=== PATIENT | female | born 1960 | race Caucasian/White ===

== ENCOUNTER → 2018-02-20 16:50 | Outpatient (CLI) | payer BC, SELFPAY ==
--- NOTE | 2018-02-20 13:45 | FLU_PTH ---
PATIENT: ANA ISLAS LOC: [facility]I U#:[id number] AGE/SX: 64/F ROOM: RE02/20/[address]: Dr. Rachid Powell MD : 1960 BED: DIS: SPEC #: [id number] RECD: 02/20/18 13:45 STATUS: JONAS REKhai #: [id number] NATALIE: 02/20/18 13:[address]: Rachid Powell DEPT: CYTOLOGY RECD BY: Zaynab Fermin ENTERED: 02/21/18 09:19 SP TYPE: Fluid OTHR DR: Dr. Staci Dan MD Tissues: Urine Procedures: Pap Stain (control) Special Stain Group II Surgery Specimen Level IV Cytospin Fluid HEADER OPERATION: Not noted PRE-OP DIAGNOSIS: R31.21, Z87.440 TISSUE SUBMITTED: Urine for cytology DIAGNOSIS CYTOLOGY Urine for cytology (cytospin): Rare atypical urothelial cells present. AM:mi 02/22/18 COMMENT The findings are nonspecific and could represent a variety of conditions including infection, urolithiasis, instrumentation and low grade urothelial neoplasm. Clinical correlation is necessary. CYTOLOGY STUDY Slides are reviewed. CYTOLOGY GROSS Received is 65 ml of clear pale yellow fluid labeled with the patient's name and and designated per the requisition as urine. Submitted for cytology preparation. / CC:cc 02/21/18 TC:? CPT: 26154
[2018-02-20 16:52] LABS: Cytology, Body Fluid / CSF SEE PATHOLOGY REPORT
== END ==
PROVIDERS: Family Provider Internal Medicine; PCP Internal Medicine; Visit Provider Urology
DX: R31.21 Asymptomatic microscopic hematuria (principal); Z87.440 Personal history of urinary (tract) infections
CPT/HCPCS: 88108; 88305; 88313

== ENCOUNTER → 2018-02-28 15:56 | Outpatient (CLI) | payer BC, SELFPAY ==
--- NOTE | 2018-02-28 16:01 | US_ITS ---
STUDY: ULTRASOUND TRANSVAGINAL CLINICAL: Female, 57 years old. Right adnexal mass. TECHNIQUE: Transvaginal COMPARISON: None. FINDINGS: Uterus is retroverted midline measuring 6.5 x 4.4 x 2.8 cm. Endometrium measures 2 mm in thickness and is hyperechoic. There are no endometrial masses, and there is no fluid in the endometrial cavity. Normal uterine cervix. Normal right ovary, measuring 3 x 2.7 x 2.7 cm. There are multiple follicles with a 2.6 cm dominant cyst Normal left ovary, measuring 2.5 x 2.7 x 2.2 cm. There are multiple follicles without a dominant cyst. There is no free fluid in the pelvis. US/Transvaginal Non- IMPRESSION: 1. 2.6 cm simple cyst in the right ovary. 2. Normal left ovary and uterus. Electronically Signed: Thor Sandra DO at 17:05 EDT Tel [phone], Service support ,
== END ==
LOC: US 15:58
PROVIDERS: Family Provider Internal Medicine; PCP Internal Medicine; Visit Provider Internal Medicine
DX: N83.9 Noninflammatory disorder of ovary, fallopian tube and broad ligament, unspecified (principal)
CPT/HCPCS: 76830; 93976

== ENCOUNTER → 2018-03-01 10:51 | Outpatient (CLI) | payer BC, SELFPAY ==
[2018-03-01 12:52] LABS: Hemoglobin A1c 5.4 % (4.2-6.3)
[2018-03-01 13:01] LABS: Estradiol < 11.0 pg/mL; Free T3 2.5 pg/mL (2.18-3.98); T4 Free Direct 0.76 ng/dL (0.76-1.46); Thyroid Stim Hormone (TSH) 2.21 uIU/mL (0.358-3.74)
[2018-03-02 09:14] LABS: Progesterone Level 0.06 ng/mL (See Comment)
== END ==
PROVIDERS: Visit Provider Obstetrics & Gynecology
DX: N83.209 Unspecified ovarian cyst, unspecified side (principal)
CPT/HCPCS: 36415; 82670; 83036; 84144; 84403; 84439; 84443; 84481

== ENCOUNTER → 2018-03-14 12:49 | Outpatient (CLI) | payer BC, SELFPAY ==
[2018-03-14 13:43] LABS: Erythrocyte Sedimentation Rate 13 mm/hr (0-30)
[2018-03-14 13:45] LABS: Hematocrit 38.4 % (37-47); Hemoglobin 12.5 g/dl (12.0-15.0); Mean Corp Hgb Conc 32.6 g/gl (32-36); Mean Corpuscular Hgb 30.6 pg (27.0-32.0); Mean Corpuscular Volume 94.1 fL (81-99); Mean Platelet Vol. 10.7 fl (6.2-12.0); Platelet Count 239 K/mm3 (150-450); RBC Distribution Width CV 13.1 % (11.6-14.6); RBC Distribution Width SD 43.9 fl (35.1-43.9); Red Blood Count 4.08 M/mm3 (4.2-5.4); Scan Indicated on CBC? Y/N NO; White Blood Count 5.4 K/mm3 (4.4-11.0)
[2018-03-14 14:14] LABS: AST(SGOT) 13 U/L (15-37); Alanine Aminotransfer ALT/SGPT 12 U/L (13-56); Albumin, Serum 3.7 g/dL (3.2-5.0); Alkaline Phosphatase 58 U/L (45-117); Anion Gap 6 (5-15); BUN 10 mg/dL (7-18); BUN/Creat Ratio 12.9 RATIO (10-20); Calcium,Total 9.2 mg/dL (8.5-10.1); Chloride 108 mmol/L (98-107); Creatinine, Serum 0.78 mg/dL (0.55-1.02); EST Glomerular Filtration Rate 81 mL/min (>60); Est Glom Filt Rate - Afr Amer 98 mL/min (>60); Globulin 3.6 g/dL (2.2-4.2); Glucose 90 mg/dL (74-106); Potassium 4.1 mmol/L (3.5-5.1); Protein, Total 7.3 g/dL (6.4-8.2); Sodium Level 142 mmol/L (136-145)
[2018-03-14 14:15] LABS: CRP < 2.90 mg/L (0.0-3.0)
[2018-03-15 11:10] LABS: Carcinoembryonic Antigen 0.9 ng/mL (0.0-4.7)
== END ==
PROVIDERS: Family Provider Internal Medicine; PCP Internal Medicine; Visit Provider Surgery
DX: K63.9 Disease of intestine, unspecified (principal); K65.1 Peritoneal abscess
CPT/HCPCS: 36415; 80053; 82378; 85027; 85652; 86140

== ENCOUNTER 2018-03-23 06:51 | Day surgery (SDC) | payer BC, SELFPAY ==
--- NOTE | 2018-03-23 | IMM_PTH ---
PATIENT: ANA ISLAS LOC: EN U#:[id number] AGE/SX: 57/F ROOM: RE03/23/[address]: Dr. Jeffery Holloway MD : 1960 BED: DIS: 03/23/2018 SPEC #: [id number] RECD: 03/26/18 11:18 STATUS: JONAS REKhai #: [id number] NATALIE: 03/23/18 00:[address]: Jeffery Holloway DEPT: IMMUNOHISTOCHEMISTRY RECD BY: Klaudia Francis ENTERED: 03/26/18 11:19 SP TYPE: IMMUNO OTHR DR: Dr. Staci Dan MD Tissues: B - Stomach, NOS Procedures: H Pylori (initial) PHYSICIAN & INSTITUTION [place] [address] SPECIMEN INFORMATION: Tissue Source: B ? Antrum biopsy Clinical Info: Mesenteric/liver masses Specimen Number: [id number] CPT code: 92114 METHODOLOGY: Deparaffinized sections of prefer/formalin-fixed tissue or PAP/DQ stained slides are incubated with monoclonal/polyclonal antibodies/oligonucleotide probes. Localization is made via biotin free immunoperoxidase method. Appropriate controls are performed and reacted as expected. Results on target cell population are indicated in the following table: RESULTS: ANTIBODY / CLONE RESULT Block B H Pylori (polyclonal) negative These tests were developed and their performance characteristics determined by [facility]. They may not have been cleared or approved by the U.S. Food and Drug Administration. The FDA has determined that such clearance or approval is not necessary. INTERPRETATION: B. Antrum, biopsy: Negative for Helicobacter pylori organisms. SJ:mi 03/26/18
--- NOTE | 2018-03-23 06:51 | DT_ITS ---
This patient was seen during an EMR downtime March 19, 2018 - March 26, 2018. This patient may have a combination of paper and electronic documentation or all paper documentation. All documentation is viewable within the e-chart portion of [facility] for each patient visit.
--- NOTE | 2018-03-23 08:32 | EGD_PTH ---
PATIENT: ANA ISLAS LOC: EN U#:[id number] AGE/SX: 57/F ROOM: RE03/23/[address]: Dr. Jeffery Holloway MD : 1960 BED: DIS: 03/23/2018 SPEC #: [id number] RECD: 03/23/18 11:52 STATUS: JONAS KISHORE #: [id number] NATALIE: 03/23/18 08:[address]: Jeffery Holloway DEPT: SURGICAL PATHOLOGY RECD BY: Leo Simon ENTERED: 03/23/18 12:19 SP TYPE: EGD BIOPSY OTHR DR: Dr. Staci Dan MD Tissues: A - Duodenum, NOS B - Gastric mucous membrane C - Gastric fundus D - Esophageal mucous membrane E - Sigmoid colon biopsy F - Sigmoid colon biopsy G - Sigmoid colon biopsy Procedures: Special Stain Group II Surgery Specimen Level IV Alcian Blue/PAS (control) HEADER OPERATION: EGD with biopsy; colonoscopy with biopsy/polypectomy PRE-OP DIAGNOSIS: Mesenteric/liver masses TISSUE SUBMITTED: A ? Biopsy duodenum, B ? Biopsy antrum ? path/pylori, C ? Gastric fundic polyps, D ? Distal esophagus, E ? Biopsy polyp proximal sigmoid, F ? Polyp sigmoid, G ? Polyp distal sigmoid MICROSCOPIC DIAGNOSIS A. 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 B. Antrum, biopsy: Mild gastritis. C. Gastric fundic polyps, biopsy: Fundic gland polyp. D. Distal esophagus, biopsy: Fragment of gastroesophageal mucosa with chronic inflammation. Intestinal metaplasia (goblet cell metaplasia) is not identified. See comment. E. Polyp proximal sigmoid, biopsy: Tubular adenoma. F. Polyp mid sigmoid, biopsy: Tubular adenoma. G. Polyp distal sigmoid, biopsy: A minute fragment of colonic mucosa with tubular adenomatous changes. Fragments of fecal material. See comment. SJ:rg 03/26/18 COMMENT B. The results of immunohistochemistry for Helicobacter pylori will be reported separately ([id number]). C. Alcian blue/PAS stain with matched control is used in the evaluation of the specimen. G. The specimen almost entirely consists of fecal material. Multiple levels are examined. Fragment of colonic mucosa with tubular adenomatous changes is noted only in one of the levels. MICROSCOPIC DESCRIPTION Slides are reviewed. B. The specimen shows fragments of gastric mucosa with chronic inflammatory cell infiltrates in the lamina propria consisting of lymphocytes and plasma cells, consistent with mild chronic gastritis. GROSS DESCRIPTION A - Received in fixative is one container labeled with the patient's name and designated biopsy duodenum. The specimen consists of one irregular fragment of light hannon soft tissue that measures 0.3 x 0.2 x 0.1 cm. The specimen is totally submitted in one cassette. B - Received in fixative is one container labeled with the patient's name and designated biopsy antrum. The specimen consists of one irregular fragment of light hannon soft tissue that measures 0.7 x 0.2 x 0.1 cm. The specimen is totally submitted in one cassette. C - Received in fixative is one container labeled with the patient's name and designated gastric fundic polyp. The specimen consists of one irregular fragment of light hannon soft tissue that measures 0.3 x 0.2 x 0.1 cm. The specimen is totally submitted in one cassette. D - Received in fixative is one container labeled with the patient's name and designated biopsy distal esophagus. The specimen consists of one irregular fragment of light hannon soft tissue that measures 0.4 x 0.3 x 0.1 cm. The specimen is totally submitted in one cassette. E - Received in fixative is one container labeled with the patient's name and designated biopsy polyp proximal sigmoid. The specimen consists of multiple irregular fragments of light hannon soft tissue that in aggregate measure 1.5 x 0.3 x 0.1 cm. The specimen is totally submitted in one cassette. F - Received in fixative is one container labeled with the patient's name and designated polyp mid sigmoid. The specimen consists of a hannon-pink polyp measuring 0.5 x 0.5 x 0.3 cm. Also present in the container are multiple fragments of fecal material. The specimen is totally submitted in one cassette. G - Received in fixative is one container labeled with the patient's name and designated polyp distal sigmoid. The specimen consists of multiple irregular fragments of hannon soft tissue mixed with fecal material that in aggregate measure 0.5 x 0.2 x 0.1 cm. The specimen is totally submitted in one cassette. / SJ:mi 03/23/18 TC:1 CPT: 61029 x7, 99748
== END 2018-03-23 10:40 | disposition home or self-care (01) ==
LOC: EN 06:51 → AC 09:26
PROVIDERS: Family Provider Internal Medicine; PCP Internal Medicine; Visit Provider Surgery
PROC: 0DJD8ZZ Inspection of Lower Intestinal Tract, Via Natural or Artificial Opening Endoscopic (ICD-10-PCS; CPT 45378; principal; 2018-03-23 07:55)
DX: R19.07 Generalized intra-abdominal and pelvic swelling, mass and lump (principal); K31.7 Polyp of stomach and duodenum; K20.9 Esophagitis, unspecified; K76.9 Liver disease, unspecified; D12.5 Benign neoplasm of sigmoid colon; K29.70 Gastritis, unspecified, without bleeding; K44.9 Diaphragmatic hernia without obstruction or gangrene; G43.909 Migraine, unspecified, not intractable, without status migrainosus; Z79.899 Other long term (current) drug therapy
CPT/HCPCS: 43239; 45380; 45385; 88305; 88313; 88342; 99152; 99153; J7120

== ENCOUNTER → 2021-07-08 10:30 | Outpatient (CLI) | payer SELFPAY ==
--- NOTE | 2021-07-08 10:38 | RAD_ITS ---
EXAM: XR CHEST, 2 VIEWS CLINICAL INDICATION: COUGH TECHNIQUE: Frontal and lateral views of the chest. This report was created using [employer] report generation technology. COMPARISON: 09/03/2012. FINDINGS: LUNGS AND PLEURAL SPACES: Unremarkable. No consolidation or edema. No pneumothorax. No effusion. HEART: Unremarkable. Cardiac silhouette not enlarged. MEDIASTINUM: Central airways and mediastinal contour are unremarkable. BONES/JOINTS: Unremarkable. SOFT TISSUES: Unremarkable. RAD/Chest PA and Lateral IMPRESSION: No radiographic evidence of acute cardiopulmonary disease and unchanged since 09/03/2012. Electronically Signed: Sebastien Kline MD at 10:56 EDT , Service support ,
== END ==
PROVIDERS: PCP Internal Medicine; Referring Provider Internal Medicine; Visit Provider Internal Medicine
DX: R05 Cough (principal)
CPT/HCPCS: 71046

== ENCOUNTER → 2024-05-16 | Outpatient (CLI) | payer OTHER, SELFPAY ==
[2024-05-16 10:58] LABS: Absolute Lymphocyte Count 1.19 X10^3/uL (0.83-4.51); Absolute Neutrophil Count 1.1 X10^3/uL (2.0-7.7); Basophil# 0.02 X10^3/uL; Basophil% 0.8 % (0-1); Eosinophil# 0.05 X10^3/uL; Eosinophils% 1.9 % (0-5); Hematocrit 34.2 % (37-47); Hemoglobin 11.2 g/dL (12.0-15.0); Lymphocyte # 1.19 X10^3/ul (0.83-4.51); Lymphocyte % 44.9 % (19-41); Mean Corp Hgb Conc 32.7 g/dL (32-36); Mean Corpuscular Hgb 32.9 pg (27.0-32.0); Mean Corpuscular Volume 100.6 fL (81-99); Mean Platelet Vol. 9.3 fl (6.2-12.0); Monocyte# 0.32 X10^3/uL; Monocyte% 12.1 % (0-10); NRBC Flagged by Analyzer 0 % (0-5); Neutrophil # 1.06 X10^3/uL (2.7-7.7); Neutrophil % 39.9 % (47-70); Platelet Count 113 K/mm3 (150-450); RBC Distribution Width CV 13.7 % (11.6-14.6); RBC Distribution Width SD 50.2 fl (35.1-43.9); White Blood Count 2.7 K/mm3 (4.4-11.0)
[2024-05-16 11:13] LABS: ALB/GLOB Ratio 1.1 RATIO (0.9-2.4); AST(SGOT) 14 U/L (15-37); Alanine Aminotransfer ALT/SGPT 15 U/L (13-56); Albumin, Serum 3.5 g/dL (3.2-5.0); Alkaline Phosphatase 50 U/L (45-117); Anion Gap 5 (5-15); BUN 13 mg/dL (7-18); BUN/Creat Ratio 16.4 RATIO (10-20); Calcium,Total 9.3 mg/dL (8.5-10.1); Chloride 109 mmol/L (98-107); Creatinine, Serum 0.79 mg/dL (0.55-1.02); EST Glomerular Filtration Rate 77 mL/min (>60); Est Glom Filt Rate - Afr Amer 94 mL/min (>60); Globulin 3.3 g/dL (2.2-4.2); Glucose 80 mg/dL (74-106); LDH 177 U/L (84-246); Potassium 3.8 mmol/L (3.5-5.1); Protein, Total 6.8 g/dL (6.4-8.2); Sodium Level 142 mmol/L (136-145)
[2024-05-16 18:53] LABS: Xtra Tube EP Lab EXTRA TUBE
== END | disposition home or self-care (01) ==
LOC: PAVLAB 10:27
PROVIDERS: PCP Internal Medicine; Visit Provider Internal Medicine Medical Oncology
DX: C82.13 Follicular lymphoma grade II, intra-abdominal lymph nodes (principal); D49.0 Neoplasm of unspecified behavior of digestive system
CPT/HCPCS: 36415; 80053; 83615; 85025

== ENCOUNTER → 2024-08-05 | Outpatient (CLI) | payer OTHER, SELFPAY ==
--- NOTE | 2024-08-05 17:01 | US_ITS ---
INDICATION: monitory ovarian cyst EXAMINATION: Ultrasound US Pelvis Non OB Limited With Transvaginal Imaging TECHNIQUE: Transvaginal (for optimal evaluation of the adnexa) pelvic ultrasound was performed. Grayscale, spectral waveform, and color flow Doppler evaluation of the adnexa. COMPARISON: No relevant prior comparison study available FINDINGS: UTERUS: Retroverted. The uterus measures 5.7 x 4 x 2.8 cm. There is no uterine mass. The endometrial stripe measures 2.8 mm in AP diameter which is within normal limits. RIGHT OVARY: 5.1 x 3.8 x 2.0 cm. There is a 4.1 cm cyst in the right ovary. There is normal arterial inflow and venous outflow present in the right ovary. LEFT OVARY: 1.9 x 0.7 x 0.6 cm. Non-enlarged, normal echogenicity. There is normal arterial inflow and venous outflow present in the left ovary. FREE FLUID: None. US/Pelvic w/ Transvaginal IMPRESSION: Right ovarian cyst. Electronically Signed: Alexi Schreiber MD at 14:42 EDT ,
== END | disposition home or self-care (01) ==
LOC: US 17:01
PROVIDERS: PCP Internal Medicine; Referring Provider Obstetrics & Gynecology; Visit Provider Obstetrics & Gynecology
DX: N83.201 Unspecified ovarian cyst, right side (principal)
CPT/HCPCS: 76830; 76856

== ENCOUNTER → 2024-08-21 | Outpatient (CLI) | payer OTHER, SELFPAY ==
[2024-08-21 17:49] LABS: Absolute Lymphocyte Count 1.48 X10^3/uL (0.83-4.51); Absolute Neutrophil Count 0.2 X10^3/uL (2.0-7.7); Eosinophil# 0.01 X10^3/uL; Eosinophils% 0.6 % (0-5); Hematocrit 17.8 % (37-47); Hemoglobin 6.1 g/dL (12.0-15.0); Lymphocyte # 1.48 X10^3/ul (0.83-4.51); Lymphocyte % 83.1 % (19-41); Mean Corp Hgb Conc 34.3 g/dL (32-36); Mean Corpuscular Hgb 36.7 pg (27.0-32.0); Mean Corpuscular Volume 107.2 fL (81-99); Mean Platelet Vol. 12.3 fl (6.2-12.0); Monocyte# 0.08 X10^3/uL; Monocyte% 4.5 % (0-10); NRBC Flagged by Analyzer 0 % (0-5); Neutrophil # 0.21 X10^3/uL (2.7-7.7); Neutrophil % 11.8 % (47-70); POSITIVE COUNT YES; POSITIVE DIFFERENTIAL YES; RBC Distribution Width CV 14.4 % (11.6-14.6); RBC Distribution Width SD 54.5 fl (35.1-43.9); Red Blood Count 1.66 M/mm3 (4.2-5.4); White Blood Count 1.8 K/mm3 (4.4-11.0)
[2024-08-21 17:56] LABS: International Normalized Ratio 1.1; Prothrombin Time (Protime)PT. 13.7 SECONDS (11.7-14.9)
[2024-08-21 17:57] LABS: Partial Thromboplast Time 25.2 Seconds (24.1-36.2)
[2024-08-21 20:40] LABS: Differential Comment SCANNED; Differential Indicated SCAN CRITERIA MET; Platelet Count 6 K/mm3 (150-450)
[2024-08-23 08:11] LABS: Pathologist Review Reviewed
== END | disposition home or self-care (01) ==
LOC: MTLAB 14:38
PROVIDERS: PCP Internal Medicine; Referring Provider Nurse Practitioner Family; Visit Provider Nurse Practitioner Family
DX: D69.2 Other nonthrombocytopenic purpura (principal)
CPT/HCPCS: 36415; 85025; 85610; 85730

== ENCOUNTER 2024-09-03 13:31 | Outpatient (CLI) | payer OTHER, SELFPAY ==
[2024-09-03 13:51] VITALS: BP 106/55; PULSE 67; RESP 16; TEMP 36.2; O2SAT 100
[2024-09-03 14:06] VITALS: BP 101/63; PULSE 62; RESP 14; TEMP 36.3; O2SAT 100
[2024-09-03 14:43] VITALS: BP 103/58; PULSE 65; RESP 16; TEMP 36.3; O2SAT 100
== END 2024-09-03 23:59 | disposition home or self-care (01) ==
LOC: MEDOUTP 13:31
PROVIDERS: PCP Internal Medicine
DX: D61.818 Other pancytopenia (principal)
CPT/HCPCS: 36430; 86900; 86901; 86965; J7050; P9035; A4216

== ENCOUNTER 2024-09-13 07:51 | Outpatient (CLI) | payer OTHER, SELFPAY ==
[2024-09-13 08:30] LABS: Absolute Lymphocyte Count 0.42 X10^3/uL (0.83-4.51); Absolute Neutrophil Count 0.1 X10^3/uL (2.0-7.7); Hemoglobin 9.3 g/dL (12.0-15.0); Lymphocyte # 0.42 X10^3/ul (0.83-4.51); Lymphocyte % 73.7 % (19-41); Mean Corp Hgb Conc 35.8 g/dL (32-36); Mean Corpuscular Hgb 31.1 pg (27.0-32.0); Mean Platelet Vol. 8.6 fl (6.2-12.0); Monocyte# 0.04 X10^3/uL; NRBC Flagged by Analyzer 0 % (0-5); Neutrophil # 0.11 X10^3/uL (2.7-7.7); Neutrophil % 19.3 % (47-70); POSITIVE COUNT YES; POSITIVE DIFFERENTIAL YES; Platelet Count 16 K/mm3 (150-450); RBC Distribution Width CV 18.4 % (11.6-14.6); RBC Distribution Width SD 58.6 fl (35.1-43.9); Red Blood Count 2.99 M/mm3 (4.2-5.4); White Blood Count 0.6 K/mm3 (4.4-11.0)
[2024-09-13 08:36] LABS: Differential Indicated SCAN CRITERIA MET
[2024-09-13 08:47] LABS: ALB/GLOB Ratio 0.9 RATIO (0.9-2.4); AST(SGOT) 13 U/L (15-37); Alanine Aminotransfer ALT/SGPT 31 U/L (13-56); Albumin, Serum 3.1 g/dL (3.2-5.0); Alkaline Phosphatase 55 U/L (45-117); Anion Gap 8 (5-15); BUN 30 mg/dL (7-18); BUN/Creat Ratio 25.6 RATIO (10-20); Calcium,Total 9.3 mg/dL (8.5-10.1); Chloride 100 mmol/L (98-107); Creatinine, Serum 1.17 mg/dL (0.55-1.02); EST Glomerular Filtration Rate 49 mL/min (>60); Est Glom Filt Rate - Afr Amer 60 mL/min (>60); Globulin 3.6 g/dL (2.2-4.2); Glucose 117 mg/dL (74-106); Potassium 4.2 mmol/L (3.5-5.1); Protein, Total 6.7 g/dL (6.4-8.2); Sodium Level 132 mmol/L (136-145)
[2024-09-13 08:56] LABS: Platelet Estimate MKD DEC (ADEQ)
[2024-09-13 16:23] LABS: Xtra CC BBK (Onc ONLY) EXTRA TUBE
[2024-09-16 13:48] LABS: Pathologist Review Reviewed
== END 2024-09-13 23:59 | disposition home or self-care (01) ==
LOC: MEDOUTP 07:51
PROVIDERS: PCP Internal Medicine; Referring Provider Nurse Practitioner Gerontology; Visit Provider Nurse Practitioner Gerontology
DX: D61.818 Other pancytopenia (principal)
CPT/HCPCS: 36592; 80053; 85025; 86900; 86901; A4216

== ENCOUNTER 2024-09-14 08:05 | Outpatient (CLI) | payer OTHER, SELFPAY ==
[2024-09-14 09:01] VITALS: BP 140/80; PULSE 63; RESP 16; TEMP 36.5; O2SAT 99
[2024-09-14 09:16] VITALS: BP 125/75; PULSE 64; RESP 17; TEMP 36.6; O2SAT 98
[2024-09-14 10:20] VITALS: BP 127/74; PULSE 58; RESP 18; TEMP 36.6; O2SAT 99
[2024-09-14 11:04] VITALS: BP 131/74; PULSE 60; RESP 18; TEMP 36.7; O2SAT 100
[2024-09-14] MEDS: 0.9 % NaCl (Sterile) Posiflush 10 mL IV (11:14)
== END 2024-09-14 11:26 | disposition home or self-care (01) ==
LOC: MEDOUTP 08:07 → MS3 08:08
PROVIDERS: PCP Internal Medicine; Referring Provider Nurse Practitioner Gerontology; Visit Provider Nurse Practitioner Gerontology
DX: D61.818 Other pancytopenia (principal)
CPT/HCPCS: 36430; 86900; 86901; 86965; P9035

== ENCOUNTER 2024-09-28 11:04 | Emergency (ER) | payer OTHER, SELFPAY ==
[2024-09-28] VITALS (13 sets, daily range): BP systolic 94–139; BP diastolic 54–77; PULSE 66–83; RESP 14–19; TEMP 36.4–37; O2SAT 96–100; BMI 20.7
--- NOTE | 2024-09-28 11:28 | EDS_ITS ---
<Statement entered by Teofilo Howard DO - 09/28/24 20:40> Patient was seen and examined with physician assistant Edmonds All components of the history and physical confirmed and agreed. History of present illness and physical exam: Patient is a 63-year-old female past medical history of aplastic anemia, migraine headaches who presents to the emergency department the chief complaint of right-sided nosebleed. States that this started around 7 AM this morning shortly after she woke up. She states that this continued for about an hour and then stopped on its own. She states that she went back to sleep and after waking up again her nose started to begin to bleed. She states that she called her oncology team in [place] at [facility] and they recommended her coming to the emergency department for the valuation management. Patient denies any trauma to her nose. She denies any blood thinning medications. She states that she did have labs obtained on 09/23/2024 that showed a platelet count of 22 and she states that she received a platelet transfusion as well. She notes that the area in her home is very dry and thinks that this could be the cause of this bleed. Review of systems: Agree with above Physical exam: Agree with above MDM Patient is a 63-year-old female who presented to the emerged part with chief complaint of epistaxis. Given her history of aplastic anemia and low platelet counts we will add on blood work here in the emergency department. Patient's previous blood work from [facility] was reviewed and showed a platelet count of 26 on the ninth of this month she had a platelet transfusion on September 17. She states that she follows with Dr. Grajeda as well. Patient's CBC reviewed and her white blood count was noted 1.1, hemoglobin was 6.4 and her platelet count was noted to be 4. Patient has not had any episodes of epistaxis here in the emergency department. Patient's BMP reviewed showed normal sodium 130, potassium was 4.6, creatinine normal at 0.94. Physician assistant Edmonds did speak with the oncologist Dr. López who is recommending giving 1 pack of platelets and 2 units of blood. She did confirm that the patient does not r equire CMV negative platelets through [facility] transfusion center. Patient was given transfusion and was observed here for extended period of time no episodes of epistaxis she tolerated this well. She is advised to follow-up with her oncologist on Monday. She was encouraged return with worsening symptoms or any concerns. She would like to go home at this point time all question concerns answered the bedside and she was discharged home in stable condition. Patient states that her stools been normal no dark black stools no blood in her stool. Plan: Final impression: Anemia Thrombocytopenia History of aplastic anemia Epistaxis Disposition: Patient will be discharged home in stable condition Supervising attending attestation: Teofilo HUMPHRIES History of Present Illness Chief Complaint: Nosebleed Narrative Narrative: Patient presenting today due to a right-sided nosebleed that started this morning around 7 AM when she woke up. She reports that it bled for about an hour and then stopped. She went back to sleep and after waking up her nose began to bleed again. She called her oncology team who manages her aplastic anemia and they recommended coming into the emergency department for evaluation. She denies any trauma to her nose, blood in the posterior pharynx, fevers, and chills. Her nose is not currently bleeding. She had labs obtained on 09/23/2024 that showed a platelet count of 22, she received a platelet transfusion 09/17. She has had nosebleeds in the past, she does not follow with ENT. She reports that the air in her home is very dry and thinks that could be contributing to it. She is not on blood thinners. [facility] Medical History Vaginal dryness Lymphoma Liver lesion Fatigue Adnexal fullness EGD WITH BIOPSY Migraine Mesenteric mass Constipation Cardiac murmur Home Medications ?Medication ?Instructions ?Recorded ?Last Taken ?Type sumatriptan succinate 50 mg tablet 50 mg PO ONCE PRN migraine headache 03/09/18 Unknown History (Imitrex) cranberry fruit 400 mg tablet 400 mg PO DAILY 08/04/23 Unknown History d-mannose 500 mg capsule (AZO mg PO 08/04/23 Unknown History D-Mannose) ibuprofen 200 mg capsule 200 mg PO Q6H PRN pain 08/04/23 Unknown History magnesium 200 mg tablet 200 mg PO DAILY 08/04/23 Unknown History Allergy/AdvReac Type Severity Reaction Status Date / Time Egg Derived Allergy Food Verified 09/28/24 11:06 Allergy Family History Mother Diabetes Kidney disease Grandmother Breast cancer Cancer Grandfather Cancer Surgical History History of hernia repair History of esophagogastroduodenoscopy (EGD) History of resection of small bowel Social History Smoking Status: Never smoker alcohol intake: current details: occasionally substance use type: does not use caffeine: Yes what type of physical activity do you participate in: walking and swimming frequency: 1-2 times per week seatbelt use: always do you feel safe at home: Yes additional social history: -[place] Patient is a paraprofessional at [employer] ED Constitutional Constitutional ED: Denies chills or fever(s) ENT ENT ED: Reports epistaxis Cardiovascular Cardiovascular: Denies chest pain Respiratory/Chest Respiratory/Chest: Denies dyspnea Gastrointestinal Gastrointestinal: Denies abdominal pain, melena, nausea or vomiting Musculoskeletal Musculoskeletal: Denies arthralgias or myalgias Integumentary Denies rash Neurologic Neurologic: Denies weakness EXAM Physical Exam Const Vital Signs: 09/28/24 11:05 09/28/24 13:05 09/28/24 14:15 Temperature 98 F 98.3 F Temperature Source Temporal Oral Pulse Rate 83 72 71 Respiratory Rate 14 15 16 Blood Pressure 130/72 H 110/59 L 109/54 L Blood Pressure Mean 91 76 72 Blood Pressure Source Monitor Blood Pressure Position Sitting Blood Pressure Location Left Arm Pulse Ox 99 98 99 Oxygen Delivery Method Room Air Room Air Room Air 09/28/24 14:30 09/28/24 15:00 09/28/24 15:30 Temperature 98.2 F 98.1 F Temperature Source Oral Oral Pulse Rate 73 71 73 Respiratory Rate 16 14 14 Blood Pressure 121/66 H 107/61 98/62 Blood Pressure Mean 84 76 74 Blood Pressure Source Monitor Monitor Blood Pressure Position Supine Blood Pressure Location Left Arm Pulse Ox 99 98 99 Oxygen Delivery Method Room Air Room Air Room Air 09/28/24 16:25 09/28/24 16:45 09/28/24 16:45 Temperature 98.2 F 98.2 F 98.6 F Temperature Source Oral Oral Oral Pulse Rate 73 74 69 Respiratory Rate 16 16 16 Blood Pressure 103/62 94/63 107/69 Blood Pressure Mean 75 73 81 Blood Pressure Source Monitor Monitor Monitor Blood Pressure Position Sitting Sitting Supine Blood Pressure Location Left Arm Left Arm Left Arm Pulse Ox 99 100 100 Oxygen Delivery Method Room Air Room Air Room Air 09/28/24 17:00 09/28/24 17:30 09/28/24 17:49 Temperature 98.6 F 97.5 F L Temperature Source Oral Temporal Pulse Rate 66 67 67 Respiratory Rate 16 16 16 Blood Pressure 108/70 113/77 136/70 H Blood Pressure Mean 82 89 92 Blood Pressure Source Monitor Monitor Blood Pressure Position Supine Blood Pressure Location Pulse Ox 100 99 96 Oxygen Delivery Method Room Air Room Air 09/28/24 18:49 09/28/24 19:17 Temperature 97.9 F 97.9 F Temperature Source Temporal Pulse Rate 66 77 Respiratory Rate 19 H 18 Blood Pressure 139/68 H 130/70 H Blood Pressure Mean 91 90 Blood Pressure Source Monitor Blood Pressure Position Blood Pressure Location Pulse Ox 99 99 Oxygen Delivery Method Positive well nourished, well developed and no apparent distress General Appearance ED: well developed HEENT Reports normocephalic and head/scalp atraumatic HEENT Narrative: Erythematous mucosa right anterior nostril. No active bleeding. No blood in the posterior pharynx, no septal hematoma, no septal deviation. Mouth ED: Yes moist mucous membranes normal Eyes PERRL and EOMs intact bilaterally Neck full ROM and supple Chest Wall inspection of chest normal Resp normal respiratory effort and clear to auscultation bilaterally Cardio regular rate and regular rhythm Back/Spine normal ROM and normal to inspection Extremity normal to inspection and full ROM Neuro oriented x3, CN's II-XII intact bilaterally, moves all extremities, no focal motor deficits and no sensory deficits noted Sensorium / Orientation: awake and alert Psych mental status grossly normal and thought process normal Skin no rashes or lesions noted and no wounds MDM MDM MDM Narrative Medical decision making narrative: Patient presenting today with a nosebleed that started around 7 AM this morning and lasted about an hour, and then stopped and started again, prompting her to come in. No active bleeding at this time. She does have a history of aplastic anemia, I did review previous labs and she had a platelet count of 26 on the ninth of this month. She last had a platelet transfusion on 09/17. She follows with Dr. Grajeda and gets her transfusions done at the [facility] transfusion center. She is nontoxic-appearing. Labs obtained, her WBC is 1.1, H&H is 6.4 and 19.2, platelet count is 4. She has no other signs of bleeding, no melena. BMP without any electrolyte derangement or kidney dysfunction. I did speak with on- call oncologist, Dr. Alvarado, he recommended giving 1 pack of platelets and 2 units of blood. I did confirm that patient is to receive irradiated and does not require CMV negative platelets through [facility] transfusion center. After transfusion she was observed for an extended period of time and is doing well. She is to follow-up with her oncologist in the next few days. Return instructions discussed. No recurrence of her epistaxis. She will be discharged home in stable condition. Lab Data Attestation: I reviewed the patient's lab results. Labs: Laboratory Results - last 24 hr 09/28/24 09/28/24 12:00 12:35 WBC 1.1 L* RBC 2.08 L Hgb 6.4 L Hct 19.2 L MCV 92.3 MCH 30.8 MCHC 33.3 RDW Std Deviation 64.3 H RDW Coeff of Shawna 19.2 H Plt Count 4 L* Immature Gran % (Auto) 0.900 Neut % (Auto) 4.4 L Lymph % (Auto) 88.5 H Traverse % (Auto) 5.3 Eos % (Auto) 0.9 Baso % (Auto) 0.0 Absolute Neuts (auto) 0.1 L Absolute Lymphs (auto) 1.00 Nucleated RBC % 1.8 Differential Comment Diff Path Review May foll Sodium 138 Potassium 4.6 Chloride 108 H Carbon Dioxide 26.0 Anion Gap 4 L BUN 16 Creatinine 0.94 Estim Creat Clear Calc 49.36 Est GFR (MDRD) Af Amer 77 Est GFR (MDRD) Non-Af 64 BUN/Creatinine Ratio 17.1 Glucose 101 Calcium 9.0 Blood Type O POSITIVE Antibody Screen NEGATIVE Crossmatch See Detail Discharge Plan Triage Chief Complaint: Nosebleed ED Midlevel Provider: Hodan Saul ED Provider: Teofilo Howard Dx/Rx/DC Orders Clinical Impression: Aplastic anemia, Acute anterior epistaxis Instructions: Anemia, ED Epistaxis (Adult) Prescriptions: No Action sumatriptan succinate [Imitrex] 50 mg tablet 50 mg PO ONCE PRN (Reason: migraine headache) ibuprofen 200 mg capsule 200 mg PO Q6H PRN (Reason: pain) magnesium 200 mg tablet 200 mg PO DAILY cranberry fruit 400 mg tablet 400 mg PO DAILY Rx Instructions: administer with a meal AZO D-Mannose 500 mg capsule PO Primary Care Provider: Nohemi Maynard Referrals: Nohemi Maynard DO [Primary Care Provider] - Activity Restrictions/Additional Instructions: Follow-up with your oncologist in the next 3 to 5 days. Return for any other concerns. Print Language: Vietnamese Disposition Disposition: Home, Self Care
[2024-09-28] MEDS: Oxymetazoline 0.05% 1 SPRAY SPRAY.BTL NASAL (11:59)
[2024-09-28 12:15] LABS: Absolute Neutrophil Count 0.1 X10^3/uL (2.0-7.7); Eosinophil# 0.01 X10^3/uL; Eosinophils% 0.9 % (0-5); Hematocrit 19.2 % (37-47); Hemoglobin 6.4 g/dL (12.0-15.0); Lymphocyte % 88.5 % (19-41); Mean Corp Hgb Conc 33.3 g/dL (32-36); Mean Corpuscular Hgb 30.8 pg (27.0-32.0); Mean Corpuscular Volume 92.3 fL (81-99); Monocyte# 0.06 X10^3/uL; Monocyte% 5.3 % (0-10); NRBC Flagged by Analyzer 1.8 % (0-5); Neutrophil # 0.05 X10^3/uL (2.7-7.7); Neutrophil % 4.4 % (47-70); POSITIVE COUNT YES; POSITIVE DIFFERENTIAL YES; Platelet Count 4 K/mm3 (150-450); RBC Distribution Width CV 19.2 % (11.6-14.6); RBC Distribution Width SD 64.3 fl (35.1-43.9); Red Blood Count 2.08 M/mm3 (4.2-5.4); White Blood Count 1.1 K/mm3 (4.4-11.0)
[2024-09-28 12:17] LABS: Differential Indicated SCAN CRITERIA MET
[2024-09-28 12:23] LABS: Anion Gap 4 (5-15); BUN 16 mg/dL (7-18); BUN/Creat Ratio 17.1 RATIO (10-20); Chloride 108 mmol/L (98-107); Creatinine, Serum 0.94 mg/dL (0.55-1.02); EST Glomerular Filtration Rate 64 mL/min (>60); Est Glom Filt Rate - Afr Amer 77 mL/min (>60); Estimated Creatinine Clearance 49.36 ml/min; Glucose 101 mg/dL (74-106); Potassium 4.6 mmol/L (3.5-5.1); Sodium Level 138 mmol/L (136-145)
--- NOTE | 2024-09-28 12:38 | ED.RN ---
PT IS ATTEMPTING TO TALK WITH DAUGHTER BUT IS UNABLE TO SPEAK CLEARLY. PT SEEMS TO UNDERSTAND WHAT IS TOLD TO HIM BUT IS UNABLE TO VERBALLY RESPOND. ATTEMPTED TO GET PT TO WRITE RESPONSES BUT PT DOESN'T REALLY READ AND WRITE WELL PER FAMILY SO HE ISN'T WILLING TO TRY.
[2024-10-01 15:14] LABS: Pathologist Review Reviewed
== END 2024-09-28 19:48 | disposition home or self-care (01) ==
PROVIDERS: Emergency Provider Emergency Medicine; PCP Internal Medicine; Visit Provider Emergency Medicine
DX: R04.0 Epistaxis (principal); D69.6 Thrombocytopenia, unspecified; D64.9 Anemia, unspecified; Z86.2 Personal history of diseases of the blood and blood-forming organs and certain disorders involving the immune mechanism
CPT/HCPCS: 36415; 80048; 85025; 86850; 86900; 86901; 86920; 86922; 86965; 99282; P9016; P9035; A4216

== ENCOUNTER 2024-09-29 02:05 | Emergency (ER) | payer OTHER, SELFPAY ==
[2024-09-29 02:06] VITALS: BP 123/72; PULSE 77; RESP 16; TEMP 36.6; O2SAT 100; BMI 21.6
[2024-09-29 02:58] LABS: Absolute Lymphocyte Count 0.81 X10^3/uL (0.83-4.51); Absolute Neutrophil Count 0.1 X10^3/uL (2.0-7.7); Hemoglobin 7.9 g/dL (12.0-15.0); Lymphocyte # 0.81 X10^3/ul (0.83-4.51); Lymphocyte % 84.4 % (19-41); Mean Corp Hgb Conc 34.3 g/dL (32-36); Mean Corpuscular Hgb 29.6 pg (27.0-32.0); Mean Corpuscular Volume 86.1 fL (81-99); Mean Platelet Vol. 10.1 fl (6.2-12.0); Monocyte# 0.06 X10^3/uL; Monocyte% 6.3 % (0-10); NRBC Flagged by Analyzer 0 % (0-5); Neutrophil # 0.09 X10^3/uL (2.7-7.7); Neutrophil % 9.3 % (47-70); POSITIVE COUNT YES; POSITIVE DIFFERENTIAL YES; RBC Distribution Width CV 18.9 % (11.6-14.6); RBC Distribution Width SD 58.5 fl (35.1-43.9); Red Blood Count 2.67 M/mm3 (4.2-5.4)
[2024-09-29 03:02] LABS: Differential Indicated SCAN CRITERIA MET
[2024-09-29 03:04] LABS: Platelet Count 34 K/mm3 (150-450); Prothrombin Time (Protime)PT. 13.1 SECONDS (11.7-14.9)
[2024-09-29 03:05] LABS: Partial Thromboplast Time 25.6 Seconds (24.1-36.2)
[2024-09-29 03:43] LABS: Differential Comment SCANNED; Platelet Estimate MKD DEC (ADEQ)
[2024-09-29 03:44] LABS: Anisocytosis 2+; Hypochromasia 2+; Macrocytosis 1+; Microcytosis 1+; Ovalocyte 1+
[2024-09-29 03:46] LABS: Other RBC Morphology 2+
--- NOTE | 2024-09-29 03:46 | EX.ED.DYSGE1 ---
HPI History of Present Illness Chief Complaint: Nosebleed Informant: patient and spouse/S.O. Narrative Narrative: Patient is a 63-year-old female with diagnosis of aplastic anemia. She was seen in the ER earlier today secondary to spontaneous right-sided nosebleed. At that time labs were obtained and showed thrombocytopenia with a platelet count of 4 as well as anemia with a hemoglobin of 6.4. She was given 2 units of blood and 1 unit of platelets in the ER and watched for multiple hours and her bleeding spontaneously resolved without repeat bleeding. She states she was discharged home and was home for a few hours when she had spontaneous bleeding from the right nostril once again. Patient denies any trauma or excessive blowing her nose prior to the bleeding beginning but as this is the second time it has bled today she is concerned it may need further intervention and comes in for evaluation [facility] Medical History Vaginal dryness Lymphoma Liver lesion Fatigue Adnexal fullness EGD WITH BIOPSY Migraine Mesenteric mass Constipation Cardiac murmur Home Medications ?Medication ?Instructions ?Recorded ?Last Taken ?Type sumatriptan succinate 50 mg tablet 50 mg PO ONCE PRN migraine headache 03/09/18 Unknown History (Imitrex) cranberry fruit 400 mg tablet 400 mg PO DAILY 08/04/23 Unknown History d-mannose 500 mg capsule (AZO mg PO 08/04/23 Unknown History D-Mannose) ibuprofen 200 mg capsule 200 mg PO Q6H PRN pain 08/04/23 Unknown History magnesium 200 mg tablet 200 mg PO DAILY 08/04/23 Unknown History tramadol 50 mg tablet 50 mg PO Q6H PRN pain 5 days #20 09/29/24 Unknown Rx tabs Allergy/AdvReac Type Severity Reaction Status Date / Time Egg Derived Allergy Food Verified 09/29/24 02:05 Allergy Family History Mother Diabetes Kidney disease Grandmother Breast cancer Cancer Grandfather Cancer Surgical History History of hernia repair History of esophagogastroduodenoscopy (EGD) History of resection of small bowel Social History Smoking Status: Never smoker alcohol intake: current details: occasionally substance use type: does not use caffeine: Yes what type of physical activity do you participate in: walking and swimming frequency: 1-2 times per week seatbelt use: always do you feel safe at home: Yes additional social history: -[place] Patient is a paraprofessional at [employer] ED Constitutional Constitutional ED: Denies chills or fever(s) Eyes Eyes: Denies blurry vision or change in vision ENT ENT ED: Reports other Details: Positive nosebleed Cardiovascular Cardiovascular: Denies chest pain Respiratory/Chest Respiratory/Chest: Denies cough or dyspnea Gastrointestinal Gastrointestinal: Denies abdominal pain, diarrhea, nausea or vomiting Genitourinary Genitourinary ED: Denies dysuria Musculoskeletal Musculoskeletal: Denies myalgias Integumentary Denies rash Neurologic Neurologic: Denies headache(s) Hematologic/Lymphatic Hematologic/Lymphatic: Reports anemia, easy bleeding and easy bruising Allergic/Immunologic Allergic/Immunologic ED: Denies mouth swelling or tongue swelling EXAM Physical Exam Const Vital Signs: 09/29/24 02:06 09/29/24 04:00 Temperature 98 F 97.6 F L Temperature Source Oral Pulse Rate 77 69 Respiratory Rate 16 16 Blood Pressure 123/72 H 114/58 L Blood Pressure Mean 89 76 Pulse Ox 100 98 Oxygen Delivery Method Room Air Positive well nourished and well developed General Appearance ED: well developed and pallor HEENT HEENT Narrative: Patient has a persistent ooze of dark red nonpulsatile blood from the right nostril. No obvious septal hematoma noted. No overflow bleeding out of the left nostril. There is mild drainage of blood in the posterior pharynx without airway edema or compromise Eyes PERRL and EOMs intact bilaterally General Eye ED: Yes pale conjunctiva and scleral icterus Neck supple Neck Narrative: No nuchal rigidity or meningeal signs Resp normal respiratory effort and clear to auscultation bilaterally Cardio regular rate and regular rhythm Extremity normal to inspection Neuro oriented x3, CN's II-XII intact bilaterally and no sensory deficits noted Sensorium / Orientation: alert Motor Exam: strength 5/5 throughout Psych mental status grossly normal Skin no rashes or lesions noted General Skin Exam: jaundice and pallor MDM MDM MDM Narrative Medical decision making narrative: Patient arrived to the ER with stable vitals and reported repeat spontaneous bleeding out of the right nostril. Because of her history of aplastic anemia there is concern that she will have persistent thrombocytopenia or require another blood transfusion based on her blood loss. Therefore basic labs were obtained. There was no obvious area along the nasal septum that showed active bleeding but as it has bled twice today I did feel it would require hemostasis with nasal packing. The patient therefore had a 5.5 cm rapid Rhino placed inside the right nostril and inflated to 3 cm of air. She was watched for approximately 45 minutes and there was no overflow bleeding out of the left nostril down the posterior pharynx. Lab work showed that her hemoglobin had improved to 7.9 and her platelet count had improved to 34. I did discuss the case with oncology on-call and they do not recommend further blood platelets or fresh frozen plasma to be given at this time as the bleeding has stopped and her recent values are much improved from earlier. The patient was advised she needs to follow-up with her oncologist as well as ENT for further evaluation and agrees with the plan of care but at this time as she is hemodynamically stable has had improvement to her laboratory values and is no longer bleeding she will be discharged home History & Record Review Discussion w/independent historian: Patient and Significant other Lab Data Attestation: I reviewed the patient's lab results. Labs: Laboratory Results - last 24 hr 09/29/24 02:50 WBC 1.0 L* RBC 2.67 L Hgb 7.9 L Hct 23.0 L MCV 86.1 D MCH 29.6 MCHC 34.3 RDW Std Deviation 58.5 H RDW Coeff of Shawna 18.9 H Plt Count 34 L* MPV 10.1 Immature Gran % (Auto) 0.000 Neut % (Auto) 9.3 L Lymph % (Auto) 84.4 H [place] % (Auto) 6.3 Eos % (Auto) 0.0 Baso % (Auto) 0.0 Absolute Neuts (auto) 0.1 L Absolute Lymphs (auto) 0.81 L Nucleated RBC % 0 Differential Comment SCANNED Diff Path Review May foll Platelet Estimate MKD DEC RBC Morphology 2+ Hypochromasia 2+ Anisocytosis 2+ Microcytosis 1+ Macrocytosis 1+ Ovalocytes 1+ PT 13.1 INR 1.0 APTT 25.6 Management Discussion w/another healthcare provider: Lead Consultant Discharge Plan Triage Chief Complaint: Nosebleed ED Provider: Andes,Jude Dx/Rx/DC Orders Clinical Impression: Acute anterior epistaxis, Aplastic anemia, Pancytopenia Instructions: ED Epistaxis (Adult) Prescriptions: New tramadol 50 mg tablet 50 mg PO Q6H PRN (Reason: pain) 5 Days Qty: 20 0RF No Action sumatriptan succinate [Imitrex] 50 mg tablet 50 mg PO ONCE PRN (Reason: migraine headache) ibuprofen 200 mg capsule 200 mg PO Q6H PRN (Reason: pain) magnesium 200 mg tablet 200 mg PO DAILY cranberry fruit 400 mg tablet 400 mg PO DAILY Rx Instructions: administer with a meal AZO D-Mannose 500 mg capsule PO Primary Care Provider: Nohemi Maynard Referrals: Nohemi Maynard DO [Primary Care Provider] - Activity Restrictions/Additional Instructions: Please follow-up with your oncologist as previously directed and also discussed seeing ear nose and throat for further evaluation of your recurrent nosebleed. Return to the ER should you have any further concerns Print Language: Jordanian Disposition Disposition: Home, Self Care Discharge Date/Time: 09/29/24 04:03
[2024-09-29] MEDS: traMADol 50 MG Tablet PO (03:59)
[2024-09-29 04:00] VITALS: BP 114/58; PULSE 69; RESP 16; TEMP 36.4; O2SAT 98
[2024-10-01 15:15] LABS: Pathologist Review Reviewed
== END 2024-09-29 04:03 | disposition home or self-care (01) ==
PROVIDERS: Emergency Provider Emergency Medicine; PCP Internal Medicine; Visit Provider Emergency Medicine
DX: R04.0 Epistaxis (principal); D61.818 Other pancytopenia; D69.6 Thrombocytopenia, unspecified
CPT/HCPCS: 30901; 36592; 85025; 85610; 85730; 99282; A4216

== ENCOUNTER 2024-10-02 11:03 | Outpatient (CLI) | payer OTHER, SELFPAY ==
[2024-10-02 11:44] LABS: Absolute Lymphocyte Count 0.68 X10^3/uL (0.83-4.51); Absolute Neutrophil Count 0.2 X10^3/uL (2.0-7.7); Hematocrit 24.8 % (37-47); Hemoglobin 8.5 g/dL (12.0-15.0); Lymphocyte # 0.68 X10^3/ul (0.83-4.51); Lymphocyte % 73.1 % (19-41); Mean Corp Hgb Conc 34.3 g/dL (32-36); Mean Corpuscular Hgb 29.7 pg (27.0-32.0); Mean Corpuscular Volume 86.7 fL (81-99); Monocyte# 0.09 X10^3/uL; Monocyte% 9.7 % (0-10); NRBC Flagged by Analyzer 0 % (0-5); Neutrophil # 0.15 X10^3/uL (2.7-7.7); Neutrophil % 16.1 % (47-70); POSITIVE COUNT YES; POSITIVE DIFFERENTIAL YES; RBC Distribution Width CV 17.3 % (11.6-14.6); RBC Distribution Width SD 54.2 fl (35.1-43.9); Red Blood Count 2.86 M/mm3 (4.2-5.4)
[2024-10-02 11:59] LABS: ALB/GLOB Ratio 0.7 RATIO (0.9-2.4); AST(SGOT) 16 U/L (15-37); Alanine Aminotransfer ALT/SGPT 16 U/L (13-56); Albumin, Serum 2.8 g/dL (3.2-5.0); Alkaline Phosphatase 59 U/L (45-117); Anion Gap 5 (5-15); BUN 26 mg/dL (7-18); Bilirubin, Direct 0.14 mg/dL (0.00-0.30); Calcium,Total 8.8 mg/dL (8.5-10.1); Chloride 105 mmol/L (98-107); Creatinine, Serum 1.37 mg/dL (0.55-1.02); EST Glomerular Filtration Rate 41 mL/min (>60); Est Glom Filt Rate - Afr Amer 50 mL/min (>60); Glucose 102 mg/dL (74-106); Potassium 4.4 mmol/L (3.5-5.1); Protein, Total 6.8 g/dL (6.4-8.2); Sodium Level 134 mmol/L (136-145)
[2024-10-02 12:06] LABS: Differential Indicated SCAN CRITERIA MET; Platelet Count 15 K/mm3 (150-450); White Blood Count 0.9 K/mm3 (4.4-11.0)
[2024-10-02 12:10] LABS: Platelet Estimate MKD DEC (ADEQ)
[2024-10-02 19:54] LABS: Xtra CC BBK (Onc ONLY) EXTRA TUBE
[2024-10-04 13:56] LABS: Pathologist Review Reviewed
== END 2024-10-02 23:59 | disposition home or self-care (01) ==
LOC: MEDOUTP 11:03
PROVIDERS: PCP Internal Medicine; Referring Provider Nurse Practitioner Gerontology; Visit Provider Nurse Practitioner Gerontology
DX: D61.818 Other pancytopenia (principal)
CPT/HCPCS: 36592; 80053; 82248; 85025; A4216

== ENCOUNTER 2024-11-28 13:26 | Outpatient (CLI) | payer OTHER, SELFPAY ==
[2024-11-28 14:13] LABS: Absolute Lymphocyte Count 1.09 X10^3/uL (0.83-4.51); Absolute Neutrophil Count 2.9 X10^3/uL (2.0-7.7); Basophil# 0.02 X10^3/uL; Basophil% 0.4 % (0-1); Eosinophil# 0.02 X10^3/uL; Eosinophils% 0.4 % (0-5); Hematocrit 27.1 % (37-47); Hemoglobin 9.4 g/dL (12.0-15.0); Lymphocyte # 1.09 X10^3/ul (0.83-4.51); Lymphocyte % 23.5 % (19-41); Mean Corp Hgb Conc 34.7 g/dL (32-36); Mean Corpuscular Hgb 32.1 pg (27.0-32.0); Mean Corpuscular Volume 92.5 fL (81-99); Monocyte# 0.61 X10^3/uL; Monocyte% 13.2 % (0-10); NRBC Flagged by Analyzer 0 % (0-5); Neutrophil # 2.87 X10^3/uL (2.7-7.7); Neutrophil % 62.1 % (47-70); POSITIVE COUNT YES; POSITIVE MORPHOLOGY YES; Platelet Count 68 K/mm3 (150-450); RBC Distribution Width CV 24.6 % (11.6-14.6); RBC Distribution Width SD 79.7 fl (35.1-43.9); Red Blood Count 2.93 M/mm3 (4.2-5.4); White Blood Count 4.6 K/mm3 (4.4-11.0)
[2024-11-28 14:14] LABS: Differential Indicated SCAN CRITERIA MET
[2024-11-28 14:28] LABS: ALB/GLOB Ratio 0.9 RATIO (0.9-2.4); AST(SGOT) 26 U/L (15-37); Alanine Aminotransfer ALT/SGPT 35 U/L (13-56); Albumin, Serum 3.3 g/dL (3.2-5.0); Alkaline Phosphatase 44 U/L (45-117); Anion Gap 8 (5-15); BUN 29 mg/dL (7-18); BUN/Creat Ratio 18.7 RATIO (10-20); Bilirubin, Direct 0.29 mg/dL (0.00-0.30); Calcium,Total 9.4 mg/dL (8.5-10.1); Chloride 108 mmol/L (98-107); Creatinine, Serum 1.55 mg/dL (0.55-1.02); EST Glomerular Filtration Rate 36 mL/min (>60); Est Glom Filt Rate - Afr Amer 43 mL/min (>60); Globulin 3.5 g/dL (2.2-4.2); Glucose 103 mg/dL (74-106); Potassium 4.4 mmol/L (3.5-5.1); Protein, Total 6.8 g/dL (6.4-8.2); Sodium Level 138 mmol/L (136-145)
[2024-11-28 14:54] LABS: Anisocytosis 2+; Platelet Estimate MKD DEC (ADEQ)
[2024-11-28 22:32] LABS: Xtra CC BBK (Onc ONLY) EXTRA TUBE
[2024-12-03 01:07] LABS: Cyclosporine 945 ng/mL (100-400)
== END 2024-11-28 23:59 | disposition home or self-care (01) ==
PROVIDERS: PCP Internal Medicine; Referring Provider Nurse Practitioner Gerontology; Visit Provider Nurse Practitioner Gerontology
DX: D61.3 Idiopathic aplastic anemia (principal)
CPT/HCPCS: 36592; 80053; 80158; 82248; 85025; A4216

== ENCOUNTER 2024-12-05 13:38 | Outpatient (CLI) | payer OTHER, SELFPAY ==
[2024-12-05 14:24] LABS: Absolute Lymphocyte Count 1.11 X10^3/uL (0.83-4.51); Absolute Neutrophil Count 2.6 X10^3/uL (2.0-7.7); Basophil# 0.01 X10^3/uL; Basophil% 0.2 % (0-1); Eosinophil# 0.04 X10^3/uL; Eosinophils% 0.9 % (0-5); Hematocrit 25.3 % (37-47); Hemoglobin 8.7 g/dL (12.0-15.0); Lymphocyte # 1.11 X10^3/ul (0.83-4.51); Lymphocyte % 25.6 % (19-41); Mean Corp Hgb Conc 34.4 g/dL (32-36); Mean Corpuscular Hgb 32.7 pg (27.0-32.0); Mean Corpuscular Volume 95.1 fL (81-99); Mean Platelet Vol. 11.8 fl (6.2-12.0); Monocyte# 0.59 X10^3/uL; Monocyte% 13.6 % (0-10); NRBC Flagged by Analyzer 0 % (0-5); Neutrophil # 2.56 X10^3/uL (2.7-7.7); Neutrophil % 59.2 % (47-70); POSITIVE COUNT YES; POSITIVE MORPHOLOGY YES; Platelet Count 88 K/mm3 (150-450); RBC Distribution Width CV 24.6 % (11.6-14.6); RBC Distribution Width SD 80.4 fl (35.1-43.9); Red Blood Count 2.66 M/mm3 (4.2-5.4); White Blood Count 4.3 K/mm3 (4.4-11.0)
[2024-12-05 14:30] LABS: ALB/GLOB Ratio 0.9 RATIO (0.9-2.4); AST(SGOT) 27 U/L (15-37); Alanine Aminotransfer ALT/SGPT 37 U/L (13-56); Albumin, Serum 3.3 g/dL (3.2-5.0); Alkaline Phosphatase 52 U/L (45-117); Anion Gap 8 (5-15); BUN 28 mg/dL (7-18); BUN/Creat Ratio 19.2 RATIO (10-20); Bilirubin, Direct 0.24 mg/dL (0.00-0.30); Calcium,Total 9.3 mg/dL (8.5-10.1); Chloride 107 mmol/L (98-107); Creatinine, Serum 1.46 mg/dL (0.55-1.02); EST Glomerular Filtration Rate 38 mL/min (>60); Est Glom Filt Rate - Afr Amer 46 mL/min (>60); Globulin 3.5 g/dL (2.2-4.2); Glucose 97 mg/dL (74-106); Potassium 4.5 mmol/L (3.5-5.1); Protein, Total 6.8 g/dL (6.4-8.2); Sodium Level 137 mmol/L (136-145)
[2024-12-05 14:57] LABS: Anisocytosis 2+
[2024-12-05 14:58] LABS: Platelet Estimate MOD DEC (ADEQ)
[2024-12-05 22:07] LABS: Xtra CC BBK (Onc ONLY) EXTRA TUBE
== END 2024-12-05 23:59 | disposition home or self-care (01) ==
PROVIDERS: PCP Internal Medicine; Referring Provider Nurse Practitioner Gerontology; Visit Provider Nurse Practitioner Gerontology
DX: D61.3 Idiopathic aplastic anemia (principal)
CPT/HCPCS: 36592; 80053; 82248; 85025; A4216

== ENCOUNTER 2024-12-12 12:52 | Outpatient (CLI) | payer OTHER, SELFPAY ==
[2024-12-12 13:17] LABS: Absolute Lymphocyte Count 1.09 X10^3/uL (0.83-4.51); Absolute Neutrophil Count 2.5 X10^3/uL (2.0-7.7); Basophil# 0.02 X10^3/uL; Basophil% 0.5 % (0-1); Differential Indicated SCAN CRITERIA MET; Eosinophil# 0.03 X10^3/uL; Eosinophils% 0.7 % (0-5); Hematocrit 25.7 % (37-47); Hemoglobin 8.8 g/dL (12.0-15.0); Lymphocyte # 1.09 X10^3/ul (0.83-4.51); Lymphocyte % 25.3 % (19-41); Mean Corp Hgb Conc 34.2 g/dL (32-36); Mean Corpuscular Hgb 33.6 pg (27.0-32.0); Mean Corpuscular Volume 98.1 fL (81-99); Mean Platelet Vol. 11.5 fl (6.2-12.0); Monocyte# 0.68 X10^3/uL; Monocyte% 15.8 % (0-10); NRBC Flagged by Analyzer 0 % (0-5); Neutrophil # 2.47 X10^3/uL (2.7-7.7); Neutrophil % 57.2 % (47-70); POSITIVE COUNT YES; POSITIVE MORPHOLOGY YES; Platelet Count 89 K/mm3 (150-450); RBC Distribution Width CV 23.9 % (11.6-14.6); RBC Distribution Width SD 81.4 fl (35.1-43.9); Red Blood Count 2.62 M/mm3 (4.2-5.4); White Blood Count 4.3 K/mm3 (4.4-11.0)
[2024-12-12 13:36] LABS: ALB/GLOB Ratio 1.4 RATIO (0.9-2.4); AST(SGOT) 27 U/L (<=31); Alanine Aminotransfer ALT/SGPT 19 U/L (<=34); Albumin, Serum 3.8 g/dL (3.4-4.8); Alkaline Phosphatase 51 U/L (35-104); Anion Gap 10 (5-15); BUN 25 mg/dL (4-19); BUN/Creat Ratio 16.9 RATIO (10-20); Bilirubin, Direct 0.31 mg/dL (0.00-0.30); Calcium 9.7 mg/dL (7.6-11.0); Carbon Dioxide 22.9 mmol/L (22.0-29.0); Chloride 101 mmol/L (96-108); Creatinine, Serum 1.5 mg/dL (0.6-1.0); EST Glomerular Filtration Rate 38 (>60); Globulin 2.7 g/dL (2.2-4.2); Glucose 127 mg/dL (70-99); Potassium 4.8 mmol/L (3.3-5.1); Protein, Total 6.6 g/dL (5.9-8.4); Sodium Level 134 mmol/L (133-145); Total Bilirubin 0.57 mg/dL (0.00-1.30)
[2024-12-12 13:44] LABS: Anisocytosis 1+; Platelet Estimate MOD DEC (ADEQ)
[2024-12-12 21:11] LABS: Xtra CC BBK (Onc ONLY) EXTRA TUBE; Xtra Tube EP Lab EXTRA TUBE
== END 2024-12-12 23:59 | disposition home or self-care (01) ==
LOC: MEDOUTP 12:52
PROVIDERS: PCP Internal Medicine; Referring Provider Nurse Practitioner Gerontology; Visit Provider Nurse Practitioner Gerontology
DX: D61.3 Idiopathic aplastic anemia (principal)
CPT/HCPCS: 36592; 80053; 82248; 85025; A4216

== ENCOUNTER 2024-12-26 11:30 | Outpatient (CLI) | payer OTHER, SELFPAY ==
[2024-12-26 12:24] LABS: Absolute Lymphocyte Count 1.01 X10^3/uL (0.83-4.51); Absolute Neutrophil Count 3.1 X10^3/uL (2.0-7.7); Basophil# 0.01 X10^3/uL; Basophil% 0.2 % (0-1); Eosinophil# 0.01 X10^3/uL; Eosinophils% 0.2 % (0-5); Hematocrit 24.4 % (37-47); Hemoglobin 8.6 g/dL (12.0-15.0); Lymphocyte # 1.01 X10^3/ul (0.83-4.51); Lymphocyte % 21.5 % (19-41); Mean Corp Hgb Conc 35.2 g/dL (32-36); Mean Corpuscular Hgb 35.4 pg (27.0-32.0); Mean Corpuscular Volume 100.4 fL (81-99); Mean Platelet Vol. 11.8 fl (6.2-12.0); Monocyte# 0.58 X10^3/uL; Monocyte% 12.3 % (0-10); NRBC Flagged by Analyzer 0 % (0-5); Neutrophil # 3.06 X10^3/uL (2.7-7.7); Neutrophil % 65.2 % (47-70); POSITIVE MORPHOLOGY YES; Platelet Count 100 K/mm3 (150-450); RBC Distribution Width CV 22.6 % (11.6-14.6); RBC Distribution Width SD 80.9 fl (35.1-43.9); Red Blood Count 2.43 M/mm3 (4.2-5.4); White Blood Count 4.7 K/mm3 (4.4-11.0)
[2024-12-26 12:25] LABS: Differential Indicated SCAN CRITERIA MET
[2024-12-26 12:58] LABS: Anisocytosis 1+
[2024-12-26 13:16] LABS: ALB/GLOB Ratio 1.5 RATIO (0.9-2.4); AST(SGOT) 26 U/L (<=31); Alanine Aminotransfer ALT/SGPT 16 U/L (<=34); Albumin, Serum 4.1 g/dL (3.4-4.8); Alkaline Phosphatase 52 U/L (35-104); Anion Gap 14 (5-15); BUN 27 mg/dL (4-19); Bilirubin, Direct 0.32 mg/dL (0.00-0.30); Calcium,Total 9.7 mg/dL (7.6-11.0); Carbon Dioxide 20.8 mmol/L (21.0-32.0); Chloride 103 mmol/L (98-108); Creatinine, Serum 1.59 mg/dL (0.70-1.20); EST Glomerular Filtration Rate 36 (>60); Globulin 2.6 g/dL (2.2-4.2); Glucose 137 mg/dL (70-99); Potassium 4.3 mmol/L (3.3-5.1); Protein, Total 6.7 g/dL (5.9-8.4); Sodium Level 138 mmol/L (133-145); Total Bilirubin 0.52 mg/dL (0.00-1.30)
[2024-12-26 20:14] LABS: Xtra CC BBK (Onc ONLY) EXTRA TUBE
== END 2024-12-26 23:59 | disposition home or self-care (01) ==
PROVIDERS: PCP Internal Medicine; Referring Provider Nurse Practitioner Gerontology
DX: D61.3 Idiopathic aplastic anemia (principal)
CPT/HCPCS: 36591; 80053; 82248; 85025; A4216

== ENCOUNTER 2025-01-02 12:40 | Outpatient (CLI) | payer OTHER, SELFPAY ==
[2025-01-02 13:27] LABS: Absolute Lymphocyte Count 0.92 X10^3/uL (0.83-4.51); Absolute Neutrophil Count 2.8 X10^3/uL (2.0-7.7); Basophil# 0.02 X10^3/uL; Basophil% 0.5 % (0-1); Eosinophil# 0.03 X10^3/uL; Eosinophils% 0.7 % (0-5); Hematocrit 23.1 % (37-47); Hemoglobin 8.2 g/dL (12.0-15.0); Lymphocyte # 0.92 X10^3/ul (0.83-4.51); Lymphocyte % 21.6 % (19-41); Mean Corp Hgb Conc 35.5 g/dL (32-36); Mean Corpuscular Hgb 36.3 pg (27.0-32.0); Mean Corpuscular Volume 102.2 fL (81-99); Mean Platelet Vol. 11.3 fl (6.2-12.0); Monocyte% 11.7 % (0-10); NRBC Flagged by Analyzer 0 % (0-5); Neutrophil # 2.77 X10^3/uL (2.7-7.7); POSITIVE MORPHOLOGY YES; Platelet Count 103 K/mm3 (150-450); RBC Distribution Width CV 21.9 % (11.6-14.6); RBC Distribution Width SD 78.6 fl (35.1-43.9); Red Blood Count 2.26 M/mm3 (4.2-5.4); White Blood Count 4.3 K/mm3 (4.4-11.0)
[2025-01-02 13:29] LABS: Differential Indicated SCAN CRITERIA MET
[2025-01-02 14:00] LABS: Anisocytosis 1+
[2025-01-02 14:20] LABS: ALB/GLOB Ratio 1.6 RATIO (0.9-2.4); AST(SGOT) 21 U/L (<=31); Alanine Aminotransfer ALT/SGPT 10 U/L (<=34); Albumin, Serum 3.9 g/dL (3.4-4.8); Alkaline Phosphatase 51 U/L (35-104); Anion Gap 12 (5-15); BUN 28 mg/dL (4-19); BUN/Creat Ratio 17.9 RATIO (10-20); Bilirubin, Direct 0.28 mg/dL (0.00-0.30); Calcium,Total 9.3 mg/dL (7.6-11.0); Carbon Dioxide 19.4 mmol/L (21.0-32.0); Chloride 104 mmol/L (98-108); Creatinine, Serum 1.55 mg/dL (0.70-1.20); EST Glomerular Filtration Rate 37 (>60); Globulin 2.4 g/dL (2.2-4.2); Glucose 113 mg/dL (70-99); Potassium 4.8 mmol/L (3.3-5.1); Protein, Total 6.3 g/dL (5.9-8.4); Sodium Level 136 mmol/L (133-145); Total Bilirubin 0.48 mg/dL (0.00-1.30)
== END 2025-01-02 23:59 | disposition home or self-care (01) ==
LOC: MEDOUTP 12:40
PROVIDERS: PCP Internal Medicine; Referring Provider Nurse Practitioner Gerontology
DX: D61.3 Idiopathic aplastic anemia (principal)
CPT/HCPCS: 36592; 80053; 82248; 85025; A4216

== ENCOUNTER 2025-01-09 12:31 | Outpatient (CLI) | payer OTHER, SELFPAY ==
[2025-01-09 12:54] LABS: Absolute Lymphocyte Count 0.99 X10^3/uL (0.83-4.51); Absolute Neutrophil Count 2.7 X10^3/uL (2.0-7.7); Basophil# 0.02 X10^3/uL; Basophil% 0.5 % (0-1); Eosinophil# 0.03 X10^3/uL; Eosinophils% 0.7 % (0-5); Hematocrit 22.7 % (37-47); Lymphocyte # 0.99 X10^3/ul (0.83-4.51); Lymphocyte % 22.4 % (19-41); Mean Corp Hgb Conc 35.2 g/dL (32-36); Mean Corpuscular Hgb 36.7 pg (27.0-32.0); Mean Corpuscular Volume 104.1 fL (81-99); Mean Platelet Vol. 11.3 fl (6.2-12.0); Monocyte# 0.67 X10^3/uL; Monocyte% 15.2 % (0-10); NRBC Flagged by Analyzer 0 % (0-5); Neutrophil # 2.69 X10^3/uL (2.7-7.7); Neutrophil % 60.7 % (47-70); POSITIVE MORPHOLOGY YES; Platelet Count 109 K/mm3 (150-450); RBC Distribution Width CV 21.2 % (11.6-14.6); RBC Distribution Width SD 77.5 fl (35.1-43.9); Red Blood Count 2.18 M/mm3 (4.2-5.4); White Blood Count 4.4 K/mm3 (4.4-11.0)
[2025-01-09 13:03] LABS: Differential Indicated SCAN CRITERIA MET
[2025-01-09 13:16] LABS: ALB/GLOB Ratio 1.4 RATIO (0.9-2.4); AST(SGOT) 20 U/L (<=31); Alanine Aminotransfer ALT/SGPT 9 U/L (<=34); Albumin, Serum 3.3 g/dL (3.4-4.8); Alkaline Phosphatase 50 U/L (35-104); Anion Gap 13 (5-15); BUN 30 mg/dL (4-19); BUN/Creat Ratio 17.4 RATIO (10-20); Carbon Dioxide 18.2 mmol/L (21.0-32.0); Chloride 105 mmol/L (98-108); Creatinine, Serum 1.74 mg/dL (0.70-1.20); EST Glomerular Filtration Rate 32 (>60); Globulin 2.4 g/dL (2.2-4.2); Glucose 96 mg/dL (70-99); Potassium 5.1 mmol/L (3.3-5.1); Protein, Total 5.7 g/dL (5.9-8.4); Sodium Level 136 mmol/L (133-145); Total Bilirubin 0.44 mg/dL (0.00-1.30)
[2025-01-09 14:22] LABS: Platelet Estimate SLT DEC (ADEQ)
[2025-01-09 14:23] LABS: Anisocytosis 2+; Ovalocyte 1+
[2025-01-09 20:48] LABS: Xtra CC BBK (Onc ONLY) EXTRA TUBE; Xtra Tube EP Lab EXTRA TUBE
== END 2025-01-09 23:59 | disposition home or self-care (01) ==
LOC: MEDOUTP 12:31
PROVIDERS: PCP Internal Medicine; Referring Provider Nurse Practitioner Gerontology
DX: D61.3 Idiopathic aplastic anemia (principal)
CPT/HCPCS: 36592; 80053; 82248; 85025; 86850; 86900; 86901; A4216

== ENCOUNTER 2025-01-10 08:14 | Outpatient (CLI) | payer OTHER, SELFPAY ==
[2025-01-10 08:30] VITALS: BP 130/65; PULSE 84; RESP 14; TEMP 36.2; O2SAT 100; BMI 19.3
[2025-01-10 08:50] VITALS: BP 128/70; PULSE 66; RESP 16; TEMP 36.1; O2SAT 100
[2025-01-10 09:50] VITALS: BP 127/79; PULSE 70; RESP 16; TEMP 36.2; O2SAT 100
[2025-01-10 10:40] VITALS: BP 126/61; PULSE 67; RESP 14; TEMP 36.3; O2SAT 99
== END 2025-01-10 23:59 | disposition home or self-care (01) ==
LOC: MEDOUTP 08:14
PROVIDERS: PCP Internal Medicine
DX: D61.3 Idiopathic aplastic anemia (principal)
CPT/HCPCS: 36430; 86850; 86900; 86901; P9016; A4216

== ENCOUNTER 2025-01-20 11:26 | Outpatient (CLI) | payer OTHER, SELFPAY ==
[2025-01-20 13:09] LABS: Absolute Lymphocyte Count 0.91 X10^3/uL (0.83-4.51); Absolute Neutrophil Count 2.6 X10^3/uL (2.0-7.7); Basophil# 0.01 X10^3/uL; Basophil% 0.2 % (0-1); Eosinophil# 0.04 X10^3/uL; Hemoglobin 9.1 g/dL (12.0-15.0); Lymphocyte # 0.91 X10^3/ul (0.83-4.51); Lymphocyte % 21.8 % (19-41); Mean Corpuscular Hgb 35.5 pg (27.0-32.0); Mean Corpuscular Volume 101.6 fL (81-99); Mean Platelet Vol. 11.5 fl (6.2-12.0); Monocyte# 0.61 X10^3/uL; Monocyte% 14.6 % (0-10); NRBC Flagged by Analyzer 0 % (0-5); Neutrophil % 62.2 % (47-70); POSITIVE COUNT YES; POSITIVE MORPHOLOGY YES; Platelet Count 99 K/mm3 (150-450); RBC Distribution Width SD 70.7 fl (35.1-43.9); Red Blood Count 2.56 M/mm3 (4.2-5.4); White Blood Count 4.2 K/mm3 (4.4-11.0)
[2025-01-20 13:30] LABS: ALB/GLOB Ratio 1.6 RATIO (0.9-2.4); AST(SGOT) 20 U/L (<=31); Alanine Aminotransfer ALT/SGPT 11 U/L (<=34); Albumin, Serum 3.9 g/dL (3.4-4.8); Alkaline Phosphatase 50 U/L (35-104); Anion Gap 11 (5-15); BUN 38 mg/dL (4-19); BUN/Creat Ratio 23.2 RATIO (10-20); Bilirubin, Direct 0.28 mg/dL (0.00-0.30); Calcium,Total 9.6 mg/dL (7.6-11.0); Carbon Dioxide 20.5 mmol/L (21.0-32.0); Chloride 105 mmol/L (98-108); Creatinine, Serum 1.64 mg/dL (0.70-1.20); EST Glomerular Filtration Rate 34 (>60); Globulin 2.4 g/dL (2.2-4.2); Glucose 121 mg/dL (70-99); Potassium 4.5 mmol/L (3.3-5.1); Protein, Total 6.3 g/dL (5.9-8.4); Sodium Level 136 mmol/L (133-145); Total Bilirubin 0.45 mg/dL (0.00-1.30)
[2025-01-20 14:17] LABS: Anisocytosis 1+; Platelet Estimate SLT DEC (ADEQ)
[2025-01-20 21:00] LABS: Xtra CC BBK (Onc ONLY) EXTRA TUBE; Xtra Tube EP Lab EXTRA TUBE
== END 2025-01-20 23:59 | disposition home or self-care (01) ==
LOC: MEDOUTP 11:26
PROVIDERS: PCP Internal Medicine; Referring Provider Nurse Practitioner Gerontology; Visit Provider Nurse Practitioner Family
DX: D61.3 Idiopathic aplastic anemia (principal)
CPT/HCPCS: 36592; 80053; 82248; 85025; A4216

== ENCOUNTER 2025-01-27 12:17 | Outpatient (CLI) | payer OTHER, SELFPAY ==
[2025-01-27 12:52] LABS: Absolute Lymphocyte Count 1.05 X10^3/uL (0.83-4.51); Absolute Neutrophil Count 2.2 X10^3/uL (2.0-7.7); Basophil# 0.03 X10^3/uL; Basophil% 0.7 % (0-1); Eosinophil# 0.06 X10^3/uL; Eosinophils% 1.5 % (0-5); Hematocrit 25.8 % (37-47); Lymphocyte # 1.05 X10^3/ul (0.83-4.51); Lymphocyte % 26.1 % (19-41); Mean Corp Hgb Conc 34.9 g/dL (32-36); Mean Corpuscular Hgb 35.7 pg (27.0-32.0); Mean Corpuscular Volume 102.4 fL (81-99); Mean Platelet Vol. 11.4 fl (6.2-12.0); Monocyte# 0.65 X10^3/uL; Monocyte% 16.1 % (0-10); NRBC Flagged by Analyzer 0 % (0-5); Neutrophil # 2.22 X10^3/uL (2.7-7.7); Neutrophil % 55.1 % (47-70); POSITIVE MORPHOLOGY YES; Platelet Count 131 K/mm3 (150-450); RBC Distribution Width CV 18.3 % (11.6-14.6); RBC Distribution Width SD 68.6 fl (35.1-43.9); Red Blood Count 2.52 M/mm3 (4.2-5.4)
[2025-01-27 13:02] LABS: Differential Indicated SCAN CRITERIA MET
[2025-01-27 13:21] LABS: Albumin, Serum 4.1 g/dL (3.4-4.8); BUN 32 mg/dL (4-19); BUN/Creat Ratio 16.6 RATIO (10-20); Creatinine, Serum 1.93 mg/dL (0.70-1.20); EST Glomerular Filtration Rate 28 (>60); Globulin 2.4 g/dL (2.2-4.2); Glucose 97 mg/dL (70-99); Protein, Total 6.5 g/dL (5.9-8.4)
[2025-01-27 13:22] LABS: ALB/GLOB Ratio 1.7 RATIO (0.9-2.4); AST(SGOT) 21 U/L (<=31); Alanine Aminotransfer ALT/SGPT 10 U/L (<=34); Alkaline Phosphatase 46 U/L (35-104); Anion Gap 12 (5-15); Bilirubin, Direct 0.28 mg/dL (0.00-0.30); Calcium,Total 9.6 mg/dL (7.6-11.0); Carbon Dioxide 20.1 mmol/L (21.0-32.0); Chloride 100 mmol/L (98-108); Potassium 5.1 mmol/L (3.3-5.1); Sodium Level 132 mmol/L (133-145); Total Bilirubin 0.42 mg/dL (0.00-1.30)
[2025-01-27 15:06] LABS: Anisocytosis 1+; Platelet Estimate SLT DEC (ADEQ); Polychromasia 1+
[2025-01-27 20:46] LABS: Xtra CC BBK (Onc ONLY) EXTRA TUBE
== END 2025-01-27 23:59 | disposition home or self-care (01) ==
LOC: MEDOUTP 12:17
PROVIDERS: PCP Internal Medicine; Referring Provider Nurse Practitioner Gerontology; Visit Provider Nurse Practitioner Family
DX: D61.3 Idiopathic aplastic anemia (principal)
CPT/HCPCS: 36592; 80053; 82248; 85025; A4216

== ENCOUNTER 2025-02-03 10:49 | Outpatient (CLI) | payer OTHER, SELFPAY ==
[2025-02-03 11:13] LABS: Absolute Lymphocyte Count 0.91 X10^3/uL (0.83-4.51); Absolute Neutrophil Count 2.2 X10^3/uL (2.0-7.7); Basophil# 0.01 X10^3/uL; Basophil% 0.3 % (0-1); Eosinophil# 0.05 X10^3/uL; Eosinophils% 1.3 % (0-5); Hematocrit 24.8 % (37-47); Hemoglobin 8.8 g/dL (12.0-15.0); Lymphocyte # 0.91 X10^3/ul (0.83-4.51); Lymphocyte % 23.9 % (19-41); Mean Corp Hgb Conc 35.5 g/dL (32-36); Mean Corpuscular Hgb 36.2 pg (27.0-32.0); Mean Corpuscular Volume 102.1 fL (81-99); Mean Platelet Vol. 11.4 fl (6.2-12.0); Monocyte# 0.59 X10^3/uL; Monocyte% 15.5 % (0-10); NRBC Flagged by Analyzer 0 % (0-5); Neutrophil # 2.23 X10^3/uL (2.7-7.7); Neutrophil % 58.5 % (47-70); POSITIVE MORPHOLOGY YES; Platelet Count 148 K/mm3 (150-450); RBC Distribution Width CV 17.6 % (11.6-14.6); RBC Distribution Width SD 65.6 fl (35.1-43.9); Red Blood Count 2.43 M/mm3 (4.2-5.4); White Blood Count 3.8 K/mm3 (4.4-11.0)
[2025-02-03 11:14] LABS: Differential Indicated SCAN CRITERIA MET
[2025-02-03 11:31] LABS: Differential Comment SCANNED
[2025-02-03 11:56] LABS: ALB/GLOB Ratio 1.7 RATIO (0.9-2.4); AST(SGOT) 20 U/L (<=31); Alanine Aminotransfer ALT/SGPT 11 U/L (<=34); Alkaline Phosphatase 51 U/L (35-104); Anion Gap 11 (5-15); BUN 34 mg/dL (4-19); BUN/Creat Ratio 19.5 RATIO (10-20); Bilirubin, Direct 0.24 mg/dL (0.00-0.30); Calcium,Total 9.4 mg/dL (7.6-11.0); Carbon Dioxide 20.3 mmol/L (21.0-32.0); Chloride 103 mmol/L (98-108); Creatinine, Serum 1.76 mg/dL (0.70-1.20); EST Glomerular Filtration Rate 32 (>60); Globulin 2.3 g/dL (2.2-4.2); Glucose 95 mg/dL (70-99); Potassium 4.7 mmol/L (3.3-5.1); Protein, Total 6.3 g/dL (5.9-8.4); Sodium Level 134 mmol/L (133-145); Total Bilirubin 0.41 mg/dL (0.00-1.30)
[2025-02-03 19:08] LABS: Xtra CC BBK (Onc ONLY) EXTRA TUBE
== END 2025-02-03 23:59 | disposition home or self-care (01) ==
LOC: MEDOUTP 10:49
PROVIDERS: PCP Internal Medicine; Referring Provider Nurse Practitioner Gerontology; Visit Provider Nurse Practitioner Family
DX: D61.3 Idiopathic aplastic anemia (principal)
CPT/HCPCS: 36592; 80053; 82248; 85025; A4216

== ENCOUNTER 2025-02-10 11:22 | Outpatient (CLI) | payer OTHER, SELFPAY ==
[2025-02-10 12:30] LABS: Absolute Lymphocyte Count 0.95 X10^3/uL (0.83-4.51); Absolute Neutrophil Count 2.5 X10^3/uL (2.0-7.7); Basophil# 0.04 X10^3/uL; Basophil% 0.9 % (0-1); Eosinophil# 0.04 X10^3/uL; Eosinophils% 0.9 % (0-5); Hematocrit 24.9 % (37-47); Hemoglobin 8.7 g/dL (12.0-15.0); Lymphocyte # 0.95 X10^3/ul (0.83-4.51); Lymphocyte % 22.4 % (19-41); Mean Corp Hgb Conc 34.9 g/dL (32-36); Mean Corpuscular Hgb 36.4 pg (27.0-32.0); Mean Corpuscular Volume 104.2 fL (81-99); Mean Platelet Vol. 11.6 fl (6.2-12.0); Monocyte# 0.66 X10^3/uL; Monocyte% 15.5 % (0-10); NRBC Flagged by Analyzer 0 % (0-5); Neutrophil # 2.54 X10^3/uL (2.7-7.7); Neutrophil % 59.8 % (47-70); POSITIVE MORPHOLOGY YES; Platelet Count 147 K/mm3 (150-450); RBC Distribution Width CV 17.5 % (11.6-14.6); RBC Distribution Width SD 66.8 fl (35.1-43.9); Red Blood Count 2.39 M/mm3 (4.2-5.4); White Blood Count 4.3 K/mm3 (4.4-11.0)
[2025-02-10 12:31] LABS: Differential Indicated SCAN CRITERIA MET
[2025-02-10 13:18] LABS: ALB/GLOB Ratio 1.6 RATIO (0.9-2.4); AST(SGOT) 22 U/L (<=31); Alanine Aminotransfer ALT/SGPT 11 U/L (<=34); Alkaline Phosphatase 50 U/L (35-104); Anion Gap 12 (5-15); BUN 37 mg/dL (4-19); BUN/Creat Ratio 21.8 RATIO (10-20); Bilirubin, Direct 0.26 mg/dL (0.00-0.30); Calcium,Total 9.6 mg/dL (7.6-11.0); Carbon Dioxide 19.2 mmol/L (21.0-32.0); Chloride 104 mmol/L (98-108); Creatinine, Serum 1.71 mg/dL (0.70-1.20); EST Glomerular Filtration Rate 33 (>60); Globulin 2.5 g/dL (2.2-4.2); Glucose 112 mg/dL (70-99); Protein, Total 6.5 g/dL (5.9-8.4); Sodium Level 136 mmol/L (133-145); Total Bilirubin 0.41 mg/dL (0.00-1.30)
[2025-02-10 20:23] LABS: Xtra CC BBK (Onc ONLY) EXTRA TUBE; Xtra Tube EP Lab EXTRA TUBE
== END 2025-02-10 23:59 | disposition home or self-care (01) ==
LOC: MEDOUTP 11:22
PROVIDERS: PCP Internal Medicine; Referring Provider Nurse Practitioner Gerontology; Visit Provider Nurse Practitioner Family
DX: D61.3 Idiopathic aplastic anemia (principal)
CPT/HCPCS: 36592; 80053; 82248; 85025; A4216

== ENCOUNTER 2025-02-17 12:24 | Outpatient (CLI) | payer OTHER, SELFPAY ==
[2025-02-17 13:15] LABS: Absolute Lymphocyte Count 0.97 X10^3/uL (0.83-4.51); Absolute Neutrophil Count 2.7 X10^3/uL (2.0-7.7); Basophil# 0.03 X10^3/uL; Basophil% 0.7 % (0-1); Eosinophil# 0.07 X10^3/uL; Eosinophils% 1.6 % (0-5); Hematocrit 23.9 % (37-47); Hemoglobin 8.6 g/dL (12.0-15.0); Lymphocyte # 0.97 X10^3/ul (0.83-4.51); Mean Corpuscular Hgb 37.7 pg (27.0-32.0); Mean Corpuscular Volume 104.8 fL (81-99); Mean Platelet Vol. 11.5 fl (6.2-12.0); Monocyte# 0.62 X10^3/uL; Monocyte% 14.1 % (0-10); NRBC Flagged by Analyzer 0 % (0-5); Neutrophil % 61.1 % (47-70); Platelet Count 148 K/mm3 (150-450); RBC Distribution Width CV 17.2 % (11.6-14.6); RBC Distribution Width SD 64.9 fl (35.1-43.9); Red Blood Count 2.28 M/mm3 (4.2-5.4); White Blood Count 4.4 K/mm3 (4.4-11.0)
[2025-02-17 14:00] LABS: ALB/GLOB Ratio 1.7 RATIO (0.9-2.4); AST(SGOT) 21 U/L (<=31); Alanine Aminotransfer ALT/SGPT 12 U/L (<=34); Albumin, Serum 3.9 g/dL (3.4-4.8); Alkaline Phosphatase 48 U/L (35-104); Anion Gap 8 (5-15); BUN 36 mg/dL (4-19); BUN/Creat Ratio 18.5 RATIO (10-20); Bilirubin, Direct 0.29 mg/dL (0.00-0.30); Calcium,Total 9.4 mg/dL (7.6-11.0); Chloride 102 mmol/L (98-108); Creatinine, Serum 1.93 mg/dL (0.70-1.20); EST Glomerular Filtration Rate 28 (>60); Globulin 2.3 g/dL (2.2-4.2); Glucose 121 mg/dL (70-99); Potassium 5.1 mmol/L (3.3-5.1); Protein, Total 6.2 g/dL (5.9-8.4); Sodium Level 131 mmol/L (133-145); Total Bilirubin 0.44 mg/dL (0.00-1.30)
[2025-02-17 21:08] LABS: Xtra Tube EP Lab EXTRA TUBE
== END 2025-02-17 23:59 | disposition home or self-care (01) ==
LOC: MEDOUTP 12:24
PROVIDERS: Internal Medicine Medical Oncology; PCP Internal Medicine; Referring Provider Nurse Practitioner Family; Visit Provider Nurse Practitioner Family
DX: D61.3 Idiopathic aplastic anemia (principal)
CPT/HCPCS: 36592; 80053; 80158; 82248; 85025; A4216

== ENCOUNTER 2025-02-24 10:50 | Outpatient (CLI) | payer OTHER, SELFPAY ==
[2025-02-24 11:28] LABS: Absolute Lymphocyte Count 0.97 X10^3/uL (0.83-4.51); Absolute Neutrophil Count 2.6 X10^3/uL (2.0-7.7); Basophil# 0.03 X10^3/uL; Basophil% 0.7 % (0-1); Eosinophils% 2.3 % (0-5); Hematocrit 22.8 % (37-47); Lymphocyte # 0.97 X10^3/ul (0.83-4.51); Mean Corp Hgb Conc 35.1 g/dL (32-36); Mean Corpuscular Hgb 36.9 pg (27.0-32.0); Mean Corpuscular Volume 105.1 fL (81-99); Mean Platelet Vol. 11.2 fl (6.2-12.0); Monocyte# 0.71 X10^3/uL; Monocyte% 16.1 % (0-10); NRBC Flagged by Analyzer 0 % (0-5); Neutrophil # 2.57 X10^3/uL (2.7-7.7); Neutrophil % 58.4 % (47-70); POSITIVE MORPHOLOGY YES; Platelet Count 137 K/mm3 (150-450); RBC Distribution Width CV 17.2 % (11.6-14.6); RBC Distribution Width SD 66.6 fl (35.1-43.9); Red Blood Count 2.17 M/mm3 (4.2-5.4); White Blood Count 4.4 K/mm3 (4.4-11.0)
[2025-02-24 11:30] LABS: Differential Indicated SCAN CRITERIA MET
[2025-02-24 11:52] LABS: ALB/GLOB Ratio 1.7 RATIO (0.9-2.4); AST(SGOT) 23 U/L (<=31); Alanine Aminotransfer ALT/SGPT 13 U/L (<=34); Albumin, Serum 3.9 g/dL (3.4-4.8); Alkaline Phosphatase 47 U/L (35-104); Anion Gap 11 (5-15); BUN 42 mg/dL (4-19); BUN/Creat Ratio 22.1 RATIO (10-20); Bilirubin, Direct 0.27 mg/dL (0.00-0.30); Calcium,Total 9.5 mg/dL (7.6-11.0); Carbon Dioxide 19.9 mmol/L (21.0-32.0); Chloride 98 mmol/L (98-108); EST Glomerular Filtration Rate 29 (>60); Globulin 2.4 g/dL (2.2-4.2); Glucose 101 mg/dL (70-99); Potassium 4.5 mmol/L (3.3-5.1); Protein, Total 6.2 g/dL (5.9-8.4); Sodium Level 129 mmol/L (133-145); Total Bilirubin 0.42 mg/dL (0.00-1.30)
[2025-02-24 12:33] LABS: Anisocytosis 1+
[2025-02-24 19:23] LABS: Xtra CC BBK (Onc ONLY) EXTRA TUBE; Xtra Tube EP Lab EXTRA TUBE
== END 2025-02-24 23:59 | disposition home or self-care (01) ==
LOC: MEDOUTP 10:50
PROVIDERS: PCP Internal Medicine; Referring Provider Nurse Practitioner Family; Visit Provider Nurse Practitioner Family
DX: D61.3 Idiopathic aplastic anemia (principal)
CPT/HCPCS: 36592; 80053; 82248; 85025; A4216

== ENCOUNTER 2025-03-03 10:28 | Outpatient (CLI) | payer OTHER, SELFPAY ==
[2025-03-03 13:08] LABS: Absolute Lymphocyte Count 0.81 X10^3/uL (0.83-4.51); Basophil# 0.02 X10^3/uL; Basophil% 0.5 % (0-1); Eosinophil# 0.07 X10^3/uL; Eosinophils% 1.6 % (0-5); Hematocrit 22.8 % (37-47); Lymphocyte # 0.81 X10^3/ul (0.83-4.51); Lymphocyte % 18.4 % (19-41); Mean Corp Hgb Conc 35.1 g/dL (32-36); Mean Corpuscular Hgb 37.2 pg (27.0-32.0); Mean Platelet Vol. 11.1 fl (6.2-12.0); Monocyte# 0.53 X10^3/uL; NRBC Flagged by Analyzer 0 % (0-5); Neutrophil # 2.95 X10^3/uL (2.7-7.7); Neutrophil % 66.8 % (47-70); Platelet Count 139 K/mm3 (150-450); RBC Distribution Width CV 16.6 % (11.6-14.6); RBC Distribution Width SD 64.9 fl (35.1-43.9); Red Blood Count 2.15 M/mm3 (4.2-5.4); White Blood Count 4.4 K/mm3 (4.4-11.0)
[2025-03-03 13:36] LABS: ALB/GLOB Ratio 1.6 RATIO (0.9-2.4); AST(SGOT) 24 U/L (<=31); Alanine Aminotransfer ALT/SGPT 12 U/L (<=34); Albumin, Serum 3.9 g/dL (3.4-4.8); Alkaline Phosphatase 46 U/L (35-104); Anion Gap 10 (5-15); BUN 34 mg/dL (4-19); BUN/Creat Ratio 18.2 RATIO (10-20); Bilirubin, Direct 0.27 mg/dL (0.00-0.30); Calcium,Total 9.4 mg/dL (7.6-11.0); Carbon Dioxide 20.6 mmol/L (21.0-32.0); Chloride 97 mmol/L (98-108); Creatinine, Serum 1.86 mg/dL (0.70-1.20); EST Glomerular Filtration Rate 30 (>60); Globulin 2.4 g/dL (2.2-4.2); Glucose 103 mg/dL (70-99); Potassium 4.7 mmol/L (3.3-5.1); Protein, Total 6.3 g/dL (5.9-8.4); Sodium Level 128 mmol/L (133-145); Total Bilirubin 0.47 mg/dL (0.00-1.30)
[2025-03-03 20:55] LABS: Xtra CC BBK (Onc ONLY) EXTRA TUBE; Xtra Tube EP Lab EXTRA TUBE
== END 2025-03-03 23:59 | disposition home or self-care (01) ==
LOC: MEDOUTP 10:28
PROVIDERS: PCP Internal Medicine; Referring Provider Nurse Practitioner Family; Visit Provider Nurse Practitioner Family
DX: D61.3 Idiopathic aplastic anemia (principal)
CPT/HCPCS: 36592; 80053; 82248; 85025; A4216

== ENCOUNTER 2025-03-11 10:09 | Outpatient (CLI) | payer OTHER, SELFPAY ==
[2025-03-11 13:08] LABS: Absolute Lymphocyte Count 0.88 X10^3/uL (0.83-4.51); Absolute Neutrophil Count 2.2 X10^3/uL (2.0-7.7); Basophil# 0.02 X10^3/uL; Basophil% 0.5 % (0-1); Eosinophil# 0.05 X10^3/uL; Eosinophils% 1.3 % (0-5); Hematocrit 22.6 % (37-47); Hemoglobin 8.2 g/dL (12.0-15.0); Lymphocyte # 0.88 X10^3/ul (0.83-4.51); Lymphocyte % 23.2 % (19-41); Mean Corp Hgb Conc 36.3 g/dL (32-36); Mean Corpuscular Hgb 38.3 pg (27.0-32.0); Mean Corpuscular Volume 105.6 fL (81-99); Mean Platelet Vol. 11.4 fl (6.2-12.0); Monocyte# 0.67 X10^3/uL; Monocyte% 17.7 % (0-10); NRBC Flagged by Analyzer 0 % (0-5); Neutrophil # 2.15 X10^3/uL (2.7-7.7); Neutrophil % 56.8 % (47-70); Platelet Count 129 K/mm3 (150-450); RBC Distribution Width CV 16.2 % (11.6-14.6); RBC Distribution Width SD 62.9 fl (35.1-43.9); Red Blood Count 2.14 M/mm3 (4.2-5.4); White Blood Count 3.8 K/mm3 (4.4-11.0)
[2025-03-11 13:36] LABS: ALB/GLOB Ratio 1.8 RATIO (0.9-2.4); AST(SGOT) 22 U/L (<=31); Alanine Aminotransfer ALT/SGPT 10 U/L (<=34); Albumin, Serum 4.1 g/dL (3.4-4.8); Alkaline Phosphatase 43 U/L (35-104); Anion Gap 11 (5-15); BUN 32 mg/dL (4-19); BUN/Creat Ratio 14.3 RATIO (10-20); Bilirubin, Direct 0.26 mg/dL (0.00-0.30); Calcium,Total 9.7 mg/dL (7.6-11.0); Carbon Dioxide 20.7 mmol/L (21.0-32.0); Chloride 101 mmol/L (98-108); Creatinine, Serum 2.25 mg/dL (0.70-1.20); EST Glomerular Filtration Rate 23 (>60); Globulin 2.3 g/dL (2.2-4.2); Glucose 100 mg/dL (70-99); Potassium 4.7 mmol/L (3.3-5.1); Protein, Total 6.4 g/dL (5.9-8.4); Sodium Level 133 mmol/L (133-145); Total Bilirubin 0.41 mg/dL (0.00-1.30)
== END 2025-03-11 23:59 | disposition home or self-care (01) ==
LOC: MEDOUTP 10:09
PROVIDERS: PCP Internal Medicine; Referring Provider Nurse Practitioner Family; Visit Provider Nurse Practitioner Family
DX: D61.3 Idiopathic aplastic anemia (principal)
CPT/HCPCS: 36592; 80053; 82248; 85025; A4216

== ENCOUNTER 2025-03-14 08:53 | Outpatient (CLI) | payer OTHER, SELFPAY ==
[2025-03-14 09:15] VITALS: BP 149/74; PULSE 73; RESP 16; TEMP 36.3; O2SAT 98; BMI 18.6
[2025-03-14] MEDS: 0.9% Normal Saline (1000mL) 1,000 ML 999 ML IV (09:22)
[2025-03-14 10:32] VITALS: BP 154/77; PULSE 70; RESP 16; TEMP 36.2; O2SAT 98
== END 2025-03-14 23:59 | disposition home or self-care (01) ==
LOC: MEDOUTP 08:53
PROVIDERS: PCP Internal Medicine; Referring Provider Nurse Practitioner Family; Visit Provider Nurse Practitioner Family
DX: D61.3 Idiopathic aplastic anemia (principal)
CPT/HCPCS: 96360; A4216

== ENCOUNTER 2025-03-17 09:25 | Outpatient (CLI) | payer OTHER, SELFPAY ==
[2025-03-17 09:53] LABS: Absolute Lymphocyte Count 0.84 X10^3/uL (0.83-4.51); Absolute Neutrophil Count 2.2 X10^3/uL (2.0-7.7); Basophil# 0.03 X10^3/uL; Basophil% 0.8 % (0-1); Eosinophils% 2.7 % (0-5); Hematocrit 22.6 % (37-47); Hemoglobin 7.9 g/dL (12.0-15.0); Lymphocyte # 0.84 X10^3/ul (0.83-4.51); Lymphocyte % 22.6 % (19-41); Mean Corpuscular Volume 108.7 fL (81-99); Mean Platelet Vol. 11.6 fl (6.2-12.0); Monocyte% 13.4 % (0-10); NRBC Flagged by Analyzer 0 % (0-5); Neutrophil # 2.23 X10^3/uL (2.7-7.7); Platelet Count 122 K/mm3 (150-450); RBC Distribution Width CV 16.2 % (11.6-14.6); RBC Distribution Width SD 64.5 fl (35.1-43.9); Red Blood Count 2.08 M/mm3 (4.2-5.4); White Blood Count 3.7 K/mm3 (4.4-11.0)
[2025-03-17 10:24] LABS: ALB/GLOB Ratio 1.8 RATIO (0.9-2.4); AST(SGOT) 23 U/L (<=31); Alanine Aminotransfer ALT/SGPT 12 U/L (<=34); Albumin, Serum 4.1 g/dL (3.4-4.8); Alkaline Phosphatase 44 U/L (35-104); Anion Gap 12 (5-15); BUN 32 mg/dL (4-19); BUN/Creat Ratio 14.3 RATIO (10-20); Calcium,Total 9.5 mg/dL (7.6-11.0); Carbon Dioxide 19.1 mmol/L (21.0-32.0); Chloride 101 mmol/L (98-108); Creatinine, Serum 2.23 mg/dL (0.70-1.20); EST Glomerular Filtration Rate 24 (>60); Globulin 2.2 g/dL (2.2-4.2); Glucose 120 mg/dL (70-99); Potassium 4.3 mmol/L (3.3-5.1); Protein, Total 6.3 g/dL (5.9-8.4); Sodium Level 133 mmol/L (133-145); Total Bilirubin 0.46 mg/dL (0.00-1.30)
[2025-03-17 17:47] LABS: Xtra CC BBK (Onc ONLY) EXTRA TUBE; Xtra Tube EP Lab EXTRA TUBE
== END 2025-03-17 23:59 | disposition home or self-care (01) ==
PROVIDERS: PCP Internal Medicine; Referring Provider Nurse Practitioner Family; Visit Provider Nurse Practitioner Family
DX: D61.3 Idiopathic aplastic anemia (principal)
CPT/HCPCS: 36592; 80053; 82248; 85025; 86850; 86900; 86901; A4216

== ENCOUNTER 2025-03-18 11:30 | Outpatient (CLI) | payer OTHER, SELFPAY ==
[2025-03-18 11:48] VITALS: BP 152/72; PULSE 72; RESP 16; TEMP 36.5; O2SAT 100; BMI 18.6
[2025-03-18 12:40] VITALS: BP 149/73; PULSE 63; RESP 16; TEMP 36.4; O2SAT 100
[2025-03-18 13:46] VITALS: BP 154/83; PULSE 60; RESP 14; TEMP 36.4; O2SAT 100
== END 2025-03-18 23:59 | disposition home or self-care (01) ==
LOC: MEDOUTP 11:30
PROVIDERS: PCP Internal Medicine; Referring Provider Nurse Practitioner Family; Visit Provider Nurse Practitioner Family
DX: D61.3 Idiopathic aplastic anemia (principal)
CPT/HCPCS: 36430; 86850; 86900; 86901; P9040; A4216

== ENCOUNTER 2025-03-24 10:28 | Outpatient (CLI) | payer OTHER, SELFPAY ==
[2025-03-24 11:05] LABS: Absolute Neutrophil Count 2.7 X10^3/uL (2.0-7.7); Basophil# 0.02 X10^3/uL; Basophil% 0.5 % (0-1); Eosinophil# 0.08 X10^3/uL; Eosinophils% 1.9 % (0-5); Hematocrit 25.2 % (37-47); Hemoglobin 8.7 g/dL (12.0-15.0); Mean Corp Hgb Conc 34.5 g/dL (32-36); Mean Corpuscular Hgb 35.2 pg (27.0-32.0); Mean Platelet Vol. 11.2 fl (6.2-12.0); Monocyte% 14.3 % (0-10); NRBC Flagged by Analyzer 0 % (0-5); Neutrophil # 2.68 X10^3/uL (2.7-7.7); Neutrophil % 63.6 % (47-70); POSITIVE COUNT YES; POSITIVE MORPHOLOGY YES; Platelet Count 98 K/mm3 (150-450); RBC Distribution Width SD 67.6 fl (35.1-43.9); Red Blood Count 2.47 M/mm3 (4.2-5.4); White Blood Count 4.2 K/mm3 (4.4-11.0)
[2025-03-24 11:15] LABS: Differential Indicated SCAN CRITERIA MET
[2025-03-24 11:41] LABS: Anisocytosis 1+; Platelet Estimate SLT DEC (ADEQ)
[2025-03-24 11:43] LABS: ALB/GLOB Ratio 1.8 RATIO (0.9-2.4); AST(SGOT) 21 U/L (<=31); Alanine Aminotransfer ALT/SGPT 11 U/L (<=34); Alkaline Phosphatase 45 U/L (35-104); Anion Gap 11 (5-15); BUN 35 mg/dL (4-19); BUN/Creat Ratio 19.1 RATIO (10-20); Bilirubin, Direct 0.26 mg/dL (0.00-0.30); Calcium,Total 9.3 mg/dL (7.6-11.0); Carbon Dioxide 19.8 mmol/L (21.0-32.0); Chloride 104 mmol/L (98-108); Creatinine, Serum 1.84 mg/dL (0.70-1.20); EST Glomerular Filtration Rate 30 (>60); Globulin 2.2 g/dL (2.2-4.2); Glucose 115 mg/dL (70-99); Potassium 4.7 mmol/L (3.3-5.1); Protein, Total 6.2 g/dL (5.9-8.4); Sodium Level 134 mmol/L (133-145)
[2025-03-24 18:55] LABS: Xtra Tube EP Lab EXTRA TUBE
== END 2025-03-24 23:59 | disposition home or self-care (01) ==
LOC: MEDOUTP 10:28
PROVIDERS: PCP Internal Medicine; Referring Provider Nurse Practitioner Family; Visit Provider Nurse Practitioner Family
DX: D61.3 Idiopathic aplastic anemia (principal)
CPT/HCPCS: 36592; 80053; 82248; 85025; A4216

== ENCOUNTER 2025-03-25 12:56 | Outpatient (CLI) | payer OTHER, SELFPAY ==
[2025-03-25 13:25] VITALS: BP 151/71; PULSE 79; RESP 16; TEMP 36.6; O2SAT 96
[2025-03-25 14:37] VITALS: BP 155/77; PULSE 70; RESP 16; TEMP 36.6; O2SAT 100
== END 2025-03-25 23:59 | disposition home or self-care (01) ==
LOC: MEDOUTP 12:56
PROVIDERS: PCP Internal Medicine; Referring Provider Physician Assistant Medical; Visit Provider Physician Assistant Medical
DX: N17.9 Acute kidney failure, unspecified (principal)
CPT/HCPCS: A4216

== ENCOUNTER 2025-03-31 10:27 | Outpatient (CLI) | payer OTHER, SELFPAY ==
[2025-03-31 10:58] LABS: Absolute Lymphocyte Count 0.88 X10^3/uL (0.83-4.51); Absolute Neutrophil Count 2.3 X10^3/uL (2.0-7.7); Basophil# 0.03 X10^3/uL; Basophil% 0.7 % (0-1); Differential Indicated SCAN CRITERIA MET; Eosinophil# 0.09 X10^3/uL; Eosinophils% 2.2 % (0-5); Hematocrit 25.2 % (37-47); Hemoglobin 8.7 g/dL (12.0-15.0); Lymphocyte # 0.88 X10^3/ul (0.83-4.51); Lymphocyte % 21.9 % (19-41); Mean Corp Hgb Conc 34.5 g/dL (32-36); Mean Corpuscular Volume 104.1 fL (81-99); Mean Platelet Vol. 11.1 fl (6.2-12.0); Monocyte# 0.65 X10^3/uL; Monocyte% 16.2 % (0-10); NRBC Flagged by Analyzer 0 % (0-5); Neutrophil # 2.34 X10^3/uL (2.7-7.7); Neutrophil % 58.3 % (47-70); POSITIVE MORPHOLOGY YES; Platelet Count 125 K/mm3 (150-450); RBC Distribution Width CV 17.2 % (11.6-14.6); RBC Distribution Width SD 65.4 fl (35.1-43.9); Red Blood Count 2.42 M/mm3 (4.2-5.4)
[2025-03-31 11:27] LABS: AST(SGOT) 22 U/L (<=31); Alanine Aminotransfer ALT/SGPT 16 U/L (<=34); Alkaline Phosphatase 55 U/L (35-104); Anion Gap 11 (5-15); BUN 41 mg/dL (4-19); BUN/Creat Ratio 20.9 RATIO (10-20); Bilirubin, Direct 0.27 mg/dL (0.00-0.30); Calcium,Total 9.5 mg/dL (7.6-11.0); Carbon Dioxide 18.2 mmol/L (21.0-32.0); Chloride 105 mmol/L (98-108); Creatinine, Serum 1.97 mg/dL (0.70-1.20); EST Glomerular Filtration Rate 28 (>60); Globulin 2.1 g/dL (2.2-4.2); Glucose 99 mg/dL (70-99); Potassium 4.6 mmol/L (3.3-5.1); Protein, Total 6.1 g/dL (5.9-8.4); Sodium Level 134 mmol/L (133-145); Total Bilirubin 0.45 mg/dL (0.00-1.30)
[2025-03-31 11:39] LABS: Anisocytosis 1+
== END 2025-03-31 23:59 | disposition home or self-care (01) ==
LOC: MEDOUTP 10:27
PROVIDERS: PCP Internal Medicine; Referring Provider Nurse Practitioner Family; Visit Provider Nurse Practitioner Family
DX: D61.3 Idiopathic aplastic anemia (principal)
CPT/HCPCS: 36591; 80053; 82248; 85025; A4216

== ENCOUNTER 2025-04-07 09:54 | Outpatient (CLI) | payer OTHER, SELFPAY ==
[2025-04-07 10:26] LABS: Absolute Lymphocyte Count 0.89 X10^3/uL (0.83-4.51); Absolute Neutrophil Count 2.9 X10^3/uL (2.0-7.7); Basophil# 0.03 X10^3/uL; Basophil% 0.7 % (0-1); Eosinophil# 0.09 X10^3/uL; Hemoglobin 8.7 g/dL (12.0-15.0); Lymphocyte # 0.89 X10^3/ul (0.83-4.51); Lymphocyte % 19.4 % (19-41); Mean Corp Hgb Conc 34.8 g/dL (32-36); Mean Corpuscular Hgb 36.4 pg (27.0-32.0); Mean Corpuscular Volume 104.6 fL (81-99); Mean Platelet Vol. 10.8 fl (6.2-12.0); Monocyte# 0.61 X10^3/uL; Monocyte% 13.3 % (0-10); NRBC Flagged by Analyzer 0 % (0-5); Neutrophil # 2.94 X10^3/uL (2.7-7.7); Neutrophil % 63.9 % (47-70); POSITIVE MORPHOLOGY YES; Platelet Count 150 K/mm3 (150-450); RBC Distribution Width SD 65.1 fl (35.1-43.9); Red Blood Count 2.39 M/mm3 (4.2-5.4); White Blood Count 4.6 K/mm3 (4.4-11.0)
[2025-04-07 10:27] LABS: Differential Indicated SCAN CRITERIA MET
[2025-04-07 10:46] LABS: Anisocytosis 2+; Differential Comment SCANNED
[2025-04-07 10:54] LABS: ALB/GLOB Ratio 1.8 RATIO (0.9-2.4); AST(SGOT) 23 U/L (<=31); Alanine Aminotransfer ALT/SGPT 17 U/L (<=34); Albumin, Serum 4.1 g/dL (3.4-4.8); Alkaline Phosphatase 57 U/L (35-104); Anion Gap 11 (5-15); BUN 45 mg/dL (4-19); Bilirubin, Direct 0.23 mg/dL (0.00-0.30); Calcium,Total 9.8 mg/dL (7.6-11.0); Carbon Dioxide 18.9 mmol/L (21.0-32.0); Chloride 103 mmol/L (98-108); Creatinine, Serum 2.39 mg/dL (0.70-1.20); EST Glomerular Filtration Rate 22 (>60); Globulin 2.3 g/dL (2.2-4.2); Glucose 107 mg/dL (70-99); Protein, Total 6.3 g/dL (5.9-8.4); Sodium Level 133 mmol/L (133-145); Total Bilirubin 0.42 mg/dL (0.00-1.30)
[2025-04-07 18:21] LABS: Xtra CC BBK (Onc ONLY) EXTRA TUBE; Xtra Tube EP Lab EXTRA TUBE
== END 2025-04-07 23:59 | disposition home or self-care (01) ==
LOC: MEDOUTP 09:54
PROVIDERS: PCP Internal Medicine; Referring Provider Nurse Practitioner Family; Visit Provider Nurse Practitioner Family
DX: D61.3 Idiopathic aplastic anemia (principal)
CPT/HCPCS: 36592; 80053; 82248; 85025; A4216

== ENCOUNTER 2025-04-09 10:25 | Outpatient (CLI) | payer OTHER, SELFPAY ==
[2025-04-09 10:41] VITALS: BP 158/82; PULSE 69; RESP 16; TEMP 35.9; O2SAT 100; BMI 18.6
[2025-04-09] MEDS: 0.9% Normal Saline (1000mL) 1,000 ML 750 ML IV (10:45)
[2025-04-09 12:20] VITALS: BP 159/73; PULSE 64; TEMP 35.9
== END 2025-04-09 23:59 | disposition home or self-care (01) ==
LOC: MEDOUTP 10:25
PROVIDERS: PCP Internal Medicine; Referring Provider Physician Assistant Medical; Visit Provider Physician Assistant Medical
DX: N17.9 Acute kidney failure, unspecified (principal); D61.3 Idiopathic aplastic anemia
CPT/HCPCS: 96360; A4216

== ENCOUNTER 2025-04-14 10:20 | Outpatient (CLI) | payer OTHER, SELFPAY ==
[2025-04-14 10:47] LABS: Absolute Lymphocyte Count 0.82 X10^3/uL (0.83-4.51); Absolute Neutrophil Count 2.9 X10^3/uL (2.0-7.7); Basophil# 0.03 X10^3/uL; Basophil% 0.7 % (0-1); Eosinophil# 0.13 X10^3/uL; Eosinophils% 2.8 % (0-5); Hemoglobin 8.4 g/dL (12.0-15.0); Lymphocyte # 0.82 X10^3/ul (0.83-4.51); Lymphocyte % 17.8 % (19-41); Mean Corp Hgb Conc 33.6 g/dL (32-36); Mean Corpuscular Hgb 35.9 pg (27.0-32.0); Mean Corpuscular Volume 106.8 fL (81-99); Mean Platelet Vol. 11.1 fl (6.2-12.0); Monocyte# 0.69 X10^3/uL; NRBC Flagged by Analyzer 0 % (0-5); POSITIVE MORPHOLOGY YES; Platelet Count 151 K/mm3 (150-450); RBC Distribution Width CV 17.2 % (11.6-14.6); RBC Distribution Width SD 67.9 fl (35.1-43.9); Red Blood Count 2.34 M/mm3 (4.2-5.4); White Blood Count 4.6 K/mm3 (4.4-11.0)
[2025-04-14 10:48] LABS: Differential Indicated SCAN CRITERIA MET
[2025-04-14 11:21] LABS: AST(SGOT) 26 U/L (<=31); Alanine Aminotransfer ALT/SGPT 15 U/L (<=34); Alkaline Phosphatase 63 U/L (35-104); Anion Gap 11 (5-15); BUN 49 mg/dL (4-19); BUN/Creat Ratio 25.1 RATIO (10-20); Bilirubin, Direct 0.21 mg/dL (0.00-0.30); Calcium,Total 9.7 mg/dL (7.6-11.0); Carbon Dioxide 19.1 mmol/L (21.0-32.0); Chloride 103 mmol/L (98-108); Creatinine, Serum 1.97 mg/dL (0.70-1.20); EST Glomerular Filtration Rate 28 (>60); Glucose 91 mg/dL (70-99); Potassium 5.1 mmol/L (3.3-5.1); Sodium Level 133 mmol/L (133-145); Total Bilirubin 0.35 mg/dL (0.00-1.30)
[2025-04-14 11:39] LABS: Anisocytosis 1+
[2025-04-14 18:43] LABS: Xtra CC BBK (Onc ONLY) EXTRA TUBE
== END 2025-04-14 23:59 | disposition home or self-care (01) ==
LOC: MEDOUTP 10:20
PROVIDERS: PCP Internal Medicine; Referring Provider Nurse Practitioner Family; Visit Provider Nurse Practitioner Family
DX: D61.3 Idiopathic aplastic anemia (principal)
CPT/HCPCS: 36592; 80053; 82248; 85025; A4216

== ENCOUNTER 2025-04-21 10:29 | Outpatient (CLI) | payer OTHER, SELFPAY ==
[2025-04-21 11:30] LABS: Hematocrit 24.4 % (37-47); Hemoglobin 8.3 g/dL (12.0-15.0); Immature Granulocytes Count 0.020 X10^3/uL (0.0-0.0); Mean Corp Hgb Conc 34.0 g/dL (32-36); Mean Corpuscular Volume 107.5 fL (81-99); Mean Platelet Vol. 10.9 fl (6.2-12.0); NRBC Flagged by Analyzer 0 % (0-5); POSITIVE MORPHOLOGY YES; Platelet Count 138 K/mm3 (150-450); RBC Distribution Width CV 17.1 % (11.6-14.6); RBC Distribution Width SD 67.1 fl (35.1-43.9); Red Blood Count 2.27 M/mm3 (4.2-5.4); White Blood Count 4.5 K/mm3 (4.4-11.0)
[2025-04-21 11:33] LABS: Differential Indicated SCAN CRITERIA MET
[2025-04-21 11:43] LABS: AST(SGOT) 25 U/L (<=31); Alanine Aminotransfer ALT/SGPT 18 U/L (<=34); Albumin, Serum 3.9 g/dL (3.4-4.8); Alkaline Phosphatase 56 U/L (35-104); Anion Gap 11 (5-15); BUN 41 mg/dL (4-19); BUN/Creat Ratio 24.3 RATIO (10-20); Bilirubin, Direct 0.29 mg/dL (0.00-0.30); Calcium,Total 9.2 mg/dL (7.6-11.0); Carbon Dioxide 19.5 mmol/L (21.0-32.0); Chloride 105 mmol/L (98-108); Globulin 2.1 g/dL (2.2-4.2); Glucose 108 mg/dL (70-99); Potassium 4.5 mmol/L (3.3-5.1)
[2025-04-21 11:57] LABS: Differential Comment SCANNED
[2025-04-21 19:14] LABS: Xtra CC BBK (Onc ONLY) EXTRA TUBE; Xtra Tube EP Lab EXTRA TUBE
== END 2025-04-21 23:59 | disposition home or self-care (01) ==
LOC: MEDOUTP 10:29
PROVIDERS: PCP Internal Medicine; Referring Provider Nurse Practitioner Family; Visit Provider Nurse Practitioner Family
DX: D61.3 Idiopathic aplastic anemia (principal)
CPT/HCPCS: 36592; 80053; 82248; 85025; A4216

== ENCOUNTER 2025-04-28 10:26 | Outpatient (CLI) | payer OTHER, SELFPAY ==
[2025-04-28 10:59] LABS: Hematocrit 24.7 % (37-47); Hemoglobin 8.2 g/dL (12.0-15.0); Mean Corpuscular Volume 111.3 fL (81-99); Red Blood Count 2.22 M/mm3 (4.2-5.4); White Blood Count 3.7 K/mm3 (4.4-11.0)
[2025-04-28 11:00] LABS: Immature Granulocytes Count 0.020 X10^3/uL (0.0-0.0); Mean Corp Hgb Conc 33.2 g/dL (32-36); Mean Platelet Vol. 10.9 fl (6.2-12.0); Platelet Count 117 K/mm3 (150-450); RBC Distribution Width CV 17.0 % (11.6-14.6); RBC Distribution Width SD 69.6 fl (35.1-43.9)
[2025-04-28 11:09] LABS: AST(SGOT) 21 U/L (<=31); Alanine Aminotransfer ALT/SGPT 13 U/L (<=34); Albumin, Serum 3.9 g/dL (3.4-4.8); Alkaline Phosphatase 54 U/L (35-104); Anion Gap 10 (5-15); BUN 31 mg/dL (4-19); BUN/Creat Ratio 19.2 RATIO (10-20); Bilirubin, Direct 0.25 mg/dL (0.00-0.30); Calcium,Total 9.3 mg/dL (7.6-11.0); Carbon Dioxide 20.2 mmol/L (21.0-32.0); Chloride 104 mmol/L (98-108); Globulin 1.9 g/dL (2.2-4.2); Glucose 87 mg/dL (70-99); Potassium 4.5 mmol/L (3.3-5.1)
[2025-04-28 11:24] LABS: Anisocytosis 1+; Differential Indicated SCAN CRITERIA MET
[2025-04-28 18:47] LABS: Xtra CC BBK (Onc ONLY) EXTRA TUBE
== END 2025-04-28 23:59 | disposition home or self-care (01) ==
LOC: MEDOUTP 10:26
PROVIDERS: PCP Internal Medicine; Referring Provider Nurse Practitioner Family; Visit Provider Nurse Practitioner Family
DX: D61.3 Idiopathic aplastic anemia (principal)
CPT/HCPCS: 36592; 80053; 82248; 85025; A4216

== ENCOUNTER 2025-05-12 10:26 | Outpatient (CLI) | payer OTHER, SELFPAY ==
[2025-05-12 11:43] LABS: Hematocrit 23.2 % (37-47); Hemoglobin 8.0 g/dL (12.0-15.0); Immature Granulocytes Count 0.020 X10^3/uL (0.0-0.0); Mean Corp Hgb Conc 34.5 g/dL (32-36); Mean Corpuscular Volume 108.9 fL (81-99); Mean Platelet Vol. 11.1 fl (6.2-12.0); NRBC Flagged by Analyzer 0 % (0-5); Platelet Count 110 K/mm3 (150-450); RBC Distribution Width CV 16.1 % (11.6-14.6); RBC Distribution Width SD 64.8 fl (35.1-43.9); Red Blood Count 2.13 M/mm3 (4.2-5.4); White Blood Count 4.3 K/mm3 (4.4-11.0)
[2025-05-12 12:08] LABS: AST(SGOT) 24 U/L (<=31); Alanine Aminotransfer ALT/SGPT 17 U/L (<=34); Albumin, Serum 3.9 g/dL (3.4-4.8); Alkaline Phosphatase 55 U/L (35-104); Anion Gap 11 (5-15); BUN 34 mg/dL (4-19); BUN/Creat Ratio 21.3 RATIO (10-20); Bilirubin, Direct 0.24 mg/dL (0.00-0.30); Calcium,Total 9.7 mg/dL (7.6-11.0); Carbon Dioxide 20.1 mmol/L (21.0-32.0); Chloride 105 mmol/L (98-108); Globulin 2.1 g/dL (2.2-4.2); Glucose 95 mg/dL (70-99); Potassium 4.8 mmol/L (3.3-5.1)
[2025-05-12 19:36] LABS: Xtra CC BBK (Onc ONLY) EXTRA TUBE
== END 2025-05-12 23:59 | disposition home or self-care (01) ==
LOC: MEDOUTP 10:27
PROVIDERS: PCP Internal Medicine; Referring Provider Nurse Practitioner Family; Visit Provider Nurse Practitioner Family
DX: D61.3 Idiopathic aplastic anemia (principal)
CPT/HCPCS: 36592; 80053; 82248; 85025; A4216

== ENCOUNTER 2025-05-19 10:24 | Outpatient (CLI) | payer OTHER, SELFPAY ==
[2025-05-19 11:07] LABS: Hematocrit 22.6 % (37-47); Hemoglobin 7.6 g/dL (12.0-15.0); Immature Granulocytes Count 0.010 X10^3/uL (0.0-0.0); Mean Corp Hgb Conc 33.6 g/dL (32-36); Mean Corpuscular Volume 111.3 fL (81-99); Mean Platelet Vol. 10.7 fl (6.2-12.0); NRBC Flagged by Analyzer 0 % (0-5); Platelet Count 111 K/mm3 (150-450); RBC Distribution Width CV 15.8 % (11.6-14.6); RBC Distribution Width SD 64.0 fl (35.1-43.9); Red Blood Count 2.03 M/mm3 (4.2-5.4); White Blood Count 3.9 K/mm3 (4.4-11.0)
[2025-05-19 11:25] LABS: AST(SGOT) 23 U/L (<=31); Alanine Aminotransfer ALT/SGPT 13 U/L (<=34); Albumin, Serum 3.9 g/dL (3.4-4.8); Alkaline Phosphatase 54 U/L (35-104); Anion Gap 11 (5-15); BUN 38 mg/dL (4-19); BUN/Creat Ratio 21.3 RATIO (10-20); Bilirubin, Direct 0.20 mg/dL (0.00-0.30); Calcium,Total 9.4 mg/dL (7.6-11.0); Carbon Dioxide 20.1 mmol/L (21.0-32.0); Chloride 102 mmol/L (98-108); Globulin 2.0 g/dL (2.2-4.2); Glucose 99 mg/dL (70-99); Potassium 5.0 mmol/L (3.3-5.1)
[2025-05-19 18:56] LABS: Xtra CC BBK (Onc ONLY) EXTRA TUBE
== END 2025-05-19 23:59 | disposition home or self-care (01) ==
LOC: MEDOUTP 10:25
PROVIDERS: PCP Internal Medicine; Referring Provider Nurse Practitioner Family; Visit Provider Nurse Practitioner Family
DX: D61.3 Idiopathic aplastic anemia (principal)
CPT/HCPCS: 36592; 80053; 82248; 85025; 86850; 86900; 86901; A4216

== ENCOUNTER 2025-05-20 10:50 | Outpatient (CLI) | payer OTHER, SELFPAY ==
[2025-05-20 11:04] VITALS: BP 164/78; PULSE 70; RESP 16; TEMP 36.8; O2SAT 96
[2025-05-20 11:41] VITALS: BP 149/67; PULSE 65; RESP 16; TEMP 36.9; O2SAT 98
[2025-05-20 12:41] VITALS: BP 176/75; PULSE 61; RESP 16; TEMP 36.9; O2SAT 99
== END 2025-05-20 23:59 | disposition home or self-care (01) ==
LOC: MEDOUTP 10:51
PROVIDERS: PCP Internal Medicine; Referring Provider Nurse Practitioner Family; Visit Provider Nurse Practitioner Family
DX: D61.3 Idiopathic aplastic anemia (principal)
CPT/HCPCS: 36430; 86644; 86850; 86900; 86901; P9040; A4216

== ENCOUNTER 2025-06-02 10:26 | Outpatient (CLI) | payer OTHER, SELFPAY ==
[2025-06-02 11:01] LABS: Hematocrit 28.6 % (37-47); Hemoglobin 9.7 g/dL (12.0-15.0); Immature Granulocytes Count 0.010 X10^3/uL (0.0-0.0); Mean Corp Hgb Conc 33.9 g/dL (32-36); Mean Corpuscular Volume 108.3 fL (81-99); Mean Platelet Vol. 11.3 fl (6.2-12.0); NRBC Flagged by Analyzer 0 % (0-5); POSITIVE COUNT YES; Platelet Count 86 K/mm3 (150-450); RBC Distribution Width CV 15.7 % (11.6-14.6); RBC Distribution Width SD 62.4 fl (35.1-43.9); Red Blood Count 2.64 M/mm3 (4.2-5.4); White Blood Count 4.4 K/mm3 (4.4-11.0)
[2025-06-02 11:02] LABS: Differential Indicated SCAN CRITERIA MET
[2025-06-02 11:15] LABS: AST(SGOT) 27 U/L (<=31); Alanine Aminotransfer ALT/SGPT 16 U/L (<=34); Albumin, Serum 4.0 g/dL (3.4-4.8); Alkaline Phosphatase 63 U/L (35-104); Anion Gap 11 (5-15); BUN 36 mg/dL (4-19); BUN/Creat Ratio 22.4 RATIO (10-20); Bilirubin, Direct 0.26 mg/dL (0.00-0.30); Calcium,Total 9.3 mg/dL (7.6-11.0); Carbon Dioxide 21.0 mmol/L (21.0-32.0); Chloride 102 mmol/L (98-108); Globulin 1.9 g/dL (2.2-4.2); Glucose 91 mg/dL (70-99); Potassium 4.8 mmol/L (3.3-5.1)
[2025-06-02 18:53] LABS: Xtra CC BBK (Onc ONLY) EXTRA TUBE
== END 2025-06-02 23:59 | disposition home or self-care (01) ==
LOC: MEDOUTP 10:27
PROVIDERS: PCP Internal Medicine; Referring Provider Nurse Practitioner Family; Visit Provider Nurse Practitioner Family
DX: D61.3 Idiopathic aplastic anemia (principal)
CPT/HCPCS: 36592; 80053; 80158; 82248; 85025; A4216

== ENCOUNTER 2025-06-09 10:18 | Outpatient (CLI) | payer OTHER, SELFPAY ==
[2025-06-09 10:59] LABS: Hematocrit 26.5 % (37-47); Hemoglobin 8.8 g/dL (12.0-15.0); Immature Granulocytes Count 0.000 X10^3/uL (0.0-0.0); Mean Corp Hgb Conc 33.2 g/dL (32-36); Mean Corpuscular Volume 107.7 fL (81-99); Mean Platelet Vol. 10.5 fl (6.2-12.0); NRBC Flagged by Analyzer 0 % (0-5); POSITIVE COUNT YES; Platelet Count 93 K/mm3 (150-450); RBC Distribution Width CV 15.7 % (11.6-14.6); RBC Distribution Width SD 62.4 fl (35.1-43.9); Red Blood Count 2.46 M/mm3 (4.2-5.4); White Blood Count 3.2 K/mm3 (4.4-11.0)
[2025-06-09 11:44] LABS: AST(SGOT) 26 U/L (<=31); Alanine Aminotransfer ALT/SGPT 18 U/L (<=34); Albumin, Serum 3.7 g/dL (3.4-4.8); Alkaline Phosphatase 59 U/L (35-104); Anion Gap 11 (5-15); BUN 48 mg/dL (4-19); BUN/Creat Ratio 30.8 RATIO (10-20); Bilirubin, Direct 0.20 mg/dL (0.00-0.30); Calcium,Total 9.3 mg/dL (7.6-11.0); Carbon Dioxide 19.9 mmol/L (21.0-32.0); Chloride 105 mmol/L (98-108); Globulin 2.0 g/dL (2.2-4.2); Glucose 95 mg/dL (70-99); Potassium 4.7 mmol/L (3.3-5.1)
[2025-06-09 18:51] LABS: Xtra CC BBK (Onc ONLY) EXTRA TUBE
== END 2025-06-09 23:59 | disposition home or self-care (01) ==
LOC: MEDOUTP 10:19
PROVIDERS: PCP Internal Medicine; Referring Provider Nurse Practitioner Family; Visit Provider Nurse Practitioner Family
DX: D61.3 Idiopathic aplastic anemia (principal)
CPT/HCPCS: 36592; 80053; 80158; 82248; 85025; A4216

== ENCOUNTER 2025-06-17 10:25 | Outpatient (CLI) | payer OTHER, SELFPAY ==
[2025-06-17 10:54] LABS: Hematocrit 25.8 % (37-47); Hemoglobin 8.9 g/dL (12.0-15.0); Immature Granulocytes Count 0.020 X10^3/uL (0.0-0.0); Mean Corp Hgb Conc 34.5 g/dL (32-36); Mean Corpuscular Volume 106.6 fL (81-99); Mean Platelet Vol. 10.9 fl (6.2-12.0); NRBC Flagged by Analyzer 0 % (0-5); Platelet Count 109 K/mm3 (150-450); RBC Distribution Width CV 15.4 % (11.6-14.6); RBC Distribution Width SD 60.1 fl (35.1-43.9); Red Blood Count 2.42 M/mm3 (4.2-5.4); White Blood Count 3.9 K/mm3 (4.4-11.0)
[2025-06-17 11:31] LABS: AST(SGOT) 24 U/L (<=31); Alanine Aminotransfer ALT/SGPT 12 U/L (<=34); Albumin, Serum 4.0 g/dL (3.4-4.8); Alkaline Phosphatase 52 U/L (35-104); Anion Gap 10 (5-15); BUN 35 mg/dL (4-19); BUN/Creat Ratio 22.8 RATIO (10-20); Bilirubin, Direct 0.24 mg/dL (0.00-0.30); Calcium,Total 9.5 mg/dL (7.6-11.0); Carbon Dioxide 20.6 mmol/L (21.0-32.0); Chloride 104 mmol/L (98-108); Globulin 2.1 g/dL (2.2-4.2); Glucose 97 mg/dL (70-99); Potassium 4.6 mmol/L (3.3-5.1)
[2025-06-17 18:49] LABS: Xtra CC BBK (Onc ONLY) EXTRA TUBE
== END 2025-06-17 23:59 | disposition home or self-care (01) ==
LOC: MEDOUTP 10:26
PROVIDERS: PCP Internal Medicine; Referring Provider Nurse Practitioner Family; Visit Provider Nurse Practitioner Family
DX: D61.3 Idiopathic aplastic anemia (principal)
CPT/HCPCS: 36592; 80053; 80158; 82248; 85025; A4216

== ENCOUNTER 2025-06-30 10:17 | Outpatient (CLI) | payer OTHER, SELFPAY ==
[2025-06-30 11:00] LABS: Hematocrit 27.8 % (37-47); Hemoglobin 9.5 g/dL (12.0-15.0); Immature Granulocytes Count 0.020 X10^3/uL (0.0-0.0); Mean Corp Hgb Conc 34.2 g/dL (32-36); Mean Corpuscular Volume 107.3 fL (81-99); Mean Platelet Vol. 10.5 fl (6.2-12.0); NRBC Flagged by Analyzer 0 % (0-5); POSITIVE DIFFERENTIAL YES; Platelet Count 122 K/mm3 (150-450); RBC Distribution Width CV 14.9 % (11.6-14.6); RBC Distribution Width SD 59.4 fl (35.1-43.9); Red Blood Count 2.59 M/mm3 (4.2-5.4); White Blood Count 3.9 K/mm3 (4.4-11.0)
[2025-06-30 11:33] LABS: AST(SGOT) 23 U/L (<=31); Alanine Aminotransfer ALT/SGPT 13 U/L (<=34); Albumin, Serum 4.0 g/dL (3.4-4.8); Alkaline Phosphatase 55 U/L (35-104); Anion Gap 9 (5-15); BUN 36 mg/dL (4-19); BUN/Creat Ratio 22.3 RATIO (10-20); Bilirubin, Direct 0.22 mg/dL (0.00-0.30); Calcium,Total 9.9 mg/dL (7.6-11.0); Carbon Dioxide 23.1 mmol/L (21.0-32.0); Chloride 104 mmol/L (98-108); Globulin 2.2 g/dL (2.2-4.2); Glucose 123 mg/dL (70-99); Potassium 4.7 mmol/L (3.3-5.1)
[2025-06-30 18:55] LABS: Xtra CC BBK (Onc ONLY) EXTRA TUBE
== END 2025-06-30 23:59 | disposition home or self-care (01) ==
PROVIDERS: PCP Internal Medicine; Referring Provider Nurse Practitioner Family; Visit Provider Nurse Practitioner Family
DX: D61.3 Idiopathic aplastic anemia (principal)
CPT/HCPCS: 80053; 80158; 82248; 85025

== ENCOUNTER 2025-07-07 10:45 | Outpatient (CLI) | payer OTHER, SELFPAY ==
[2025-07-07 11:03] LABS: Hematocrit 28.3 % (37-47); Hemoglobin 9.7 g/dL (12.0-15.0); Immature Granulocytes Count 0.010 X10^3/uL (0.0-0.0); Mean Corp Hgb Conc 34.3 g/dL (32-36); Mean Corpuscular Volume 108.4 fL (81-99); Mean Platelet Vol. 10.3 fl (6.2-12.0); NRBC Flagged by Analyzer 0 % (0-5); Platelet Count 151 K/mm3 (150-450); RBC Distribution Width CV 15.0 % (11.6-14.6); RBC Distribution Width SD 59.8 fl (35.1-43.9); Red Blood Count 2.61 M/mm3 (4.2-5.4); White Blood Count 3.9 K/mm3 (4.4-11.0)
[2025-07-07 11:23] LABS: AST(SGOT) 28 U/L (<=31); Alanine Aminotransfer ALT/SGPT 15 U/L (<=34); Albumin, Serum 4.3 g/dL (3.4-4.8); Alkaline Phosphatase 64 U/L (35-104); Anion Gap 10 (5-15); BUN 31 mg/dL (4-19); BUN/Creat Ratio 20.9 RATIO (10-20); Bilirubin, Direct 0.18 mg/dL (0.00-0.30); Calcium,Total 9.6 mg/dL (7.6-11.0); Carbon Dioxide 19.6 mmol/L (21.0-32.0); Chloride 106 mmol/L (98-108); Globulin 2.2 g/dL (2.2-4.2); Glucose 104 mg/dL (70-99); Potassium 4.7 mmol/L (3.3-5.1)
[2025-07-07 18:58] LABS: Xtra CC BBK (Onc ONLY) EXTRA TUBE; Xtra Tube EP Lab EXTRA TUBE
== END 2025-07-07 23:59 | disposition home or self-care (01) ==
LOC: MEDOUTP 10:45
PROVIDERS: PCP Internal Medicine; Referring Provider Nurse Practitioner Family; Visit Provider Nurse Practitioner Family
DX: D61.3 Idiopathic aplastic anemia (principal)
CPT/HCPCS: 36415; 80053; 80158; 82248; 85025

== ENCOUNTER 2025-07-14 09:43 | Outpatient (CLI) | payer OTHER, SELFPAY ==
--- OUTSIDE RECORDS SUMMARY | 2025-06-23 15:22 | XMS RPT_ITS ---
Author Name Auto Generated Organization OHIP Support Name Relationship Address Phone ROSHAN, (ROMELIA) Next of Kin [address] [place] [address] + ROSHAN, ROMELIA Next of [place] [address] Unavailable ROSHAN, CRYSTAL Next of Kin Unknown Unavailable ROSHAN, (ROMELIA) Next of Kin [address] [place] [address] + ROSHAN, ROMELIA Next of [place] [address] Unavailable ROSHAN, CRYSTAL Next of Kin Unknown Unavailable ROSHAN, (ROMELIA) Next of Kin [address] [place] [address] + ROSHAN, ROMELIA [place] [address] Unavailable ROSHAN, CRYSTAL Next of Kin Unknown Unavailable ROSHAN, (ROMELIA) Next of Kin [address] [place] [address] + ROSHAN, ROMELIA [place] [address] Unavailable ROSHAN, CRYSTAL Next of Kin Unknown Unavailable ROSHAN, (ROMELIA) Next of Kin [address] [place] [address] + ROSHAN, ROMELIA Next of Kin [place] [address] Unavailable ROSHAN, CRYSTAL Next of Kin Unknown Unavailable ROSHAN, (ROMELIA) Next of Kin [address] [place] [address] + ROSHAN, ROMELIA Next of Kin [place] [address] Unavailable ROSHAN, CRYSTAL Next of Kin Unknown Unavailable ROSHAN, ROMELIA Next of Kin [place] [address] Unavailable ROSHAN, CRYSTAL Next of Kin Unknown Unavailable ROSHAN, ROMELIA [place] [address] Unavailable ROSHAN, CRYSTAL Next of Kin Unknown Unavailable ROSHAN, ROMELIA Next of Kin [place] [address] Unavailable ROSHAN, CRYSTAL Next of Kin Unknown Unavailable ROSHAN, ROMELIA Next of Kin [place] [address] Unavailable ROSHAN, CRYSTAL Next of Kin Unknown Unavailable ROSHAN, ROMELIA Next of Kin [place] [address] Unavailable ROSHAN, CRYSTAL Next of Kin Unknown Unavailable ROSHAN, ROMELIA [place] [address] Unavailable ROSHAN, CRYSTAL Next of Kin Unknown Unavailable ROSHAN, ROMELIA [place] [address] Unavailable ROSHAN, CRYSTAL Next of Kin Unknown Unavailable ROSHAN, ROMELIA [place] [address] Unavailable ROSHAN, CRYSTAL Next of Kin Unknown Unavailable ROSHAN, ROMELIA [place] [address] Unavailable ROSHAN, CRYSTAL Next of Kin Unknown Unavailable ROSHAN, ROMELIA Next of Kin [place] [address] Unavailable ROSHAN, CRYSTAL Next of Kin Unknown Unavailable ROSHAN, ROMELIA Next of Kin [place] [address] Unavailable ROSHAN, CRYSTAL Next of Kin Unknown Unavailable ROSHAN, ROMELIA Next [place] [address] Unavailable ROSHAN, CRYSTAL Next of Kin Unknown Unavailable ROSHAN, ROMELIA [place] [address] Unavailable ROSHAN, CRYSTAL Next of Kin Unknown Unavailable ROSHAN, ROMELIA Next [place] [address] Unavailable ROSHAN, CRYSTAL Next of Kin Unknown Unavailable ROSHAN, ROMELIA Next of Kin [place] [address] Unavailable ROSHAN, CRYSTAL Next of Kin Unknown Unavailable ROSHAN, ROMELIA [place] [address] Unavailable ROSHAN, CRYSTAL Next of Kin Unknown Unavailable ROSHAN, ROMELIA Next [place] [address] Unavailable ROSHAN, CRYSTAL Next of Kin Unknown Unavailable ROSHAN, ROMELIA [place] [address] Unavailable ROSHAN, CRYSTAL Next of Kin Unknown Unavailable ROSHAN, ROMELIA Next [place] [address] Unavailable ROSHAN, CRYSTAL Next of Kin Unknown Unavailable ROSHAN, ROMELIA Next [place] [address] Unavailable ROSHAN, CRYSTAL Next of Kin Unknown Unavailable ROSHAN, ROMELIA Next [place] [address] Unavailable ROSHAN, CRYSTAL Next of Kin Unknown Unavailable ROSHAN, ROMELIA Next [place] [address] Unavailable ROSHAN, CRYSTAL Next of Kin Unknown Unavailable ROSHAN, ROMELIA Next [place] [address] Unavailable ROSHAN, CRYSTAL Next of Kin Unknown Unavailable ROSHAN, ROMELIA Next [place] [address] Unavailable ROSHAN, CRYSTAL Next of Kin Unknown Unavailable ROSHAN, ROMELIA Next of Kin [place] [address] Unavailable ROSHAN, CRYSTAL Next of Kin Unknown Unavailable ROSHAN, ROMELIA [place] [address] Unavailable ROSHAN, CRYSTAL Next of Kin Unknown Unavailable ROHSAN, ROMELIA Next [place] [address] Unavailable ROSHAN, CRYSTAL Next of Kin Unknown Unavailable ROSHAN, ROMELIA Next [place] [address] Unavailable ROSHAN, CRYSTAL Next of Kin Unknown Unavailable ROSHAN, ROMELIA Next of Kin [place] [address] Unavailable ROSHAN, CRYSTAL Next of Kin Unknown Unavailable ROSHAN, ROMELIA Next of Kin [place] [address] Unavailable ROSHAN, CRYSTAL Next of Kin Unknown Unavailable ROSHAN, ROMELIA Next of Kin [place] [address] Unavailable ROSHAN, CRYSTAL Next of Kin Unknown Unavailable ROSHAN, ROMELIA [place] [address] Unavailable ROSHAN, CRYSTAL Next of Kin Unknown Unavailable ROSHAN, ROMELIA Next of Kin [place] [address] Unavailable ROSHAN, CRYSTAL Next of Kin Unknown Unavailable ROSHAN, ROMELIA Next of Kin [place] [address] Unavailable ROSHAN, CRYSTAL Next of Kin Unknown Unavailable ROSHAN, ROMELIA Next [place] [address] Unavailable ROSHAN, CRYSTAL Next of Kin Unknown Unavailable ROSHAN, ROMELIA [place] [address] Unavailable ROSHAN, CRYSTAL Next of Kin Unknown Unavailable ROSHAN, ROMELIA Next of Kin [place] [address] Unavailable ROSHAN, CRYSTAL Next of Kin Unknown Unavailable ROSHAN, ROMELIA [place] [address] Unavailable ROSHAN, CRYSTAL Next of Kin Unknown Unavailable ROSHAN, ROMELIA Next of Kin [place] [address] Unavailable ROSHAN, CRYSTAL Next of Kin Unknown Unavailable ROSHAN, ROMELIA Next [place] [address] Unavailable ROSHAN, CRYSTAL Next of Kin Unknown Unavailable ROSHAN, ROMELIA [place] [address] Unavailable ROSHAN, CRYSTAL Next of Kin Unknown Unavailable ROSHAN, ROMELIA Next [place] [address] Unavailable ROSHAN, CRYSTAL Next of Kin Unknown Unavailable ROSHAN, ROMELIA Next of Kin [place] [address] Unavailable ROSHAN, CRYSTAL Next of Kin Unknown Unavailable ROSHAN, ROMELIA Next of Kin [place] [address] Unavailable ROSHAN, CRYSTAL Next of Kin Unknown Unavailable ROSHAN, ROMELIA Next of Kin [place] [address] Unavailable ROSHAN, CRYSTAL Next of Kin Unknown Unavailable ROSHAN, ROMELIA Next [place] [address] Unavailable ROSHAN, CRYSTAL Next of Kin Unknown Unavailable ROSHAN, ROMELIA Next of Kin [place] [address] Unavailable ROSHAN, CRYSTAL Next of Kin Unknown Unavailable ROSHAN, ROMELIA Next of Kin [place] [address] Unavailable ROSHAN, CRYSTAL Next of Kin Unknown Unavailable ROSHAN, ROMELIA [place] [address] Unavailable ROSHAN, CRYSTAL Next of Kin Unknown Unavailable ROSHAN, ROMELIA [place] [address] Unavailable ROSHAN, CRYSTAL Next of Kin Unknown Unavailable ROSHAN, ROMELIA [place] [address] Unavailable ROSHAN, CRYSTAL Next of Kin Unknown Unavailable ROSHAN, ROMELIA [place] [address] Unavailable ROSHAN, CRYSTAL Next of Kin Unknown Unavailable ROSHAN, ROMELIA [place] [address] Unavailable ROSHAN, CRYSTAL Next of Kin Unknown Unavailable ROSHAN, ROMELIA Next of Kin [place] [address] Unavailable ROSHAN, CRYSTAL Next of Kin Unknown Unavailable ROSHAN, ROMELIA [place] [address] Unavailable ROSHAN, CRYSTAL Next of Kin Unknown Unavailable ROSHAN, ROMELIA Next of Kin [place] [address] Unavailable ROSHAN, CRYSTAL Next of Kin Unknown Unavailable ROSHAN, ROMELIA Next of Kin [place] [address] Unavailable ROSHAN, CRYSTAL Next of Kin Unknown Unavailable ROSHAN, ROMELIA [place] [address] Unavailable ROSHAN, CRYSTAL Next of Kin Unknown Unavailable ROSHAN, ROMELIA Next of Kin [place] [address] Unavailable ROSHAN, CRYSTAL Next of Kin Unknown Unavailable ROSHAN, ROMELIA [place] [address] Unavailable ROSHAN, CRYSTAL Next of Kin Unknown Unavailable ROSHAN, ROMELIA [place] [address] Unavailable ROSHAN, CRYSTAL Next of Kin Unknown Unavailable Care Team Providers Care Curriculum Manager Name Role Phone MAURY, ALICE K Primary Care Unavailable JAXON HARTLEY Referring Unavailable JAXON HARTLEY Admitting Unavailable ANN LEE Attending Unavailable MONTANEZ, JAYANSHU Attending Unavailable MONTANEZ, JAYANSHU Referring Unavailable MAURY, ALICE K Primary Care Unavailable MONTANEZ, JAYANSHU Attending Unavailable MONTANEZ, JAYANSHU Referring Unavailable MAURY, ALICE K Primary Care Unavailable [facility], [place] Primary Care Unavailable PRA, LORENA Referring Unavailable MAURY, ALICE K Primary Care Unavailable MODESTO CARDONA Attending Unavailable MONTANEZ, JAYANSHU Referring Unavailable PRA, LORENA Primary Care Unavailable MONTANEZ, JAYANSHU Attending Unavailable MONTANEZ, JAYANSHU Referring Unavailable [facility], [place] Primary Care Unavailable MONTANEZ, JAYANSHU Attending Unavailable MONTANEZ, JAYANSHU Attending Unavailable SELF, SELF Referring Unavailable MAURY, ALICE K Primary Care Unavailable MONTANEZ, JAYANSHU Referring Unavailable [facility], [place] Primary Care Unavailable MONTANEZ, JAYANSHU Attending Unavailable MONTANEZ, JAYANSHU Attending Unavailable MONTANEZ, JAYANSHU Referring Unavailable MAURY, ALICE K Primary Care Unavailable MONTANEZ, JAYANSHU Referring Unavailable PRA, LORENA Primary Care Unavailable MICHAEL HOLLIDAY Attending Unavailable MONTANEZ, JAYANSHU Attending Unavailable MONTANEZ, JAYANSHU Referring Unavailable PRA, LORENA Primary Care Unavailable MONTANEZ, JAYANSHU Attending Unavailable MONTANEZ, JAYANSHU Referring Unavailable PRA, LORENA Primary Care Unavailable MONTANEZ, JAYANSHU Attending Unavailable MONTANEZ, JAYANSHU Referring Unavailable PRA, LORENA Primary Care Unavailable MONTANEZ, JAYANSHU Attending Unavailable MONTANEZ, JAYANSHU Referring Unavailable MAURY, ALICE K Primary Care Unavailable MONTANEZ, JAYANSHU Attending Unavailable MONTANEZ, JAYANSHU Referring Unavailable MAURY, ALICE K Primary Care Unavailable PRAH, LORENA Attending Unavailable PRA, LORENA Referring Unavailable [facility], [place] Primary Care Unavailable MONTANEZ, JAYANSHU Attending Unavailable [facility], [place] Primary Care Unavailable LEESAGURINDERROXANN Referring Unavailable MONTANEZ, JAYANSHU Attending Unavailable MONTANEZ, JAYANSHU Referring Unavailable [facility], [place] Primary Care Unavailable PRA, LORENA Attending Unavailable [facility], [place] Primary Care Unavailable PRA, LORENA Referring Unavailable MONTANEZ, JAYANSHU Attending Unavailable MONTANEZ, JAYANSHU Referring Unavailable MAURY, ALICE K Primary Care Unavailable MONTANEZ, JAYANSHU Referring Unavailable [facility], [place] Primary Care Unavailable MONTANEZ, JAYANSHU Attending Unavailable [facility], [place] Primary Care Unavailable MONTANEZ, JAYANSHU Attending Unavailable PRA, LORENA Referring Unavailable MONTANEZ, JAYANSHU Attending Unavailable MONTANEZ, JAYANSHU Referring Unavailable [facility], [place] Primary Care Unavailable MONTANEZ, JAYANSHU Referring Unavailable [facility], [place] Primary Care Unavailable MONTANEZ, JAYANSHU Attending Unavailable PRA, LORENA Attending Unavailable [facility], [place] Primary Care Unavailable [facility], [place] Referring Unavailable [facility], [place] Attending Unavailable [facility], [place] Primary Care Unavailable [facility], [place] Referring Unavailable MONTANEZ, JAYANSHU Attending Unavailable [facility], [place] Primary Care Unavailable [facility], [place] Referring Unavailable MONTANEZ, JAYANSHU Attending Unavailable MONTANEZ, JAYANSHU Referring Unavailable [facility], [place] Primary Care Unavailable MONTANEZ, JAYANSHU Referring Unavailable [facility], [place] Primary Care Unavailable MICHAEL HOLLIDAY Attending Unavailable MONTANEZ, JAYANSHU Attending Unavailable [facility], [place] Primary Care Unavailable FARSHAD, AUBREE R Referring Unavailable MONTANEZ, JAYANSHU Attending Unavailable MONTANEZ, JAYANSHU Referring Unavailable [facility], [place] Primary Care Unavailable MONTANEZ, JAYANSHU Attending Unavailable MONTANEZ, JAYANSHU Referring Unavailable [facility], [place] Primary Care Unavailable MONTANEZ, JAYANSHU Referring Unavailable [facility], [place] Primary Care Unavailable JUVENAL FERRISANDA R Attending Unavailable MONTANEZ, JAYANSHU Referring Unavailable [facility], [place] Primary Care Unavailable AUBREE FERRIS R Attending Unavailable MONTANEZ, JAYANSHU Attending Unavailable MONTANEZ, JAYANSHU Referring Unavailable [facility], [place] Primary Care Unavailable MONTANEZ, JAYANSHU Referring Unavailable PRA, LORENA Primary Care Unavailable ADOLPH MAURICE Attending Unavailable MONTANEZ, JAYANSHU Attending Unavailable MONTANEZ, JAYANSHU Referring Unavailable PRAH, LORENA Primary Care Unavailable MONTANEZ, JAYANSHU Referring Unavailable PRAH, LORENA Primary Care Unavailable HOLLIDAYROSITAAL D Attending Unavailable MONTANEZ, JAYANSHU Attending Unavailable MONTANEZ, JAYANSHU Referring Unavailable PRAH, LORENA Primary Care Unavailable MONTANEZ, JAYANSHU Attending Unavailable MONTANEZ, JAYANSHU Referring Unavailable PRAH, LORENA Primary Care Unavailable MONTANEZ, JAYANSHU Attending Unavailable MONTANEZ, JAYANSHU Referring Unavailable PRAH, LORENA Primary Care Unavailable ELEUTERIO MENDIOLAEEN K Primary Care Unavailable ANN LEE Attending Unavailable ANN LEE Admitting Unavailable HOLLIDAY, SHINAL D Referring Unavailable MONTANEZ, JAYANSHU Referring Unavailable PRAH, LORENA Primary Care Unavailable MONTANEZ, JAYANSHU Attending Unavailable MONTANEZ, JAYANSHU Referring Unavailable MONTANEZ, JAYANSHU Attending Unavailable PRA, LORENA Primary Care Unavailable MONTANEZ, JAYANSHU Referring Unavailable MONTANEZ, JAYANSHU Attending Unavailable [facility], [place] Primary Care Unavailable MONTANEZ, JAYANSHU Attending Unavailable MONTANEZ, JAYANSHU Referring Unavailable PRA, LORENA Primary Care Unavailable MONTANEZ, JAYANSHU Attending Unavailable MONTANEZ, JAYANSHU Referring Unavailable PRA, LORENA Primary Care Unavailable [facility], [place] Primary Care Unavailable MONTANEZ, JAYANSHU Attending Unavailable PRAH, LORENA Referring Unavailable MONTANEZ, JAYANSHU Referring Unavailable MONTANEZ, JAYANSHU Attending Unavailable [facility], [place] Primary Care Unavailable MONTANEZ, JAYANSHU Attending Unavailable MONTANEZ, JAYANSHU Referring Unavailable PRA, LORENA Primary Care Unavailable MONTANEZ, JAYANSHU Referring Unavailable PRA, L[place] Primary Care Unavailable ROSITA HOLLIDAYAL D Attending Unavailable [facility], [place] Primary Care Unavailable PRA, [place] Referring Unavailable PRA, [place]NA Primary Care Unavailable PRA, [place]NA Referring Unavailable MARTÍN MONTANEZ Attending Unavailable SELF, SELF Referring Unavailable MAURY, ALICE K Primary Care Unavailable MONTANEZ, JAYANSHU Attending Unavailable MONTANEZ, JAYANSHU Referring Unavailable PRA, LORENA Primary Care Unavailable [facility] Referring Unavailable MAHNAZ LOYA Attending Unavailable ELEUTERIO MENDIOLAEEN K Primary Care Unavailable MONTANEZ, JAYANSHU Attending Unavailable MONTANEZ, JAYANSHU Referring Unavailable [facility] Primary Care Unavailable MONTANEZ, JAYANSHU Attending Unavailable MONTANEZ, JAYANSHU Referring Unavailable [facility] Primary Care Unavailable MONTANEZ, JAYANSHU Attending Unavailable MONTANEZ, JAYANSHU Referring Unavailable [facility] Primary Care Unavailable MONTANEZ, JAYANSHU Referring Unavailable [facility] Primary Care Unavailable RAZA ROQUE Attending Unavailable MONTANEZ, JAYANSHU Referring Unavailable [facility] Primary Care Unavailable RAZA ROQUE Attending Unavailable MONTANEZ, JAYANSHU Referring Unavailable MAURY, ALICE K Primary Care Unavailable MONTANEZ, JAYANSHU Attending Unavailable MONTANEZ, JAYANSHU Referring Unavailable MAURYBAKARI CAMPOALICE K Primary Care Unavailable [facility] Referring Unavailable MONTANEZ, JAYANSHU Attending Unavailable [facility] Care Unavailable [facility] Care Unavailable WILLIE MENCHACA II Attending Unavailable MONTANEZ, JAYANSHU Attending Unavailable MONTANEZ, JAYANSHU Admitting Unavailable MAURY, ALICE K Primary Care Unavailable CONCHITA COATES Referring Unavailable PROBLEMS DATE TYPE CONDITION / CODE ATTENDING STATUS [facility] 05/07/2025 Admitting diagnosis Nutritional deficiency, unspecified / E63.9(ICD-10) AUBREE FERRIS [facility] 09/30/2024 Admitting diagnosis Epistaxis / R04.0(ICD-10) WILLIE MENCHACA II [facility] 09/30/2024 Admitting diagnosis Other disorders of electrolyte and fluid balance, not elsewhere classified / E87.8(ICD-10) WILLIE MENCHACA II [facility] 09/26/2024 Admitting diagnosis Encounter for examination for normal comparison and control in clinical research program / Z00.6(ICD-10) YUSUF MONTANEZ [facility] 09/16/2024 Admitting diagnosis Headache, unspecified / R51.9(ICD-10) MAHNAZ LOYA [facility] 09/16/2024 Admitting diagnosis Nausea with vomiting, unspecified / R11.2(ICD-10) MAHNAZ LOYA Active [facility] 08/23/2024 Admitting diagnosis Other pancytopenia / D61.818(ICD-10) MAHNAZ LOYA Active [facility] 08/29/2024 Admitting diagnosis Aplastic anemia, unspecified / D61.9(ICD-10) ANN LEE Active [facility] 08/29/2024 Admitting diagnosis Idiopathic aplastic anemia / D61.3(ICD-10) ANN LEE Active [facility] 08/29/2024 Admitting diagnosis Idiopathic aplastic anemia / UNK(Unknown) ANN LEE Active [facility] 08/22/2024 Admitting diagnosis Encounter for other preprocedural examination / Z01.818(ICD-10) YUSUF MONTANEZ Active [facility] 08/22/2024 Admitting diagnosis Critical Lab Values / 151() MODESTO CARDONA Active [facility] PROCEDURES No Procedure Records Found RESULTS TYPE AND SCREEN Collected: 06/23/2025 1:59 PM Status : F Source: [facility] TYPE CODE TESTS RESULT OUT OF RANGE REFERENCE UNITS LAB [id number] ABO/RH(D) TYPE O POS LAB OUTD Specimen Expiration 06/26/2025 23:59 LAB PERCENTAS ANTIBODY SCREEN NEG Performed By: #### XM #### [facility] (DEFAULT) [address] [place] [address] COMPREHENSIVE METABOLIC PANEL Collected : 06/23/2025 1:55 PM Status: F Source: [facility] Order Comment: Exam; qHTC pr ovider Infusion twice weekly TYPE CODE TESTS RESULT OUT OF RANGE REFERENCE UNITS LAB [id number] Sodium 135 135-145 mmol/L LAB [id number] Potassium 4.5 3.5-5.0 mmol/L LAB [id number] Chloride 104 98-108 mmol/L LAB [id number] BUN 33 High 7-25 mg/dL LAB [id number] Creatinine 1.58 High 0.50-1.20 mg/dL LAB [id number] Glucose 99 Nonfastin -179 mg/dL; Fastin-99 mg/dL LAB [id number] Bilirubin Total 0.5 <1.5 mg/dL LAB [id number] Albumin 3.9 3.5-5.0 g/dL LAB [id number] Total Protein 6.0 Low 6.4-8.3 g/dL LAB [id number] AST 16 10-39 U/L LAB [id number] ALP 44 32-126 U/L LAB [id number] Calcium 9.4 8.6-10.5 mg/dL LAB [id number] CO2 25 21-31 mmol/L LAB [id number] ALT 9 9-48 U/L LAB [id number] Bun/Crea Ratio 21 LAB [id number] Osmolality (Calculated) 292 278-305 mOsm/kg LAB [id number] Anion Gap 11 7-17 mmol/L LAB [id number] eGFR, CKD-EPI, Female 34 Low >=60 mL/min/1 .73m2 Result Comment: Reported eGF R is based on the CKD-EPI 2020 equation using creatinine, age, and sex. Performed By: #### CMPN #### [facility] (DEFAULT) [address] [place] [address] CBC AND ELECTRONIC DIFF Collected: 06/23/2025 1:55 PM Status: F Source: [facility] Order Comment: Exam; qHTC pr ovider Infusion twice weekly TYPE CODE TESTS RESULT OUT OF RANGE REFERENCE UNITS LAB [id number] WBC Count 3.83 Low 3.99-11.19 K/uL LAB [id number] RBC Count 2.36 Low 3.91-5.04 M/uL LAB [id number] Hemoglobin 8.7 Low 11.4-15.2 g/dL LAB [id number] Hematocrit 25.0 Low 34.9-44.3 % LAB [id number] Mean Cell Volume 105.9 High 79.6-97.7 fL LAB [id number] Mean Cell Hgb 36.9 High 25.9-33.9 pg LAB [id number] Mean Cell Hgb Conc 34.8 31.4-35.9 g/dL LAB [id number] RBC Distribution 15.5 High 10.8-14.9 % LAB [id number] Platelet Count 98 Low 150-393 K/uL LAB [id number] Mean Platelet Volume 10.6 8.5-12.2 fL LAB [id number] DIFF STATUS Electronic Differential LAB [id number] Segs + Bands Auto 58.0 % LAB [id number] Immature Grans % 0.5 % LAB [id number] Lymphocyte % Auto 23.5 % LAB [id number] Monocyte % Auto 13.8 % LAB [id number] Eosinophil % Auto 3.4 % LAB [id number] Basophil % Auto 0.8 % LAB [id number] Nucleated RBC 0.0 <=0.2 /100 WB C LAB [id number] Segs + Bands,Absolute Auto 2.22 1.64-7.28 K/uL LAB [id number] Immature Grans Absolute < <=0.08 K/uL LAB [id number] Abs Lymph Auto 0.90 Low 1.16-3.51 K/uL LAB [id number] Abs Vermilion Auto 0.53 0.22-0.87 K/uL LAB [id number] Abs Eos Auto 0.13 0.00-0.42 K/uL LAB [id number] Abs Baso Auto < 0.00-0.15 K/uL Performed By: #### [id number] ## ## [facility] (DEFAULT) [address] [place] [address] CYCLOSPORINE LEVEL, TROUGH ( PRE DRUG LEVEL) Collected: 06/23/2025 1:55 PM Status: F Source: [facility] Order Comment: Exam; qHTC pr ovider Infusion twice weekly Method performed is a chemiluminescent microparticle immunoasssay on the [place] [employer] i2000. TYPE CODE TESTS RESULT OUT OF RANGE REFERENCE UNITS LAB [id number] Cyclosporin e, Trough 242 ng/mL Result Comment: Kidney/Pancr eas Transplant: 0 to 3 months: 800-1000 ng/mL 3 to 12 months: 600-800 ng/mL >12 months: 400-600 ng/mL Aplastic anemia and stem cell transplant: 200-400 ng/mL Performed By: #### CSAN #### [facility] (DEFAULT) [address] [place] [address] TYPE AND SCREEN Collected: 05/28/2025 2:26 PM Status : F Source: [facility] TYPE CODE TESTS RESULT OUT OF RANGE REFERENCE UNITS LAB [id number] ABO/RH(D) TYPE O POS LAB OUTD Specimen Expiration 05/31/2025 23:59 LAB PERCENTAS ANTIBODY SCREEN NEG Performed By: #### XM #### [facility] (DEFAULT) [address] [place] [address] COMPREHENSIVE METABOLIC PANEL Collected : 05/28/2025 2:26 PM Status: F Source: [facility] Order Comment: Exam; qHTC pr ovider Infusion twice weekly TYPE CODE TESTS RESULT OUT OF RANGE REFERENCE UNITS LAB [id number] Sodium 135 135-145 mmol/L LAB [id number] Potassium 4.5 3.5-5.0 mmol/L LAB [id number] Chloride 106 98-108 mmol/L LAB [id number] BUN 35 High 7-25 mg/dL LAB [id number] Creatinine 1.76 High 0.50-1.20 mg/dL LAB [id number] Glucose 83 Nonfastin -179 mg/dL; Fastin-99 mg/dL LAB [id number] Bilirubin Total 0.5 <1.5 mg/dL LAB [id number] Albumin 4.0 3.5-5.0 g/dL LAB [id number] Total Protein 6.1 Low 6.4-8.3 g/dL LAB [id number] AST 17 10-39 U/L LAB [id number] ALP 50 32-126 U/L LAB [id number] Calcium 9.4 8.6-10.5 mg/dL LAB [id number] CO2 25 21-31 mmol/L LAB [id number] ALT 10 9-48 U/L LAB [id number] Bun/Crea Ratio 20 LAB [id number] Osmolality (Calculated) 291 278-305 mOsm/kg LAB [id number] Anion Gap 9 7-17 mmol/L LAB [id number] eGFR, CKD-EPI, Female 30 Low >=60 mL/min/1 .73m2 Result Comment: Reported eGF R is based on the CKD-EPI 2020 equation using creatinine, age, and sex. Performed By: #### CMPN #### [facility] (DEFAULT) [address] [address] CBC AND ELECTRONIC DIFF Collected: 05/16 2:26 PM Status: F Source: [facility] Order Comment: Exam; qHTC pr ovider Infusion twice weekly TYPE CODE TESTS RESULT OUT OF RANGE REFERENCE UNITS LAB [id number] WBC Count 4.02 3.99-11.19 K/uL LAB [id number] RBC Count 2.72 Low 3.91-5.04 M/uL LAB [id number] Hemoglobin 10.0 Low 11.4-15.2 g/dL LAB [id number] Hematocrit 28.8 Low 34.9-44.3 % LAB [id number] Mean Cell Volume 105.9 High 79.6-97.7 fL LAB [id number] Mean Cell Hgb 36.8 High 25.9-33.9 pg LAB [id number] Mean Cell Hgb Conc 34.7 31.4-35.9 g/dL LAB [id number] RBC Distribution 16.3 High 10.8-14.9 % LAB [id number] Platelet Count 89 Low 150-393 K/uL Result Comment: This is an a ppended report. These results have been appended to a previously preliminary verified report. LAB [id number] Mean Platelet Volume 10.5 8.5-12.2 fL Result Comment: This is an a ppended report. These results have been appended to a previously preliminary verified report. LAB [id number] DIFF STATUS Electronic Differential LAB [id number] Segs + Bands Auto 58.8 % LAB [id number] Immature Grans % 0.2 % LAB [id number] Lymphocyte % Auto 25.4 % LAB [id number] Monocyte % Auto 12.7 % LAB [id number] Eosinophil % Auto 2.2 % LAB [id number] Basophil % Auto 0.7 % LAB [id number] Nucleated RBC 0.0 <=0.2 /100 WB C LAB [id number] Segs + Bands,Absolute Auto 2.36 1.64-7.28 K/uL LAB [id number] Immature Grans Absolute < <=0.08 K/uL LAB [id number] Abs Lymph Auto 1.02 Low 1.16-3.51 K/uL LAB [id number] Abs Vermilion Auto 0.51 0.22-0.87 K/uL LAB [id number] Abs Eos Auto 0.09 0.00-0.42 K/uL LAB [id number] Abs Baso Auto < 0.00-0.15 K/uL Performed By: #### [id number] ## ## [facility] (DEFAULT) [address] [address] CYCLOSPORINE LEVEL, TROUGH ( PRE DRUG LEVEL) Collected: 05/28/2025 2:26 PM Status: F Source: [facility] Order Comment: Exam; qHTC pr ovider Infusion twice weekly Method performed is a chemiluminescent microparticle immunoasssay on the [place] [employer] i2000. TYPE CODE TESTS RESULT OUT OF RANGE REFERENCE UNITS LAB [id number] Cyclosporin e, Trough 230 ng/mL Result Comment: Kidney/Pancr eas Transplant: 0 to 3 months: 800-1000 ng/mL 3 to 12 months: 600-800 ng/mL >12 months: 400-600 ng/mL Aplastic anemia and stem cell transplant: 200-400 ng/mL Performed By: #### CSAN #### [facility] (DEFAULT) [address] [place] [address] VITAMIN B12 Collected: 11:29 AM Status: F Source: [facility] TYPE CODE TESTS RESULT OUT OF RANGE REFERENCE UNITS LAB [id number] Vitamin B12 1071 High 211-911 pg/mL Result Comment: Testing of M ethylmalonic Acid and Intrinsic Factor Blocking Antibody are recommended if clinical suspicion for pernicious anemia due to B12 deficiency is high for patients with intermediate B12 levels (211 to 400 pg/mL) to rule out spurious heterophile antibodies. Performed By: #### FOLSB, D2 5OH, B12B #### [facility] (DEFAULT) [address] [address] FOLATE, SERUM Collected: 11:29 AM Status: F Source: [facility] TYPE CODE TESTS RESULT OUT OF RANGE REFERENCE UNITS LAB [id number] Folate 456.23 >5.38 ng/mL Performed By: #### FOLSB, D2 5OH, B12B #### [facility] (DEFAULT) [address] [address] VITAMIN D (25-HYDROXY,TOTAL) Collected: 05/07/2025 11:29 AM Status: F Source: [facility] Order Comment: Vitamin D natalia ues have been shown to be falsely decreased in lipemic samples and should be interpreted with caution. TYPE CODE TESTS RESULT OUT OF RANGE REFERENCE UNITS LAB [id number] 25-OH Vitamin D Total 30.4 30.0-100.0 ng/mL Result Comment: <10 Deficien cy 10-29 Insufficiency 30-100 Optimal Level >100 Possible Toxicity Performed By: #### FOLSB, D2 5OH, B12B #### [facility] (DEFAULT) [address] [address] COPPER Collected: 11:29 AM Status: F Source: [facility] TYPE CODE TESTS RESULT OUT OF RANGE REFERENCE UNITS LAB 103 Copper 101 77-206 mcg/dL Result Comment: ADDITIONAL INFORMATION This test was developed and its performance characteristics determined by [facility] in a manner consistent with CLIA requirements. This test has not been cleared or approved by the U.S. Food and Drug Administration. Test Performed by: [facility] [place] [address] [employer] Installer: Ann Oliver Ph.D.; CLIA# [id number] Performed By: #### YCOPP ### # [facility] (DEFAULT) [address] [place] [address] CBC AND ELECTRONIC DIFF Collected: 04/16 11:29 AM Status: F Source: [facility] Order Comment: Exam; qHTC pr ovider Infusion twice weekly TYPE CODE TESTS RESULT OUT OF RANGE REFERENCE UNITS LAB [id number] WBC Count 4.57 3.99-11.19 K/uL LAB [id number] RBC Count 2.20 Low 3.91-5.04 M/uL LAB [id number] Hemoglobin 8.5 Low 11.4-15.2 g/dL LAB [id number] Hematocrit 23.9 Low 34.9-44.3 % LAB [id number] Mean Cell Volume 108.6 High 79.6-97.7 fL Result Comment: Results inco nsistent with previous results LAB [id number] Mean Cell Hgb 38.6 High 25.9-33.9 pg LAB [id number] Mean Cell Hgb Conc 35.6 31.4-35.9 g/dL LAB [id number] RBC Distribution 16.1 High 10.8-14.9 % LAB [id number] Platelet Count 116 Low 150-393 K/uL LAB [id number] Mean Platelet Volume 11.0 8.5-12.2 fL LAB [id number] DIFF STATUS Electronic Differential LAB [id number] Segs + Bands Auto 62.3 % LAB [id number] Immature Grans % 0.2 % LAB [id number] Lymphocyte % Auto 21.4 % LAB [id number] Monocyte % Auto 13.1 % LAB [id number] Eosinophil % Auto 2.6 % LAB [id number] Basophil % Auto 0.4 % LAB [id number] Nucleated RBC 0.0 <=0.2 /100 WB C LAB [id number] Segs + Bands,Absolute Auto 2.84 1.64-7.28 K/uL LAB [id number] Immature Grans Absolute < <=0.08 K/uL LAB [id number] Abs Lymph Auto 0.98 Low 1.16-3.51 K/uL LAB [id number] Abs Vermilion Auto 0.60 0.22-0.87 K/uL LAB [id number] Abs Eos Auto 0.12 0.00-0.42 K/uL LAB [id number] Abs Baso Auto < 0.00-0.15 K/uL Performed By: #### [id number] ## ## [facility] (DEFAULT) [address] [place] [address] CYCLOSPORINE LEVEL, TROUGH ( PRE DRUG LEVEL) Collected: 05/07/2025 11:29 AM Status: F Source: [facility] Order Comment: Exam; qHTC pr ovider Infusion twice weekly Method performed is a chemiluminescent microparticle immunoasssay on the [place] [employer] i2000. TYPE CODE TESTS RESULT OUT OF RANGE REFERENCE UNITS LAB [id number] Cyclosporin e, Trough 435 ng/mL Performed By: #### CSAN #### [facility] (DEFAULT) [address] [place] [address] COMPREHENSIVE METABOLIC PANEL Collected : 05/07/2025 11:29 AM Status: F Source: [facility] Order Comment: Exam; qHTC pr ovider Infusion twice weekly TYPE CODE TESTS RESULT OUT OF RANGE REFERENCE UNITS LAB [id number] Sodium 134 Low 135-145 mmol/L LAB [id number] Potassium 4.3 3.5-5.0 mmol/L LAB [id number] Chloride 106 98-108 mmol/L LAB [id number] BUN 38 High 7-25 mg/dL LAB [id number] Creatinine 1.72 High 0.50-1.20 mg/dL LAB [id number] Glucose 98 Nonfastin -179 mg/dL; Fastin-99 mg/dL LAB [id number] Bilirubin Total 0.7 <1.5 mg/dL LAB [id number] Albumin 4.0 3.5-5.0 g/dL LAB [id number] Total Protein 6.1 Low 6.4-8.3 g/dL LAB [id number] AST 19 10-39 U/L LAB [id number] ALP 61 32-126 U/L LAB [id number] Calcium 9.1 8.6-10.5 mg/dL LAB [id number] CO2 23 21-31 mmol/L LAB [id number] ALT 13 9-48 U/L LAB [id number] Bun/Crea Ratio 22 LAB [id number] Osmolality (Calculated) 291 278-305 mOsm/kg LAB [id number] Anion Gap 9 7-17 mmol/L LAB [id number] eGFR, CKD-EPI, Female 30 Low >=60 mL/min/1 .73m2 Result Comment: Reported eGF R is based on the CKD-EPI 2020 equation using creatinine, age, and sex. Performed By: #### CMPN #### [facility] (DEFAULT) [address] [place] [address] SURG PATH REQUEST Collected: 03/19/2025 1:37 PM Stat us: F Source: [facility] TYPE CODE TESTS RESULT OUT OF RANGE REFERENCE UNITS LAB [id number] Case Report Result Comment: Surgical Pat hology Report Case: [id number] Authorizing Provider: Aubree Ferris PA-C Collected: 03/19/2025 01:37 PM Ordering Location: [facility] Received: 03/19/2025 01:51 PM Pathologist: David Green MD Specimens: A) - SURG PATH, BONE MARROW BIOPSY B) - SURG PATH, Bone marrow clot LAB [id number] Clinical History MDS. LAB [id number] Pathologic Diagnosis Result Comment: A. Bone brian ow, right, core biopsy, aspirate, and peripheral blood smear: Variably cellular (20%) marrow with trilineage hematopoiesis and ~1% blasts, see comments. Increased stainable iron with no ring sideroblasts identified. B. Bone marrow, right, clot: Variably cellular (40%) marrow with trilineage hematopoiesis and ~1% blasts, see comments. 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 The marrow cellularity is patchy with hypocellular (<10%) to focally hypercellular (70%) areas. Trilineage hematopoiesis is present. Blasts are not increased (1% of the aspirate differential count), and significant dysplasia is not evident. Few (favor <10%) of the erythroid precursors show irregular nuclear contours/blebbing and/or megaloblastoid change. Few (favor <10%) of the megakaryocytes show hypolobate nuclei and/or abnormal nuclear lobation. Dysgranulopoiesis is not identified. Flow cytometric analysis showed no immunophenotypic evidence of abnormal population B-cells, T-cells, or myeloid blasts. The overall findings are not specific and the cause of the pancytopenia is not clear. There is no morphologic or immunophenotypic evidence of a lymphoproliferative disorder. Possible contributing factors would include drug/medication effect (s), vitamin/nutritional deficiency, toxin, infection, bleeding, autoimmune disorders, etc. The possibility of an early evolving myelodysplastic process cannot be entirely ruled out. Clinical correlation and correlation with the pending cytogenetic/FISH studies and molecular testing is recommended. LAB [id number] Microscopic Description Result Comment: A microscopi c examination was performed. BONE MARROW REPORT The following specimens were interpreted to arrive at the above diagnosis: peripheral blood smear, bone marrow aspirate, decalcified trephine biopsy, iron stain and clot section CBC data and smear review (200 cells): WBC: 3.97 x K/uL; Hgb: 9.1 g/dL; Hct: 26.5%; MCV: 101.1 fl; RDW: 20.2%; Plt: 109 K/uL Manual differential: bands 0%, neutrophils 61%, lymphocytes 27%, monocytes 9%, eosinophils 2%, basophils 1% Blood smear findings: The peripheral smear shows a mild leukopenia. No definitive circulating blasts are identified, and significant dysplasia is not evident. The red blood cells show occasional ovalocytes, few teardrop cells, and rare schistocytes. There is a mild thrombocytopenia, and the platelets rare large/giant platelet forms noted. Aspirate smear quality: The aspirates are hypospicular but cellular. Few degenerating cells are present. The staining is adequate. Bone marrow aspirate smear a differential (500 cells): Blasts: 0% Promyelocytes: 2% Myelocytes: 11% Metamyelocytes: 12% Bands/Neutrophils: 37% Lymphocytes: 9% Monocytes: 3% Eosinophils: 1% Basophils: 0% Erythroid: 25% Plasma cells: 0% M:E Ratio: The myeloid to erythroid ratio is approximately 2.6 to 1. Erythropoiesis: Adequate. Predominantly normoblastic maturation. Few (favor <10%) of the erythroid precursors show irregular nuclear contours/blebbing and/or megaloblastoid change. Granulopoiesis: Adequate. Progression to mature forms is noted. Blasts are not increased, and dysplasia is not evident. Megakaryocytes: Megakaryocytes are appear adequate on the biopsy and clot section. Morphologic evaluation is somewhat limited as only few megakaryocytes are seen on the hypo spicular aspirate. The majority of the megakaryocytes show unremarkable morphology. Rare (favor < 10%) megakaryocytes show hypo-lobate nuclei or atypical nuclear lobation. Lymphocytes/plasma cells: The lymphocytes and plasma cells are not increased and show unremarkable morphology. Iron stain: Iron staining is increased. Ring sideroblasts are not identified. The iron control shows appropriate reactivity. Biopsy and clot findings: The bone marrow biopsy is adequate for evaluation and shows a variably and patchy cellular (20% overall) marrow with trilineage hematopoiesis and some scattered hemosiderin-laden macrophages. The cellularity ranges from hypocellular areas (< 10%) to more cellular areas (40%). The clot section shows blood and several variably cellular (<10%-70%, 40% overall) marrow with similar findings to the biopsy. The marrow cellularity is patchy and shows trilineage hematopoiesis with an increased number of hemosiderin-laden macrophages. CD34 stains only few scattered blasts, favored to represent less than 1% of the marrow cellularity. E-cadherin stains an increased number of scattered and clusters of immature erythroid precursors. CD61 highlights the megakaryocytes which appear adequate in number. Flow cytometric analysis (marrow aspirate): See separate report. Flow cytometric analysis of the marrow aspirate shows no immunophenotypic evidence of an abnormal population of B-cells, T-cells, or myeloid blasts. A subset of the B-cells show CD19/CD10 coexpression in a pattern consistent with normal precursor B-cells/hematogones. Cytogenetics/FISH and Molecular Studies: Performed and resulted in a separate report. *The above report complies, in slightly modified form, with the guidelines of the [employer] [place] [employer] for the reporting of cancer specimens. *Hematopoietic neoplasms are classified according to: - WHO Classification of Tumours Editorial Board. Haematolymphoid tumours. Godfrey (Negra): International Agency for Research on Cancer; (WHO classification of tumours series, 5th ed.; vol. 11, 2021). https://publications.iarc.fr. - The International Consensus Classification of Mature Lymphoid Neoplasms: a report from the Clinical Advisory Committee. Blood. 2021Jun 30;140(11):2317-3706. doi: 10.1182/blood.1514420773. Erratum in: Blood. 2022Nov 10;141(4):437. PMID: 25072235; PMCID: ADV6208688. -International Consensus Classification of Myeloid Neoplasms and Acute Leukemias: integrating morphologic, clinical, and genomic data. Blood. 2021Jun 30;140(11):5993-1632. doi: 10.1182/blood.2033853701. PMID: 33377160; PMCID: MNQ4492611. Immunohistochemical stains were performed on the clot section (block B1) in addition to flow cytometry on specimen A to further characterize the blasts in the context of cell morphology and tissue architecture, since discrepancy between flow cytometric analysis and morphology can occur due to sampling bias, preferential loss of targeted cells, or hemodilution. All controls show appropriate reactivity. All immunohistochemistry (IHC), in situ hybridization (FAMILIA), and histochemical tests were developed by and are performed at the [facility], Histology and IHC Lab, [address] [place] [address], [place] [address]. All Immunofluorescent (IF) tests were developed by and are performed at the [facility], Renal Division, [address] [place] [address]. All tests reported here, except for PD-L1, have not been cleared by or approved by the US Food and Drug Administration (FDA). The laboratory is regulated under CLIA as qualified to perform high-complexity testing. The tests are used for clinical purposes. They should not be regarded as investigational or for research. LAB [id number] Gross Description Result Comment: The specimen is received in two properly labeled containers with the patient's name and accession number. A. The specimen is designated bm bx 1338 R and consists of one core of hannon bone that is 1.1 cm in length and 0.2 cm in diameter. Container A. TE 1 Note: This block will be ready after decalcification. B. The specimen is designated bm clot 1348 R and consists of an aggregate of dark red blood clot that measures 2.0 x 1.6 x 0.5 cm. Container B. RS 1 Cassettes: B1, branch customer service representative section of clot Lab Use Only: JobID [id number] Grosser for this case was: Latrell MARCOS Professional Interpretation Performed at: Professional Interpretation Performed at: Result Comment: [facility] For Immediate Release to [facility]? Yes [address] [place] [address] Performed By: #### SURGP ### # [facility] (DEFAULT) [address] [place] [address] CYTOGENETIC STUDIES (PERFORMABLE) Collected: 03/19/2025 1:37 PM Status: F Source: [facility] Order Comment: Please do not use this order for add-ons Place sample for CYTOGENETICS in Sodium (NA) heparin tube.Please do not use this order for add-ons Place sample for CYTOGENETICS in Sodium (NA) heparin tube. TYPE CODE TESTS RESULT OUT OF RANGE REFERENCE UNITS LAB [id number] Clinical History Follicular Lymphoma, Pancytopenia LAB [id number] Specimen Received Bone Marro w Aspirate obtained 03/19/25 LAB [id number] Karyotype 46,XX[20] LAB [id number] Interpretation Result Comment: Cytogenetic analysis of an unstimulated culture from this sample showed normal chromosomes. FISH analysis on this sample is pending and will be reported subsequently. Due to the limitations of this analysis, these results do not rule out the presence of subtle chromosomal abnormalities or additional abnormalities that could exist in a low proportion of cells. LAB [id number] Culture Method: Result Comment: Process: 1 Duration: 24 Hr Media: Marrow Max Mitogen: None Banding: GTW and FISH Colcemid: 30 min Number of cells: 20 Chromosome Count Analysis 44 2 45 2 46 16 Total 20 Total number of cells karyotyped: 20 LAB [id number] Band Level 410 Performed By: #### CYTOGP, L [id number] #### [facility] (DEFAULT) [address] [place] [address] FISH STUDIES Collected: 03/19/2025 1:37 PM Status: F Source: [facility] Order Comment: Please do not use this order for add-ons Place sample for CYTOGENETICS in Sodium (NA) heparin tube.Please do not use this order for add-ons Place sample for CYTOGENETICS in Sodium (NA) heparin tube. TYPE CODE TESTS RESULT OUT OF RANGE REFERENCE UNITS LAB [id number] Clinical History Follicular Lymphoma, Pancytopenia LAB [id number] Specimen Received Bone Marro w Aspirate obtained 03/19/25 LAB [id number] FISH Report Result Comment: AML Results Probe Interpretation Patient% Signal/Burns Range 3q26.2 (MECOM) negative 0 bap/ 4.8% 8q21.3-21q22 ([id number]) negative 0 dual fusion/ 0.6% 11q23 (KMT2A) negative 0 bap/ 3.3% 93j82-98n49 (PML-ANA) negative 0 dual fusion/ 0.6% 16q22 (CBFB) negative 0 bap/ 2.3% 17p13.1 (TP53) negative 0.5 1 signal/ 6.4% nuc familia (GOLIM4,MECOM,MYNN)x2[200],(CWKY5V5,RUNX1)x2[200],(KMT2A)x2[200],(PML,ANA)x2[20 0],(C BFB)x2[200],(TP53,D17Z1)x2[200] LAB [id number] FISH Interpretation Result Comment: FISH analyse s were performed using probes that localize to the loci listed above. The results showed normal signal numbers and patterns for each of the probes within the limits of the analyses. LAB [id number] Culture Method Result Comment: Process: 1 Duration: 24 Hr Media: Marrow Max Mitogen: None Banding: GTW and FISH Colcemid: 30 min Interphases analyzed: Probe Number of Interphases Probe Type Vendor MECOM 204 tri-color break-apart [employer] [id number] 207 dual-color, dual fusion [employer] KMT2A 203 break-apart [employer] PML-ANA 207 dual-color, dual fusion [employer] CBFB 203 break-apart [employer] TP53 204 locus - specific [employer] METHOD: Fluorescence in situ hybridization (FISH) was performed by applying DNA probes to interphase (non-dividing) nuclei isolated from peripheral blood/bone marrow. These are specific DNA probes that detect a number of commonly observed aberrations in hematologic malignancies. This test was developed and its performance characteristics determined by the Cytogenetics Lab at [facility]. It has not been cleared or approved by the FDA. The laboratory is regulated under CLIA as qualified to perform high-complexity testing. This test is used for clinical purposes. It should not be regarded as investigational or for research. Pursuant to the requirements of CLIA'88, this laboratory has established and verified the test's accuracy and precision. Performed By: #### CYTOGP, L [id number] #### [facility] (DEFAULT) [address] [place] [address] HEMATOLOGIC NEOPLASM MUTATIO N PANEL, BONE MARROW OR BLOOD Collected: 03/19/2025 1:37 PM Status: F Source: [facility] TYPE CODE TESTS RESULT OUT OF RANGE REFERENCE UNITS LAB [id number] Receiving Status Accessioned in Lab Performed By: #### LABHCNGSM #### [facility] (DEFAULT) [address] [place] [address] BONE MARROW,BASIC (ASP,BX,FE) Collected : 03/19/2025 1:37 PM Status: F Source: [facility] TYPE CODE TESTS RESULT OUT OF RANGE REFERENCE UNITS LAB [id number] Specimen Status Specimen received in lab, results to follow on Surg Path report. Performed By: #### P3J #### [facility] (DEFAULT) [address] [place] [address] IMMUNOPHENOTYPING Collected: 03/19/2025 1:37 PM Stat us: F Source: [facility] TYPE CODE TESTS RESULT OUT OF RANGE REFERENCE UNITS LAB [id number] BKR DX CODE Use Ordering LAB [id number] Flow Interpreted by: David Green MD LAB SAMPLE TYPE SAMPLE TYPE Bone Marrow LAB [id number] IMMUNOPHENOTYPIN G FLOW See Scanned Result Performed By: #### IMMUNOPHE NOTYPING #### [facility] (DEFAULT) [address] [place] [address] RETICULOCYTES Collected: 11:58 AM Status: F Source: [facility] TYPE CODE TESTS RESULT OUT OF RANGE REFERENCE UNITS LAB [id number] Retic Count 1.11 0.74-2.54 % LAB [id number] Retic Absolute 0.0291 Low 0.0324-0.1142 M/uL Performed By: #### RETIC, LA B980 #### [facility] (DEFAULT) [address] [place] [address] CBC AND ELECTRONIC DIFF Collected: 01/2025 11:58 AM Status: F Source: [facility] Order Comment: Exam; qHTC pr ovider Infusion twice weekly TYPE CODE TESTS RESULT OUT OF RANGE REFERENCE UNITS LAB [id number] WBC Count 3.97 Low 3.99-11.19 K/uL LAB [id number] RBC Count 2.62 Low 3.91-5.04 M/uL LAB [id number] Hemoglobin 9.1 Low 11.4-15.2 g/dL LAB [id number] Hematocrit 26.5 Low 34.9-44.3 % LAB [id number] Mean Cell Volume 101.1 High 79.6-97.7 fL LAB [id number] Mean Cell Hgb 34.7 High 25.9-33.9 pg LAB [id number] Mean Cell Hgb Conc 34.3 31.4-35.9 g/dL LAB [id number] RBC Distribution 20.2 High 10.8-14.9 % LAB [id number] Platelet Count 109 Low 150-393 K/uL LAB [id number] Mean Platelet Volume 11.6 8.5-12.2 fL LAB [id number] DIFF STATUS Electronic Differential LAB [id number] Segs + Bands Auto 60.6 % LAB [id number] Immature Grans % 0.3 % LAB [id number] Lymphocyte % Auto 21.4 % LAB [id number] Monocyte % Auto 15.4 % LAB [id number] Eosinophil % Auto 1.5 % LAB [id number] Basophil % Auto 0.8 % LAB [id number] Nucleated RBC 0.0 <=0.2 /100 WB C LAB [id number] Segs + Bands,Absolute Auto 2.41 1.64-7.28 K/uL LAB [id number] Immature Grans Absolute < <=0.08 K/uL LAB [id number] Abs Lymph Auto 0.85 Low 1.16-3.51 K/uL LAB [id number] Abs Vermilion Auto 0.61 0.22-0.87 K/uL LAB [id number] Abs Eos Auto 0.06 0.00-0.42 K/uL LAB [id number] Abs Baso Auto < 0.00-0.15 K/uL Performed By: #### LILIA RAMOS980 #### [facility] (DEFAULT) [address] [place] [address] ZINC, SERUM Collected: 5 11:58 AM Status: F Source: [facility] TYPE CODE TESTS RESULT OUT OF RANGE REFERENCE UNITS LAB 132 ZINC, SERUM 65 60-106 mcg/dL Result Comment: ADDITIONAL INFORMATION This test was developed and its performance characteristics determined by [facility] in a manner consistent with CLIA requirements. This test has not been cleared or approved by the U.S. Food and Drug Administration. Test Performed by: [facility] [address] [place] [address] [employer] Installer: Ann Oliver Ph.D.; CLIA# [id number] Performed By: #### YZINC ### # [facility] (DEFAULT) [address] [address] IRON/IRON BINDING/TRANSFERRIN Collected : 03/19/2025 11:58 AM Status: F Source: [facility] TYPE CODE TESTS RESULT OUT OF RANGE REFERENCE UNITS LAB [id number] Iron 401 High 40-174 mcg/dL LAB [id number] Transferrin 190 Low 200-400 mg/dL LAB [id number] Total Iron Binding Capacity 238 Low 250-425 mcg/dL LAB [id number] Iron Saturation 169 High 20-55 % Performed By: #### RASTA, IRBC #### [facility] (DEFAULT) [address] [place] [address] HAPTOGLOBIN Collected: 11:58 AM Status: F Source: [facility] TYPE CODE TESTS RESULT OUT OF RANGE REFERENCE UNITS LAB [id number] Haptoglobin <30 Low 44-215 mg/dL Performed By: #### RASTA, IRBC #### [facility] (DEFAULT) [address] [place] [address] COPPER Collected: 11:58 AM Status: F Source: [facility] TYPE CODE TESTS RESULT OUT OF RANGE REFERENCE UNITS LAB 103 Copper 57 Low 77-206 mcg/dL Result Comment: ADDITIONAL INFORMATION This test was developed and its performance characteristics determined by [facility] in a manner consistent with CLIA requirements. This test has not been cleared or approved by the U.S. Food and Drug Administration. Test Performed by: [facility] - [address] [address] [employer] Installer: Ann Oliver Ph.D.; CLIA# [id number] Performed By: #### YCOPP ### # [facility] (DEFAULT) [address] [place] [address] FERRITIN Collected: 11:58 AM Status: F Source: [facility] TYPE CODE TESTS RESULT OUT OF RANGE REFERENCE UNITS LAB [id number] Ferritin 1155.9 High 7.3-270.7 ng/mL Performed By: #### FERIB, FO LSB, B12B #### [facility] (DEFAULT) [address] [address] FOLATE, SERUM Collected: 11:58 AM Status: F Source: [facility] TYPE CODE TESTS RESULT OUT OF RANGE REFERENCE UNITS LAB [id number] Folate 4.52 Low >5.38 ng/mL Performed By: #### FERIB, FO LSB, B12B #### [facility] (DEFAULT) [address] [address] VITAMIN B12 Collected: 11:58 AM Status: F Source: [facility] TYPE CODE TESTS RESULT OUT OF RANGE REFERENCE UNITS LAB [id number] Vitamin B12 369 211-911 pg/mL Result Comment: Testing of M ethylmalonic Acid and Intrinsic Factor Blocking Antibody are recommended if clinical suspicion for pernicious anemia due to B12 deficiency is high for patients with intermediate B12 levels (211 to 400 pg/mL) to rule out spurious heterophile antibodies. Performed By: #### FERIB, FO LSB, B12B #### [facility] (DEFAULT) [address] [place] [address] CYCLOSPORINE LEVEL, TROUGH ( PRE DRUG LEVEL) Collected: 03/19/2025 11:58 AM Status: F Source: [facility] Order Comment: Exam; qHTC pr ovider Infusion twice weekly Method performed is a chemiluminescent microparticle immunoasssay on the [place] [employer] i2000. TYPE CODE TESTS RESULT OUT OF RANGE REFERENCE UNITS LAB [id number] Cyclosporin e, Trough 335 ng/mL Performed By: #### CSAN #### [facility] (DEFAULT) [address] [place] [address] LACTATE DEHYDROGENASE Collected: 2024 11:58 AM Status: F Source: [facility] TYPE CODE TESTS RESULT OUT OF RANGE REFERENCE UNITS LAB [id number] LD Total 260 High 100-190 U/L Performed By: #### CMPN, LDO #### [facility] (DEFAULT) [address] [id number] COMPREHENSIVE METABOLIC PANEL Collected : 03/19/2025 11:58 AM Status: F Source: [facility] Order Comment: Exam; qHTC pr ovider Infusion twice weekly TYPE CODE TESTS RESULT OUT OF RANGE REFERENCE UNITS LAB [id number] Sodium 136 135-145 mmol/L LAB [id number] Potassium 4.6 3.5-5.0 mmol/L LAB [id number] Chloride 107 98-108 mmol/L LAB [id number] BUN 30 High 7-25 mg/dL LAB [id number] Creatinine 1.96 High 0.50-1.20 mg/dL LAB [id number] Glucose 90 Nonfastin -179 mg/dL; Fastin-99 mg/dL LAB [id number] Bilirubin Total 2.7 High <1.5 mg/dL LAB [id number] Albumin 4.1 3.5-5.0 g/dL LAB [id number] Total Protein 6.2 Low 6.4-8.3 g/dL LAB [id number] AST 19 10-39 U/L LAB [id number] ALP 41 32-126 U/L LAB [id number] Calcium 9.1 8.6-10.5 mg/dL LAB [id number] CO2 22 21-31 mmol/L LAB [id number] ALT 13 9-48 U/L LAB [id number] Bun/Crea Ratio 15 LAB [id number] Osmolality (Calculated) 292 278-305 mOsm/kg LAB [id number] Anion Gap 12 7-17 mmol/L LAB [id number] eGFR, CKD-EPI, Female 28 Low >=60 mL/min/1 .73m2 Result Comment: Reported eGF R is based on the CKD-EPI 2020 equation using creatinine, age, and sex. Performed By: #### CMPN, LDO #### [facility] (DEFAULT) [address] [place] [address] PI LINKED AG Collected: 03/19/2025 11:58 AM Status: F Source: [facility] TYPE CODE TESTS RESULT OUT OF RANGE REFERENCE UNITS LAB 2977 PNH INTERPRETATION SEE COMMENTS Result Comment: Peripheral b lood, flow cytometric immunophenotyping for paroxysmal nocturnal hemoglobinuria (PNH): Normal immunophenotyping results. No PNH clone is detected in RBC, granulocytes, or monocytes. Clinical correlation is recommended. Recent transfusion can decrease the sensitivity of this test and interfere with accuracy. The specimen received is satisfactory for quality analysis. Reviewed by: Marely Beckman M.D., Ph.D. Testing results: See table ADDITIONAL INFORMATION Antibodies to the following antigens were used for cell gating and interpretation. RBCs: CY295p and CD59. WBCs: CD14, CD15, CD16, CD24, CD33, CD45, FLAER. This test was developed using an analyte specific reagent. Its performance characteristics were determined by [facility] in a manner consistent with CLIA requirements. This test has not been cleared or approved by the U.S. Food and Drug Administration. LAB 3554 RBC TYPE II (PARTIAL EXPRESSION) 0.02 0.00-0.99 % LAB 2974 CD59 RBC (% DEFICIENT) 0.00 0.00-0.01 % LAB 2970 FLAER (NEUTROPHILS) 0.01 0.00-0.01 % LAB 2903 CD14 (MONOCYTE) 0.01 0.00-0.05 % Result Comment: Test Performed by: [place] [address] [employer] Installer: Ann Oliver Ph.D.; CLIA# [id number] Performed By: #### YPIB #### [facility] (DEFAULT) [address] [place] [address] TYPE AND SCREEN Collected: 02/20/2025 11:18 AM Statu s: F Source: [facility] TYPE CODE TESTS RESULT OUT OF RANGE REFERENCE UNITS LAB [id number] ABO/RH(D) TYPE O POS LAB OUTD Specimen Expiration 02/23/2025 23:59 LAB PERCENTAS ANTIBODY SCREEN NEG Performed By: #### XM #### [facility] (DEFAULT) [address] [place] [address] COMPREHENSIVE METABOLIC PANEL Collected : 02/20/2025 11:18 AM Status: F Source: [facility] Order Comment: Twice weekly TYPE CODE TESTS RESULT OUT OF RANGE REFERENCE UNITS LAB [id number] Sodium 130 Low 135-145 mmol/L LAB [id number] Potassium 4.8 3.5-5.0 mmol/L LAB [id number] Chloride 98 98-108 mmol/L LAB [id number] BUN 35 High 7-25 mg/dL LAB [id number] Creatinine 1.57 High 0.50-1.20 mg/dL LAB [id number] Glucose 97 Nonfastin -179 mg/dL; Fastin-99 mg/dL LAB [id number] Bilirubin Total 3.2 High <1.5 mg/dL LAB [id number] Albumin 4.2 3.5-5.0 g/dL LAB [id number] Total Protein 6.6 6.4-8.3 g/dL LAB [id number] AST 17 10-39 U/L LAB [id number] ALP 50 32-126 U/L LAB [id number] Calcium 9.3 8.6-10.5 mg/dL LAB [id number] CO2 22 21-31 mmol/L LAB [id number] ALT 10 9-48 U/L LAB [id number] Bun/Crea Ratio 22 LAB [id number] Osmolality (Calculated) 283 278-305 mOsm/kg LAB [id number] Anion Gap 15 7-17 mmol/L LAB [id number] eGFR, CKD-EPI, Female 36 Low >=60 mL/min/1 .73m2 Result Comment: Reported eGF R is based on the CKD-EPI 2020 equation using creatinine, age, and sex. Performed By: #### CMPN #### [facility] (DEFAULT) [address] [place] [address] CBC AND ELECTRONIC DIFF Collected: 05/2025 11:18 AM Status: F Source: [facility] Order Comment: Twice weekly TYPE CODE TESTS RESULT OUT OF RANGE REFERENCE UNITS LAB [id number] WBC Count 4.80 3.99-11.19 K/uL LAB [id number] RBC Count 2.37 Low 3.91-5.04 M/uL LAB [id number] Hemoglobin 8.8 Low 11.4-15.2 g/dL LAB [id number] Hematocrit 24.6 Low 34.9-44.3 % LAB [id number] Mean Cell Volume 103.8 High 79.6-97.7 fL LAB [id number] Mean Cell Hgb 37.1 High 25.9-33.9 pg LAB [id number] Mean Cell Hgb Conc 35.8 31.4-35.9 g/dL LAB [id number] RBC Distribution 16.7 High 10.8-14.9 % LAB [id number] Platelet Count 146 Low 150-393 K/uL LAB [id number] Mean Platelet Volume 10.7 8.5-12.2 fL LAB [id number] DIFF STATUS Electronic Differential LAB [id number] Segs + Bands Auto 62.2 % LAB [id number] Immature Grans % 0.2 % LAB [id number] Lymphocyte % Auto 21.5 % LAB [id number] Monocyte % Auto 14.2 % LAB [id number] Eosinophil % Auto 1.3 % LAB [id number] Basophil % Auto 0.6 % LAB [id number] Nucleated RBC 0.0 <=0.2 /100 WB C LAB [id number] Segs + Bands,Absolute Auto 2.99 1.64-7.28 K/uL LAB [id number] Immature Grans Absolute < <=0.08 K/uL LAB [id number] Abs Lymph Auto 1.03 Low 1.16-3.51 K/uL LAB [id number] Abs Vermilion Auto 0.68 0.22-0.87 K/uL LAB [id number] Abs Eos Auto 0.06 0.00-0.42 K/uL LAB [id number] Abs Baso Auto < 0.00-0.15 K/uL Performed By: #### [id number] ## ## [facility] (DEFAULT) [address] [place] [address] CYCLOSPORINE LEVEL, TROUGH ( PRE DRUG LEVEL) Collected: 02/20/2025 11:18 AM Status: F Source: [facility] Order Comment: Twice weekly Method performed is a chemiluminescent microparticle immunoasssay on the [place] [employer] i2000. TYPE CODE TESTS RESULT OUT OF RANGE REFERENCE UNITS LAB [id number] Cyclosporin e, Trough 350 ng/mL Performed By: #### CSAN #### [facility] (DEFAULT) [address] [place] [address] TYPE AND SCREEN Collected: 01/13/2025 10:40 AM Statu s: F Source: [facility] Order Comment: PRN Hgb < 8 TYPE CODE TESTS RESULT OUT OF RANGE REFERENCE UNITS LAB [id number] ABO/RH(D) TYPE O POS LAB OUTD Specimen Expiration 01/16/2025 23:59 LAB PERCENTAS ANTIBODY SCREEN NEG Performed By: #### XM #### [facility] (DEFAULT) [address] [address] CYCLOSPORINE LEVEL, TROUGH ( PRE DRUG LEVEL) Collected: 01/13/2025 10:40 AM Status: F Source: [facility] Order Comment: Twice weekly Method performed is a chemiluminescent microparticle immunoasssay on the [place] [employer] i2000. TYPE CODE TESTS RESULT OUT OF RANGE REFERENCE UNITS LAB [id number] Cyclosporin e, Trough 235 ng/mL Performed By: #### CSAN #### [facility] (DEFAULT) [address] [place] [address] COMPREHENSIVE METABOLIC PANEL Collected : 01/13/2025 10:40 AM Status: F Source: [facility] Order Comment: Twice weekly TYPE CODE TESTS RESULT OUT OF RANGE REFERENCE UNITS LAB [id number] Sodium 138 135-145 mmol/L LAB [id number] Potassium 4.8 3.5-5.0 mmol/L LAB [id number] Chloride 108 98-108 mmol/L LAB [id number] BUN 31 High 7-25 mg/dL LAB [id number] Creatinine 1.45 High 0.50-1.20 mg/dL LAB [id number] Glucose 92 Nonfastin -179 mg/dL; Fastin-99 mg/dL LAB [id number] Bilirubin Total 2.4 High <1.5 mg/dL LAB [id number] Albumin 4.0 3.5-5.0 g/dL LAB [id number] Total Protein 6.3 Low 6.4-8.3 g/dL LAB [id number] AST 16 10-39 U/L LAB [id number] ALP 50 32-126 U/L LAB [id number] Calcium 9.3 8.6-10.5 mg/dL LAB [id number] CO2 22 21-31 mmol/L LAB [id number] ALT 8 Low 9-48 U/L LAB [id number] Bun/Crea Ratio 21 LAB [id number] Osmolality (Calculated) 297 278-305 mOsm/kg LAB [id number] Anion Gap 13 7-17 mmol/L LAB [id number] eGFR, CKD-EPI, Female 40 Low >=60 mL/min/1 .73m2 Result Comment: Reported eGF R is based on the CKD-EPI 2020 equation using creatinine, age, and sex. Performed By: #### CMPN #### [facility] (DEFAULT) [address] [place] [address] CBC AND ELECTRONIC DIFF Collected: 12/16 10:40 AM Status: F Source: [facility] Order Comment: Twice weekly TYPE CODE TESTS RESULT OUT OF RANGE REFERENCE UNITS LAB [id number] WBC Count 3.72 Low 3.99-11.19 K/uL LAB [id number] RBC Count 2.69 Low 3.91-5.04 M/uL LAB [id number] Hemoglobin 9.5 Low 11.4-15.2 g/dL LAB [id number] Hematocrit 27.8 Low 34.9-44.3 % LAB [id number] Mean Cell Volume 103.3 High 79.6-97.7 fL LAB [id number] Mean Cell Hgb 35.3 High 25.9-33.9 pg LAB [id number] Mean Cell Hgb Conc 34.2 31.4-35.9 g/dL LAB [id number] RBC Distribution 21.3 High 10.8-14.9 % LAB [id number] Platelet Count 96 Low 150-393 K/uL Result Comment: This is an a ppended report. These results have been appended to a previously preliminary verified report. LAB [id number] Mean Platelet Volume 11.4 8.5-12.2 fL Result Comment: This is an a ppended report. These results have been appended to a previously preliminary verified report. LAB [id number] DIFF STATUS Electronic Differential LAB [id number] Segs + Bands Auto 57.5 % LAB [id number] Immature Grans % 0.3 % LAB [id number] Lymphocyte % Auto 25.0 % LAB [id number] Monocyte % Auto 15.1 % LAB [id number] Eosinophil % Auto 1.3 % LAB [id number] Basophil % Auto 0.8 % LAB [id number] Nucleated RBC 0.0 <=0.2 /100 WB C LAB [id number] Segs + Bands,Absolute Auto 2.14 1.64-7.28 K/uL LAB [id number] Immature Grans Absolute < <=0.08 K/uL LAB [id number] Abs Lymph Auto 0.93 Low 1.16-3.51 K/uL LAB [id number] Abs Vermilion Auto 0.56 0.22-0.87 K/uL LAB [id number] Abs Eos Auto 0.05 0.00-0.42 K/uL LAB [id number] Abs Baso Auto < 0.00-0.15 K/uL Performed By: #### [id number] ## ## [facility] (DEFAULT) [address] [place] [address] TYPE AND SCREEN Collected: 01/06/2025 12:03 PM Statu s: F Source: [facility] TYPE CODE TESTS RESULT OUT OF RANGE REFERENCE UNITS LAB [id number] ABO/RH(D) TYPE O POS LAB OUTD Specimen Expiration 01/09/2025 23:59 LAB PERCENTAS ANTIBODY SCREEN NEG Performed By: #### XM #### [facility] (DEFAULT) [address] [place] [address] CBC AND ELECTRONIC DIFF Collected: 12/15 12:03 PM Status: F Source: [facility] Order Comment: Twice weekly TYPE CODE TESTS RESULT OUT OF RANGE REFERENCE UNITS LAB [id number] WBC Count 4.02 3.99-11.19 K/uL LAB [id number] RBC Count 2.33 Low 3.91-5.04 M/uL LAB [id number] Hemoglobin 8.2 Low 11.4-15.2 g/dL LAB [id number] Hematocrit 24.2 Low 34.9-44.3 % LAB [id number] Mean Cell Volume 103.9 High 79.6-97.7 fL LAB [id number] Mean Cell Hgb 35.2 High 25.9-33.9 pg LAB [id number] Mean Cell Hgb Conc 33.9 31.4-35.9 g/dL LAB [id number] RBC Distribution 21.2 High 10.8-14.9 % LAB [id number] Platelet Count 106 Low 150-393 K/uL LAB [id number] Mean Platelet Volume 11.7 8.5-12.2 fL LAB [id number] DIFF STATUS Electronic Differential LAB [id number] Segs + Bands Auto 65.1 % LAB [id number] Immature Grans % 0.2 % LAB 5606870144 Lymphocyte % Auto 20.6 % LAB [id number] Monocyte % Auto 13.4 % LAB [id number] Eosinophil % Auto 0.5 % LAB [id number] Basophil % Auto 0.2 % LAB [id number] Nucleated RBC 0.0 <=0.2 /100 WB C LAB [id number] Segs + Bands,Absolute Auto 2.61 1.64-7.28 K/uL LAB [id number] Immature Grans Absolute < <=0.08 K/uL LAB [id number] Abs Lymph Auto 0.83 Low 1.16-3.51 K/uL LAB [id number] Abs Vermilion Auto 0.54 0.22-0.87 K/uL LAB [id number] Abs Eos Auto < 0.00-0.42 K/uL LAB [id number] Abs Baso Auto < 0.00-0.15 K/uL Performed By: #### [id number] ## ## [facility] (DEFAULT) [address] [place] [address] CYCLOSPORINE LEVEL, TROUGH ( PRE DRUG LEVEL) Collected: 01/06/2025 12:03 PM Status: F Source: [facility] Order Comment: Twice weekly Method performed is a chemiluminescent microparticle immunoasssay on the [place] [employer] i2000. TYPE CODE TESTS RESULT OUT OF RANGE REFERENCE UNITS LAB [id number] Cyclosporin e, Trough 369 ng/mL Performed By: #### CSAN #### [facility] (DEFAULT) [address] [place] [address] COMPREHENSIVE METABOLIC PANEL Collected : 01/06/2025 12:03 PM Status: F Source: [facility] Order Comment: Twice weekly TYPE CODE TESTS RESULT OUT OF RANGE REFERENCE UNITS LAB [id number] Sodium 134 Low 135-145 mmol/L LAB [id number] Potassium 4.8 3.5-5.0 mmol/L LAB [id number] Chloride 105 98-108 mmol/L LAB [id number] BUN 30 High 7-25 mg/dL LAB [id number] Creatinine 1.59 High 0.50-1.20 mg/dL LAB [id number] Glucose 98 Nonfastin -179 mg/dL; Fastin-99 mg/dL LAB 6799033821 Bilirubin Total 2.9 High <1.5 mg/dL LAB [id number] Albumin 4.1 3.5-5.0 g/dL LAB [id number] Total Protein 6.5 6.4-8.3 g/dL LAB [id number] AST 16 10-39 U/L LAB [id number] ALP 45 32-126 U/L LAB [id number] Calcium 9.4 8.6-10.5 mg/dL LAB [id number] CO2 23 21-31 mmol/L LAB [id number] ALT 8 Low 9-48 U/L LAB [id number] Bun/Crea Ratio 19 LAB [id number] Osmolality (Calculated) 289 278-305 mOsm/kg LAB 47736554727 Anion Gap 11 7-17 mmol/L LAB [id number] eGFR, CKD-EPI, Female 36 Low >=60 mL/min/1 .73m2 Result Comment: Reported eGF R is based on the CKD-EPI 2020 equation using creatinine, age, and sex. Performed By: #### CMPN #### [facility] (DEFAULT) [address] [place] [address] TYPE AND SCREEN Collected: 12/30/2024 10:54 AM Statu s: F Source: [facility] Order Comment: PRN Hgb < 8 TYPE CODE TESTS RESULT OUT OF RANGE REFERENCE UNITS LAB [id number] ABO/RH(D) TYPE O POS LAB OUTD Specimen Expiration 01/02/2025 23:59 LAB PERCENTAS ANTIBODY SCREEN NEG Performed By: #### XM #### [facility] (DEFAULT) [address] [address] COMPREHENSIVE METABOLIC PANEL Collected : 12/30/2024 10:54 AM Status: F Source: [facility] Order Comment: Twice weekly TYPE CODE TESTS RESULT OUT OF RANGE REFERENCE UNITS LAB [id number] Sodium 136 135-145 mmol/L LAB [id number] Potassium 4.7 3.5-5.0 mmol/L LAB [id number] Chloride 105 98-108 mmol/L LAB [id number] BUN 33 High 7-25 mg/dL LAB [id number] Creatinine 1.57 High 0.50-1.20 mg/dL LAB [id number] Glucose 109 High 70-99 mg/dL LAB [id number] Bilirubin Total 3.0 High <1.5 mg/dL LAB [id number] Albumin 4.0 3.5-5.0 g/dL LAB [id number] Total Protein 6.7 6.4-8.3 g/dL LAB [id number] AST 15 10-39 U/L LAB [id number] ALP 47 32-126 U/L LAB [id number] Calcium 9.4 8.6-10.5 mg/dL LAB [id number] CO2 24 21-31 mmol/L LAB [id number] ALT 10 9-48 U/L LAB [id number] Bun/Crea Ratio 21 LAB [id number] Osmolality (Calculated) 294 278-305 mOsm/kg LAB [id number] Anion Gap 12 7-17 mmol/L LAB [id number] eGFR, CKD-EPI, Female 36 Low >=60 mL/min/1 .73m2 Result Comment: Reported eGF R is based on the CKD-EPI 2020 equation using creatinine, age, and sex. Performed By: #### CMPN #### [facility] (DEFAULT) [address] [place] [address] CBC AND ELECTRONIC DIFF Collected: 12/14 10:54 AM Status: F Source: [facility] Order Comment: Twice weekly TYPE CODE TESTS RESULT OUT OF RANGE REFERENCE UNITS LAB [id number] WBC Count 4.42 3.99-11.19 K/uL LAB [id number] RBC Count 2.27 Low 3.91-5.04 M/uL LAB [id number] Hemoglobin 8.2 Low 11.4-15.2 g/dL LAB [id number] Hematocrit 23.1 Low 34.9-44.3 % LAB [id number] Mean Cell Volume 101.8 High 79.6-97.7 fL LAB [id number] Mean Cell Hgb 36.1 High 25.9-33.9 pg LAB [id number] Mean Cell Hgb Conc 35.5 31.4-35.9 g/dL LAB [id number] RBC Distribution 22.1 High 10.8-14.9 % LAB [id number] Platelet Count 99 Low 150-393 K/uL Result Comment: Automated pl atelet count confirmed by manual slide review. This is an appended report. These results have been appended to a previously preliminary verified report. LAB [id number] Mean Platelet Volume Result Comment: Not measured LAB [id number] DIFF STATUS Electronic Differential LAB [id number] Segs + Bands Auto 68.4 % LAB [id number] Immature Grans % 0.2 % LAB [id number] Lymphocyte % Auto 18.6 % LAB [id number] Monocyte % Auto 12.4 % LAB [id number] Eosinophil % Auto 0.2 % LAB [id number] Basophil % Auto 0.2 % LAB [id number] Nucleated RBC 0.0 <=0.2 /100 WB C LAB [id number] Segs + Bands,Absolute Auto 3.02 1.64-7.28 K/uL LAB [id number] Immature Grans Absolute < <=0.08 K/uL LAB [id number] Abs Lymph Auto 0.82 Low 1.16-3.51 K/uL LAB [id number] Abs Vermilion Auto 0.55 0.22-0.87 K/uL LAB [id number] Abs Eos Auto < 0.00-0.42 K/uL LAB [id number] Abs Baso Auto < 0.00-0.15 K/uL Performed By: #### [id number] ## ## [facility] (DEFAULT) [address] [place] [address] CYCLOSPORINE LEVEL, TROUGH ( PRE DRUG LEVEL) Collected: 12/30/2024 10:54 AM Status: F Source: [facility] Order Comment: Twice weekly Method performed is a chemiluminescent microparticle immunoasssay on the [place] [employer] i2000. TYPE CODE TESTS RESULT OUT OF RANGE REFERENCE UNITS LAB [id number] Cyclosporin e, Trough 307 ng/mL Performed By: #### CSAN #### [facility] (DEFAULT) [address] [place] [address] TYPE AND SCREEN Collected: 12/23/2024 11:13 AM Statu s: F Source: [facility] Order Comment: PRN Hgb < 8 TYPE CODE TESTS RESULT OUT OF RANGE REFERENCE UNITS LAB [id number] ABO/RH(D) TYPE O POS LAB OUTD Specimen Expiration 12/26/2024 23:59 LAB PERCENTAS ANTIBODY SCREEN NEG Performed By: #### XM #### [facility] (DEFAULT) [address] [address] CYCLOSPORINE LEVEL, TROUGH ( PRE DRUG LEVEL) Collected: 12/23/2024 11:13 AM Status: F Source: [facility] Order Comment: Twice weekly Method performed is a chemiluminescent microparticle immunoasssay on the [place] [employer] i2000. TYPE CODE TESTS RESULT OUT OF RANGE REFERENCE UNITS LAB [id number] Cyclosporin e, Trough 227 ng/mL Performed By: #### CSAN #### [facility] (DEFAULT) [address] [address] CBC AND ELECTRONIC DIFF Collected: 12/14 11:13 AM Status: F Source: [facility] Order Comment: Twice weekly TYPE CODE TESTS RESULT OUT OF RANGE REFERENCE UNITS LAB [id number] WBC Count 4.33 3.99-11.19 K/uL LAB [id number] RBC Count 2.44 Low 3.91-5.04 M/uL LAB [id number] Hemoglobin 8.5 Low 11.4-15.2 g/dL LAB [id number] Hematocrit 24.5 Low 34.9-44.3 % LAB [id number] Mean Cell Volume 100.4 High 79.6-97.7 fL LAB [id number] Mean Cell Hgb 34.8 High 25.9-33.9 pg LAB [id number] Mean Cell Hgb Conc 34.7 31.4-35.9 g/dL LAB [id number] RBC Distribution Result Comment: Not Measured LAB [id number] Platelet Count 100 Low 150-393 K/uL LAB [id number] Mean Platelet Volume 11.9 8.5-12.2 fL LAB [id number] DIFF STATUS Electronic Differential LAB [id number] Segs + Bands Auto 62.2 % LAB [id number] Immature Grans % 0.5 % LAB [id number] Lymphocyte % Auto 22.2 % LAB [id number] Monocyte % Auto 13.9 % LAB [id number] Eosinophil % Auto 0.7 % LAB [id number] Basophil % Auto 0.5 % LAB [id number] Nucleated RBC 0.0 <=0.2 /100 WB C LAB [id number] Segs + Bands,Absolute Auto 2.70 1.64-7.28 K/uL LAB [id number] Immature Grans Absolute < <=0.08 K/uL LAB [id number] Abs Lymph Auto 0.96 Low 1.16-3.51 K/uL LAB [id number] Abs Vermilion Auto 0.60 0.22-0.87 K/uL LAB [id number] Abs Eos Auto < 0.00-0.42 K/uL LAB [id number] Abs Baso Auto < 0.00-0.15 K/uL Performed By: #### [id number] ## ## [facility] (DEFAULT) [address] [place] [address] COMPREHENSIVE METABOLIC PANEL Collected : 12/23/2024 11:13 AM Status: F Source: [facility] Order Comment: Twice weekly TYPE CODE TESTS RESULT OUT OF RANGE REFERENCE UNITS LAB [id number] Sodium 137 135-145 mmol/L LAB [id number] Potassium 4.4 3.5-5.0 mmol/L LAB [id number] Chloride 105 98-108 mmol/L LAB [id number] BUN 29 High 7-25 mg/dL LAB [id number] Creatinine 1.44 High 0.50-1.20 mg/dL LAB 7657451622 Glucose 102 High 70-99 mg/dL LAB [id number] Bilirubin Total 3.3 High <1.5 mg/dL LAB 8688143660 Albumin 4.1 3.5-5.0 g/dL LAB [id number] Total Protein 6.7 6.4-8.3 g/dL LAB [id number] AST 18 10-39 U/L LAB [id number] ALP 48 32-126 U/L LAB [id number] Calcium 9.3 8.6-10.5 mg/dL LAB [id number] CO2 22 21-31 mmol/L LAB [id number] ALT 13 9-48 U/L LAB [id number] Bun/Crea Ratio 20 LAB [id number] Osmolality (Calculated) 294 278-305 mOsm/kg LAB 95823801703 Anion Gap 14 7-17 mmol/L LAB [id number] eGFR, CKD-EPI, Female 40 Low >=60 mL/min/1 .73m2 Result Comment: Reported eGF R is based on the CKD-EPI 2020 equation using creatinine, age, and sex. Performed By: #### CMPN #### [facility] (DEFAULT) [address] [place] [address] CBC AND ELECTRONIC DIFF Collected: 02/2025 11:03 AM Status: F Source: [facility] Order Comment: Twice weekly TYPE CODE TESTS RESULT OUT OF RANGE REFERENCE UNITS LAB [id number] WBC Count 4.27 3.99-11.19 K/uL LAB [id number] RBC Count 2.39 Low 3.91-5.04 M/uL LAB [id number] Hemoglobin 8.4 Low 11.4-15.2 g/dL LAB [id number] Hematocrit 23.6 Low 34.9-44.3 % LAB 8744695700 Mean Cell Volume 98.7 High 79.6-97.7 fL LAB [id number] Mean Cell Hgb 35.1 High 25.9-33.9 pg LAB [id number] Mean Cell Hgb Conc 35.6 31.4-35.9 g/dL LAB [id number] RBC Distribution Result Comment: Not Measured LAB [id number] Platelet Count 84 Low 150-393 K/uL LAB [id number] Mean Platelet Volume 10.7 8.5-12.2 fL LAB [id number] DIFF STATUS Electronic Differential LAB [id number] Segs + Bands Auto 60.8 % LAB [id number] Immature Grans % 0.5 % LAB 7668629513 Lymphocyte % Auto 23.4 % LAB [id number] Monocyte % Auto 14.1 % LAB [id number] Eosinophil % Auto 0.5 % LAB 5666852883 Basophil % Auto 0.7 % LAB [id number] Nucleated RBC 0.0 <=0.2 /100 WB C LAB 5464153611 Segs + Bands,Absolute Auto 2.60 1.64-7.28 K/uL LAB [id number] Immature Grans Absolute < <=0.08 K/uL LAB [id number] Abs Lymph Auto 1.00 Low 1.16-3.51 K/uL LAB [id number] Abs Vermilion Auto 0.60 0.22-0.87 K/uL LAB [id number] Abs Eos Auto < 0.00-0.42 K/uL LAB [id number] Abs Baso Auto < 0.00-0.15 K/uL Performed By: #### [id number] ## ## [facility] (DEFAULT) [address] [address] COMPREHENSIVE METABOLIC PANEL Collected : 12/18/2024 11:03 AM Status: F Source: [facility] Order Comment: Twice weekly TYPE CODE TESTS RESULT OUT OF RANGE REFERENCE UNITS LAB [id number] Sodium 137 135-145 mmol/L LAB 6869291628 Potassium 4.4 3.5-5.0 mmol/L LAB 3703702060 Chloride 107 98-108 mmol/L LAB 1688295784 BUN 30 High 7-25 mg/dL LAB 7131442227 Creatinine 1.33 High 0.50-1.20 mg/dL LAB [id number] Glucose 98 70-99 mg/dL LAB 6139330256 Bilirubin Total 3.3 High <1.5 mg/dL LAB [id number] Albumin 3.9 3.5-5.0 g/dL LAB 8981180857 Total Protein 6.6 6.4-8.3 g/dL LAB 7436587408 AST 20 10-39 U/L LAB [id number] ALP 51 32-126 U/L LAB [id number] Calcium 9.3 8.6-10.5 mg/dL LAB [id number] CO2 23 21-31 mmol/L LAB 6028803374 ALT 15 9-48 U/L LAB 8647966471 Bun/Crea Ratio 23 LAB [id number] Osmolality (Calculated) 294 278-305 mOsm/kg LAB [id number] Anion Gap 11 7-17 mmol/L LAB [id number] eGFR, CKD-EPI, Female 42 Low >=60 mL/min/1 .73m2 Result Comment: Reported eGF R is based on the CKD-EPI 2020 equation using creatinine, age, and sex. Performed By: #### CMPN #### [facility] (DEFAULT) [address] [place] [address] CYCLOSPORINE LEVEL, TROUGH ( PRE DRUG LEVEL) Collected: 12/18/2024 11:03 AM Status: F Source: [facility] Order Comment: Twice weekly Method performed is a chemiluminescent microparticle immunoasssay on the [employer] i2000. TYPE CODE TESTS RESULT OUT OF RANGE REFERENCE UNITS LAB [id number] Cyclosporin e, Trough 245 ng/mL Performed By: #### CSAN #### [facility] (DEFAULT) [address] [address] TYPE AND SCREEN Collected: 12/16/2024 11:19 AM Statu s: F Source: [facility] Order Comment: PRN Hgb < 8 TYPE CODE TESTS RESULT OUT OF RANGE REFERENCE UNITS LAB [id number] ABO/RH(D) TYPE O POS LAB OUTD Specimen Expiration 12/19/2024 23:59 LAB PERCENTAS ANTIBODY SCREEN NEG Performed By: #### XM #### [facility] (DEFAULT) [address] [address] COMPREHENSIVE METABOLIC PANEL Collected : 12/16/2024 11:19 AM Status: F Source: [facility] Order Comment: Twice weekly TYPE CODE TESTS RESULT OUT OF RANGE REFERENCE UNITS LAB [id number] Sodium 135 135-145 mmol/L LAB [id number] Potassium 4.5 3.5-5.0 mmol/L LAB [id number] Chloride 105 98-108 mmol/L LAB [id number] BUN 31 High 7-25 mg/dL LAB 0399903984 Creatinine 1.27 High 0.50-1.20 mg/dL LAB 6459238930 Glucose 103 High 70-99 mg/dL LAB [id number] Bilirubin Total 3.3 High <1.5 mg/dL LAB [id number] Albumin 4.0 3.5-5.0 g/dL LAB [id number] Total Protein 6.9 6.4-8.3 g/dL LAB [id number] AST 17 10-39 U/L LAB [id number] ALP 52 32-126 U/L LAB [id number] Calcium 9.4 8.6-10.5 mg/dL LAB 7017909039 CO2 23 21-31 mmol/L LAB [id number] ALT 12 9-48 U/L LAB [id number] Bun/Crea Ratio 24 LAB [id number] Osmolality (Calculated) 291 278-305 mOsm/kg LAB 03384471527 Anion Gap 12 7-17 mmol/L LAB [id number] eGFR, CKD-EPI, Female 45 Low >=60 mL/min/1 .73m2 Result Comment: Reported eGF R is based on the CKD-EPI 2020 equation using creatinine, age, and sex. Performed By: #### CMPN #### [facility] (DEFAULT) [address] [address] CYCLOSPORINE LEVEL, TROUGH ( PRE DRUG LEVEL) Collected: 12/16/2024 11:19 AM Status: F Source: [facility] Order Comment: Twice weekly Method performed is a chemiluminescent microparticle immunoasssay on the [employer] i2000. TYPE CODE TESTS RESULT OUT OF RANGE REFERENCE UNITS LAB [id number] Cyclosporin e, Trough 186 ng/mL Performed By: #### CSAN #### [facility] (DEFAULT) [address] [address] CBC AND ELECTRONIC DIFF Collected: 12/2024 11:19 AM Status: F Source: [facility] Order Comment: Twice weekly TYPE CODE TESTS RESULT OUT OF RANGE REFERENCE UNITS LAB [id number] WBC Count 4.59 3.99-11.19 K/uL LAB [id number] RBC Count 2.54 Low 3.91-5.04 M/uL LAB 7720141155 Hemoglobin 8.7 Low 11.4-15.2 g/dL LAB [id number] Hematocrit 25.2 Low 34.9-44.3 % LAB [id number] Mean Cell Volume 99.2 High 79.6-97.7 fL LAB [id number] Mean Cell Hgb 34.3 High 25.9-33.9 pg LAB [id number] Mean Cell Hgb Conc 34.5 31.4-35.9 g/dL LAB [id number] RBC Distribution Result Comment: Not Measured LAB [id number] Platelet Count 83 Low 150-393 K/uL LAB [id number] Mean Platelet Volume 11.4 8.5-12.2 fL LAB [id number] DIFF STATUS Electronic Differential LAB [id number] Segs + Bands Auto 63.8 % LAB 4953915809 Immature Grans % 0.4 % LAB [id number] Lymphocyte % Auto 21.6 % LAB [id number] Monocyte % Auto 13.1 % LAB 1813319434 Eosinophil % Auto 0.7 % LAB [id number] Basophil % Auto 0.4 % LAB [id number] Nucleated RBC 0.0 <=0.2 /100 WB C LAB [id number] Segs + Bands,Absolute Auto 2.93 1.64-7.28 K/uL LAB [id number] Immature Grans Absolute < <=0.08 K/uL LAB [id number] Abs Lymph Auto 0.99 Low 1.16-3.51 K/uL LAB [id number] Abs Vermilion Auto 0.60 0.22-0.87 K/uL LAB [id number] Abs Eos Auto < 0.00-0.42 K/uL LAB [id number] Abs Baso Auto < 0.00-0.15 K/uL Performed By: #### [id number] ## ## [facility] (DEFAULT) [address] [place] [address] TYPE AND SCREEN Collected: 12/09/2024 11:23 AM Statu s: F Source: [facility] Order Comment: PRN Hgb < 8 TYPE CODE TESTS RESULT OUT OF RANGE REFERENCE UNITS LAB [id number] ABO/RH(D) TYPE O POS LAB OUTD Specimen Expiration 12/12/2024 23:59 LAB PERCENTAS ANTIBODY SCREEN NEG Performed By: #### XM #### [facility] (DEFAULT) [address] [place] [address] CBC AND ELECTRONIC DIFF Collected: 11/17 11:23 AM Status: F Source: [facility] Order Comment: Twice weekly TYPE CODE TESTS RESULT OUT OF RANGE REFERENCE UNITS LAB [id number] WBC Count 4.93 3.99-11.19 K/uL LAB [id number] RBC Count 2.71 Low 3.91-5.04 M/uL LAB [id number] Hemoglobin 9.0 Low 11.4-15.2 g/dL LAB [id number] Hematocrit 26.0 Low 34.9-44.3 % LAB [id number] Mean Cell Volume 95.9 79.6-97.7 fL LAB [id number] Mean Cell Hgb 33.2 25.9-33.9 pg LAB [id number] Mean Cell Hgb Conc 34.6 31.4-35.9 g/dL LAB [id number] RBC Distribution 24.2 High 10.8-14.9 % LAB [id number] Platelet Count 93 Low 150-393 K/uL LAB [id number] Mean Platelet Volume 11.3 8.5-12.2 fL LAB [id number] DIFF STATUS Electronic Differential LAB [id number] Segs + Bands Auto 63.7 % LAB [id number] Immature Grans % 0.8 % LAB 5218131792 Lymphocyte % Auto 21.1 % LAB 6405898783 Monocyte % Auto 13.4 % LAB [id number] Eosinophil % Auto 0.6 % LAB [id number] Basophil % Auto 0.4 % LAB [id number] Nucleated RBC 0.0 <=0.2 /100 WB C LAB [id number] Segs + Bands,Absolute Auto 3.14 1.64-7.28 K/uL LAB [id number] Immature Grans Absolute 0.04 <=0.08 K/uL LAB [id number] Abs Lymph Auto 1.04 Low 1.16-3.51 K/uL LAB [id number] Abs Vermilion Auto 0.66 0.22-0.87 K/uL LAB [id number] Abs Eos Auto < 0.00-0.42 K/uL LAB [id number] Abs Baso Auto < 0.00-0.15 K/uL Performed By: #### [id number] ## ## [facility] (DEFAULT) [address] [place] [address] COMPREHENSIVE METABOLIC PANEL Collected : 12/09/2024 11:23 AM Status: F Source: [facility] Order Comment: Twice weekly TYPE CODE TESTS RESULT OUT OF RANGE REFERENCE UNITS LAB [id number] Sodium 134 Low 135-145 mmol/L LAB 6860562316 Potassium 4.9 3.5-5.0 mmol/L LAB [id number] Chloride 102 98-108 mmol/L LAB 1021084064 BUN 23 7-25 mg/dL LAB 6031582033 Creatinine 1.37 High 0.50-1.20 mg/dL LAB 2464073755 Glucose 98 70-99 mg/dL LAB 5686315244 Bilirubin Total 3.4 High <1.5 mg/dL LAB 8120260762 Albumin 4.0 3.5-5.0 g/dL LAB 5845699917 Total Protein 6.7 6.4-8.3 g/dL LAB 1169247445 AST 22 10-39 U/L LAB [id number] ALP 44 32-126 U/L LAB [id number] Calcium 9.5 8.6-10.5 mg/dL LAB [id number] CO2 25 21-31 mmol/L LAB [id number] ALT 16 9-48 U/L LAB 4265944362 Bun/Crea Ratio 17 LAB 2787173495 Osmolality (Calculated) 287 278-305 mOsm/kg LAB 00742381432 Anion Gap 12 7-17 mmol/L LAB [id number] eGFR, CKD-EPI, Female 41 Low >=60 mL/min/1 .73m2 Result Comment: Reported eGF R is based on the CKD-EPI 2020 equation using creatinine, age, and sex. Performed By: #### CMPN #### [facility] (DEFAULT) [address] [address] CYCLOSPORINE LEVEL, TROUGH ( PRE DRUG LEVEL) Collected: 12/09/2024 11:23 AM Status: F Source: [facility] Order Comment: Twice weekly Method performed is a chemiluminescent microparticle immunoasssay on the [employer] i2000. TYPE CODE TESTS RESULT OUT OF RANGE REFERENCE UNITS LAB [id number] Cyclosporin e, Trough 218 ng/mL Performed By: #### CSAN #### [facility] (DEFAULT) [address] [place] [address] TYPE AND SCREEN Collected: 12/02/2024 12:17 PM Statu s: F Source: [facility] Order Comment: PRN Hgb < 8 TYPE CODE TESTS RESULT OUT OF RANGE REFERENCE UNITS LAB [id number] ABO/RH(D) TYPE O POS LAB OUTD Specimen Expiration 12/05/2024 23:59 LAB PERCENTAS ANTIBODY SCREEN NEG Performed By: #### XM #### [facility] (DEFAULT) [address] [place] [address] CYCLOSPORINE LEVEL, TROUGH ( PRE DRUG LEVEL) Collected: 12/02/2024 12:17 PM Status: F Source: [facility] Order Comment: Twice weekly Method performed is a chemiluminescent microparticle immunoasssay on the [employer] i2000. TYPE CODE TESTS RESULT OUT OF RANGE REFERENCE UNITS LAB [id number] Cyclosporin e, Trough 304 ng/mL Performed By: #### CSAN #### [facility] (DEFAULT) [address] [address] CBC AND ELECTRONIC DIFF Collected: 11/16 12:17 PM Status: F Source: [facility] Order Comment: Twice weekly TYPE CODE TESTS RESULT OUT OF RANGE REFERENCE UNITS LAB [id number] WBC Count 5.00 3.99-11.19 K/uL LAB [id number] RBC Count 2.88 Low 3.91-5.04 M/uL LAB [id number] Hemoglobin 9.4 Low 11.4-15.2 g/dL LAB [id number] Hematocrit 26.7 Low 34.9-44.3 % LAB 6904037564 Mean Cell Volume 92.7 79.6-97.7 fL LAB [id number] Mean Cell Hgb 32.6 25.9-33.9 pg LAB 8646472024 Mean Cell Hgb Conc 35.2 31.4-35.9 g/dL LAB [id number] RBC Distribution 25.0 High 10.8-14.9 % LAB [id number] Platelet Count 85 Low 150-393 K/uL LAB [id number] Mean Platelet Volume 10.9 8.5-12.2 fL LAB [id number] DIFF STATUS Electronic Differential LAB [id number] Segs + Bands Auto 63.2 % LAB 5396386491 Immature Grans % 0.6 % LAB 3480319596 Lymphocyte % Auto 21.8 % LAB 7763491796 Monocyte % Auto 13.4 % LAB 6893493159 Eosinophil % Auto 0.8 % LAB 4990565708 Basophil % Auto 0.2 % LAB [id number] Nucleated RBC 0.0 <=0.2 /100 WB C LAB [id number] Segs + Bands,Absolute Auto 3.16 1.64-7.28 K/uL LAB 5360823021 Immature Grans Absolute < <=0.08 K/uL LAB [id number] Abs Lymph Auto 1.09 Low 1.16-3.51 K/uL LAB [id number] Abs Vermilion Auto 0.67 0.22-0.87 K/uL LAB [id number] Abs Eos Auto 0.04 0.00-0.42 K/uL LAB [id number] Abs Baso Auto < 0.00-0.15 K/uL Performed By: #### [id number] ## ## [facility] (DEFAULT) [address] [address] COMPREHENSIVE METABOLIC PANEL Collected : 12/02/2024 12:17 PM Status: F Source: [facility] Order Comment: Twice weekly TYPE CODE TESTS RESULT OUT OF RANGE REFERENCE UNITS LAB [id number] Sodium 132 Low 135-145 mmol/L LAB 7587801316 Potassium 4.8 3.5-5.0 mmol/L LAB [id number] Chloride 103 98-108 mmol/L LAB 4982582088 BUN 28 High 7-25 mg/dL LAB 8063051924 Creatinine 1.58 High 0.50-1.20 mg/dL LAB 8816962133 Glucose 116 High 70-99 mg/dL LAB [id number] Bilirubin Total 3.7 High <1.5 mg/dL LAB [id number] Albumin 4.1 3.5-5.0 g/dL LAB [id number] Total Protein 6.5 6.4-8.3 g/dL LAB 9950222781 AST 27 10-39 U/L LAB [id number] ALP 38 32-126 U/L LAB [id number] Calcium 9.6 8.6-10.5 mg/dL LAB 2219702940 CO2 21 21-31 mmol/L LAB 2760166025 ALT 18 9-48 U/L LAB 8840533747 Bun/Crea Ratio 18 LAB 3436098606 Osmolality (Calculated) 286 278-305 mOsm/kg LAB 46994233826 Anion Gap 13 7-17 mmol/L LAB 7530783376 eGFR, CKD-EPI, Female 34 Low >=60 mL/min/1 .73m2 Result Comment: Reported eGF R is based on the CKD-EPI 2020 equation using creatinine, age, and sex. Performed By: #### CMPN #### [facility] (DEFAULT) [address] [place] [address] TYPE AND SCREEN Collected: 11/25/2024 2:39 PM Status : F Source: [facility] Order Comment: PRN Hgb < 8 TYPE CODE TESTS RESULT OUT OF RANGE REFERENCE UNITS LAB [id number] ABO/RH(D) TYPE O POS Result Comment: @11/25/24 15 :54 by [id number]: LAB OUTD Specimen Expiration 11/28/2024 23:59 LAB PERCENTAS ANTIBODY SCREEN NEG Result Comment: @02/10/25 17 :07 by [id number]: Performed By: #### XM #### [facility] (DEFAULT) [address] [place] [address] CBC AND ELECTRONIC DIFF Collected: 11/25/2024 1:34 PM Status: F Source: [facility] Order Comment: Twice weekly TYPE CODE TESTS RESULT OUT OF RANGE REFERENCE UNITS LAB [id number] WBC Count 5.32 3.99-11.19 K/uL LAB [id number] RBC Count 3.21 Low 3.91-5.04 M/uL LAB 9209693271 Hemoglobin 10.2 Low 11.4-15.2 g/dL LAB [id number] Hematocrit 29.1 Low 34.9-44.3 % LAB 4403730904 Mean Cell Volume 90.7 79.6-97.7 fL LAB [id number] Mean Cell Hgb 31.8 25.9-33.9 pg LAB [id number] Mean Cell Hgb Conc 35.1 31.4-35.9 g/dL LAB [id number] RBC Distribution 24.4 High 10.8-14.9 % LAB [id number] Platelet Count 70 Low 150-393 K/uL LAB [id number] Mean Platelet Volume 11.0 8.5-12.2 fL LAB [id number] DIFF STATUS Electronic Differential LAB [id number] Segs + Bands Auto 64.8 % LAB 3159040885 Immature Grans % 0.4 % LAB 6459437310 Lymphocyte % Auto 20.9 % LAB [id number] Monocyte % Auto 13.3 % LAB 7949698998 Eosinophil % Auto 0.2 % LAB 3358168500 Basophil % Auto 0.4 % LAB [id number] Nucleated RBC 0.0 <=0.2 /100 WB C LAB [id number] Segs + Bands,Absolute Auto 3.45 1.64-7.28 K/uL LAB 3740953600 Immature Grans Absolute < <=0.08 K/uL LAB [id number] Abs Lymph Auto 1.11 Low 1.16-3.51 K/uL LAB [id number] Abs Vermilion Auto 0.71 0.22-0.87 K/uL LAB [id number] Abs Eos Auto < 0.00-0.42 K/uL LAB [id number] Abs Baso Auto < 0.00-0.15 K/uL Performed By: #### [id number] ## ## [facility] (DEFAULT) [address] [address] CYCLOSPORINE LEVEL, TROUGH ( PRE DRUG LEVEL) Collected: 11/25/2024 1:34 PM Status: F Source: [facility] Order Comment: Twice weekly Method performed is a chemiluminescent microparticle immunoasssay on the [employer] i2000. TYPE CODE TESTS RESULT OUT OF RANGE REFERENCE UNITS LAB [id number] Cyclosporin e, Trough 188 ng/mL Performed By: #### CSAN #### [facility] (DEFAULT) [address] [address] COMPREHENSIVE METABOLIC PANEL Collected: 11/25/2024 1 :34 PM Status: F Source: [facility] Order Comment: Twice weekly TYPE CODE TESTS RESULT OUT OF RANGE REFERENCE UNITS LAB [id number] Sodium 136 135-145 mmol/L LAB 7257479948 Potassium 4.5 3.5-5.0 mmol/L LAB 5343797711 Chloride 104 98-108 mmol/L LAB 3226984090 BUN 33 High 7-25 mg/dL LAB [id number] Creatinine 1.44 High 0.50-1.20 mg/dL LAB 6982772870 Glucose 104 High 70-99 mg/dL LAB 2586793411 Bilirubin Total 3.3 High <1.5 mg/dL LAB 4303474345 Albumin 4.2 3.5-5.0 g/dL LAB 4680544455 Total Protein 6.8 6.4-8.3 g/dL LAB 2665307086 AST 22 10-39 U/L LAB [id number] ALP 40 32-126 U/L LAB [id number] Calcium 9.7 8.6-10.5 mg/dL LAB [id number] CO2 24 21-31 mmol/L LAB 9011261229 ALT 23 9-48 U/L LAB [id number] Bun/Crea Ratio 23 LAB [id number] Osmolality (Calculated) 294 278-305 mOsm/kg LAB 86562635918 Anion Gap 13 7-17 mmol/L LAB [id number] eGFR, CKD-EPI, Female 40 Low >=60 mL/min/1 .73m2 Result Comment: Reported eGF R is based on the CKD-EPI 2020 equation using creatinine, age, and sex. Performed By: #### CMPN #### [facility] (DEFAULT) [address] [place] [address] CBC AND ELECTRONIC DIFF Collected: 11/21/2024 1:10 PM Status: F Source: [facility] Order Comment: Twice weekly TYPE CODE TESTS RESULT OUT OF RANGE REFERENCE UNITS LAB [id number] WBC Count 4.75 3.99-11.19 K/uL LAB [id number] RBC Count 2.39 Low 3.91-5.04 M/uL LAB [id number] Hemoglobin 7.8 Low 11.4-15.2 g/dL LAB [id number] Hematocrit 22.1 Low 34.9-44.3 % LAB [id number] Mean Cell Volume 92.5 79.6-97.7 fL LAB [id number] Mean Cell Hgb 32.6 25.9-33.9 pg LAB [id number] Mean Cell Hgb Conc 35.3 31.4-35.9 g/dL LAB [id number] RBC Distribution 26.9 High 10.8-14.9 % LAB [id number] Platelet Count 71 Low 150-393 K/uL LAB [id number] Mean Platelet Volume 10.1 8.5-12.2 fL LAB [id number] DIFF STATUS Electronic Differential LAB 3129226026 Segs + Bands Auto 64.1 % LAB [id number] Immature Grans % 0.8 % LAB 9645343804 Lymphocyte % Auto 17.9 % LAB [id number] Monocyte % Auto 16.4 % LAB [id number] Eosinophil % Auto 0.4 % LAB 0969535694 Basophil % Auto 0.4 % LAB [id number] Nucleated RBC 0.0 <=0.2 /100 WB C LAB [id number] Segs + Bands,Absolute Auto 3.04 1.64-7.28 K/uL LAB [id number] Immature Grans Absolute 0.04 <=0.08 K/uL LAB [id number] Abs Lymph Auto 0.85 Low 1.16-3.51 K/uL LAB [id number] Abs Vermilion Auto 0.78 0.22-0.87 K/uL LAB [id number] Abs Eos Auto < 0.00-0.42 K/uL LAB [id number] Abs Baso Auto < 0.00-0.15 K/uL Performed By: #### [id number] ## ## [facility] (DEFAULT) [address] [address] COMPREHENSIVE METABOLIC PANEL Collected: 11/21/2024 1 :10 PM Status: F Source: [facility] Order Comment: Twice weekly TYPE CODE TESTS RESULT OUT OF RANGE REFERENCE UNITS LAB [id number] Sodium 137 135-145 mmol/L LAB [id number] Potassium 4.4 3.5-5.0 mmol/L LAB 5638952899 Chloride 106 98-108 mmol/L LAB 0834588541 BUN 32 High 7-25 mg/dL LAB 4975968430 Creatinine 1.62 High 0.50-1.20 mg/dL LAB 3002543451 Glucose 109 High 70-99 mg/dL LAB 4900199356 Bilirubin Total 3.0 High <1.5 mg/dL LAB 8011625794 Albumin 4.2 3.5-5.0 g/dL LAB 9897854398 Total Protein 6.6 6.4-8.3 g/dL LAB [id number] AST 44 High 10-39 U/L LAB 8416507880 ALP 43 32-126 U/L LAB [id number] Calcium 9.3 8.6-10.5 mg/dL LAB 7553344352 CO2 23 21-31 mmol/L LAB 9590615574 ALT 45 9-48 U/L LAB [id number] Bun/Crea Ratio 20 LAB 3364635937 Osmolality (Calculated) 295 278-305 mOsm/kg LAB 01907054988 Anion Gap 12 7-17 mmol/L LAB [id number] eGFR, CKD-EPI, Female 33 Low >=60 mL/min/1 .73m2 Result Comment: Reported eGF R is based on the CKD-EPI 2020 equation using creatinine, age, and sex. Performed By: #### CMPN #### [facility] (DEFAULT) [address] [place] [address] CYCLOSPORINE LEVEL, TROUGH ( PRE DRUG LEVEL) Collected: 11/21/2024 1:10 PM Status: F Source: [facility] Order Comment: Twice weekly Method performed is a chemiluminescent microparticle immunoasssay on the [employer] i2000. TYPE CODE TESTS RESULT OUT OF RANGE REFERENCE UNITS LAB [id number] Cyclosporin e, Trough 115 ng/mL Performed By: #### CSAN #### [facility] (DEFAULT) [address] [address] TYPE AND SCREEN Collected: 12:22 PM Status: F Source: [facility] Order Comment: PRN Hgb < 8 TYPE CODE TESTS RESULT OUT OF RANGE REFERENCE UNITS LAB [id number] ABO/RH(D) TYPE O POS LAB OUTD Outdate Specimen 11/21/2024 23:59 LAB PERCENTAS ANTIBODY SCREEN NEG Performed By: #### XM #### [facility] (DEFAULT) [address] [address] CBC AND ELECTRONIC DIFF Collected: 12/2024 12:22 PM Status: F Source: [facility] Order Comment: Twice weekly TYPE CODE TESTS RESULT OUT OF RANGE REFERENCE UNITS LAB [id number] WBC Count 5.31 3.99-11.19 K/uL LAB [id number] RBC Count 2.50 Low 3.91-5.04 M/uL LAB [id number] Hemoglobin 8.0 Low 11.4-15.2 g/dL LAB [id number] Hematocrit 23.5 Low 34.9-44.3 % LAB [id number] Mean Cell Volume 94.0 79.6-97.7 fL LAB [id number] Mean Cell Hgb 32.0 25.9-33.9 pg LAB [id number] Mean Cell Hgb Conc 34.0 31.4-35.9 g/dL LAB [id number] RBC Distribution 26.9 High 10.8-14.9 % LAB [id number] Platelet Count 83 Low 150-393 K/uL LAB [id number] Mean Platelet Volume 10.5 8.5-12.2 fL LAB [id number] DIFF STATUS Electronic Differential LAB [id number] Segs + Bands Auto 65.4 % LAB [id number] Immature Grans % 0.8 % LAB [id number] Lymphocyte % Auto 17.7 % LAB [id number] Monocyte % Auto 15.3 % LAB [id number] Eosinophil % Auto 0.6 % LAB [id number] Basophil % Auto 0.2 % LAB [id number] Nucleated RBC 0.0 <=0.2 /100 WB C LAB [id number] Segs + Bands,Absolute Auto 3.48 1.64-7.28 K/uL LAB [id number] Immature Grans Absolute 0.04 <=0.08 K/uL LAB [id number] Abs Lymph Auto 0.94 Low 1.16-3.51 K/uL LAB [id number] Abs Vermilion Auto 0.81 0.22-0.87 K/uL LAB [id number] Abs Eos Auto < 0.00-0.42 K/uL LAB [id number] Abs Baso Auto < 0.00-0.15 K/uL Performed By: #### [id number] ## ## [facility] (DEFAULT) [address] [address] CYCLOSPORINE LEVEL, TROUGH ( PRE DRUG LEVEL) Collected: 11/18/2024 12:22 PM Status: F Source: [facility] Order Comment: Twice weekly Method performed is a chemiluminescent microparticle immunoasssay on the [employer] i2000. TYPE CODE TESTS RESULT OUT OF RANGE REFERENCE UNITS LAB [id number] Cyclosporin e, Trough Result Comment: Testing perf ormed by [address] [place] [address] Performed By: #### CSAN #### [facility] (DEFAULT) 39 [place] [address] COMPREHENSIVE METABOLIC PANEL Collected : 11/18/2024 12:22 PM Status: F Source: [facility] Order Comment: Twice weekly TYPE CODE TESTS RESULT OUT OF RANGE REFERENCE UNITS LAB [id number] Sodium 134 Low 135-145 mmol/L LAB [id number] Potassium 4.4 3.5-5.0 mmol/L LAB [id number] Chloride 102 98-108 mmol/L LAB [id number] BUN 24 7-25 mg/dL LAB [id number] Creatinine 1.66 High 0.50-1.20 mg/dL LAB [id number] Glucose 112 High 70-99 mg/dL LAB [id number] Bilirubin Total 3.1 High <1.5 mg/dL LAB [id number] Albumin 4.1 3.5-5.0 g/dL LAB [id number] Total Protein 6.7 6.4-8.3 g/dL LAB 9722322352 AST 35 10-39 U/L LAB [id number] ALP 40 32-126 U/L LAB [id number] Calcium 9.5 8.6-10.5 mg/dL LAB [id number] CO2 22 21-31 mmol/L LAB [id number] ALT 31 9-48 U/L LAB [id number] Bun/Crea Ratio 14 LAB [id number] Osmolality (Calculated) 287 278-305 mOsm/kg LAB [id number] Anion Gap 14 7-17 mmol/L LAB [id number] eGFR, CKD-EPI, Female 34 Low >=60 mL/min/1 .73m2 Result Comment: Reported eGF R is based on the CKD-EPI 2020 equation using creatinine, age, and sex. Performed By: #### CMPN #### [facility] (DEFAULT) [address] [address] CYCLOSPORINE LEVEL, TROUGH ( PRE DRUG LEVEL) Collected: 2024 11:27 AM Status: F Source: [facility] Order Comment: Twice weekly Method performed is a chemiluminescent microparticle immunoasssay on the [employer] i2000. TYPE CODE TESTS RESULT OUT OF RANGE REFERENCE UNITS LAB [id number] Cyclosporin e, Trough Result Comment: SEE SCANNED RESULTS Testing performed by [facility]'[address] [address] Performed By: #### CSAN #### [facility] (DEFAULT) [address] [place] [address] CBC AND ELECTRONIC DIFF Collected: 10/18 11:27 AM Status: F Source: [facility] Order Comment: Twice weekly TYPE CODE TESTS RESULT OUT OF RANGE REFERENCE UNITS LAB [id number] WBC Count 5.81 3.99-11.19 K/uL LAB [id number] RBC Count 2.54 Low 3.91-5.04 M/uL LAB [id number] Hemoglobin 8.2 Low 11.4-15.2 g/dL LAB [id number] Hematocrit 22.9 Low 34.9-44.3 % LAB [id number] Mean Cell Volume 90.2 79.6-97.7 fL LAB [id number] Mean Cell Hgb 32.3 25.9-33.9 pg LAB [id number] Mean Cell Hgb Conc 35.8 31.4-35.9 g/dL LAB [id number] RBC Distribution 25.3 High 10.8-14.9 % LAB [id number] Platelet Count 79 Low 150-393 K/uL LAB [id number] Mean Platelet Volume 10.7 8.5-12.2 fL LAB [id number] DIFF STATUS Electronic Differential LAB [id number] Segs + Bands Auto 66.9 % LAB [id number] Immature Grans % 1.0 % LAB [id number] Lymphocyte % Auto 18.2 % LAB 6090262511 Monocyte % Auto 13.4 % LAB 8460817420 Eosinophil % Auto 0.3 % LAB [id number] Basophil % Auto 0.2 % LAB [id number] Nucleated RBC 0.0 <=0.2 /100 WB C LAB [id number] Segs + Bands,Absolute Auto 3.88 1.64-7.28 K/uL LAB [id number] Immature Grans Absolute 0.06 <=0.08 K/uL LAB [id number] Abs Lymph Auto 1.06 Low 1.16-3.51 K/uL LAB [id number] Abs Vermilion Auto 0.78 0.22-0.87 K/uL LAB [id number] Abs Eos Auto < 0.00-0.42 K/uL LAB [id number] Abs Baso Auto < 0.00-0.15 K/uL Performed By: #### [id number] ## ## [facility] (DEFAULT) [address] [place] [address] COMPREHENSIVE METABOLIC PANEL Collected : 2024 11:27 AM Status: F Source: [facility] Order Comment: Twice weekly TYPE CODE TESTS RESULT OUT OF RANGE REFERENCE UNITS LAB [id number] Sodium 136 135-145 mmol/L LAB [id number] Potassium 4.7 3.5-5.0 mmol/L LAB [id number] Chloride 104 98-108 mmol/L LAB [id number] BUN 31 High 7-25 mg/dL LAB [id number] Creatinine 1.72 High 0.50-1.20 mg/dL LAB 7705982735 Glucose 118 High 70-99 mg/dL LAB [id number] Bilirubin Total 3.2 High <1.5 mg/dL LAB [id number] Albumin 3.9 3.5-5.0 g/dL LAB [id number] Total Protein 6.6 6.4-8.3 g/dL LAB [id number] AST 44 High 10-39 U/L LAB [id number] ALP 44 32-126 U/L LAB [id number] Calcium 9.2 8.6-10.5 mg/dL LAB [id number] CO2 24 21-31 mmol/L LAB 6813380835 ALT 36 9-48 U/L LAB [id number] Bun/Crea Ratio 18 LAB [id number] Osmolality (Calculated) 294 278-305 mOsm/kg LAB [id number] Anion Gap 13 7-17 mmol/L LAB [id number] eGFR, CKD-EPI, Female 32 Low >=60 mL/min/1 .73m2 Result Comment: Reported eGF R is based on the CKD-EPI 2020 equation using creatinine, age, and sex. Performed By: #### CMPN #### [facility] (DEFAULT) [address] [place] [address] TYPE AND SCREEN Collected: 12:44 PM Status: F Source: [facility] Order Comment: PRN Hgb < 8 TYPE CODE TESTS RESULT OUT OF RANGE REFERENCE UNITS LAB [id number] ABO/RH(D) TYPE O POS LAB OUTD Outdate Specimen 2024 23:59 LAB PERCENTAS ANTIBODY SCREEN NEG Performed By: #### XM #### [facility] (DEFAULT) [address] [place] [address] COMPREHENSIVE METABOLIC PANEL Collected : 11/11/2024 12:43 PM Status: F Source: [facility] Order Comment: Twice weekly TYPE CODE TESTS RESULT OUT OF RANGE REFERENCE UNITS LAB [id number] Sodium 138 135-145 mmol/L LAB 5515597500 Potassium 4.6 3.5-5.0 mmol/L LAB [id number] Chloride 105 98-108 mmol/L LAB [id number] BUN 27 High 7-25 mg/dL LAB 3683571808 Creatinine 1.74 High 0.50-1.20 mg/dL LAB 4274124824 Glucose 108 High 70-99 mg/dL LAB [id number] Bilirubin Total 3.3 High <1.5 mg/dL LAB [id number] Albumin 4.0 3.5-5.0 g/dL LAB 7640413900 Total Protein 6.8 6.4-8.3 g/dL LAB [id number] AST 28 10-39 U/L LAB [id number] ALP 36 32-126 U/L LAB [id number] Calcium 9.6 8.6-10.5 mg/dL LAB [id number] CO2 22 21-31 mmol/L LAB 9697103656 ALT 20 9-48 U/L LAB [id number] Bun/Crea Ratio 16 LAB [id number] Osmolality (Calculated) 296 278-305 mOsm/kg LAB 75939936033 Anion Gap 16 7-17 mmol/L LAB [id number] eGFR, CKD-EPI, Female 32 Low >=60 mL/min/1 .73m2 Result Comment: Reported eGF R is based on the CKD-EPI 2020 equation using creatinine, age, and sex. Performed By: #### CMPN #### [facility] (DEFAULT) [address] [address] CYCLOSPORINE LEVEL, TROUGH ( PRE DRUG LEVEL) Collected: 11/11/2024 12:43 PM Status: F Source: [facility] Order Comment: Twice weekly Method performed is a chemiluminescent microparticle immunoasssay on the [employer] i2000. TYPE CODE TESTS RESULT OUT OF RANGE REFERENCE UNITS LAB [id number] Cyclosporin e, Trough Result Comment: Testing perf ormed by [address] [address] Performed By: #### CSAN #### [facility] (DEFAULT) [address] [place] [address] CBC AND ELECTRONIC DIFF Collected: 10/17 12:43 PM Status: F Source: [facility] Order Comment: Twice weekly TYPE CODE TESTS RESULT OUT OF RANGE REFERENCE UNITS LAB [id number] WBC Count 5.60 3.99-11.19 K/uL LAB [id number] RBC Count 2.77 Low 3.91-5.04 M/uL LAB [id number] Hemoglobin 8.9 Low 11.4-15.2 g/dL LAB [id number] Hematocrit 24.9 Low 34.9-44.3 % LAB [id number] Mean Cell Volume 89.9 79.6-97.7 fL LAB [id number] Mean Cell Hgb 32.1 25.9-33.9 pg LAB [id number] Mean Cell Hgb Conc 35.7 31.4-35.9 g/dL LAB [id number] RBC Distribution 24.5 High 10.8-14.9 % LAB [id number] Platelet Count 80 Low 150-393 K/uL LAB [id number] Mean Platelet Volume 11.2 8.5-12.2 fL LAB [id number] DIFF STATUS Electronic Differential LAB 5369836103 Segs + Bands Auto 60.7 % LAB [id number] Immature Grans % 1.3 % LAB 7878138944 Lymphocyte % Auto 21.1 % LAB 9731686082 Monocyte % Auto 16.1 % LAB [id number] Eosinophil % Auto 0.4 % LAB [id number] Basophil % Auto 0.4 % LAB [id number] Nucleated RBC 0.0 <=0.2 /100 WB C LAB [id number] Segs + Bands,Absolute Auto 3.41 1.64-7.28 K/uL LAB [id number] Immature Grans Absolute 0.07 <=0.08 K/uL LAB [id number] Abs Lymph Auto 1.18 1.16-3.51 K/uL LAB [id number] Abs Vermilion Auto 0.90 High 0.22-0.87 K/uL LAB [id number] Abs Eos Auto < 0.00-0.42 K/uL LAB [id number] Abs Baso Auto < 0.00-0.15 K/uL Performed By: #### [id number] ## ## [facility] (DEFAULT) [address] [place] [address] CBC AND ELECTRONIC DIFF Collected: 10/17 12:10 PM Status: F Source: [facility] Order Comment: Twice weekly TYPE CODE TESTS RESULT OUT OF RANGE REFERENCE UNITS LAB [id number] WBC Count 5.07 3.99-11.19 K/uL LAB [id number] RBC Count 2.82 Low 3.91-5.04 M/uL LAB [id number] Hemoglobin 8.8 Low 11.4-15.2 g/dL LAB [id number] Hematocrit 25.2 Low 34.9-44.3 % LAB [id number] Mean Cell Volume 89.4 79.6-97.7 fL LAB [id number] Mean Cell Hgb 31.2 25.9-33.9 pg LAB [id number] Mean Cell Hgb Conc 34.9 31.4-35.9 g/dL LAB [id number] RBC Distribution 23.5 High 10.8-14.9 % LAB [id number] Platelet Count 82 Low 150-393 K/uL LAB [id number] Mean Platelet Volume 11.0 8.5-12.2 fL LAB [id number] DIFF STATUS Electronic Differential LAB [id number] Segs + Bands Auto 59.7 % LAB 6949116617 Immature Grans % 1.0 % LAB [id number] Lymphocyte % Auto 21.7 % LAB 7964422502 Monocyte % Auto 17.2 % LAB [id number] Eosinophil % Auto 0.2 % LAB [id number] Basophil % Auto 0.2 % LAB [id number] Nucleated RBC 0.0 <=0.2 /100 WB C LAB [id number] Segs + Bands,Absolute Auto 2.91 1.64-7.28 K/uL LAB 6859762791 Immature Grans Absolute 0.05 <=0.08 K/uL LAB [id number] Abs Lymph Auto 1.06 Low 1.16-3.51 K/uL LAB [id number] Abs Vermilion Auto 0.84 0.22-0.87 K/uL LAB [id number] Abs Eos Auto < 0.00-0.42 K/uL LAB [id number] Abs Baso Auto < 0.00-0.15 K/uL Performed By: #### [id number] ## ## [facility] (DEFAULT) [address] [place] [address] COMPREHENSIVE METABOLIC PANEL Collected : 11/08/2024 12:10 PM Status: F Source: [facility] Order Comment: Twice weekly TYPE CODE TESTS RESULT OUT OF RANGE REFERENCE UNITS LAB [id number] Sodium 136 135-145 mmol/L LAB [id number] Potassium 4.6 3.5-5.0 mmol/L LAB 0207143690 Chloride 104 98-108 mmol/L LAB 3494001260 BUN 28 High 7-25 mg/dL LAB [id number] Creatinine 1.62 High 0.50-1.20 mg/dL LAB 2733804822 Glucose 99 70-99 mg/dL LAB 6634365585 Bilirubin Total 3.5 High <1.5 mg/dL LAB 7881017117 Albumin 4.1 3.5-5.0 g/dL LAB [id number] Total Protein 6.8 6.4-8.3 g/dL LAB [id number] AST 24 10-39 U/L LAB [id number] ALP 40 32-126 U/L LAB [id number] Calcium 9.0 8.6-10.5 mg/dL LAB [id number] CO2 24 21-31 mmol/L LAB [id number] ALT 15 9-48 U/L LAB 4858794595 Bun/Crea Ratio 17 LAB [id number] Osmolality (Calculated) 292 278-305 mOsm/kg LAB [id number] Anion Gap 13 7-17 mmol/L LAB [id number] eGFR, CKD-EPI, Female 35 Low >=60 mL/min/1 .73m2 Result Comment: Reported eGF R is based on the CKD-EPI 2020 equation using creatinine, age, and sex. Performed By: #### CMPN #### [facility] (DEFAULT) [address] [place] [address] CYCLOSPORINE LEVEL, TROUGH ( PRE DRUG LEVEL) Collected: 11/08/2024 12:10 PM Status: F Source: [facility] Order Comment: Twice weekly Method performed is a chemiluminescent microparticle immunoasssay on the [employer] i2000. TYPE CODE TESTS RESULT OUT OF RANGE REFERENCE UNITS LAB [id number] Cyclosporin e, Trough 247 ng/mL Performed By: #### CSAN #### [facility] (DEFAULT) [address] [place] [address] CYCLOSPORINE LEVEL, TROUGH ( PRE DRUG LEVEL) Collected: 11/05/2024 1:08 PM Status: F Source: [facility] Order Comment: Twice weekly Method performed is a chemiluminescent microparticle immunoasssay on the [place] [employer] i2000. TYPE CODE TESTS RESULT OUT OF RANGE REFERENCE UNITS LAB [id number] Cyclosporin e, Trough 265 ng/mL Performed By: #### CSAN #### [facility] (DEFAULT) [address] [place] [address] COMPREHENSIVE METABOLIC PANEL Collected: 11/05/2024 1 :08 PM Status: F Source: [facility] Order Comment: Twice weekly TYPE CODE TESTS RESULT OUT OF RANGE REFERENCE UNITS LAB [id number] Sodium 132 Low 135-145 mmol/L LAB [id number] Potassium 4.4 3.5-5.0 mmol/L LAB 3774229539 Chloride 102 98-108 mmol/L LAB [id number] BUN 25 7-25 mg/dL LAB 0079731121 Creatinine 1.54 High 0.50-1.20 mg/dL LAB 2980631382 Glucose 125 High 70-99 mg/dL LAB 6595530905 Bilirubin Total 3.3 High <1.5 mg/dL LAB 9768468868 Albumin 3.9 3.5-5.0 g/dL LAB [id number] Total Protein 6.6 6.4-8.3 g/dL LAB [id number] AST 22 10-39 U/L LAB [id number] ALP 39 32-126 U/L LAB [id number] Calcium 9.1 8.6-10.5 mg/dL LAB [id number] CO2 23 21-31 mmol/L LAB [id number] ALT 13 9-48 U/L LAB [id number] Bun/Crea Ratio 16 LAB [id number] Osmolality (Calculated) 285 278-305 mOsm/kg LAB 38957580657 Anion Gap 11 7-17 mmol/L LAB [id number] eGFR, CKD-EPI, Female 37 Low >=60 mL/min/1 .73m2 Result Comment: Reported eGF R is based on the CKD-EPI 2020 equation using creatinine, age, and sex. Performed By: #### CMPN #### [facility] (DEFAULT) [address] [place] [address] CBC AND ELECTRONIC DIFF Collected: 11/05/2024 1:08 PM Status: F Source: [facility] Order Comment: Twice weekly TYPE CODE TESTS RESULT OUT OF RANGE REFERENCE UNITS LAB [id number] WBC Count 5.45 3.99-11.19 K/uL LAB [id number] RBC Count 2.94 Low 3.91-5.04 M/uL LAB [id number] Hemoglobin 9.2 Low 11.4-15.2 g/dL LAB 6675358541 Hematocrit 26.1 Low 34.9-44.3 % LAB [id number] Mean Cell Volume 88.8 79.6-97.7 fL LAB [id number] Mean Cell Hgb 31.3 25.9-33.9 pg LAB [id number] Mean Cell Hgb Conc 35.2 31.4-35.9 g/dL LAB [id number] RBC Distribution 22.3 High 10.8-14.9 % LAB [id number] Platelet Count 67 Low 150-393 K/uL LAB [id number] Mean Platelet Volume 10.3 8.5-12.2 fL LAB [id number] DIFF STATUS Electronic Differential LAB [id number] Segs + Bands Auto 59.7 % LAB 5391297665 Immature Grans % 1.1 % LAB 8331345335 Lymphocyte % Auto 23.7 % LAB [id number] Monocyte % Auto 14.9 % LAB [id number] Eosinophil % Auto 0.2 % LAB [id number] Basophil % Auto 0.4 % LAB [id number] Nucleated RBC 0.0 <=0.2 /100 WB C LAB [id number] Segs + Bands,Absolute Auto 3.26 1.64-7.28 K/uL LAB [id number] Immature Grans Absolute 0.06 <=0.08 K/uL LAB [id number] Abs Lymph Auto 1.29 1.16-3.51 K/uL LAB [id number] Abs Vermilion Auto 0.81 0.22-0.87 K/uL LAB [id number] Abs Eos Auto < 0.00-0.42 K/uL LAB [id number] Abs Baso Auto < 0.00-0.15 K/uL Performed By: #### [id number] ## ## [facility] (DEFAULT) [address] [place] [address] CBC AND ELECTRONIC DIFF Collected: 10/16 11:59 AM Status: F Source: [facility] Order Comment: Twice weekly TYPE CODE TESTS RESULT OUT OF RANGE REFERENCE UNITS LAB [id number] WBC Count 5.84 3.99-11.19 K/uL LAB [id number] RBC Count 3.13 Low 3.91-5.04 M/uL LAB [id number] Hemoglobin 9.5 Low 11.4-15.2 g/dL LAB [id number] Hematocrit 27.2 Low 34.9-44.3 % LAB [id number] Mean Cell Volume 86.9 79.6-97.7 fL LAB [id number] Mean Cell Hgb 30.4 25.9-33.9 pg LAB [id number] Mean Cell Hgb Conc 34.9 31.4-35.9 g/dL LAB [id number] RBC Distribution 20.9 High 10.8-14.9 % LAB [id number] Platelet Count 56 Low 150-393 K/uL LAB [id number] Mean Platelet Volume 10.6 8.5-12.2 fL LAB [id number] DIFF STATUS Electronic Differential LAB [id number] Segs + Bands Auto 59.0 % LAB [id number] Immature Grans % 0.7 % LAB [id number] Lymphocyte % Auto 20.7 % LAB [id number] Monocyte % Auto 19.2 % LAB 1253432543 Eosinophil % Auto 0.2 % LAB [id number] Basophil % Auto 0.2 % LAB [id number] Nucleated RBC 0.0 <=0.2 /100 WB C LAB [id number] Segs + Bands,Absolute Auto 3.45 1.64-7.28 K/uL LAB [id number] Immature Grans Absolute 0.04 <=0.08 K/uL LAB [id number] Abs Lymph Auto 1.21 1.16-3.51 K/uL LAB [id number] Abs Vermilion Auto 1.12 High 0.22-0.87 K/uL LAB [id number] Abs Eos Auto < 0.00-0.42 K/uL LAB [id number] Abs Baso Auto < 0.00-0.15 K/uL Performed By: #### [id number] ## ## [facility] (DEFAULT) [address] [place] [address] COMPREHENSIVE METABOLIC PANEL Collected : 10/31/2024 11:59 AM Status: F Source: [facility] Order Comment: Twice weekly TYPE CODE TESTS RESULT OUT OF RANGE REFERENCE UNITS LAB [id number] Sodium 137 135-145 mmol/L LAB [id number] Potassium 4.6 3.5-5.0 mmol/L LAB [id number] Chloride 104 98-108 mmol/L LAB 7860792228 BUN 24 7-25 mg/dL LAB 8915813360 Creatinine 1.79 High 0.50-1.20 mg/dL LAB [id number] Glucose 129 High 70-99 mg/dL LAB 6665551496 Bilirubin Total 3.2 High <1.5 mg/dL LAB [id number] Albumin 3.9 3.5-5.0 g/dL LAB 9411347668 Total Protein 6.7 6.4-8.3 g/dL LAB [id number] AST 19 10-39 U/L LAB 7024592207 ALP 41 32-126 U/L LAB [id number] Calcium 9.0 8.6-10.5 mg/dL LAB [id number] CO2 24 21-31 mmol/L LAB [id number] ALT 9 9-48 U/L LAB [id number] Bun/Crea Ratio 13 LAB [id number] Osmolality (Calculated) 294 278-305 mOsm/kg LAB [id number] Anion Gap 14 7-17 mmol/L LAB [id number] eGFR, CKD-EPI, Female 31 Low >=60 mL/min/1 .73m2 Result Comment: Reported eGF R is based on the CKD-EPI 2020 equation using creatinine, age, and sex. Performed By: #### MGO, CMPN #### [facility] (DEFAULT) [address] [address] MAGNESIUM Collected: 11:59 AM Status: F Source: [facility] TYPE CODE TESTS RESULT OUT OF RANGE REFERENCE UNITS LAB [id number] Magnesium 1.5 Low 1.6-2.6 mg/dL Performed By: #### MGO, CMPN #### [facility] (DEFAULT) [address] [address] CYCLOSPORINE LEVEL, TROUGH ( PRE DRUG LEVEL) Collected: 10/31/2024 11:59 AM Status: F Source: [facility] Order Comment: Twice weekly Method performed is a chemiluminescent microparticle immunoasssay on the [place] [employer] i2000. TYPE CODE TESTS RESULT OUT OF RANGE REFERENCE UNITS LAB [id number] Cyclosporin e, Trough 222 ng/mL Performed By: #### CSAN #### [facility] (DEFAULT) [address] [address] TYPE AND SCREEN Collected: 10/28/2024 3:19 PM Status : F Source: [facility] Order Comment: PRN Hgb < 8 TYPE CODE TESTS RESULT OUT OF RANGE REFERENCE UNITS LAB [id number] ABO/RH(D) TYPE O POS Result Comment: @10/28/24 15 :59 by AC1: LAB OUTD Outdate Specimen 10/31/2024 23:59 LAB PERCENTAS ANTIBODY SCREEN NEG Performed By: #### XM #### [facility] (DEFAULT) [address] [place] [address] CYCLOSPORINE LEVEL, TROUGH ( PRE DRUG LEVEL) Collected: 10/28/2024 3:19 PM Status: F Source: [facility] Order Comment: Twice weekly Method performed is a chemiluminescent microparticle immunoasssay on the [employer] i2000. TYPE CODE TESTS RESULT OUT OF RANGE REFERENCE UNITS LAB [id number] Cyclosporin e, Trough 196 ng/mL Performed By: #### CSAN #### [facility] (DEFAULT) [address] [place] [address] CBC AND ELECTRONIC DIFF Collected: 10/28/2024 3:19 PM Status: F Source: [facility] Order Comment: Twice weekly TYPE CODE TESTS RESULT OUT OF RANGE REFERENCE UNITS LAB [id number] WBC Count 4.96 3.99-11.19 K/uL LAB [id number] RBC Count 3.07 Low 3.91-5.04 M/uL LAB [id number] Hemoglobin 9.4 Low 11.4-15.2 g/dL LAB [id number] Hematocrit 26.6 Low 34.9-44.3 % LAB 7903241528 Mean Cell Volume 86.6 79.6-97.7 fL LAB [id number] Mean Cell Hgb 30.6 25.9-33.9 pg LAB [id number] Mean Cell Hgb Conc 35.3 31.4-35.9 g/dL LAB [id number] RBC Distribution 20.2 High 10.8-14.9 % LAB [id number] Platelet Count 56 Low 150-393 K/uL LAB [id number] Mean Platelet Volume 11.8 8.5-12.2 fL Performed By: #### [id number] ## ## [facility] (DEFAULT) [address] [place] [address] COMPREHENSIVE METABOLIC PANEL Collected: 10/28/2024 3 :19 PM Status: F Source: [facility] Order Comment: Twice weekly TYPE CODE TESTS RESULT OUT OF RANGE REFERENCE UNITS LAB [id number] Sodium 137 135-145 mmol/L LAB [id number] Potassium 4.5 3.5-5.0 mmol/L LAB [id number] Chloride 103 98-108 mmol/L LAB [id number] BUN 25 7-25 mg/dL LAB 8940998685 Creatinine 1.71 High 0.50-1.20 mg/dL LAB [id number] Glucose 97 70-99 mg/dL LAB 6837956561 Bilirubin Total 3.3 High <1.5 mg/dL LAB [id number] Albumin 3.9 3.5-5.0 g/dL LAB [id number] Total Protein 6.6 6.4-8.3 g/dL LAB 8653668721 AST 19 10-39 U/L LAB [id number] ALP 41 32-126 U/L LAB [id number] Calcium 9.0 8.6-10.5 mg/dL LAB [id number] CO2 26 21-31 mmol/L LAB [id number] ALT 9 9-48 U/L LAB [id number] Bun/Crea Ratio 15 LAB [id number] Osmolality (Calculated) 292 278-305 mOsm/kg LAB [id number] Anion Gap 13 7-17 mmol/L LAB [id number] eGFR, CKD-EPI, Female 33 Low >=60 mL/min/1 .73m2 Result Comment: Reported eGF R is based on the CKD-EPI 2020 equation using creatinine, age, and sex. Performed By: #### CMPN #### [facility] (DEFAULT) [address] [place] [address] CYCLOSPORINE LEVEL, TROUGH ( PRE DRUG LEVEL) Collected: 10/24/2024 12:16 PM Status: F Source: [facility] Order Comment: Twice weekly Method performed is a chemiluminescent microparticle immunoasssay on the [place] [employer] i2000. TYPE CODE TESTS RESULT OUT OF RANGE REFERENCE UNITS LAB [id number] Cyclosporin e, Trough 244 ng/mL Performed By: #### CSAN #### [facility] (DEFAULT) [address] [place] [address] COMPREHENSIVE METABOLIC PANEL Collected : 10/24/2024 12:16 PM Status: F Source: [facility] Order Comment: Twice weekly TYPE CODE TESTS RESULT OUT OF RANGE REFERENCE UNITS LAB [id number] Sodium 138 135-145 mmol/L LAB [id number] Potassium 4.3 3.5-5.0 mmol/L LAB 7815825938 Chloride 107 98-108 mmol/L LAB [id number] BUN 23 7-25 mg/dL LAB [id number] Creatinine 1.38 High 0.50-1.20 mg/dL LAB [id number] Glucose 116 High 70-99 mg/dL LAB 6513960818 Bilirubin Total 3.1 High <1.5 mg/dL LAB [id number] Albumin 3.9 3.5-5.0 g/dL LAB [id number] Total Protein 6.5 6.4-8.3 g/dL LAB [id number] AST 18 10-39 U/L LAB [id number] ALP 44 32-126 U/L LAB [id number] Calcium 8.8 8.6-10.5 mg/dL LAB [id number] CO2 24 21-31 mmol/L LAB 4138761812 ALT 7 Low 9-48 U/L LAB [id number] Bun/Crea Ratio 17 LAB [id number] Osmolality (Calculated) 294 278-305 mOsm/kg LAB 61474087494 Anion Gap 11 7-17 mmol/L LAB [id number] eGFR, CKD-EPI, Female 40 Low >=60 mL/min/1 .73m2 Result Comment: Reported eGF R is based on the CKD-EPI 2020 equation using creatinine, age, and sex. Performed By: #### CMPN #### [facility] (DEFAULT) [address] [place] [address] CBC AND ELECTRONIC DIFF Collected: 10/24/2024 12:16 P M Status: F Source: [facility] Order Comment: Twice weekly TYPE CODE TESTS RESULT OUT OF RANGE REFERENCE UNITS LAB [id number] WBC Count 4.00 3.99-11.19 K/uL LAB [id number] RBC Count 3.15 Low 3.91-5.04 M/uL LAB [id number] Hemoglobin 9.4 Low 11.4-15.2 g/dL LAB [id number] Hematocrit 27.4 Low 34.9-44.3 % LAB [id number] Mean Cell Volume 87.0 79.6-97.7 fL LAB [id number] Mean Cell Hgb 29.8 25.9-33.9 pg LAB [id number] Mean Cell Hgb Conc 34.3 31.4-35.9 g/dL LAB [id number] RBC Distribution 19.9 High 10.8-14.9 % LAB [id number] Platelet Count 43 Low 150-393 K/uL Result Comment: This is an a ppended report. These results have been appended to a previously preliminary verified report. LAB [id number] Mean Platelet Volume 10.6 8.5-12.2 fL Performed By: #### [id number] ## ## [facility] (DEFAULT) [address] [place] [id number] TYPE AND SCREEN Collected: 11:50 AM Status: F Source: [facility] Order Comment: PRN Hgb < 8 TYPE CODE TESTS RESULT OUT OF RANGE REFERENCE UNITS LAB [id number] ABO/RH(D) TYPE O POS LAB OUTD Outdate Specimen 10/24/2024 23:59 LAB PERCENTAS ANTIBODY SCREEN NEG Performed By: #### XM #### [facility] (DEFAULT) [address] [place] [id number] COMPREHENSIVE METABOLIC PANEL Collected : 10/21/2024 11:50 AM Status: F Source: [facility] Order Comment: Twice weekly TYPE CODE TESTS RESULT OUT OF RANGE REFERENCE UNITS LAB [id number] Sodium 136 135-145 mmol/L LAB [id number] Potassium 4.2 3.5-5.0 mmol/L LAB [id number] Chloride 103 98-108 mmol/L LAB [id number] BUN 23 7-25 mg/dL LAB [id number] Creatinine 1.78 High 0.50-1.20 mg/dL LAB [id number] Glucose 113 High 70-99 mg/dL LAB [id number] Bilirubin Total 3.1 High <1.5 mg/dL LAB [id number] Albumin 3.9 3.5-5.0 g/dL LAB [id number] Total Protein 6.8 6.4-8.3 g/dL LAB [id number] AST 16 10-39 U/L LAB [id number] ALP 45 32-126 U/L LAB [id number] Calcium 8.9 8.6-10.5 mg/dL LAB [id number] CO2 23 21-31 mmol/L LAB [id number] ALT 8 Low 9-48 U/L LAB [id number] Bun/Crea Ratio 13 LAB [id number] Osmolality (Calculated) 290 278-305 mOsm/kg LAB [id number] Anion Gap 14 7-17 mmol/L LAB [id number] eGFR, CKD-EPI, Female 31 Low >=60 mL/min/1 .73m2 Result Comment: Reported eGF R is based on the CKD-EPI 2020 equation using creatinine, age, and sex. Performed By: #### CMPN #### [facility] (DEFAULT) [address] [place] [address] CYCLOSPORINE LEVEL, TROUGH ( PRE DRUG LEVEL) Collected: 10/21/2024 11:50 AM Status: F Source: [facility] Order Comment: Twice weekly Method performed is a chemiluminescent microparticle immunoasssay on the [employer] Tender i2000. TYPE CODE TESTS RESULT OUT OF RANGE REFERENCE UNITS LAB [id number] Cyclosporin e, Trough 333 ng/mL Performed By: #### CSAN #### [facility] (DEFAULT) [address] [place] [address] CBC AND ELECTRONIC DIFF Collected: 10/21/2024 11:50 A M Status: F Source: [facility] Order Comment: Twice weekly TYPE CODE TESTS RESULT OUT OF RANGE REFERENCE UNITS LAB [id number] WBC Count 4.36 3.99-11.19 K/uL LAB [id number] RBC Count 2.64 Low 3.91-5.04 M/uL LAB [id number] Hemoglobin 8.0 Low 11.4-15.2 g/dL LAB [id number] Hematocrit 23.1 Low 34.9-44.3 % LAB [id number] Mean Cell Volume 87.5 79.6-97.7 fL LAB [id number] Mean Cell Hgb 30.3 25.9-33.9 pg LAB [id number] Mean Cell Hgb Conc 34.6 31.4-35.9 g/dL LAB [id number] RBC Distribution 20.3 High 10.8-14.9 % LAB [id number] Platelet Count 59 Low 150-393 K/uL LAB [id number] Mean Platelet Volume 11.4 8.5-12.2 fL Performed By: #### [id number] ## ## [facility] (DEFAULT) [address] [address] CYCLOSPORINE LEVEL, TROUGH ( PRE DRUG LEVEL) Collected: 10/17/2024 2:39 PM Status: F Source: [facility] Order Comment: Twice weekly Method performed is a chemiluminescent microparticle immunoasssay on the [place] [employer] Tender i2000. TYPE CODE TESTS RESULT OUT OF RANGE REFERENCE UNITS LAB [id number] Cyclosporin e, Trough 234 ng/mL Performed By: #### CSAN #### [facility] (DEFAULT) [address] [address] COMPREHENSIVE METABOLIC PANEL Collected: 10/17/2024 2 :39 PM Status: F Source: [facility] Order Comment: Twice weekly TYPE CODE TESTS RESULT OUT OF RANGE REFERENCE UNITS LAB [id number] Sodium 137 135-145 mmol/L LAB [id number] Potassium 4.5 3.5-5.0 mmol/L LAB [id number] Chloride 104 98-108 mmol/L LAB [id number] BUN 23 7-25 mg/dL LAB [id number] Creatinine 1.62 High 0.50-1.20 mg/dL LAB [id number] Glucose 109 High 70-99 mg/dL LAB [id number] Bilirubin Total 2.5 High <1.5 mg/dL LAB [id number] Albumin 3.9 3.5-5.0 g/dL LAB [id number] Total Protein 6.4 6.4-8.3 g/dL LAB [id number] AST 15 10-39 U/L LAB [id number] ALP 46 32-126 U/L LAB [id number] Calcium 9.1 8.6-10.5 mg/dL LAB [id number] CO2 24 21-31 mmol/L LAB [id number] ALT 7 Low 9-48 U/L LAB [id number] Bun/Crea Ratio 14 LAB [id number] Osmolality (Calculated) 292 278-305 mOsm/kg LAB 89655691379 Anion Gap 14 7-17 mmol/L LAB [id number] eGFR, CKD-EPI, Female 33 Low >=60 mL/min/1 .73m2 Result Comment: Reported eGF R is based on the CKD-EPI 2020 equation using creatinine, age, and sex. Performed By: #### CMPN #### [facility] (DEFAULT) [address] [address] CBC AND ELECTRONIC DIFF Collected: 10/17/2024 2:39 PM Status: F Source: [facility] Order Comment: Twice weekly TYPE CODE TESTS RESULT OUT OF RANGE REFERENCE UNITS LAB [id number] WBC Count 3.96 Low 3.99-11.19 K/uL LAB [id number] RBC Count 2.69 Low 3.91-5.04 M/uL LAB [id number] Hemoglobin 8.1 Low 11.4-15.2 g/dL LAB [id number] Hematocrit 23.7 Low 34.9-44.3 % LAB [id number] Mean Cell Volume 88.1 79.6-97.7 fL LAB [id number] Mean Cell Hgb 30.1 25.9-33.9 pg LAB [id number] Mean Cell Hgb Conc 34.2 31.4-35.9 g/dL LAB [id number] RBC Distribution 18.8 High 10.8-14.9 % LAB [id number] Platelet Count 42 Low 150-393 K/uL LAB [id number] Mean Platelet Volume 11.0 8.5-12.2 fL Performed By: #### [id number] ## ## [facility] (DEFAULT) [address] [place] [address] TYPE AND SCREEN Collected: 10/14/2024 2:00 PM Status : F Source: [facility] Order Comment: PRN Hgb < 8 TYPE CODE TESTS RESULT OUT OF RANGE REFERENCE UNITS LAB [id number] ABO/RH(D) TYPE O POS LAB OUTD Outdate Specimen 10/17/2024 23:59 LAB PERCENTAS ANTIBODY SCREEN NEG Performed By: #### XM #### [facility] (DEFAULT) [address] [place] [address] COMPREHENSIVE METABOLIC PANEL Collected: 10/14/2024 2 :00 PM Status: F Source: [facility] Order Comment: Twice weekly TYPE CODE TESTS RESULT OUT OF RANGE REFERENCE UNITS LAB [id number] Sodium 136 135-145 mmol/L LAB [id number] Potassium 4.5 3.5-5.0 mmol/L LAB [id number] Chloride 104 98-108 mmol/L LAB [id number] BUN 25 7-25 mg/dL LAB [id number] Creatinine 1.41 High 0.50-1.20 mg/dL LAB [id number] Glucose 98 70-99 mg/dL LAB [id number] Bilirubin Total 2.4 High <1.5 mg/dL LAB [id number] Albumin 3.7 3.5-5.0 g/dL LAB [id number] Total Protein 6.4 6.4-8.3 g/dL LAB [id number] AST 15 10-39 U/L LAB [id number] ALP 48 32-126 U/L LAB [id number] Calcium 8.6 8.6-10.5 mg/dL LAB [id number] CO2 23 21-31 mmol/L LAB [id number] ALT 8 Low 9-48 U/L LAB 8649060159 Bun/Crea Ratio 18 LAB [id number] Osmolality (Calculated) 291 278-305 mOsm/kg LAB 83734087876 Anion Gap 14 7-17 mmol/L LAB [id number] eGFR, CKD-EPI, Female 41 Low >=60 mL/min/1 .73m2 Result Comment: Reported eGF R is based on the CKD-EPI 2020 equation using creatinine, age, and sex. Performed By: #### CMPN #### [facility] (DEFAULT) [address] [place] [address] CBC AND ELECTRONIC DIFF Collected: 10/14/2024 2:00 PM Status: F Source: [facility] Order Comment: Twice weekly TYPE CODE TESTS RESULT OUT OF RANGE REFERENCE UNITS LAB [id number] WBC Count 3.59 Low 3.99-11.19 K/uL LAB [id number] RBC Count 2.69 Low 3.91-5.04 M/uL LAB [id number] Hemoglobin 7.9 Low 11.4-15.2 g/dL LAB [id number] Hematocrit 24.3 Low 34.9-44.3 % LAB [id number] Mean Cell Volume 90.3 79.6-97.7 fL LAB [id number] Mean Cell Hgb 29.4 25.9-33.9 pg LAB [id number] Mean Cell Hgb Conc 32.5 31.4-35.9 g/dL LAB [id number] RBC Distribution 18.3 High 10.8-14.9 % LAB [id number] Platelet Count 38 Low 150-393 K/uL LAB [id number] Mean Platelet Volume 12.0 8.5-12.2 fL Performed By: #### [id number] ## ## [facility] (DEFAULT) [address] [address] CYCLOSPORINE LEVEL, TROUGH ( PRE DRUG LEVEL) Collected: 10/14/2024 2:00 PM Status: F Source: [facility] Order Comment: Twice weekly Method performed is a chemiluminescent microparticle immunoasssay on the [employer] Tender i2000. TYPE CODE TESTS RESULT OUT OF RANGE REFERENCE UNITS LAB [id number] Cyclosporin e, Trough 184 ng/mL Performed By: #### CSAN #### [facility] (DEFAULT) [address] [place] [address] COMPREHENSIVE METABOLIC PANEL Collected: 10/10/2024 2 :28 PM Status: F Source: [facility] Order Comment: Twice weekly TYPE CODE TESTS RESULT OUT OF RANGE REFERENCE UNITS LAB [id number] Sodium 135 135-145 mmol/L LAB [id number] Potassium 4.6 3.5-5.0 mmol/L LAB [id number] Chloride 106 98-108 mmol/L LAB [id number] BUN 19 7-25 mg/dL LAB [id number] Creatinine 1.42 High 0.50-1.20 mg/dL LAB [id number] Glucose 122 High 70-99 mg/dL LAB [id number] Bilirubin Total 2.0 High <1.5 mg/dL LAB 8584574072 Albumin 3.7 3.5-5.0 g/dL LAB [id number] Total Protein 6.5 6.4-8.3 g/dL LAB [id number] AST 16 10-39 U/L LAB [id number] ALP 51 32-126 U/L LAB [id number] Calcium 8.9 8.6-10.5 mg/dL LAB [id number] CO2 23 21-31 mmol/L LAB [id number] ALT 10 9-48 U/L LAB [id number] Bun/Crea Ratio 13 LAB [id number] Osmolality (Calculated) 288 278-305 mOsm/kg LAB 71216361488 Anion Gap 11 7-17 mmol/L LAB 7600973513 eGFR, CKD-EPI, Female 41 Low >=60 mL/min/1 .73m2 Result Comment: Reported eGF R is based on the CKD-EPI 2020 equation using creatinine, age, and sex. Performed By: #### CMPN #### [facility] (DEFAULT) [address] [address] CBC AND ELECTRONIC DIFF Collected: 10/10/2024 2:28 PM Status: F Source: [facility] Order Comment: Twice weekly TYPE CODE TESTS RESULT OUT OF RANGE REFERENCE UNITS LAB [id number] WBC Count 2.77 Low 3.99-11.19 K/uL LAB [id number] RBC Count 2.72 Low 3.91-5.04 M/uL LAB [id number] Hemoglobin 8.0 Low 11.4-15.2 g/dL LAB [id number] Hematocrit 24.0 Low 34.9-44.3 % LAB [id number] Mean Cell Volume 88.2 79.6-97.7 fL LAB [id number] Mean Cell Hgb 29.4 25.9-33.9 pg LAB [id number] Mean Cell Hgb Conc 33.3 31.4-35.9 g/dL LAB [id number] RBC Distribution 17.6 High 10.8-14.9 % LAB [id number] Platelet Count 32 Low 150-393 K/uL LAB [id number] Mean Platelet Volume 10.6 8.5-12.2 fL Performed By: #### [id number] ## ## [facility] (DEFAULT) [address] [address] CYCLOSPORINE LEVEL, TROUGH ( PRE DRUG LEVEL) Collected: 10/10/2024 2:28 PM Status: F Source: [facility] Order Comment: Twice weekly Method performed is a chemiluminescent microparticle immunoasssay on the [place] [employer] T[employer] i2000. TYPE CODE TESTS RESULT OUT OF RANGE REFERENCE UNITS LAB [id number] Cyclosporin e, Trough 188 ng/mL Performed By: #### CSAN #### [facility] (DEFAULT) [address] [address] TYPE AND SCREEN Collected: 11:36 AM Status: F Source: [facility] Order Comment: PRN Hgb < 8 TYPE CODE TESTS RESULT OUT OF RANGE REFERENCE UNITS LAB [id number] ABO/RH(D) TYPE O POS LAB OUTD Outdate Specimen 10/10/2024 23:59 LAB PERCENTAS ANTIBODY SCREEN NEG Performed By: #### XM #### [facility] (DEFAULT) [address] [place] [address] CBC AND ELECTRONIC DIFF Collected: 09/16 11:36 AM Status: F Source: [facility] Order Comment: Twice weekly TYPE CODE TESTS RESULT OUT OF RANGE REFERENCE UNITS LAB [id number] WBC Count 2.19 Low 3.99-11.19 K/uL LAB [id number] RBC Count 2.78 Low 3.91-5.04 M/uL LAB [id number] Hemoglobin 8.1 Low 11.4-15.2 g/dL LAB [id number] Hematocrit 24.6 Low 34.9-44.3 % LAB [id number] Mean Cell Volume 88.5 79.6-97.7 fL LAB [id number] Mean Cell Hgb 29.1 25.9-33.9 pg LAB [id number] Mean Cell Hgb Conc 32.9 31.4-35.9 g/dL LAB [id number] RBC Distribution 17.2 High 10.8-14.9 % LAB [id number] Platelet Count 44 Low 150-393 K/uL LAB [id number] Mean Platelet Volume 9.3 8.5-12.2 fL LAB [id number] DIFF STATUS Electronic Differential LAB [id number] Segs + Bands Auto 18.7 % LAB [id number] Immature Grans % 1.4 % LAB [id number] Lymphocyte % Auto 61.6 % LAB [id number] Monocyte % Auto 17.8 % LAB [id number] Eosinophil % Auto 0.0 % LAB 9601046904 Basophil % Auto 0.5 % LAB [id number] Nucleated RBC 0.0 <=0.2 /100 WB C LAB [id number] Segs + Bands,Absolute Auto 0.41 Low 1.64-7.28 K/uL LAB [id number] Immature Grans Absolute < <=0.08 K/uL LAB [id number] Abs Lymph Auto 1.35 1.16-3.51 K/uL LAB [id number] Abs Vermilion Auto 0.39 0.22-0.87 K/uL LAB [id number] Abs Eos Auto < 0.00-0.42 K/uL LAB [id number] Abs Baso Auto < 0.00-0.15 K/uL Performed By: #### [id number] ## ## [facility] (DEFAULT) [address] [place] [address] CYCLOSPORINE LEVEL, TROUGH ( PRE DRUG LEVEL) Collected: 10/07/2024 11:36 AM Status: F Source: [facility] Order Comment: Twice weekly Method performed is a chemiluminescent microparticle immunoasssay on the [employer] Tender i2000. TYPE CODE TESTS RESULT OUT OF RANGE REFERENCE UNITS LAB [id number] Cyclosporin e, Trough 171 ng/mL Performed By: #### CSAN #### [facility] (DEFAULT) [address] [place] [address] COMPREHENSIVE METABOLIC PANEL Collected : 10/07/2024 11:36 AM Status: F Source: [facility] Order Comment: Twice weekly TYPE CODE TESTS RESULT OUT OF RANGE REFERENCE UNITS LAB [id number] Sodium 135 135-145 mmol/L LAB [id number] Potassium 4.3 3.5-5.0 mmol/L LAB [id number] Chloride 105 98-108 mmol/L LAB [id number] BUN 22 7-25 mg/dL LAB [id number] Creatinine 1.39 High 0.50-1.20 mg/dL LAB [id number] Glucose 97 70-99 mg/dL LAB [id number] Bilirubin Total 2.0 High <1.5 mg/dL LAB [id number] Albumin 3.8 3.5-5.0 g/dL LAB [id number] Total Protein 6.6 6.4-8.3 g/dL LAB [id number] AST 14 10-39 U/L LAB [id number] ALP 52 32-126 U/L LAB [id number] Calcium 9.1 8.6-10.5 mg/dL LAB [id number] CO2 22 21-31 mmol/L LAB [id number] ALT 8 Low 9-48 U/L LAB [id number] Bun/Crea Ratio 16 LAB 9980773695 Osmolality (Calculated) 287 278-305 mOsm/kg LAB 05595951197 Anion Gap 12 7-17 mmol/L LAB [id number] eGFR, CKD-EPI, Female 42 Low >=60 mL/min/1 .73m2 Result Comment: Reported eGF R is based on the CKD-EPI 2021 equation using creatinine, age, and sex. Performed By: #### CMPN #### [facility] (DEFAULT) [address] [place] [address] COMPREHENSIVE METABOLIC PANEL Collected : 10/03/2024 11:08 AM Status: F Source: [facility] Order Comment: Twice weekly TYPE CODE TESTS RESULT OUT OF RANGE REFERENCE UNITS LAB [id number] Sodium 134 Low 135-145 mmol/L LAB [id number] Potassium 4.5 3.5-5.0 mmol/L LAB [id number] Chloride 104 98-108 mmol/L LAB [id number] BUN 25 7-25 mg/dL LAB [id number] Creatinine 1.42 High 0.50-1.20 mg/dL LAB [id number] Glucose 93 70-99 mg/dL LAB 4221403634 Bilirubin Total 1.9 High <1.5 mg/dL LAB [id number] Albumin 3.6 3.5-5.0 g/dL LAB [id number] Total Protein 6.6 6.4-8.3 g/dL LAB [id number] AST 13 10-39 U/L LAB [id number] ALP 54 32-126 U/L LAB [id number] Calcium 9.2 8.6-10.5 mg/dL LAB [id number] CO2 23 21-31 mmol/L LAB [id number] ALT 9 9-48 U/L LAB [id number] Bun/Crea Ratio 18 LAB [id number] Osmolality (Calculated) 286 278-305 mOsm/kg LAB 24253911651 Anion Gap 12 7-17 mmol/L LAB [id number] eGFR, CKD-EPI, Female 41 Low >=60 mL/min/1 .73m2 Result Comment: Reported eGF R is based on the CKD-EPI 2021 equation using creatinine, age, and sex. Performed By: #### CMPN #### [facility] (DEFAULT) [address] [place] [address] CYCLOSPORINE LEVEL, TROUGH ( PRE DRUG LEVEL) Collected: 10/03/2024 11:08 AM Status: F Source: [facility] Order Comment: Twice weekly Method performed is a chemiluminescent microparticle immunoasssay on the [place] [employer] i2000. TYPE CODE TESTS RESULT OUT OF RANGE REFERENCE UNITS LAB [id number] Cyclosporin e, Trough 95 ng/mL Performed By: #### CSAN #### [facility] (DEFAULT) [address] [place] [address] CBC AND ELECTRONIC DIFF Collected: 09/15 11:08 AM Status: F Source: [facility] Order Comment: Twice weekly TYPE CODE TESTS RESULT OUT OF RANGE REFERENCE UNITS LAB [id number] WBC Count 1.25 Low alert 3.99-11.19 K/uL Result Comment: This result has been called to Nancy Singleton RN by [email or web address] [email or web address] on 10/03/2024 11:36:08, and has been read back. LAB [id number] RBC Count 2.82 Low 3.91-5.04 M/uL LAB [id number] Hemoglobin 8.4 Low 11.4-15.2 g/dL LAB [id number] Hematocrit 25.0 Low 34.9-44.3 % LAB [id number] Mean Cell Volume 88.7 79.6-97.7 fL LAB [id number] Mean Cell Hgb 29.8 25.9-33.9 pg LAB [id number] Mean Cell Hgb Conc 33.6 31.4-35.9 g/dL LAB [id number] RBC Distribution 17.1 High 10.8-14.9 % LAB [id number] Platelet Count 14 Low alert 150-393 K/uL Result Comment: This result has been called to Nancy Singleton RN by [email or web address] on 10/03/2024 11:36:08, and has been read back. LAB [id number] Mean Platelet Volume 10.6 8.5-12.2 fL LAB [id number] DIFF STATUS Electronic Differential LAB [id number] Segs + Bands Auto 13.6 % LAB 6867833227 Immature Grans % 0.8 % LAB 7343541151 Lymphocyte % Auto 72.0 % LAB [id number] Monocyte % Auto 13.6 % LAB 2879371413 Eosinophil % Auto 0.0 % LAB [id number] Basophil % Auto 0.0 % LAB [id number] Nucleated RBC 0.0 <=0.2 /100 WB C LAB [id number] Segs + Bands,Absolute Auto 0.17 Low 1.64-7.28 K/uL LAB [id number] Immature Grans Absolute < <=0.08 K/uL LAB [id number] Abs Lymph Auto 0.90 Low 1.16-3.51 K/uL LAB [id number] Abs Vermilion Auto 0.17 Low 0.22-0.87 K/uL LAB [id number] Abs Eos Auto < 0.00-0.42 K/uL LAB [id number] Abs Baso Auto < 0.00-0.15 K/uL Performed By: #### [id number] ## ## [facility] (DEFAULT) [address] [address] TYPE AND SCREEN Collected: 4 12:34 PM Status: F Source: [facility] TYPE CODE TESTS RESULT OUT OF RANGE REFERENCE UNITS LAB [id number] ABO/RH(D) TYPE O POS LAB OUTD Outdate Specimen 10/03/2024 23:59 LAB PERCENTAS ANTIBODY SCREEN NEG Performed By: #### XM #### [facility] (DEFAULT) [address] [address] CALCIUM Collected: 4 11:49 AM Status: F Source: [facility] TYPE CODE TESTS RESULT OUT OF RANGE REFERENCE UNITS LAB [id number] Calcium 9.0 8.6-10.5 mg/dL Performed By: #### IPB, MGO, CA, C7ED #### [facility] (DEFAULT) [address] [place] [address] MAGNESIUM Collected: 4 11:49 AM Status: F Source: [facility] TYPE CODE TESTS RESULT OUT OF RANGE REFERENCE UNITS LAB [id number] Magnesium 1.4 Low 1.6-2.6 mg/dL Performed By: #### IPB, MGO, CA, C7ED #### [facility] (DEFAULT) [address] [address] CHM 7 - ED Collected: 4 11:49 AM Status: F Source: [facility] TYPE CODE TESTS RESULT OUT OF RANGE REFERENCE UNITS LAB [id number] Sodium 134 Low 135-145 mmol/L LAB [id number] Potassium 4.3 3.5-5.0 mmol/L LAB [id number] Chloride 102 98-108 mmol/L LAB [id number] CO2 25 21-31 mmol/L LAB [id number] Glucose 100 High 70-99 mg/dL LAB [id number] BUN 27 High 7-25 mg/dL LAB [id number] Creatinine 1.07 0.50-1.20 mg/dL LAB [id number] Bun/Crea Ratio 25 LAB [id number] Osmolality (Calculated) 287 278-305 mOsm/kg LAB 47944753913 Anion Gap 11 7-17 mmol/L LAB [id number] eGFR, CKD-EPI, Female 56 Low >=60 mL/min/1. 73m2 Result Comment: Reported eGF R is based on the CKD-EPI 2020 equation using creatinine, age, and sex. Performed By: #### IPB, MGO, CA, C7ED #### [facility] (DEFAULT) [address] [place] [address] PHOSPHATE, INORGANIC Collected: 11:49 AM Status: F Source: [facility] TYPE CODE TESTS RESULT OUT OF RANGE REFERENCE UNITS LAB [id number] Phosphorous 5.0 High 2.2-4.6 mg/dL Performed By: #### IPB, MGO, CA, C7ED #### [facility] (DEFAULT) [address] [address] CBC AND ELECTRONIC DIFF Collected: 09/15 11:49 AM Status: F Source: [facility] TYPE CODE TESTS RESULT OUT OF RANGE REFERENCE UNITS LAB [id number] WBC Count 0.87 Low alert 3.99-11.19 K/uL Result Comment: This result has been called to Nancy Khan RN by [email or web address] on 09/30/2024 12:10:48, and has been read back. LAB [id number] RBC Count 2.40 Low 3.91-5.04 M/uL LAB [id number] Hemoglobin 7.0 Low 11.4-15.2 g/dL LAB [id number] Hematocrit 20.7 Low 34.9-44.3 % LAB [id number] Mean Cell Volume 86.3 79.6-97.7 fL LAB [id number] Mean Cell Hgb 29.2 25.9-33.9 pg LAB [id number] Mean Cell Hgb Conc 33.8 31.4-35.9 g/dL LAB [id number] RBC Distribution 18.6 High 10.8-14.9 % LAB [id number] Platelet Count 28 Low alert 150-393 K/uL Result Comment: This result has been called to Nancy Khan RN by [email or web address] on 09/30/2024 12:10:48, and has been read back. LAB [id number] Mean Platelet Volume 10.0 8.5-12.2 fL LAB [id number] DIFF STATUS Electronic Differential LAB [id number] Segs + Bands Auto 10.3 % LAB [id number] Immature Grans % 0.0 % LAB [id number] Lymphocyte % Auto 85.1 % LAB 8920091789 Monocyte % Auto 4.6 % LAB [id number] Eosinophil % Auto 0.0 % LAB [id number] Basophil % Auto 0.0 % LAB [id number] Nucleated RBC 0.0 <=0.2 /100 WB C LAB [id number] Segs + Bands,Absolute Auto 0.09 Low 1.64-7.28 K/uL LAB [id number] Immature Grans Absolute < <=0.08 K/uL LAB [id number] Abs Lymph Auto 0.74 Low 1.16-3.51 K/uL LAB [id number] Abs Vermilion Auto 0.04 Low 0.22-0.87 K/uL LAB [id number] Abs Eos Auto < 0.00-0.42 K/uL LAB [id number] Abs Baso Auto < 0.00-0.15 K/uL Performed By: #### [id number] ## ## [facility] (DEFAULT) [address] [place] [address] TCCP - GOLD Collected: 4 1:16 PM Status: F Source: [facility] TYPE CODE TESTS RESULT OUT OF RANGE REFERENCE UNITS LAB [id number] CANCER CARE PROTOCOL Done Performed By: #### LABTCCPGO LD #### [facility] (DEFAULT) [address] [place] [address] TCCP - LAV Collected: 1:16 PM Status: F Source: [facility] TYPE CODE TESTS RESULT OUT OF RANGE REFERENCE UNITS LAB [id number] CANCER CARE PROTOCOL Done Performed By: #### LABTCCPLA V #### [facility] (DEFAULT) [address] [address] CBC AND ELECTRONIC DIFF Collected: 09/26/2024 1:16 PM Status: F Source: [facility] Order Comment: Twice weekly TYPE CODE TESTS RESULT OUT OF RANGE REFERENCE UNITS LAB [id number] WBC Count 1.48 Low alert 3.99-11.19 K/uL Result Comment: This result has been called to Azalia Akhtar RN by [email or web address] on 09/26/2024 13:41:09, and has been read back. LAB [id number] RBC Count 2.27 Low 3.91-5.04 M/uL LAB [id number] Hemoglobin 7.1 Low 11.4-15.2 g/dL LAB [id number] Hematocrit 20.4 Low 34.9-44.3 % LAB [id number] Mean Cell Volume 89.9 79.6-97.7 fL LAB [id number] Mean Cell Hgb 31.3 25.9-33.9 pg LAB [id number] Mean Cell Hgb Conc 34.8 31.4-35.9 g/dL LAB [id number] RBC Distribution 18.6 High 10.8-14.9 % LAB [id number] Platelet Count 11 Low alert 150-393 K/uL Result Comment: This result has been called to Azalia Akhtar RN by [email or web address] on 09/26/2024 13:41:09, and has been read back. LAB [id number] Mean Platelet Volume 11.7 8.5-12.2 fL LAB [id number] DIFF STATUS Electronic Differential LAB [id number] Segs + Bands Auto 3.4 % LAB [id number] Immature Grans % 0.7 % LAB [id number] Lymphocyte % Auto 93.2 % LAB [id number] Monocyte % Auto 2.7 % LAB [id number] Eosinophil % Auto 0.0 % LAB [id number] Basophil % Auto 0.0 % LAB [id number] Nucleated RBC 0.0 <=0.2 /100 WB C LAB [id number] Segs + Bands,Absolute Auto 0.05 Low 1.64-7.28 K/uL LAB [id number] Immature Grans Absolute < <=0.08 K/uL LAB [id number] Abs Lymph Auto 1.38 1.16-3.51 K/uL LAB [id number] Abs Vermilion Auto 0.04 Low 0.22-0.87 K/uL LAB [id number] Abs Eos Auto < 0.00-0.42 K/uL LAB [id number] Abs Baso Auto < 0.00-0.15 K/uL Performed By: #### [id number] ## ## [facility] (DEFAULT) [address] [place] [address] COMPREHENSIVE METABOLIC PANEL Collected: 09/26/2024 1 :16 PM Status: F Source: [facility] Order Comment: Twice weekly TYPE CODE TESTS RESULT OUT OF RANGE REFERENCE UNITS LAB [id number] Sodium 132 Low 135-145 mmol/L LAB [id number] Potassium 4.6 3.5-5.0 mmol/L LAB [id number] Chloride 103 98-108 mmol/L LAB [id number] BUN 22 7-25 mg/dL LAB [id number] Creatinine 1.13 0.50-1.20 mg/dL LAB [id number] Glucose 101 High 70-99 mg/dL LAB [id number] Bilirubin Total 1.9 High <1.5 mg/dL LAB [id number] Albumin 3.6 3.5-5.0 g/dL LAB [id number] Total Protein 6.5 6.4-8.3 g/dL LAB [id number] AST 13 10-39 U/L LAB [id number] ALP 56 32-126 U/L LAB [id number] Calcium 9.1 8.6-10.5 mg/dL LAB [id number] CO2 25 21-31 mmol/L LAB [id number] ALT 12 9-48 U/L LAB [id number] Bun/Crea Ratio 19 LAB [id number] Osmolality (Calculated) 282 278-305 mOsm/kg LAB [id number] Anion Gap 9 7-17 mmol/L LAB [id number] eGFR, CKD-EPI, Female 52 Low >=60 mL/min/1 .73m2 Result Comment: Reported eGF R is based on the CKD-EPI 2020 equation using creatinine, age, and sex. Performed By: #### CMPN #### [facility] (DEFAULT) [address] [place] [id number] CYCLOSPORINE LEVEL, TROUGH ( PRE DRUG LEVEL) Collected: 09/26/2024 1:16 PM Status: F Source: [facility] Order Comment: Twice weekly Method performed is a chemiluminescent microparticle immunoasssay on the [place] [employer] Tender i2000. TYPE CODE TESTS RESULT OUT OF RANGE REFERENCE UNITS LAB [id number] Cyclosporin e, Trough 144 ng/mL Performed By: #### CSAN #### [facility] (DEFAULT) [address] [place] [address] TYPE AND SCREEN Collected: 09/23/2024 1:45 PM Status : F Source: [facility] Order Comment: PRN Hgb < 8 TYPE CODE TESTS RESULT OUT OF RANGE REFERENCE UNITS LAB [id number] ABO/RH(D) TYPE O POS LAB OUTD Outdate Specimen 09/26/2024 23:59 LAB PERCENTAS ANTIBODY SCREEN NEG Performed By: #### XM #### [facility] (DEFAULT) [address] [place] [address] COMPREHENSIVE METABOLIC PANEL Collected: 09/23/2024 1 :45 PM Status: F Source: [facility] Order Comment: Twice weekly TYPE CODE TESTS RESULT OUT OF RANGE REFERENCE UNITS LAB [id number] Sodium 132 Low 135-145 mmol/L LAB [id number] Potassium 4.6 3.5-5.0 mmol/L LAB [id number] Chloride 101 98-108 mmol/L LAB [id number] BUN 28 High 7-25 mg/dL LAB [id number] Creatinine 1.09 0.50-1.20 mg/dL LAB [id number] Glucose 115 High 70-99 mg/dL LAB [id number] Bilirubin Total 2.1 High <1.5 mg/dL LAB [id number] Albumin 3.7 3.5-5.0 g/dL LAB [id number] Total Protein 6.8 6.4-8.3 g/dL LAB [id number] AST 16 10-39 U/L LAB [id number] ALP 50 32-126 U/L LAB [id number] Calcium 9.1 8.6-10.5 mg/dL LAB [id number] CO2 24 21-31 mmol/L LAB [id number] ALT 17 9-48 U/L LAB [id number] Bun/Crea Ratio 26 LAB [id number] Osmolality (Calculated) 285 278-305 mOsm/kg LAB [id number] Anion Gap 12 7-17 mmol/L LAB [id number] eGFR, CKD-EPI, Female 54 Low >=60 mL/min/1 .73m2 Result Comment: Reported eGF R is based on the CKD-EPI 2020 equation using creatinine, age, and sex. Performed By: #### CMPN #### [facility] (DEFAULT) [address] [address] CBC AND ELECTRONIC DIFF Collected: 09/23/2024 1:45 PM Status: F Source: [facility] Order Comment: Twice weekly TYPE CODE TESTS RESULT OUT OF RANGE REFERENCE UNITS LAB [id number] WBC Count 1.06 Low alert 3.99-11.19 K/uL Result Comment: This result has been called to Tona Hill RN by [email or web address] on 09/23/2024 14:36:49, and has been read back. LAB [id number] RBC Count 2.46 Low 3.91-5.04 M/uL LAB [id number] Hemoglobin 7.7 Low 11.4-15.2 g/dL LAB [id number] Hematocrit 22.2 Low 34.9-44.3 % LAB [id number] Mean Cell Volume 90.2 79.6-97.7 fL LAB [id number] Mean Cell Hgb 31.3 25.9-33.9 pg LAB [id number] Mean Cell Hgb Conc 34.7 31.4-35.9 g/dL LAB [id number] RBC Distribution 18.2 High 10.8-14.9 % LAB [id number] Platelet Count 26 Low alert 150-393 K/uL Result Comment: This result has been called to Tona Hill RN by [email or web address] on 09/23/2024 14:36:49, and has been read back. LAB [id number] Mean Platelet Volume 10.2 8.5-12.2 fL Performed By: #### [id number] ## ## [facility] (DEFAULT) [address] [address] CYCLOSPORINE LEVEL, TROUGH ( PRE DRUG LEVEL) Collected: 09/19/2024 11:47 AM Status: F Source: [facility] Order Comment: Twice weekly Method performed is a chemiluminescent microparticle immunoasssay on the [employer] Tender i2000. TYPE CODE TESTS RESULT OUT OF RANGE REFERENCE UNITS LAB [id number] Cyclosporin e, Trough 120 ng/mL Performed By: #### CSAN #### [facility] (DEFAULT) [address] [place] [address] COMPREHENSIVE METABOLIC PANEL Collected : 09/19/2024 11:47 AM Status: F Source: [facility] Order Comment: Twice weekly TYPE CODE TESTS RESULT OUT OF RANGE REFERENCE UNITS LAB [id number] Sodium 132 Low 135-145 mmol/L LAB [id number] Potassium 4.5 3.5-5.0 mmol/L LAB [id number] Chloride 99 98-108 mmol/L LAB [id number] BUN 26 High 7-25 mg/dL LAB [id number] Creatinine 1.09 0.50-1.20 mg/dL LAB [id number] Glucose 131 High 70-99 mg/dL LAB [id number] Bilirubin Total 2.2 High <1.5 mg/dL LAB [id number] Albumin 3.8 3.5-5.0 g/dL LAB [id number] Total Protein 6.4 6.4-8.3 g/dL LAB [id number] AST 12 10-39 U/L LAB [id number] ALP 53 32-126 U/L LAB [id number] Calcium 9.3 8.6-10.5 mg/dL LAB [id number] CO2 27 21-31 mmol/L LAB [id number] ALT 16 9-48 U/L LAB [id number] Bun/Crea Ratio 24 LAB [id number] Osmolality (Calculated) 286 278-305 mOsm/kg LAB [id number] Anion Gap 11 7-17 mmol/L LAB [id number] eGFR, CKD-EPI, Female 54 Low >=60 mL/min/1 .73m2 Result Comment: Reported eGF R is based on the CKD-EPI 2020 equation using creatinine, age, and sex. Performed By: #### CMPN, CAROLYN DO #### [facility] (DEFAULT) [address] [address] BILIRUBIN DIRECT Collected: 11:47 AM Status: F Source: [facility] TYPE CODE TESTS RESULT OUT OF RANGE REFERENCE UNITS LAB [id number] Bilirubin Direct 0.2 <0.3 mg/dL Performed By: #### CMPN, CAROLYN DO #### [facility] (DEFAULT) [address] [address] CBC AND ELECTRONIC DIFF Collected: 02/2024 11:47 AM Status: F Source: [facility] Order Comment: Twice weekly TYPE CODE TESTS RESULT OUT OF RANGE REFERENCE UNITS LAB [id number] WBC Count 1.49 Low alert 3.99-11.19 K/uL Result Comment: This result has been called to Aubree Hidalgo RN by [email or web address] on 09/19/2024 12:11:01, and has been read back. LAB [id number] RBC Count 2.94 Low 3.91-5.04 M/uL LAB [id number] Hemoglobin 9.0 Low 11.4-15.2 g/dL LAB [id number] Hematocrit 26.1 Low 34.9-44.3 % LAB [id number] Mean Cell Volume 88.8 79.6-97.7 fL LAB [id number] Mean Cell Hgb 30.6 25.9-33.9 pg LAB [id number] Mean Cell Hgb Conc 34.5 31.4-35.9 g/dL LAB [id number] RBC Distribution 17.7 High 10.8-14.9 % LAB [id number] Platelet Count 7 Low alert 150-393 K/uL Result Comment: This result has been called to Aubree Hidalgo RN by [email or web address] on 09/19/2024 12:11:01, and has been read back. LAB [id number] Mean Platelet Volume 9.2 8.5-12.2 fL LAB [id number] DIFF STATUS Electronic Differential LAB [id number] Segs + Bands Auto 3.4 % LAB [id number] Immature Grans % 0.0 % LAB [id number] Lymphocyte % Auto 94.6 % LAB [id number] Monocyte % Auto 1.3 % LAB [id number] Eosinophil % Auto 0.7 % LAB [id number] Basophil % Auto 0.0 % LAB [id number] Nucleated RBC 0.0 <=0.2 /100 WB C LAB [id number] Segs + Bands,Absolute Auto 0.05 Low 1.64-7.28 K/uL LAB [id number] Immature Grans Absolute < <=0.08 K/uL LAB [id number] Abs Lymph Auto 1.41 1.16-3.51 K/uL LAB [id number] Abs Vermilion Auto < Low 0.22-0.87 K/uL LAB [id number] Abs Eos Auto < 0.00-0.42 K/uL LAB [id number] Abs Baso Auto < 0.00-0.15 K/uL Performed By: #### [id number] ## ## [facility] (DEFAULT) [address] [place] [address] TYPE AND SCREEN Collected: 11:00 AM Status: F Source: [facility] Order Comment: PRN Hgb < 8 TYPE CODE TESTS RESULT OUT OF RANGE REFERENCE UNITS LAB [id number] ABO/RH(D) TYPE O POS LAB OUTD Outdate Specimen 09/20/2024 23:59 LAB PERCENTAS ANTIBODY SCREEN NEG Performed By: #### XM #### [facility] (DEFAULT) [address] [place] [address] CBC AND ELECTRONIC DIFF Collected: 09/17/2024 11:00 A M Status: F Source: [facility] Order Comment: Twice weekly TYPE CODE TESTS RESULT OUT OF RANGE REFERENCE UNITS LAB [id number] WBC Count 1.55 Low 3.99-11.19 K/uL LAB [id number] RBC Count 3.00 Low 3.91-5.04 M/uL LAB [id number] Hemoglobin 9.2 Low 11.4-15.2 g/dL LAB [id number] Hematocrit 26.5 Low 34.9-44.3 % LAB [id number] Mean Cell Volume 88.3 79.6-97.7 fL LAB [id number] Mean Cell Hgb 30.7 25.9-33.9 pg LAB [id number] Mean Cell Hgb Conc 34.7 31.4-35.9 g/dL LAB [id number] RBC Distribution 17.8 High 10.8-14.9 % LAB [id number] Platelet Count 14 Low alert 150-393 K/uL Result Comment: This result has been called to GLADYS DEJESUS RN by [email or web address] on 09/17/2024 11:21:27, and has been read back. LAB [id number] Mean Platelet Volume 8.8 8.5-12.2 fL Performed By: #### [id number] ## ## [facility] (DEFAULT) [address] [place] [address] COMPREHENSIVE METABOLIC PANEL Collected : 09/17/2024 11:00 AM Status: F Source: [facility] Order Comment: Twice weekly TYPE CODE TESTS RESULT OUT OF RANGE REFERENCE UNITS LAB [id number] Sodium 128 Low 135-145 mmol/L LAB [id number] Potassium 5.3 High 3.5-5.0 mmol/L LAB [id number] Chloride 96 Low 98-108 mmol/L LAB [id number] BUN 35 High 7-25 mg/dL LAB [id number] Creatinine 1.33 High 0.50-1.20 mg/dL LAB [id number] Glucose 109 High 70-99 mg/dL LAB [id number] Bilirubin Total 2.3 High <1.5 mg/dL LAB [id number] Albumin 3.8 3.5-5.0 g/dL LAB [id number] Total Protein 6.5 6.4-8.3 g/dL LAB [id number] AST 17 10-39 U/L LAB [id number] ALP 51 32-126 U/L LAB [id number] Calcium 10.1 8.6-10.5 mg/dL LAB [id number] CO2 25 21-31 mmol/L LAB [id number] ALT 20 9-48 U/L LAB [id number] Bun/Crea Ratio 26 LAB [id number] Osmolality (Calculated) 281 278-305 mOsm/kg LAB [id number] Anion Gap 12 7-17 mmol/L LAB [id number] eGFR, CKD-EPI, Female 42 Low >=60 mL/min/1 .73m2 Result Comment: Reported eGF R is based on the CKD-EPI 2020 equation using creatinine, age, and sex. Performed By: #### CMPN, MGO , IPB, URICB, LDO #### [facility] (DEFAULT) [address] [place] [address] LACTATE DEHYDROGENASE Collected: 2023 11:00 AM Status: F Source: [facility] TYPE CODE TESTS RESULT OUT OF RANGE REFERENCE UNITS LAB [id number] LD Total 179 100-190 U/L Performed By: #### CMPN, MGO , IPB, URICB, LDO #### [facility] (DEFAULT) [address] [address] MAGNESIUM Collected: 4 11:00 AM Status: F Source: [facility] TYPE CODE TESTS RESULT OUT OF RANGE REFERENCE UNITS LAB [id number] Magnesium 1.8 1.6-2.6 mg/dL Performed By: #### CMPN, MGO , IPB, URICB, LDO #### [facility] (DEFAULT) [address] [place] [address] URIC ACID Collected: 11:00 AM Status: F Source: [facility] TYPE CODE TESTS RESULT OUT OF RANGE REFERENCE UNITS LAB [id number] Uric Acid 2.8 2.8-6.0 mg/dL Performed By: #### CMPN, MGO , IPB, URICB, LDO #### [facility] (DEFAULT) [address] [address] PHOSPHATE, INORGANIC Collected: 024 11:00 AM Status: F Source: [facility] TYPE CODE TESTS RESULT OUT OF RANGE REFERENCE UNITS LAB [id number] Phosphorous 3.0 2.2-4.6 mg/dL Performed By: #### CMPN, MGO , IPB, URICB, LDO #### [facility] (DEFAULT) [address] [address] CYCLOSPORINE LEVEL, TROUGH ( PRE DRUG LEVEL) Collected: 09/17/2024 11:00 AM Status: F Source: [facility] Order Comment: Twice weekly Method performed is a chemiluminescent microparticle immunoasssay on the [place] [employer] Tender i2000. TYPE CODE TESTS RESULT OUT OF RANGE REFERENCE UNITS LAB [id number] Cyclosporin e, Trough 1141 ng/mL Performed By: #### CSAN #### [facility] (DEFAULT) [address] [address] CYCLOSPORINE LEVEL, TROUGH ( PRE DRUG LEVEL) Collected: 09/11/2024 4:36 AM Status: F Source: [facility] Order Comment: Lab must be d rawn before administration of Cyclosporin. Method performed is a chemiluminescent microparticle immunoasssay on the [place] [employer] Tender i2000. TYPE CODE TESTS RESULT OUT OF RANGE REFERENCE UNITS LAB [id number] Cyclosporin e, Trough 247 ng/mL Performed By: #### CSAN #### [facility] (DEFAULT) [address] [place] [address] CALCIUM Collected: 4:36 AM Status: F Source: [facility] TYPE CODE TESTS RESULT OUT OF RANGE REFERENCE UNITS LAB [id number] Calcium 9.5 8.6-10.5 mg/dL Performed By: #### IPB, HFP, MGO, CHM7, CA #### [facility] (DEFAULT) [address] [address] MAGNESIUM Collected: 4:36 AM Status: F Source: [facility] TYPE CODE TESTS RESULT OUT OF RANGE REFERENCE UNITS LAB [id number] Magnesium 1.9 1.6-2.6 mg/dL Performed By: #### IPB, HFP, MGO, CHM7, CA #### [facility] (DEFAULT) [address] [address] CHEM 7 (LYTES,BUN,CREA,GLUC) Collected: 09/11/2024 4:36 AM Status: F Source: [facility] TYPE CODE TESTS RESULT OUT OF RANGE REFERENCE UNITS LAB [id number] Sodium 138 135-145 mmol/L LAB [id number] Potassium 4.5 3.5-5.0 mmol/L LAB [id number] Chloride 105 98-108 mmol/L LAB [id number] CO2 24 21-31 mmol/L LAB [id number] Glucose 90 70-99 mg/dL LAB [id number] BUN 23 7-25 mg/dL LAB [id number] Creatinine 0.90 0.50-1.20 mg/dL LAB [id number] Bun/Crea Ratio 26 LAB [id number] Osmolality (Calculated) 293 278-305 mOsm/kg LAB [id number] Anion Gap 14 7-17 mmol/L LAB [id number] eGFR, CKD-EPI, Female 69 >=60 mL/min/ 1.73m2 Result Comment: Reported eGF R is based on the CKD-EPI 2020 equation using creatinine, age, and sex. Performed By: #### IPB, HFP, MGO, CHM7, CA #### [facility] (DEFAULT) [address] [address] HEPATIC FUNCTION PANEL Collected: 09/11/2024 4:36 AM Status: F Source: [facility] TYPE CODE TESTS RESULT OUT OF RANGE REFERENCE UNITS LAB [id number] Albumin 3.4 Low 3.5-5.0 g/dL LAB [id number] Bilirubin Direct 0.2 <0.3 mg/dL LAB [id number] Bilirubin Total 1.6 High <1.5 mg/dL LAB [id number] ALP 43 32-126 U/L LAB [id number] ALT 13 9-48 U/L LAB [id number] AST 13 10-39 U/L LAB [id number] Total Protein 6.2 Low 6.4-8.3 g/dL Performed By: #### IPB, HFP, MGO, CHM7, CA #### [facility] (DEFAULT) [address] [address] PHOSPHATE, INORGANIC Collected: 4:36 AM Status: F Source: [facility] TYPE CODE TESTS RESULT OUT OF RANGE REFERENCE UNITS LAB [id number] Phosphorous 4.1 2.2-4.6 mg/dL Performed By: #### IPB, HFP, MGO, CHM7, CA #### [facility] (DEFAULT) [address] [address] CBC,PLATELETS Collected: 09/11/2024 4:36 AM Status: F Source: [facility] TYPE CODE TESTS RESULT OUT OF RANGE REFERENCE UNITS LAB [id number] WBC Count 0.61 Low alert 3.99-11.19 K/uL LAB [id number] RBC Count 2.35 Low 3.91-5.04 M/uL LAB [id number] Hemoglobin 7.7 Low 11.4-15.2 g/dL LAB [id number] Hematocrit 21.6 Low 34.9-44.3 % LAB [id number] Mean Cell Volume 91.9 79.6-97.7 fL LAB [id number] Mean Cell Hgb 32.8 25.9-33.9 pg LAB [id number] Mean Cell Hgb Conc 35.6 31.4-35.9 g/dL LAB [id number] RBC Distribution 15.2 High 10.8-14.9 % LAB [id number] Platelet Count 32 Low 150-393 K/uL LAB [id number] Mean Platelet Volume 9.4 8.5-12.2 fL Performed By: #### HEMOGC ## ## [facility] (DEFAULT) [address] [place] [address] TYPE AND SCREEN Collected: 09/10/2024 6:26 AM Status : F Source: [facility] TYPE CODE TESTS RESULT OUT OF RANGE REFERENCE UNITS LAB [id number] ABO/RH(D) TYPE O POS LAB OUTD Outdate Specimen 09/13/2024 23:59 LAB PERCENTAS ANTIBODY SCREEN NEG Performed By: #### XM #### [facility] (DEFAULT) [address] [place] [address] CBC,PLATELETS Collected: 09/10/2024 6:26 AM Status: F Source: [facility] TYPE CODE TESTS RESULT OUT OF RANGE REFERENCE UNITS LAB [id number] WBC Count 0.43 Low alert 3.99-11.19 K/uL Result Comment: This result has been called to JACKIE Ahumada by [email or web address] on 09/10/2024 07:43:18, and has been read back. Too few cells to count, differential not performed. LAB [id number] RBC Count 2.29 Low 3.91-5.04 M/uL LAB [id number] Hemoglobin 7.5 Low 11.4-15.2 g/dL LAB [id number] Hematocrit 21.1 Low 34.9-44.3 % LAB [id number] Mean Cell Volume 92.1 79.6-97.7 fL LAB [id number] Mean Cell Hgb 32.8 25.9-33.9 pg LAB [id number] Mean Cell Hgb Conc 35.5 31.4-35.9 g/dL LAB [id number] RBC Distribution 15.3 High 10.8-14.9 % LAB [id number] Platelet Count 34 Low 150-393 K/uL LAB [id number] Mean Platelet Volume 9.4 8.5-12.2 fL Performed By: #### HEMOGC ## ## [facility] (DEFAULT) [address] [place] [address] CALCIUM Collected: 4 6:26 AM Status: F Source: [facility] TYPE CODE TESTS RESULT OUT OF RANGE REFERENCE UNITS LAB [id number] Calcium 9.4 8.6-10.5 mg/dL Performed By: #### IPB, HFP, CHM7, MGO, CA #### [facility] (DEFAULT) [address] [place] [address] MAGNESIUM Collected: 4 6:26 AM Status: F Source: [facility] TYPE CODE TESTS RESULT OUT OF RANGE REFERENCE UNITS LAB [id number] Magnesium 1.9 1.6-2.6 mg/dL Performed By: #### IPB, HFP, CHM7, MGO, CA #### [facility] (DEFAULT) [address] [address] CHEM 7 (LYTES,BUN,CREA,GLUC) Collected: 09/10/2024 6:26 AM Status: F Source: [facility] TYPE CODE TESTS RESULT OUT OF RANGE REFERENCE UNITS LAB [id number] Sodium 139 135-145 mmol/L LAB [id number] Potassium 4.1 3.5-5.0 mmol/L LAB [id number] Chloride 106 98-108 mmol/L LAB [id number] CO2 26 21-31 mmol/L LAB [id number] Glucose 85 70-99 mg/dL LAB [id number] BUN 24 7-25 mg/dL LAB [id number] Creatinine 0.92 0.50-1.20 mg/dL LAB [id number] Bun/Crea Ratio 26 LAB [id number] Osmolality (Calculated) 294 278-305 mOsm/kg LAB [id number] Anion Gap 11 7-17 mmol/L LAB [id number] eGFR, CKD-EPI, Female 67 >=60 mL/min/ 1.73m2 Result Comment: Reported eGF R is based on the CKD-EPI 2020 equation using creatinine, age, and sex. Performed By: #### IPB, HFP, CHM7, MGO, CA #### [facility] (DEFAULT) [address] [place] [address] HEPATIC FUNCTION PANEL Collected: 09/10/2024 6:26 AM Status: F Source: [facility] TYPE CODE TESTS RESULT OUT OF RANGE REFERENCE UNITS LAB [id number] Albumin 3.6 3.5-5.0 g/dL LAB [id number] Bilirubin Direct 0.1 <0.3 mg/dL LAB [id number] Bilirubin Total 1.5 High <1.5 mg/dL LAB [id number] ALP 40 32-126 U/L LAB [id number] ALT 16 9-48 U/L LAB [id number] AST 11 10-39 U/L LAB [id number] Total Protein 6.4 6.4-8.3 g/dL Performed By: #### IPB, HFP, CHM7, MGO, CA #### [facility] (DEFAULT) [address] [address] PHOSPHATE, INORGANIC Collected: 6:26 AM Status: F Source: [facility] TYPE CODE TESTS RESULT OUT OF RANGE REFERENCE UNITS LAB [id number] Phosphorous 4.3 2.2-4.6 mg/dL Performed By: #### IPB, HFP, CHM7, MGO, CA #### [facility] (DEFAULT) [address] [address] CYCLOSPORINE LEVEL, TROUGH ( PRE DRUG LEVEL) Collected: 09/10/2024 6:26 AM Status: F Source: [facility] Order Comment: Lab must be d rawn before administration of Cyclosporin. Method performed is a chemiluminescent microparticle immunoasssay on the [employer] Tender i2000. TYPE CODE TESTS RESULT OUT OF RANGE REFERENCE UNITS LAB [id number] Cyclosporin e, Trough 158 ng/mL Performed By: #### CSAN #### [facility] (DEFAULT) [address] [place] [address] URINALYSIS Collected: 11:48 AM Status: F Source: [facility] TYPE CODE TESTS RESULT OUT OF RANGE REFERENCE UNITS LAB [id number] Color Yellow Yellow LAB [id number] Appearance Urine Clear Clear LAB [id number] Glucose Urine Negative Negative LAB 9438990413 Ketones Urine Negative Negative LAB [id number] Specific [place] Urine 1.005 1.001-1.035 LAB [id number] Blood Urine Moderate Abnormal Negative LAB [id number] pH Urine 7.0 5.0-7.0 LAB [id number] Protein Urine Negative Negative LAB [id number] Urobilinogen Urine 0.2 E.U./dL 0.2 E.U/dL, 1.0 E.U/dL LAB [id number] Nitrites Urine Negative Negative LAB [id number] Leukocyte Esterase Negative Negative LAB [id number] RBC Urine 11-25 Abnormal 0-2 /HPF LAB [id number] WBC Urine 0 - 5 0 - 5 /HPF LAB [id number] Squamous/Epithe lial Cells 0-2/hpf 0-2/hpf, 3-5/hpf = 1+ LAB [id number] Bacteria ABSENT ABSENT Performed By: #### URIN #### [facility] (DEFAULT) [address] [place] [address] CBC AND ELECTRONIC DIFF Collected: 09/09/2024 5:04 AM Status: F Source: [facility] TYPE CODE TESTS RESULT OUT OF RANGE REFERENCE UNITS LAB [id number] WBC Count 0.31 Low alert 3.99-11.19 K/uL Result Comment: This result has been called to Jeffery Dumont RN by [email or web address] on 09/09/2024 05:39:21, and has been read back. Too few cells to count, differential not performed. LAB [id number] RBC Count 2.21 Low 3.91-5.04 M/uL LAB [id number] Hemoglobin 7.4 Low 11.4-15.2 g/dL LAB [id number] Hematocrit 20.6 Low 34.9-44.3 % LAB [id number] Mean Cell Volume 93.2 79.6-97.7 fL LAB [id number] Mean Cell Hgb 33.5 25.9-33.9 pg LAB [id number] Mean Cell Hgb Conc 35.9 31.4-35.9 g/dL LAB [id number] RBC Distribution 15.3 High 10.8-14.9 % LAB [id number] Platelet Count 8 Low alert 150-393 K/uL Result Comment: This result has been called to Jeffery Dumont RN by [email or web address] on 09/09/2024 05:39:21, and has been read back. LAB [id number] Mean Platelet Volume 10.8 8.5-12.2 fL Performed By: #### [id number] ## ## [facility] (DEFAULT) [address] [address] FIBRINOGEN, CLOTTABLE Collected: 2023 5:04 AM Status: F Source: [facility] Order Comment: Fibrinogen l evels may be altered by the normal physiologic changes of and should be interpreted considering reference ranges specific to gestational age. First Trimester: 244-510 mg/dL Second Trimester: 291-538 mg/dL Third Trimester/: 373-619 mg/dL Reference: Faby M, Tess LG, Sveta FG. and laboratory studies: a reference table for clinicians. Obstet Gynecol 2009; 114:1326. TYPE CODE TESTS RESULT OUT OF RANGE REFERENCE UNITS LAB [id number] Fibrinogen-C lottable 287 220-410 mg/dL Result Comment: Functional F ibrinogen (activity) levels can be affected by direct thrombin inhibitors such as heparins (>2.0 IU/ml) and dabigatran. Abnormal results should be interpreted with caution. Performed By: #### PTPTT, FI B #### [facility] (DEFAULT) [address] [place] [address] PT,INR,PTT Collected: 5:04 AM Status: F Source: [facility] TYPE CODE TESTS RESULT OUT OF RANGE REFERENCE UNITS LAB [id number] PT 14.6 High 11.9-14.2 sec LAB [id number] INR 1.1 0.9-1.1 LAB [id number] PTT 20.1 Low 24.0-34.3 sec Result Comment: Specimen int egrity checked. Performed By: #### PTPTT, FI B #### [facility] (DEFAULT) [address] [address] CALCIUM Collected: 5:04 AM Status: F Source: [facility] TYPE CODE TESTS RESULT OUT OF RANGE REFERENCE UNITS LAB [id number] Calcium 9.0 8.6-10.5 mg/dL Performed By: #### MGO, CA, IPB, HFP, CHM7 #### [facility] (DEFAULT) [address] [address] MAGNESIUM Collected: 5:04 AM Status: F Source: [facility] TYPE CODE TESTS RESULT OUT OF RANGE REFERENCE UNITS LAB [id number] Magnesium 1.8 1.6-2.6 mg/dL Performed By: #### MGO, CA, IPB, HFP, CHM7 #### [facility] (DEFAULT) [address] [place] [address] CHEM 7 (LYTES,BUN,CREA,GLUC) Collected: 09/09/2024 5:04 AM Status: F Source: [facility] TYPE CODE TESTS RESULT OUT OF RANGE REFERENCE UNITS LAB [id number] Sodium 138 135-145 mmol/L LAB [id number] Potassium 4.1 3.5-5.0 mmol/L LAB [id number] Chloride 107 98-108 mmol/L LAB [id number] CO2 26 21-31 mmol/L LAB [id number] Glucose 113 High 70-99 mg/dL LAB [id number] BUN 22 7-25 mg/dL LAB [id number] Creatinine 0.73 0.50-1.20 mg/dL LAB [id number] Bun/Crea Ratio 30 LAB [id number] Osmolality (Calculated) 293 278-305 mOsm/kg LAB [id number] Anion Gap 9 7-17 mmol/L LAB [id number] eGFR, CKD-EPI, Female > >=60 mL/min/ 1.73m2 Result Comment: Reported eGF R is based on the CKD-EPI 2020 equation using creatinine, age, and sex. Performed By: #### MGO, CA, IPB, HFP, CHM7 #### [facility] (DEFAULT) [address] [address] HEPATIC FUNCTION PANEL Collected: 09/09/2024 5:04 AM Status: F Source: [facility] TYPE CODE TESTS RESULT OUT OF RANGE REFERENCE UNITS LAB [id number] Albumin 3.5 3.5-5.0 g/dL LAB [id number] Bilirubin Direct 0.1 <0.3 mg/dL LAB [id number] Bilirubin Total 1.1 <1.5 mg/dL LAB [id number] ALP 43 32-126 U/L LAB [id number] ALT 16 9-48 U/L LAB [id number] AST 14 10-39 U/L LAB [id number] Total Protein 6.1 Low 6.4-8.3 g/dL Performed By: #### MGO, CA, IPB, HFP, CHM7 #### [facility] (DEFAULT) [address] [place] [address] PHOSPHATE, INORGANIC Collected: 5:04 AM Status: F Source: [facility] TYPE CODE TESTS RESULT OUT OF RANGE REFERENCE UNITS LAB [id number] Phosphorous 3.0 2.2-4.6 mg/dL Performed By: #### MGO, CA, IPB, HFP, CHM7 #### [facility] (DEFAULT) [address] [place] [address] CALCIUM Collected: 4 4:58 AM Status: F Source: [facility] TYPE CODE TESTS RESULT OUT OF RANGE REFERENCE UNITS LAB [id number] Calcium 9.1 8.6-10.5 mg/dL Performed By: #### HFP, IPB, CHM7, MGO, CA #### [facility] (DEFAULT) [address] [address] MAGNESIUM Collected: 4 4:58 AM Status: F Source: [facility] TYPE CODE TESTS RESULT OUT OF RANGE REFERENCE UNITS LAB [id number] Magnesium 2.0 1.6-2.6 mg/dL Performed By: #### HFP, IPB, CHM7, MGO, CA #### [facility] (DEFAULT) [address] [address] CHEM 7 (LYTES,BUN,CREA,GLUC) Collected: 09/08/2024 4:58 AM Status: F Source: [facility] TYPE CODE TESTS RESULT OUT OF RANGE REFERENCE UNITS LAB [id number] Sodium 140 135-145 mmol/L LAB [id number] Potassium 4.1 3.5-5.0 mmol/L LAB [id number] Chloride 107 98-108 mmol/L LAB [id number] CO2 27 21-31 mmol/L LAB [id number] Glucose 103 High 70-99 mg/dL LAB [id number] BUN 19 7-25 mg/dL LAB [id number] Creatinine 0.80 0.50-1.20 mg/dL LAB [id number] Bun/Crea Ratio 24 LAB [id number] Osmolality (Calculated) 295 278-305 mOsm/kg LAB [id number] Anion Gap 10 7-17 mmol/L LAB [id number] eGFR, CKD-EPI, Female 82 >=60 mL/min/ 1.73m2 Result Comment: Reported eGF R is based on the CKD-EPI 2020 equation using creatinine, age, and sex. Performed By: #### STEPHANIE, IPB, CHM7, MGO, CA #### [facility] (DEFAULT) [address] [place] [address] HEPATIC FUNCTION PANEL Collected: 09/08/2024 4:58 AM Status: F Source: [facility] TYPE CODE TESTS RESULT OUT OF RANGE REFERENCE UNITS LAB [id number] Albumin 3.4 Low 3.5-5.0 g/dL LAB [id number] Bilirubin Direct 0.1 <0.3 mg/dL LAB [id number] Bilirubin Total 0.6 <1.5 mg/dL LAB [id number] ALP 45 32-126 U/L LAB [id number] ALT 9 9-48 U/L LAB [id number] AST 12 10-39 U/L LAB [id number] Total Protein 6.2 Low 6.4-8.3 g/dL Performed By: #### HFP, IPB, CHM7, MGO, CA #### [facility] (DEFAULT) [address] [address] PHOSPHATE, INORGANIC Collected: 4:58 AM Status: F Source: [facility] TYPE CODE TESTS RESULT OUT OF RANGE REFERENCE UNITS LAB [id number] Phosphorous 3.4 2.2-4.6 mg/dL Performed By: #### HFP, IPB, CHM7, MGO, CA #### [facility] (DEFAULT) [address] [place] [address] CBC,PLATELETS Collected: 09/08/2024 4:58 AM Status: F Source: [facility] TYPE CODE TESTS RESULT OUT OF RANGE REFERENCE UNITS LAB [id number] WBC Count <0.30 Low alert 3.99-11.19 K/uL Result Comment: Critical natalia ue previously called Too few cells to count, differential not performed. LAB [id number] RBC Count 2.17 Low 3.91-5.04 M/uL LAB [id number] Hemoglobin 7.2 Low 11.4-15.2 g/dL LAB [id number] Hematocrit 20.6 Low 34.9-44.3 % LAB [id number] Mean Cell Volume 94.9 79.6-97.7 fL LAB [id number] Mean Cell Hgb 33.2 25.9-33.9 pg LAB [id number] Mean Cell Hgb Conc 35.0 31.4-35.9 g/dL LAB [id number] RBC Distribution 15.2 High 10.8-14.9 % LAB [id number] Platelet Count 14 Low alert 150-393 K/uL Result Comment: Results inco nsistent with previous results. LAB [id number] Mean Platelet Volume 10.0 8.5-12.2 fL Performed By: #### HEMOGC ## ## [facility] (DEFAULT) [address] [place] [address] PLATELET COUNT Collected: 09/07/2024 9:32 AM Status: F Source: [facility] Order Comment: Repeat 1 hour after any platelet transfusion. TYPE CODE TESTS RESULT OUT OF RANGE REFERENCE UNITS LAB [id number] Platelet Count 44 Low 150-393 K/uL LAB [id number] Mean Platelet Volume 9.4 8.5-12.2 fL Performed By: #### PLAT #### [facility] (DEFAULT) [address] [address] TYPE AND SCREEN Collected: 09/07/2024 4:29 AM Status : C Source: [facility] TYPE CODE TESTS RESULT OUT OF RANGE REFERENCE UNITS LAB [id number] ABO/RH(D) TYPE O POS LAB OUTD Outdate Specimen 09/10/2024 06:55 LAB PERCENTAS ANTIBODY SCREEN NEG Performed By: #### XM #### [facility] (DEFAULT) [address] [address] CALCIUM Collected: 4:29 AM Status: F Source: [facility] TYPE CODE TESTS RESULT OUT OF RANGE REFERENCE UNITS LAB [id number] Calcium 8.9 8.6-10.5 mg/dL Performed By: #### CHM7, MGO , CA, IPB, HFP #### [facility] (DEFAULT) [address] [address] MAGNESIUM Collected: 4:29 AM Status: F Source: [facility] TYPE CODE TESTS RESULT OUT OF RANGE REFERENCE UNITS LAB [id number] Magnesium 1.9 1.6-2.6 mg/dL Performed By: #### CHM7, MGO , CA, IPB, HFP #### [facility] (DEFAULT) [address] [address] CHEM 7 (LYTES,BUN,CREA,GLUC) Collected: 09/07/2024 4:29 AM Status: F Source: [facility] TYPE CODE TESTS RESULT OUT OF RANGE REFERENCE UNITS LAB [id number] Sodium 140 135-145 mmol/L LAB [id number] Potassium 4.1 3.5-5.0 mmol/L LAB [id number] Chloride 111 High 98-108 mmol/L LAB [id number] CO2 22 21-31 mmol/L LAB [id number] Glucose 125 High 70-99 mg/dL LAB [id number] BUN 19 7-25 mg/dL LAB [id number] Creatinine 0.84 0.50-1.20 mg/dL LAB [id number] Bun/Crea Ratio 23 LAB [id number] Osmolality (Calculated) 297 278-305 mOsm/kg LAB [id number] Anion Gap 11 7-17 mmol/L LAB [id number] eGFR, CKD-EPI, Female 77 >=60 mL/min/ 1.73m2 Result Comment: Reported eGF R is based on the CKD-EPI 2020 equation using creatinine, age, and sex. Performed By: #### CHM7, MGO , CA, IPB, HFP #### [facility] (DEFAULT) [address] [address] HEPATIC FUNCTION PANEL Collected: 09/07/2024 4:29 AM Status: F Source: [facility] TYPE CODE TESTS RESULT OUT OF RANGE REFERENCE UNITS LAB [id number] Albumin 3.4 Low 3.5-5.0 g/dL LAB [id number] Bilirubin Direct 0.1 <0.3 mg/dL LAB [id number] Bilirubin Total 0.4 <1.5 mg/dL LAB [id number] ALP 45 32-126 U/L LAB [id number] ALT 8 Low 9-48 U/L LAB [id number] AST 16 10-39 U/L LAB [id number] Total Protein 6.0 Low 6.4-8.3 g/dL Performed By: #### CHM7, MGO , CA, IPB, HFP #### [facility] (DEFAULT) [address] [address] PHOSPHATE, INORGANIC Collected: 4:29 AM Status: F Source: [facility] TYPE CODE TESTS RESULT OUT OF RANGE REFERENCE UNITS LAB [id number] Phosphorous 3.1 2.2-4.6 mg/dL Performed By: #### CHM7, MGO , CA, IPB, HFP #### [facility] (DEFAULT) [address] [place] [address] CBC,PLATELETS Collected: 09/07/2024 4:29 AM Status: F Source: [facility] TYPE CODE TESTS RESULT OUT OF RANGE REFERENCE UNITS LAB [id number] WBC Count <0.30 Low alert 3.99-11.19 K/uL Result Comment: This result [facility] 05:30:09, and has been read back. Too few cells to count, differential not performed. LAB [id number] RBC Count 2.28 Low 3.91-5.04 M/uL LAB [id number] Hemoglobin 7.5 Low 11.4-15.2 g/dL LAB [id number] Hematocrit 21.5 Low 34.9-44.3 % LAB [id number] Mean Cell Volume 94.3 79.6-97.7 fL LAB [id number] Mean Cell Hgb 32.9 25.9-33.9 pg LAB [id number] Mean Cell Hgb Conc 34.9 31.4-35.9 g/dL LAB [id number] RBC Distribution 15.2 High 10.8-14.9 % LAB [id number] Platelet Count < Low alert 150-393 K/uL Result Comment: This result has been called to Dina Weber RN by [facility] on 09/07/2024 05:30:09, and has been read back. LAB [id number] Mean Platelet Volume Result Comment: Not measured Performed By: #### HEMOGC ## ## [facility] (DEFAULT) [address] [address] CALCIUM Collected: 4 5:23 AM Status: F Source: [facility] TYPE CODE TESTS RESULT OUT OF RANGE REFERENCE UNITS LAB [id number] Calcium 9.1 8.6-10.5 mg/dL Performed By: #### MGO, HFP, CHM7, IPB, CA #### [facility] (DEFAULT) [address] [address] MAGNESIUM Collected: 4 5:23 AM Status: F Source: [facility] TYPE CODE TESTS RESULT OUT OF RANGE REFERENCE UNITS LAB [id number] Magnesium 2.0 1.6-2.6 mg/dL Performed By: #### MGO, HFP, CHM7, IPB, CA #### [facility] (DEFAULT) [address] [address] CHEM 7 (LYTES,BUN,CREA,GLUC) Collected: 09/06/2024 5:23 AM Status: F Source: [facility] TYPE CODE TESTS RESULT OUT OF RANGE REFERENCE UNITS LAB [id number] Sodium 138 135-145 mmol/L LAB [id number] Potassium 4.2 3.5-5.0 mmol/L LAB [id number] Chloride 110 High 98-108 mmol/L LAB [id number] CO2 20 Low 21-31 mmol/L LAB [id number] Glucose 159 High 70-99 mg/dL LAB [id number] BUN 18 7-25 mg/dL LAB [id number] Creatinine 0.93 0.50-1.20 mg/dL LAB [id number] Bun/Crea Ratio 19 LAB [id number] Osmolality (Calculated) 295 278-305 mOsm/kg LAB [id number] Anion Gap 12 7-17 mmol/L LAB [id number] eGFR, CKD-EPI, Female 66 >=60 mL/min/ 1.73m2 Result Comment: Reported eGF R is based on the CKD-EPI 2020 equation using creatinine, age, and sex. Performed By: #### MGOr[place], STEPHANIE, CHM7, IPB, CA #### [facility] (DEFAULT) [address] [place] [address] HEPATIC FUNCTION PANEL Collected: 09/06/2024 5:23 AM Status: F Source: [facility] TYPE CODE TESTS RESULT OUT OF RANGE REFERENCE UNITS LAB [id number] Albumin 3.7 3.5-5.0 g/dL LAB [id number] Bilirubin Direct < <0.3 mg/dL LAB [id number] Bilirubin Total 0.3 <1.5 mg/dL LAB [id number] ALP 50 32-126 U/L LAB [id number] ALT 7 Low 9-48 U/L LAB [id number] AST 18 10-39 U/L LAB [id number] Total Protein 6.5 6.4-8.3 g/dL Performed By: #### MGO, HFP, CHM7, IPB, CA #### [facility] (DEFAULT) [address] [address] PHOSPHATE, INORGANIC Collected: 5:23 AM Status: F Source: [facility] TYPE CODE TESTS RESULT OUT OF RANGE REFERENCE UNITS LAB [id number] Phosphorous 3.6 2.2-4.6 mg/dL Performed By: #### MGO, HFP, CHM7, IPB, CA #### [facility] (DEFAULT) [address] [place] [address] CBC,PLATELETS Collected: 09/06/2024 5:23 AM Status: F Source: [facility] TYPE CODE TESTS RESULT OUT OF RANGE REFERENCE UNITS LAB [id number] WBC Count <0.30 Low alert 3.99-11.19 K/uL Result Comment: This result has been called to Dina Weber RN by ro on 09/06/2024 05:51:30, and has been read back. Too few cells to count, differential not performed. LAB [id number] RBC Count 2.42 Low 3.91-5.04 M/uL LAB [id number] Hemoglobin 8.0 Low 11.4-15.2 g/dL LAB [id number] Hematocrit 23.0 Low 34.9-44.3 % LAB [id number] Mean Cell Volume 95.0 79.6-97.7 fL LAB [id number] Mean Cell Hgb 33.1 25.9-33.9 pg LAB [id number] Mean Cell Hgb Conc 34.8 31.4-35.9 g/dL LAB [id number] RBC Distribution 15.0 High 10.8-14.9 % LAB [id number] Platelet Count 14 Low alert 150-393 K/uL LAB [id number] Mean Platelet Volume 12.0 8.5-12.2 fL Performed By: #### HEMOGC ## ## [facility] (DEFAULT) [address] [address] FIBRINOGEN, CLOTTABLE Collected: 2023 4:27 AM Status: F Source: [facility] Order Comment: Fibrinogen l evels may be altered by the normal physiologic changes of and should be interpreted considering reference ranges specific to gestational age. First Trimester: 244-510 mg/dL Second Trimester: 291-538 mg/dL Third Trimester/: 373-619 mg/dL Reference: Faby M, Tess LG, Sveta FG. and laboratory studies: a reference table for clinicians. Obstet Gynecol 2009; 114:1326. TYPE CODE TESTS RESULT OUT OF RANGE REFERENCE UNITS LAB [id number] Fibrinogen-C lottable 358 220-410 mg/dL Result Comment: Functional F ibrinogen (activity) levels can be affected by direct thrombin inhibitors such as heparins (>2.0 IU/ml) and dabigatran. Abnormal results should be interpreted with caution. Performed By: #### FIB, PTPT T #### [facility] (DEFAULT) [address] [address] PT,INR,PTT Collected: 4 4:27 AM Status: F Source: [facility] TYPE CODE TESTS RESULT OUT OF RANGE REFERENCE UNITS LAB [id number] PT 14.0 11.9-14.2 sec LAB [id number] INR 1.1 0.9-1.1 LAB [id number] PTT 26.5 24.0-34.3 sec Performed By: #### FIB, PTPT T #### [facility] (DEFAULT) [address] [place] [address] CALCIUM Collected: 4:27 AM Status: F Source: [facility] TYPE CODE TESTS RESULT OUT OF RANGE REFERENCE UNITS LAB [id number] Calcium 9.1 8.6-10.5 mg/dL Performed By: #### CA, IPB, HFP, CHM7, MGO #### [facility] (DEFAULT) [address] [place] [address] MAGNESIUM Collected: 4 4:27 AM Status: F Source: [facility] TYPE CODE TESTS RESULT OUT OF RANGE REFERENCE UNITS LAB [id number] Magnesium 1.9 1.6-2.6 mg/dL Performed By: #### CA, IPB, HFP, CHM7, MGO #### [facility] (DEFAULT) [address] [address] CHEM 7 (LYTES,BUN,CREA,GLUC) Collected: 09/05/2024 4:27 AM Status: F Source: [facility] TYPE CODE TESTS RESULT OUT OF RANGE REFERENCE UNITS LAB [id number] Sodium 141 135-145 mmol/L LAB [id number] Potassium 3.7 3.5-5.0 mmol/L LAB [id number] Chloride 108 98-108 mmol/L LAB [id number] CO2 27 21-31 mmol/L LAB [id number] Glucose 82 70-99 mg/dL LAB [id number] BUN 23 7-25 mg/dL LAB [id number] Creatinine 0.92 0.50-1.20 mg/dL LAB [id number] Bun/Crea Ratio 25 LAB [id number] Osmolality (Calculated) 297 278-305 mOsm/kg LAB [id number] Anion Gap 10 7-17 mmol/L LAB [id number] eGFR, CKD-EPI, Female 67 >=60 mL/min/ 1.73m2 Result Comment: Reported eGF R is based on the CKD-EPI 2020 equation using creatinine, age, and sex. Performed By: #### CA, IPB, HFP, CHM7, MGO #### [facility] (DEFAULT) [address] [place] [address] HEPATIC FUNCTION PANEL Collected: 09/05/2024 4:27 AM Status: F Source: [facility] TYPE CODE TESTS RESULT OUT OF RANGE REFERENCE UNITS LAB [id number] Albumin 3.8 3.5-5.0 g/dL LAB [id number] Bilirubin Direct < <0.3 mg/dL LAB [id number] Bilirubin Total 0.3 <1.5 mg/dL LAB [id number] ALP 49 32-126 U/L LAB [id number] ALT 7 Low 9-48 U/L LAB [id number] AST 14 10-39 U/L LAB [id number] Total Protein 6.4 6.4-8.3 g/dL Performed By: #### CA, IPB, HFP, CHM7, MGO #### [facility] (DEFAULT) [address] [address] PHOSPHATE, INORGANIC Collected: 4:27 AM Status: F Source: [facility] TYPE CODE TESTS RESULT OUT OF RANGE REFERENCE UNITS LAB [id number] Phosphorous 3.8 2.2-4.6 mg/dL Performed By: #### CA, IPB, HFP, CHM7, MGO #### [facility] (DEFAULT) [address] [address] CBC AND ELECTRONIC DIFF Collected: 09/05/2024 4:27 AM Status: F Source: [facility] TYPE CODE TESTS RESULT OUT OF RANGE REFERENCE UNITS LAB [id number] WBC Count 2.06 Low 3.99-11.19 K/uL LAB [id number] RBC Count 2.45 Low 3.91-5.04 M/uL LAB [id number] Hemoglobin 8.0 Low 11.4-15.2 g/dL LAB [id number] Hematocrit 23.2 Low 34.9-44.3 % LAB [id number] Mean Cell Volume 94.7 79.6-97.7 fL LAB [id number] Mean Cell Hgb 32.7 25.9-33.9 pg LAB [id number] Mean Cell Hgb Conc 34.5 31.4-35.9 g/dL LAB [id number] RBC Distribution 15.3 High 10.8-14.9 % LAB [id number] Platelet Count 24 Low alert 150-393 K/uL LAB [id number] Mean Platelet Volume 10.5 8.5-12.2 fL LAB [id number] DIFF STATUS Electronic Differential LAB [id number] Segs + Bands Auto 1.9 % LAB [id number] Immature Grans % 0.5 % LAB [id number] Lymphocyte % Auto 96.1 % LAB [id number] Monocyte % Auto 1.5 % LAB [id number] Eosinophil % Auto 0.0 % LAB [id number] Basophil % Auto 0.0 % LAB [id number] Nucleated RBC 0.0 <=0.2 /100 WB C LAB [id number] Segs + Bands,Absolute Auto 0.04 Low 1.64-7.28 K/uL LAB [id number] Immature Grans Absolute < <=0.08 K/uL LAB [id number] Abs Lymph Auto 1.98 1.16-3.51 K/uL LAB [id number] Abs Vermilion Auto < Low 0.22-0.87 K/uL LAB [id number] Abs Eos Auto < 0.00-0.42 K/uL LAB [id number] Abs Baso Auto < 0.00-0.15 K/uL Performed By: #### [id number] ## ## [facility] (DEFAULT) [address] [place] [address] G6PD, QUANTITATIVE Collected: 09/04/2024 9:24 PM Sta tus: F Source: [facility] TYPE CODE TESTS RESULT OUT OF RANGE REFERENCE UNITS LAB 3327 G6PD, Quantitative 9.4 7.0-20.5 U/g Hgb Result Comment: Test Performed at: [employer] [address] [address] Yo Roman M.D., Ph.D.,Director of Laboratories Performed By: #### [id number] ### # [facility] (DEFAULT) [address] [place] [address] TYPE AND SCREEN Collected: 09/04/2024 6:51 PM Status : C Source: [facility] Order Comment: First, on adm ission. TYPE CODE TESTS RESULT OUT OF RANGE REFERENCE UNITS LAB [id number] ABO/RH(D) TYPE O POS LAB OUTD Outdate Specimen 09/07/2024 05:55 LAB PERCENTAS ANTIBODY SCREEN NEG Performed By: #### XM #### [facility] (DEFAULT) [address] [place] [address] CBC AND ELECTRONIC DIFF Collected: 09/04/2024 6:51 PM Status: F Source: [facility] Order Comment: On admission. TYPE CODE TESTS RESULT OUT OF RANGE REFERENCE UNITS LAB [id number] WBC Count 2.00 Low 3.99-11.19 K/uL LAB [id number] RBC Count 2.74 Low 3.91-5.04 M/uL LAB [id number] Hemoglobin 9.0 Low 11.4-15.2 g/dL LAB [id number] Hematocrit 26.2 Low 34.9-44.3 % LAB [id number] Mean Cell Volume 95.6 79.6-97.7 fL LAB [id number] Mean Cell Hgb 32.8 25.9-33.9 pg LAB [id number] Mean Cell Hgb Conc 34.4 31.4-35.9 g/dL LAB [id number] RBC Distribution 15.6 High 10.8-14.9 % LAB [id number] Platelet Count 28 Low alert 150-393 K/uL LAB [id number] Mean Platelet Volume 9.7 8.5-12.2 fL LAB [id number] DIFF STATUS Electronic Differential LAB [id number] Segs + Bands Auto 3.5 % LAB [id number] Immature Grans % 0.0 % LAB [id number] Lymphocyte % Auto 94.0 % LAB [id number] Monocyte % Auto 2.5 % LAB [id number] Eosinophil % Auto 0.0 % LAB [id number] Basophil % Auto 0.0 % LAB [id number] Nucleated RBC 0.0 <=0.2 /100 WB C LAB [id number] Segs + Bands,Absolute Auto 0.07 Low 1.64-7.28 K/uL LAB [id number] Immature Grans Absolute < <=0.08 K/uL LAB [id number] Abs Lymph Auto 1.88 1.16-3.51 K/uL LAB [id number] Abs Vermilion Auto 0.05 Low 0.22-0.87 K/uL LAB [id number] Abs Eos Auto < 0.00-0.42 K/uL LAB [id number] Abs Baso Auto < 0.00-0.15 K/uL Performed By: #### [id number] ## ## [facility] (DEFAULT) [address] [address] CALCIUM Collected: 6:51 PM Status: F Source: [facility] TYPE CODE TESTS RESULT OUT OF RANGE REFERENCE UNITS LAB [id number] Calcium 9.9 8.6-10.5 mg/dL Performed By: #### CA, IPB, CHM7, HFP, MGO #### [facility] (DEFAULT) [address] [address] MAGNESIUM Collected: 6:51 PM Status: F Source: [facility] TYPE CODE TESTS RESULT OUT OF RANGE REFERENCE UNITS LAB [id number] Magnesium 2.0 1.6-2.6 mg/dL Performed By: #### CA, IPB, CHM7, HFP, MGO #### [facility] (DEFAULT) [address] [address] CHEM 7 (LYTES,BUN,CREA,GLUC) Collected: 09/04/2024 6:51 PM Status: F Source: [facility] Order Comment: On admission. TYPE CODE TESTS RESULT OUT OF RANGE REFERENCE UNITS LAB [id number] Sodium 136 135-145 mmol/L LAB [id number] Potassium 4.2 3.5-5.0 mmol/L LAB [id number] Chloride 104 98-108 mmol/L LAB [id number] CO2 25 21-31 mmol/L LAB [id number] Glucose 95 70-99 mg/dL LAB [id number] BUN 25 7-25 mg/dL LAB [id number] Creatinine 0.95 0.50-1.20 mg/dL LAB [id number] Bun/Crea Ratio 26 LAB [id number] Osmolality (Calculated) 290 278-305 mOsm/kg LAB [id number] Anion Gap 11 7-17 mmol/L LAB [id number] eGFR, CKD-EPI, Female 64 >=60 mL/min/ 1.73m2 Result Comment: Reported eGF R is based on the CKD-EPI 2020 equation using creatinine, age, and sex. Performed By: #### CA, IPB, CHM7, HFP, MGO #### [facility] (DEFAULT) [address] [address] HEPATIC FUNCTION PANEL Collected: 09/04/2024 6:51 PM Status: F Source: [facility] Order Comment: On admission. TYPE CODE TESTS RESULT OUT OF RANGE REFERENCE UNITS LAB [id number] Albumin 4.3 3.5-5.0 g/dL LAB [id number] Bilirubin Direct 0.1 <0.3 mg/dL LAB [id number] Bilirubin Total 0.4 <1.5 mg/dL LAB [id number] ALP 58 32-126 U/L LAB [id number] ALT 9 9-48 U/L LAB [id number] AST 16 10-39 U/L LAB [id number] Total Protein 7.2 6.4-8.3 g/dL Performed By: #### CA, IPB, CHM7, HFP, MGO #### [facility] (DEFAULT) [address] [address] PHOSPHATE, INORGANIC Collected: 6:51 PM Status: F Source: [facility] TYPE CODE TESTS RESULT OUT OF RANGE REFERENCE UNITS LAB [id number] Phosphorous 3.7 2.2-4.6 mg/dL Performed By: #### CA, IPB, CHM7, HFP, MGO #### [facility] (DEFAULT) [address] [address] FIBRINOGEN, CLOTTABLE Collected: 2023 6:51 PM Status: F Source: [facility] Order Comment: On admission. Fibrinogen levels may be altered by the normal physiologic changes of and should be interpreted considering reference ranges specific to gestational age. First Trimester: 244-510 mg/dL Second Trimester: 291-538 mg/dL Third Trimester/: 373-619 mg/dL Reference: Faby M, Tess LG, Sveta FG. and laboratory studies: a reference table for clinicians. Obstet Gynecol 2009; 114:1326. TYPE CODE TESTS RESULT OUT OF RANGE REFERENCE UNITS LAB [id number] Fibrinogen-C lottable 387 220-410 mg/dL Result Comment: Functional F ibrinogen (activity) levels can be affected by direct thrombin inhibitors such as heparins (>2.0 IU/ml) and dabigatran. Abnormal results should be interpreted with caution. Performed By: #### FIB, PTPT T #### [facility] (DEFAULT) [address] [address] PT,INR,PTT Collected: 6:51 PM Status: F Source: [facility] Order Comment: On admission. TYPE CODE TESTS RESULT OUT OF RANGE REFERENCE UNITS LAB [id number] PT 14.0 11.9-14.2 sec LAB [id number] INR 1.1 0.9-1.1 LAB [id number] PTT 25.7 24.0-34.3 sec Performed By: #### FIB, PTPT T #### [facility] (DEFAULT) [address] [place] [address] TYPE AND SCREEN Collected: 08/29/2024 3:18 PM Status : F Source: [facility] TYPE CODE TESTS RESULT OUT OF RANGE REFERENCE UNITS LAB [id number] ABO/RH(D) TYPE O POS LAB OUTD Outdate Specimen 09/01/2024 23:59 LAB PERCENTAS ANTIBODY SCREEN NEG Performed By: #### XM #### [facility] (DEFAULT) [address] [address] G6PD, QUALITATIVE Collected: 08/29/2024 3:18 PM Stat us: F Source: [facility] TYPE CODE TESTS RESULT OUT OF RANGE REFERENCE UNITS LAB [id number] G6PD Qualitative Enzyme Activity Present Enzyme Activity Present Performed By: #### G6PD #### [facility] (DEFAULT) [address] [address] CBC AND ELECTRONIC DIFF Collected: 08/29/2024 3:18 PM Status: F Source: [facility] TYPE CODE TESTS RESULT OUT OF RANGE REFERENCE UNITS LAB [id number] WBC Count 1.84 Low 3.99-11.19 K/uL LAB [id number] RBC Count 3.11 Low 3.91-5.04 M/uL LAB [id number] Hemoglobin 10.2 Low 11.4-15.2 g/dL LAB [id number] Hematocrit 29.9 Low 34.9-44.3 % LAB [id number] Mean Cell Volume 96.1 79.6-97.7 fL LAB [id number] Mean Cell Hgb 32.8 25.9-33.9 pg LAB [id number] Mean Cell Hgb Conc 34.1 31.4-35.9 g/dL LAB [id number] RBC Distribution 15.2 High 10.8-14.9 % LAB [id number] Platelet Count 10 Low alert 150-393 K/uL Result Comment: This result has been called to Azalia Akhtar RN by [email or web address] on 08/29/2024 15:41:59, and has been read back. LAB [id number] Mean Platelet Volume 11.4 8.5-12.2 fL LAB [id number] DIFF STATUS Electronic Differential LAB [id number] Segs + Bands Auto 9.8 % LAB [id number] Immature Grans % 0.0 % LAB [id number] Lymphocyte % Auto 87.5 % LAB [id number] Monocyte % Auto 2.2 % LAB [id number] Eosinophil % Auto 0.5 % LAB [id number] Basophil % Auto 0.0 % LAB [id number] Nucleated RBC 0.0 <=0.2 /100 WB C LAB [id number] Segs + Bands,Absolute Auto 0.18 Low 1.64-7.28 K/uL LAB [id number] Immature Grans Absolute < <=0.08 K/uL LAB [id number] Abs Lymph Auto 1.61 1.16-3.51 K/uL LAB [id number] Abs Vermilion Auto 0.04 Low 0.22-0.87 K/uL LAB [id number] Abs Eos Auto < 0.00-0.42 K/uL LAB [id number] Abs Baso Auto < 0.00-0.15 K/uL Performed By: #### [id number] ## ## [facility] (DEFAULT) [address] [place] [address] COMPREHENSIVE METABOLIC PANEL Collected: 08/29/2024 3 :18 PM Status: F Source: [facility] TYPE CODE TESTS RESULT OUT OF RANGE REFERENCE UNITS LAB [id number] Sodium 138 135-145 mmol/L LAB [id number] Potassium 4.1 3.5-5.0 mmol/L LAB [id number] Chloride 104 98-108 mmol/L LAB [id number] BUN 29 High 7-25 mg/dL LAB [id number] Creatinine 0.84 0.50-1.20 mg/dL LAB [id number] Glucose 93 70-99 mg/dL LAB [id number] Bilirubin Total 0.5 <1.5 mg/dL LAB [id number] Albumin 4.3 3.5-5.0 g/dL LAB [id number] Total Protein 7.3 6.4-8.3 g/dL LAB [id number] AST 14 10-39 U/L LAB [id number] ALP 51 32-126 U/L LAB [id number] Calcium 9.9 8.6-10.5 mg/dL LAB [id number] CO2 26 21-31 mmol/L LAB [id number] ALT 9 9-48 U/L LAB [id number] Bun/Crea Ratio 35 LAB [id number] Osmolality (Calculated) 295 278-305 mOsm/kg LAB [id number] Anion Gap 12 7-17 mmol/L LAB [id number] eGFR, CKD-EPI, Female 75 >=60 mL/min/1 .73m2 Result Comment: Reported eGF R is based on the CKD-EPI 2020 equation using creatinine, age, and sex. Performed By: #### CMPN #### [facility] (DEFAULT) [address] [place] [address] CHEM 7 (LYTES,BUN,CREA,GLUC) Collected: 08/25/2024 4:36 AM Status: F Source: [facility] TYPE CODE TESTS RESULT OUT OF RANGE REFERENCE UNITS LAB [id number] Sodium 143 135-145 mmol/L LAB [id number] Potassium 4.6 3.5-5.0 mmol/L Result Comment: Specimen mod erately hemolyzed. Potassium results may be falsey elevated by more than 0.8 mmol/L. Consider recollection. LAB [id number] Chloride 113 High 98-108 mmol/L LAB [id number] CO2 23 21-31 mmol/L LAB [id number] Glucose 83 70-99 mg/dL LAB [id number] BUN 15 7-25 mg/dL LAB [id number] Creatinine 0.77 0.50-1.20 mg/dL LAB [id number] Bun/Crea Ratio 19 LAB [id number] Osmolality (Calculated) 299 278-305 mOsm/kg LAB [id number] Anion Gap 12 7-17 mmol/L LAB [id number] eGFR, CKD-EPI, Female 84 >=60 mL/min/ 1.73m2 Result Comment: Reported eGF R is based on the CKD-EPI 2020 equation using creatinine, age, and sex. Performed By: #### [id number] #### [facility] (DEFAULT) [address] [place] [address] TYPE AND SCREEN Collected: 08/25/2024 3:37 AM Status : F Source: [facility] TYPE CODE TESTS RESULT OUT OF RANGE REFERENCE UNITS LAB [id number] ABO/RH(D) TYPE O POS LAB OUTD Outdate Specimen 08/28/2024 23:59 LAB PERCENTAS ANTIBODY SCREEN NEG Performed By: #### XM #### [facility] (DEFAULT) [address] [address] CALCIUM Collected: 3:37 AM Status: F Source: [facility] TYPE CODE TESTS RESULT OUT OF RANGE REFERENCE UNITS LAB [id number] Calcium 8.4 Low 8.6-10.5 mg/dL Performed By: #### IPB, MGO, LDO, CA, URICB #### [facility] (DEFAULT) [address] [place] [address] LACTATE DEHYDROGENASE Collected: 2023 3:37 AM Status: F Source: [facility] TYPE CODE TESTS RESULT OUT OF RANGE REFERENCE UNITS LAB [id number] LD Total 437 High 100-190 U/L Result Comment: Specimen alice ssly hemolyzed. LDH results may be significantly falsely elevated. Consider recollection. Performed By: #### IPB, MGO, LDO, CA, URICB #### [facility] (DEFAULT) [address] [place] [address] MAGNESIUM Collected: 3:37 AM Status: F Source: [facility] TYPE CODE TESTS RESULT OUT OF RANGE REFERENCE UNITS LAB [id number] Magnesium 1.9 1.6-2.6 mg/dL Performed By: #### IPB, MGO, LDO, CA, URICB #### [facility] (DEFAULT) [address] [address] URIC ACID Collected: 3:37 AM Status: F Source: [facility] TYPE CODE TESTS RESULT OUT OF RANGE REFERENCE UNITS LAB [id number] Uric Acid 2.3 Low 2.8-6.0 mg/dL Performed By: #### IPB, MGO, LDO, CA, URICB #### [facility] (DEFAULT) [address] [place] [address] PHOSPHATE, INORGANIC Collected: 024 3:37 AM Status: F Source: [facility] TYPE CODE TESTS RESULT OUT OF RANGE REFERENCE UNITS LAB [id number] Phosphorous 4.4 2.2-4.6 mg/dL Performed By: #### IPB, MGO, LDO, CA, URICB #### [facility] (DEFAULT) [address] [address] CBC AND ELECTRONIC DIFF Collected: 08/25/2024 3:37 AM Status: F Source: [facility] TYPE CODE TESTS RESULT OUT OF RANGE REFERENCE UNITS LAB [id number] WBC Count 1.72 Low 3.99-11.19 K/uL LAB [id number] RBC Count 2.05 Low 3.91-5.04 M/uL LAB [id number] Hemoglobin 7.1 Low 11.4-15.2 g/dL LAB [id number] Hematocrit 20.3 Low 34.9-44.3 % LAB [id number] Mean Cell Volume 99.0 High 79.6-97.7 fL LAB [id number] Mean Cell Hgb 34.6 High 25.9-33.9 pg LAB [id number] Mean Cell Hgb Conc 35.0 31.4-35.9 g/dL LAB [id number] RBC Distribution 16.7 High 10.8-14.9 % LAB [id number] Platelet Count 61 Low 150-393 K/uL LAB [id number] Mean Platelet Volume 12.3 High 8.5-12.2 fL LAB [id number] DIFF STATUS Electronic Differential LAB [id number] Segs + Bands Auto 8.2 % LAB [id number] Immature Grans % 0.0 % LAB [id number] Lymphocyte % Auto 89.5 % LAB [id number] Monocyte % Auto 1.7 % LAB [id number] Eosinophil % Auto 0.6 % LAB [id number] Basophil % Auto 0.0 % LAB [id number] Nucleated RBC 0.0 <=0.2 /100 WB C LAB [id number] Segs + Bands,Absolute Auto 0.14 Low 1.64-7.28 K/uL LAB [id number] Immature Grans Absolute < <=0.08 K/uL LAB [id number] Abs Lymph Auto 1.54 1.16-3.51 K/uL LAB [id number] Abs Vermilion Auto < Low 0.22-0.87 K/uL LAB [id number] Abs Eos Auto < 0.00-0.42 K/uL LAB [id number] Abs Baso Auto < 0.00-0.15 K/uL Performed By: #### [id number] ## ## [facility] (DEFAULT) [facility] [address] [address] DIRECT ANTIGLOBULIN TEST (DANIA) Collecte d: 08/24/2024 3:54 AM Status: F Source: [facility] TYPE CODE TESTS RESULT OUT OF RANGE REFERENCE UNITS LAB [id number] DANIA, POLY NEG Performed By: #### DATO #### [facility] (DEFAULT) [address] [place] [address] CALCIUM Collected: 4 3:54 AM Status: F Source: [facility] TYPE CODE TESTS RESULT OUT OF RANGE REFERENCE UNITS LAB [id number] Calcium 8.9 8.6-10.5 mg/dL Performed By: #### CHM7, MGO , CA, IPB, LDO, URICB #### [facility] (DEFAULT) [address] [place] [address] LACTATE DEHYDROGENASE Collected: 2023 3:54 AM Status: F Source: [facility] TYPE CODE TESTS RESULT OUT OF RANGE REFERENCE UNITS LAB [id number] LD Total 163 100-190 U/L Performed By: #### CHM7, MGO , CA, IPB, LDO, URICB #### [facility] (DEFAULT) [address] [place] [address] MAGNESIUM Collected: 4 3:54 AM Status: F Source: [facility] TYPE CODE TESTS RESULT OUT OF RANGE REFERENCE UNITS LAB [id number] Magnesium 1.8 1.6-2.6 mg/dL Performed By: #### CHM7, MGO , CA, IPB, LDO, URICB #### [facility] (DEFAULT) [address] [place] [address] URIC ACID Collected: 4 3:54 AM Status: F Source: [facility] TYPE CODE TESTS RESULT OUT OF RANGE REFERENCE UNITS LAB [id number] Uric Acid 2.3 Low 2.8-6.0 mg/dL Performed By: #### CHM7, MGO , CA, IPB, LDO, URICB #### [facility] (DEFAULT) [address] [address] PHOSPHATE, INORGANIC Collected: 024 3:54 AM Status: F Source: [facility] TYPE CODE TESTS RESULT OUT OF RANGE REFERENCE UNITS LAB [id number] Phosphorous 3.8 2.2-4.6 mg/dL Performed By: #### CHM7, MGO , CA, IPB, LDO, URICB #### [facility] (DEFAULT) [address] [place] [id number] CHEM 7 (LYTES,BUN,CREA,GLUC) Collected: 08/24/2024 3:54 AM Status: F Source: [facility] TYPE CODE TESTS RESULT OUT OF RANGE REFERENCE UNITS LAB [id number] Sodium 143 135-145 mmol/L LAB [id number] Potassium 3.8 3.5-5.0 mmol/L LAB [id number] Chloride 112 High 98-108 mmol/L LAB [id number] CO2 24 21-31 mmol/L LAB [id number] Glucose 87 70-99 mg/dL LAB [id number] BUN 11 7-25 mg/dL LAB [id number] Creatinine 0.77 0.50-1.20 mg/dL LAB [id number] Bun/Crea Ratio 14 LAB [id number] Osmolality (Calculated) 297 278-305 mOsm/kg LAB [id number] Anion Gap 11 7-17 mmol/L LAB [id number] eGFR, CKD-EPI, Female 84 >=60 mL/min/ 1.73m2 Result Comment: Reported eGF R is based on the CKD-EPI 2020 equation using creatinine, age, and sex. Performed By: #### CHM7, MGO , CA, IPB, LDO, URICB #### [facility] (DEFAULT) [address] [address] CBC AND ELECTRONIC DIFF Collected: 08/24/2024 3:54 AM Status: F Source: [facility] TYPE CODE TESTS RESULT OUT OF RANGE REFERENCE UNITS LAB [id number] WBC Count 1.68 Low 3.99-11.19 K/uL LAB [id number] RBC Count 2.16 Low 3.91-5.04 M/uL LAB [id number] Hemoglobin 7.3 Low 11.4-15.2 g/dL LAB [id number] Hematocrit 21.1 Low 34.9-44.3 % LAB [id number] Mean Cell Volume 97.7 79.6-97.7 fL LAB [id number] Mean Cell Hgb 33.8 25.9-33.9 pg LAB [id number] Mean Cell Hgb Conc 34.6 31.4-35.9 g/dL LAB [id number] RBC Distribution 17.4 High 10.8-14.9 % LAB [id number] Platelet Count 50 Low 150-393 K/uL LAB [id number] Mean Platelet Volume 10.7 8.5-12.2 fL LAB [id number] DIFF STATUS Electronic Differential LAB [id number] Segs + Bands Auto 10.7 % LAB [id number] Immature Grans % 0.0 % LAB [id number] Lymphocyte % Auto 86.3 % LAB [id number] Monocyte % Auto 3.0 % LAB [id number] Eosinophil % Auto 0.0 % LAB [id number] Basophil % Auto 0.0 % LAB [id number] Nucleated RBC 0.0 <=0.2 /100 WB C LAB [id number] Segs + Bands,Absolute Auto 0.18 Low 1.64-7.28 K/uL LAB [id number] Immature Grans Absolute < <=0.08 K/uL LAB [id number] Abs Lymph Auto 1.45 1.16-3.51 K/uL LAB [id number] Abs Vermilion Auto 0.05 Low 0.22-0.87 K/uL LAB [id number] Abs Eos Auto < 0.00-0.42 K/uL LAB [id number] Abs Baso Auto < 0.00-0.15 K/uL Performed By: #### [id number] ## ## [facility] (DEFAULT) [address] [place] [address] XR CHEST PA AND LATERAL 2 VIEWS Observed: 08/23/2024 3:21 PM Status: F Source: [facility] EXAM: XR CHEST PA AND LATERA L 2 VIEWS, 08/23/2024 10:09 AM COMPARISON: April 11, 2018 CLINICAL INDICATIONS: Baseline pre-chemotherapy RELEVANT CLINICAL HISTORY: On admission.; FINDINGS: (Adequate technique) Implanted Devices: None Lungs: Clear, without mass, interstitial disease, or consolidation. Pleural Spaces: No pleural effusion. No pneumothorax. Mediastinum and Marylin: Normal Cardiac silhouette and great vessels: Normal heart size. Unremarkable aorta. Chest Wall: Normal IMPRESSION: No acute cardiopulmonary disease CARDIOGRAM Observed: 08/23/2024 1:54 PM Status: F Source: [facility] Left ventricle is normal in size and with normal systolic function. Ejection fraction of 60-65%. GLS normal at -25.3%. There are no regional wall motion abnormalities. There is normal diastolic function. Normal right ventricle size and normal systolic function. Estimated RVSP 34 mmHg assuming a R atrial pressure of 15 mm Hg. Atria are normal in size. There is no hemodynamically significant valve disease. No prior study at this institution for comparison. Table formatting from the original result was not included. Images from the original result were not included. Facility [facility] Patient Information Patient Name Ana Islas Legal Sex Female Indication for Exam Priority: Routine Dx: Examination prior to chemotherapy [Z01.818 (ICD-10-CM)] Comments: On admission Order Question Reason for Exam Baseline pre-chemotherapy Interpretation Summary Result History is available. Left ventricle is normal in size and with normal systolic function. Ejection fraction of 60-65%. GLS normal at -25.3%. There are no regional wall motion abnormalities. There is normal diastolic function. Normal right ventricle size and normal systolic function. Estimated RVSP 34 mmHg assuming a R atrial pressure of 15 mm Hg. Atria are normal in size. There is no hemodynamically significant valve disease. No prior study at this institution for comparison. Findings Left Ventricle Chamber size is normal. Normal wall thickness. Normal global systolic function. Regional wall motion is normal. Ejection fraction is normal (60 - 65%). The magnitude of the left ventricular longitudinal strain is normal. Diastolic function is normal. Global longitudinal strain is -26.2%. Right Ventricle Chamber size is normal. Systolic function is normal. Estimated right ventricular systolic pressure is 34 mmHg. Left Atrium Chamber size is normal. Right Atrium Chamber size is normal. Septum The atrial septum is normal. Mitral Valve Normal appearing leaflets. Leaflet mobility is normal. Trace regurgitation. No valve stenosis. Aortic Valve Trileaflet valve. Non-specific thickening of the right coronary cusp (RCC). Leaflet mobility is normal. No regurgitation. No stenosis. Tricuspid Valve Normal leaflets. Leaflet mobility is normal. Trace regurgitation. No stenosis. Estimated right ventricular systolic pressure is 34 mmHg. Estimated right atrial pressure is 15.00 mmHg. Pulmonic Valve Pulmonic valve not well visualized. No regurgitation. No stenosis. Aorta No dilation to extent seen. SOV: 2.95 cm. STJ: 2.78 cm. Ascendin.98 cm. Pericardium No pericardial effusion. IVC/SVC The inferior vena cava is enlarged. The diameter is >21 mm and decreases <50% during inspiration. Pulmonary Artery Pulmonary artery not well visualized. Reading Providers Reading Role Read Date Austin Carter MD Fellow - Reading 08/23/2024 Sj Cardenas MD Echo [place] 08/23/2024 Wall Scoring Score Index: 1.00 The left ventricular wall motion is normal. Left Heart Measurements LV - Systole LVIDD 4.1 cm IVS 0.79 cm LVIDS 2.82 cm PW 0.82 cm LV RWT 0.4 LV Mass Index 62.1 g/m2 LV EDV BP 81 mL LV ESV BP 27 mL BP EF 67 % LV stroke volume BP (ml) 54 mL LV stroke volume index BP 34.18 mL/m2 Long Strain -26.2 % LV - Diastole MV pk E dayna 0.79 m/s MV pk A dayna 0.9 m/s E/A ratio 0.88 e' septal pk dayna 0.11 m/s e' lateral pk dayna 0.13 m/s Avg e' pk dayna 0.12 m/s E/e' septal ratio 7.18 E/e' lateral ratio 6.25 Avg E/e' ratio 6.71 LV - HCM AV LVOT peak gradient 8 mmHg Left Atrium LA ESV SP 4CH (MOD) 27 mL LA ESV SP 2CH (MOD) 14 mL LA ESV BP (MOD) index 16 mL/m2 Right Heart Measurements RV - 2D RV basal diam 4.16 cm RV mid diam 1.75 cm RV long diam 7.77 cm RV Area diastolic 14.9 cm2 RV Area systolic 7 cm2 RV Fractional area change 53 % RV - Doppler TAPSE 2.5 cm RV S' 15.8 cm/s Right Atrium RA vol index 4CH (MOD) 15.82 mL/m2 EST RAP 15 mmHg RA area 4CH (MOD) 11.87 cm2 Great Vessels Aortic Root - End Diastolic Sinus 2.95 cm STJ 2.78 cm Ascending aorta 2.98 cm Inferior Vena Cava IVC ostium 2.42 cm Doppler Measurements - Aortic Valve Stenosis LVOT diameter 1.61 cm LVOT area 2.03 cm2 LVOT peak dayna 1.39 m/s LVOT peak VTI 27.57 cm Stroke Volume 56 cm/mL Stroke volume index 36 Ao peak dayna 1.38 m/s Ao VTI 28.51 cm AV peak gradient 8 mmHG AV mean gradient 4 mmHg DI (VTI) 0.97 m/2 DI (Vmax) 1.01 LUCÍA (continuity Vmax) 2.05 cm2 LUCÍA index (continuity Vmax) 1.3 m/s LUCÍA (continuity VTI) 1.97 cm2 LUCÍA index (continuity VTI) 1.25 cm2/m2 LVOT stroke volume 56 cm3 LVOT stroke volume index 35.51 ml/m2 Doppler Measurements - Mitral Valve Stenosis MV pk E dayna 0.79 m/s MV pk A dayna 0.9 m/s E/A ratio 0.88 PISA-MS MV pk E dayna 0.79 m/s Doppler Measurements - Tricuspid Valve Stenosis IVC ostium 2.42 cm Regurgitation TR pk dayna 2.2 m/s TR pk grad 19 mmHg EST RAP 15 mmHg EST RVSP 34 mmHg Doppler Measurements - Pulmonic Valve Stenosis PV PK DAYNA 0.67 m/s PV peak gradient 2 mmHg PV mean gradient 1 mmHg RVOT peak dayna 0.6 m/s RVOT peak VTI 14.37 cm RVOT peak gradient 1 mmHg Vitals Height Weight BSA (Calculated - sq m) BP Pulse 1.6 m (5' 2.99) 56.7 kg (125 lb) 1.58 m2 97/54 68 Performing Staff Susan Marin RDCS Study Details A complete echocardiography study (including color flow Doppler, spectral Doppler, M-mode and left ventricular strain) was performed. Strain measurements performed for the evaluation of chemotherapy induced cardiac dysfunction. Imaging system used: [employer]. Indications Indications for study: chemotherapy (pre/post). Exam Details Performed Procedure Technologist Supporting Staff Performing Physician ECHOCARDIOGRAM STUDY DETAILS BILLING Susan Marin RDCS Appointment Date/Status Modality Department 08/23/2024 Arrived ECHO TESTING, [facility] ECHOCARDIOGRAPHY ROSS Begin Exam End Exam 08/23/2024 10:35 AM 08/23/2024 12:04 PM Signed at 1354 EST External Results Report There is an external results report available. Patient Release Status: This result is viewable by the patient in MyChart. ECHOCARDIOGRAM: Patient Communication Released Not seen ABN Associated with this Order There is no ABN associated with this order. PI LINKED AG Collected: 08/23/2024 12:42 PM Status: F Source: [facility] TYPE CODE TESTS RESULT OUT OF RANGE REFERENCE UNITS LAB 2977 PNH INTERPRETATION SEE COMMENTS Result Comment: Peripheral b lood, flow cytometric immunophenotyping for paroxysmal nocturnal hemoglobinuria (PNH): Normal immunophenotyping results. No PNH clone is detected in RBC, granulocytes, or monocytes. Clinical correlation is recommended. Recent transfusion can decrease the sensitivity of this test and interfere with accuracy. The specimen received is satisfactory for quality analysis. Reviewed by: Gregory Schwab M.D., Ph.D. Testing results: See table ADDITIONAL INFORMATION Antibodies to the following antigens were used for cell gating and interpretation. RBCs: DV552n and CD59. WBCs: CD14, CD15, CD16, CD24, CD33, CD45, FLAER. This test was developed using an analyte specific reagent. Its performance characteristics were determined by [facility] in a manner consistent with CLIA requirements. This test has not been cleared or approved by the U.S. Food and Drug Administration. LAB 3554 RBC TYPE II (PARTIAL EXPRESSION) 0.01 0.00-0.99 % LAB 2974 CD59 RBC (% DEFICIENT) 0.01 0.00-0.01 % LAB 2970 FLAER (NEUTROPHILS) 0.00 0.00-0.01 % LAB 2903 CD14 (MONOCYTE) 0.00 0.00-0.05 % Result Comment: Test Performed by: [facility] [place] [address] [employer] Installer: Ann Oliver Ph.D.; CLIA# [id number] Performed By: #### YPIB #### [facility] (DEFAULT) [address] [place] [address] PARVOVIRUS (B19) DNA, PCR, BLOOD Collec rhiannon: 08/23/2024 12:42 PM Status: F Source: [facility] TYPE CODE TESTS RESULT OUT OF RANGE REFERENCE UNITS LAB 3495 NV SPEC SOURCE Whole Blood LAB 3496 PARVOVIRUS B19 BY RAPID PCR Not Detected Not Detected Result Comment: The primers/ probe used in this assay will detect parvovirus B19 and V9 (genotypes 1 # 3) but may not detect parvovirus genotype 2. The majority of circulating Parvovirus B19 strains in the [place] are genotype 1. Genotype 2 is not believed to circulate widely in the [place], but has been associated with similar clinical features as genotype 1. Genotype 3 is most prevalent in some countries. This test was developed and its analytical performance characteristics have been determined by [employer] [facility] [place], [place]. It has not been cleared or approved by the FDA. This assay has been validated pursuant to the CLIA regulations and is used for clinical purposes. Test Performed at: [facility] [address] Yo Roman M.D., Ph.D.,Director of Laboratories Performed By: #### YPRVP ### # [facility] (DEFAULT) [address] [place] [address] HEMATOLOGIC NEOPLASM MUTATIO N PANEL, BONE MARROW OR BLOOD Collected: 08/23/2024 12:24 PM Status: F Source: [facility] TYPE CODE TESTS RESULT OUT OF RANGE REFERENCE UNITS LAB [id number] Receiving Status Accessioned in Lab Performed By: #### FLT3BM, L ABHCNGSM, IDH1 AND IDH2 MUTATIONS, BLOOD OR BONE MARROW #### [facility] (DEFAULT) [address] [place] [address] FLT3, ITD AND TK MUTATION, BONE MARROW Collected: 08/23/2024 12:24 PM Status: F Source: [facility] Order Comment: For bmbx TYPE CODE TESTS RESULT OUT OF RANGE REFERENCE UNITS LAB [id number] Receiving Status Accessioned in Lab Performed By: #### FLT3BM, L ABHCNGSM, IDH1 AND IDH2 MUTATIONS, BLOOD OR BONE MARROW #### [facility] (DEFAULT) [address] [address] IDH1 AND IDH2 MUTATIONS, BLO OD OR BONE MARROW Collected: 08/23/2024 12:24 PM Status: F Source: [facility] Order Comment: For bmbx TYPE CODE TESTS RESULT OUT OF RANGE REFERENCE UNITS LAB [id number] Receiving Status Accessioned in Lab Performed By: #### FLT3BM, L ABHCNGSM, IDH1 AND IDH2 MUTATIONS, BLOOD OR BONE MARROW #### [facility] (DEFAULT) [address] [place] [address] CYTOGENETIC STUDIES (PERFORMABLE) Collected: 08/23/2024 12:24 PM Status: F Source: [facility] Order Comment: Please do not use this order for add-ons Place sample for CYTOGENETICS in Sodium (NA) heparin tube.Please do not use this order for add-ons Place sample for CYTOGENETICS in Sodium (NA) heparin tube. TYPE CODE TESTS RESULT OUT OF RANGE REFERENCE UNITS LAB [id number] Clinical History Follicular Lymphoma, Pancytopenia LAB [id number] Specimen Received Bone Marro w Aspirate obtained 08/23/24 LAB [id number] Karyotype No dividing cells LAB [id number] Interpretation Result Comment: There were n o dividing cells in this sample; therefore, cytogenetic analysis was not possible. There was a low total nucleated cell count, which may have contributed to a lack of dividing cells. FISH analysis on this sample is pending and will be reported subsequently. Performed By: #### [id number], Jared WADDELLOG #### [facility] (DEFAULT) [address] [place] [address] FISH STUDIES Collected: 08/23/2024 12:24 PM Status: F Source: [facility] Order Comment: Please do not use this order for add-ons Place sample for CYTOGENETICS in Sodium (NA) heparin tube.Please do not use this order for add-ons Place sample for CYTOGENETICS in Sodium (NA) heparin tube. TYPE CODE TESTS RESULT OUT OF RANGE REFERENCE UNITS LAB [id number] Clinical History Follicular Lymphoma LAB [id number] Specimen Received Bone Marro w Aspirate obtained 08/23/24 LAB [id number] FISH Report Result Comment: AML Results Probe Interpretation Patient% Signal/Burns Range 3q26.2 (MECOM) negative 1.0 bap/ 4.8% 8q21.3-21q22 (PZDM0W8-VIEX0) negative 0 dual fusion/ 0.6% 11q23 (KMT2A) negative 0 bap/ 3.3% 72z50-07q27 (PML-ANA) negative 0 dual fusion/ 0.6% 16q22 (CBFB) negative 0 bap/ 2.3% 17p13.1 (TP53) negative 1.5 1 signal/ 6.4% FISH Results Probe Interpretation Patient% Signal/Burns Range 22q11.2-9q34.1 (BCR-ABL1) negative 0 dual fusion/ 0.6% MDS w/EGR1 Results Probe Interpretation Patient% Signal/Burns Range 5p15.2 (D5S23:M6Z770) negative 0 1 signal/ 4.3% 5q31 (EGR1) negative 1.0 1 signal/ 4.9% 7p11.1-q11.1 (D7Z1) negative 0 1 signal/ 3.6% 7q31 (G1J153) negative 0 1 signal/ 5.4% 8p11.1-q11.1 (D8Z2) negative 0 3 signals/ 2.2% 20q12 (R27T010) negative 0 1 signal/ 6.0% (AML Panel): nuc familia(GOLIM4,MECOM,MYNN)x2[180],(LTFR0A3,RUNX1)x2[175],(ABL1,BCR)x2[182],(LTC0Zp9) [200] ,(PML,ANA)x2[200],(CBFBx2)[200],(TP53x2)[200] (MDS Panel): nuc familia(D5S23:Z6A103,EGR1)x2[200],(D7Z1,O7W165)x2[164],(D8Z2,D58O819)x2[133] LAB [id number] FISH Interpretation Result Comment: FISH analyse s were performed using probes that localize to the loci listed above. The results showed normal signal numbers and patterns for each of the probes within the limits of the analyses. Note: the numbers of cells available to analyze for some of the probes examined were fewer than the 200 upon which sensitivity of these assays was determined, making the analyses less sensitive than when 200 nuclei/probe are analyzed. [facility] LAB [id number] Culture Method Result Comment: Process: 1 Duration: 24 Hr Media: Marrow Max Mitogen: None Banding: GTW Colcemid: 30 min Interphases analyzed: Probe Number of Interphases Probe Type Vendor MECOM 180 tri-color break-apart Cytocell [id number] 175 dual-color, dual fusion MetaSystems KMT2A 200 break-apart MetaSystems PML-ANA 205 dual-color, dual fusion [place] [employer] CBFB 205 break-apart [place] [employer] TP53 203 locus - specific [place] [employer] BCR-ABL1 182 dual-color, dual fusion [place] [employer] Interphases analyzed: Probe Number of Interphases Probe Type Vendor [id number] 202 locus - specific [place] [employer] EGR1 202 locus - specific [place] [employer] D7Z1 164 centromere [place] [employer] [id number] 164 locus - specific [place] [employer] D8Z2 133 centromere [place] [employer] [id number] 133 locus - specific [place] [employer] METHOD: Fluorescence in situ hybridization (FISH) was performed by applying DNA probes to interphase (non-dividing) nuclei isolated from peripheral blood/bone marrow. These are specific DNA probes that detect a number of commonly observed aberrations in hematologic malignancies. This test was developed and its performance characteristics determined by the Cytogenetics Lab at [facility]. It has not been cleared or approved by the FDA. The laboratory is regulated under CLIA as qualified to perform high-complexity testing. This test is used for clinical purposes. It should not be regarded as investigational or for research. Pursuant to the requirements of CLIA'88, this laboratory has established and verified the test's accuracy and precision. Performed By: #### [id number], C YTOGP #### [facility] (DEFAULT) [address] [place] [address] BONE MARROW,BASIC (ASP,BX,FE) Collected : 08/23/2024 12:24 PM Status: F Source: [facility] TYPE CODE TESTS RESULT OUT OF RANGE REFERENCE UNITS LAB [id number] Specimen Status Specimen received in lab, results to follow on Surg Path report. Performed By: #### P3J #### [facility] (DEFAULT) [address] [place] [address] IMMUNOPHENOTYPING Collected: 08/23/2024 12:24 PM Sta tus: F Source: [facility] TYPE CODE TESTS RESULT OUT OF RANGE REFERENCE UNITS LAB [id number] BKR DX CODE Use Ordering LAB [id number] Flow Interpreted by: Andrews Martinez MD LAB SAMPLE TYPE SAMPLE TYPE Bone Marrow LAB [id number] IMMUNOPHENOTYPIN G FLOW See Scanned Result Performed By: #### IMMUNOPHE NOTYPING #### [facility] (DEFAULT) [address] [place] [address] SURG PATH REQUEST Collected: 08/23/2024 12:24 PM Sta tus: F Source: [facility] TYPE CODE TESTS RESULT OUT OF RANGE REFERENCE UNITS LAB [id number] Case Report Result Comment: Surgical Pat hology Report Case: [id number] Authorizing Provider: JODEE Cadet Collected: 08/23/2024 12:24 PM Ordering Location: [facility] Received: 08/23/2024 02:26 PM Pathologist: Andrews Martinez MD, PhD Specimens: A) - BONE MARROW BIOPSY B) - Bone marrow clot LAB [id number] Clinical History Clinical History: MDS. LAB [id number] Pathologic Diagnosis Result Comment: A. Bone brian ow, right, core biopsy, aspirate, and peripheral blood: No morphologic or immunophenotypic evidence of a lymphoproliferative neoplasm; see comment. Hypocellular marrow (<10%) with markedly reduced trilineage hematopoiesis and no increase in blasts. Pancytopenia. B. Bone marrow, right, aspirate clot: Clot consisting of fibrous tissue, crush artifact, adipose tissue, and skin; no hematopoietic elements present. [id number] Diagnosis Comments The patient's history of follicular lymphoma in 2018 and now with new cytopenias is noted. As described in detail below, there is no definitive morphologic or immunophenotypic evidence of lymphoma. The differential diagnosis of the cytopenias and markedly reduced trilineage hematopoiesis includes drug or toxin effect, nutritional deficiency, autoimmunity, infection or some other inflammatory condition, aplastic anemia, and a hypocellular myelodysplastic neoplasm, among other possibilities. Clinical correlation and correlation with concurrent cytogenetic/FISH and molecular findings is recommended. LAB [id number] Microscopic Description Result Comment: A microscopi c examination was performed. BONE MARROW REPORT The following specimens were interpreted to arrive at the above diagnosis: peripheral blood smear, bone marrow aspirate, decalcified trephine biopsy, iron stain CBC data and smear review (200 cells): WBC: 1.66 x K/uL; Hgb: 6.5 g/dL; Hct: 18.6%; MCV: 101.6 fl; RDW: 15.9%; Plt: 65 K/uL Manual differential: bands 0%, neutrophils 5%, lymphocytes 90%, monocytes 5%, eosinophils 0%, basophils 0%. Blood smear findings: The peripheral blood smear findings show a leukopenia with absolute neutropenia and adequate lymphocytes. Circulating blasts are not seen. Rare neutrophils show mildly hypogranular cytoplasm and/or hyposegmented nuclei. The lymphocytes show unremarkable morphology. There is a marked macrocytic normochromic anemia with increased anisocytosis. A moderate thrombocytopenia with unremarkable platelet morphology is present. Aspirate smear quality: The aspirates are hypospicular, hypocellular, and hemodilute. The staining is adequate. Due to the hypocellularity of the specimen, a limited manual differential is performed. Due to the hemodilution of the specimen, the accuracy of the manual differential may be biased and may be more branch customer service representative of peripheral blood. Bone marrow aspirate smear differential (100 cells): Blasts: 0% Promyelocytes: 1% Myelocytes: 0% Metamyelocytes: 0% Bands/Neutrophils: 22% Lymphocytes: 67% Monocytes: 6% Eosinophils: 0% Basophils: 0% Erythroid precursors: 1% Plasma cells: 3% M:E Ratio: The myeloid to erythroid ratio is not applicable. Erythropoiesis: Decreased. Morphology cannot be evaluated due to the paucity of erythroid precursors. Granulopoiesis: Decreased. Progression to mature forms is noted, though these cells likely represent blood constituents. Blasts are not increased, and overt dysplasia is not evident. Megakaryocytes: Megakaryocytes are essentially absent. Morphology cannot be evaluated. Lymphocytes/plasma cells: The lymphocytes and plasma cells are proportionally increased, likely secondary to hemodilution of specimen. The morphology of the lymphocytes and plasma cells are unremarkable. Iron stain: Iron staining cannot be evaluated due to the lack of bone spicules on the iron aspirate stain. Evaluation for ring sideroblasts cannot be performed due to the paucity of erythroid precursors. The iron control shows appropriate reactivity. Biopsy and aspirate clot findings: The biopsy is adequate and is hypocellular (<10%) with markedly reduced trilineage hematopoiesis. Scattered small lymphocytes are present, but there are no definitive atypical lymphoid aggregates seen. The clot section consists of fibrous tissue, adipose tissue, and skin. No hematopoietic marrow particles are seen. Ancillary studies: Additional stains were performed on the biopsy to further evaluate the lymphocytes and assess for blasts. CD3 and CD20 stains label scattered small T cells and B cells, respectively, that are loosely distributed through the interstitium; no distinct atypical B cell aggregates are seen. BCL6 and CD10 stains are negative among most if not all of the lymphocytes. A CD34 stain labels vessels; there is no immunophenotypic evidence of increased CD34+ blasts. Flow cytometric analysis (marrow aspirate): There is no immunophenotypic evidence of an abnormal population of B lymphocytes, T lymphocytes or blasts. Cytogenetics/FISH and Molecular Studies: Performed and resulted in a separate report. Immunohistochemical stains were performed on block A1 in addition to flow cytometry on specimen A to further characterize the lymphocytes in the context of cell morphology and tissue architecture, since discrepancy between flow cytometric analysis and morphology can occur due to sampling bias, preferential loss of targeted cells, or hemodilution. All controls show appropriate reactivity. All immunohistochemistry (IHC), in situ hybridization (FAMILIA), and histochemical tests were developed by and are performed at the [facility], Histology and IHC Lab, [address] [place] [address]. All Immunofluorescent (IF) tests were developed by and are performed at the [facility], Renal Division, [address] [place] [address]. All tests reported here, except for PD-L1, have not been cleared by or approved by the US Food and Drug Administration (FDA). The laboratory is regulated under CLIA as qualified to perform high-complexity testing. The tests are used for clinical purposes. They should not be regarded as investigational or for research. *The above report complies, in slightly modified form, with the guidelines of the [employer] [place] [employer] for the reporting of cancer specimens. *Hematopoietic neoplasms are classified according to: - WHO Classification of Tumours Editorial Board. Haematolymphoid tumours. Epifanio (Negra): International Agency for Research on Cancer; (WHO classification of tumours series, 5th ed.; vol. 112021). https://publications.iarc.fr. - The International Consensus Classification of Mature Lymphoid Neoplasms: a report from the Clinical Advisory Committee. Blood. 2021Jun 30;140(11):0228-6175. doi: 10.1182/blood.9270383062. Erratum in: Blood. 2022Nov 10;141(4):437. PMID: 64332680; PMCID: AQQ9800388. -International Consensus Classification of Myeloid Neoplasms and Acute Leukemias: integrating morphologic, clinical, and genomic data. Blood. 2021Jun 30;140(11):9543-9120. doi: 10.1182/blood.9567964736. PMID: 56014316; PMCID: OJL4127641. All controls show appropriate reactivity. All immunohistochemistry (IHC), in situ hybridization (FAMILIA), and histochemical tests were developed by and are performed at the [facility], Histology and IHC Lab, [address] [place] [address]. All Immunofluorescent (IF) tests were developed by and are performed at the [facility] Laboratory, Renal Division, [address] [place] [address]. All tests reported here, except for PD-L1, have not been cleared by or approved by the US Food and Drug Administration (FDA). The laboratory is regulated under CLIA as qualified to perform high-complexity testing. The tests are used for clinical purposes. They should not be regarded as investigational or for research. LAB [id number] Gross Description Result Comment: The specimen s are received in two properly labeled containers with the patient's name and accession number. A. The specimen is designated BM bx, R, 1223 and consists of one core of hannon bone that is 1.6 cm in length and 0.3 cm in diameter. TE 1 Note: This block will be ready after decalcification. B. The specimen is designated BM clot, R, 1233 and consists of a 0.5 x 0.4 x 0.3 cm aggregate of dark red clotted blood and possible white-hannon tissue fragments. TE 1 Lab Use Only: JobID [id number] Grosser for this case was: Rae Peguero LAB Professional Interpretation Performed at: Professional Interpretation Performed at: Result Comment: [facility] For Immediate Release to Patient's MyChart? Yes [address] [place] [address] Performed By: #### SURGP ### # [facility] (DEFAULT) [address] [address] URINE DRUG SCREEN 10 WITH CONFIRMATION Collected: 08/23/2024 10:52 AM Status: F Source: [facility] Order Comment: On Admission. TYPE CODE TESTS RESULT OUT OF RANGE REFERENCE UNITS LAB [id number] Amphetamine/Meth a mphetamine None Detected Cutoff: 500 ng/mL LAB [id number] Barbiturates None Detected Cu toff: 200 ng/mL LAB [id number] Benzodiazepines None Detected Cutoff: 200 ng/mL LAB [id number] Buprenorphine None Detected C utoff: 5 ng/mL LAB [id number] Cannabinoids (Marijuana) None Detected Cutoff: 50 ng/mL LAB [id number] Cocaine None Detected Cutof f: 150 ng/mL LAB [id number] Fentanyl None Detected Cutof f: 1 ng/mL LAB [id number] Methadone None Detected Cutof f: 300 ng/mL LAB [id number] Opiates Presumptive Positive. Confirmation to follow. Abnormal Cutoff: 300 ng/mL LAB [id number] Oxycodone None Detected Cutof f: 100 ng/mL LAB [id number] Creatinine,Urine 21.7 >=20.0 mg/d L Performed By: #### UPMSC, LA B638 #### [facility] (DEFAULT) [address] [place] [address] OPIOIDS, URINE, CONFIRMATION Collected: 08/23/2024 10 :52 AM Status: F Source: [facility] Order Comment: On Admission. This Liquid Chromatography/Mass Spectrometry (LC/MS/MS) test was developed and its performance characteristics determined by the Toxicology Laboratory at [facility]. It has not been cleared or approved by the FDA. The laboratory is regulated under CLIA as qualified to perform high complexity testing. This test is used for clinical purposes and should not be regarded as investigational or for research. TYPE CODE TESTS RESULT OUT OF RANGE REFERENCE UNITS LAB [id number] 6-Monoacetylmorp h ine Confirmation < <5.0 ng/mL LAB [id number] Codeine Confirmation <25 <25 ng/mL LAB [id number] Hydrocodone Confirmation < <25 ng/mL LAB [id number] Hydromorphone Confirmation < <25 ng/mL LAB [id number] Morphine Confirmation < <25 ng/mL LAB [id number] Opioids Interpretation None Detected None Detected Performed By: #### UPLILIA LORD B638 #### [facility] (DEFAULT) [address] [address] HEMOGLOBIN A1C Collected: 08/23/2024 8:29 AM Status: F Source: [facility] Order Comment: On Admission. TYPE CODE TESTS RESULT OUT OF RANGE REFERENCE UNITS LAB [id number] Hemoglobin A1C HPLC 6.0 High 4.7-5.6 % LAB [id number] Estimated Average Glucose 126 mg/dL Performed By: #### A1CB #### [facility] (DEFAULT) [address] [address] FLT3, ITD AND TK MUTATION, BLOOD Collected: 08/23/2024 8:29 AM Status: F Source: [facility] Order Comment: On Admission. TYPE CODE TESTS RESULT OUT OF RANGE REFERENCE UNITS LAB [id number] Receiving Status Accessioned in Lab Performed By: #### [id number] ### # [facility] (DEFAULT) [address] [address] HEPATITIS BATTERY, CHRONIC Collected: 10/23/2023 8:29 AM Status: F Source: [facility] Order Comment: On Admission. TYPE CODE TESTS RESULT OUT OF RANGE REFERENCE UNITS LAB [id number] Hepatitis B Surface Ag Negative Negative LAB [id number] Hep B Surface Ab Positive Abnormal Negative Result Comment: A positive r esult indicates immunity through past immunization or prior infection. LAB [id number] Hep B Core Ab,Total (IgG+IgM) Negative Negative LAB [id number] Hepatitis C Antibody Negative Negative Performed By: #### HEP3B ### # [facility] (DEFAULT) [address] [address] CMV IGG AB Collected: 08/23/2024 8:29 AM Status: F Source: [facility] Order Comment: On admission TYPE CODE TESTS RESULT OUT OF RANGE REFERENCE UNITS LAB [id number] CMV IgG Antibody Negative Negative Performed By: #### CMVG #### [facility] (DEFAULT) [address] [address] CYTOGENETIC STUDIES (PERFORMABLE) Collected: 08/23/2024 8:29 AM Status: F Source: [facility] Order Comment: Please do not use this order for add-ons Place sample for CYTOGENETICS in Sodium (NA) heparin tube. On Admission. TYPE CODE TESTS RESULT OUT OF RANGE REFERENCE UNITS LAB [id number] Clinical History Pancytopenia LAB [id number] Specimen Received Peripheral Blood obtained 08/23/24 LAB [id number] Karyotype Test not performed LAB [id number] Interpretation Result Comment: There was in sufficient sample to perform both cytogenetic analysis and direct FISH analysis; therefore, the cytogenetic analysis was not performed. FISH analysis on this sample is pending and will be reported subsequently. Performed By: #### [id number], Jared WADDELLOGPerfecto #### [facility] (DEFAULT) [address] [address] FISH STUDIES Collected: 08/23/2024 8:29 AM Status: F Source: [facility] Order Comment: Please do not use this order for add-ons Place sample for CYTOGENETICS in Sodium (NA) heparin tube. On Admission. TYPE CODE TESTS RESULT OUT OF RANGE REFERENCE UNITS LAB [id number] Clinical History Pancytopenia LAB [id number] Specimen Received Peripheral Blood obtained 08/23/24 LAB [id number] FISH Report Result Comment: AML Results Probe Interpretation Patient% Signal/Burns Range 3q26.2 (MECOM) negative 0 bap/ 4.8% 8q21.3-21q22 (SHHJ3A7-ZHNA2) negative 0 dual fusion/ 0.6% 11q23 (KMT2A) negative 0 bap/ 3.3% 30j74-62c55 (PML-ANA) negative 0 dual fusion/ 0.6% 16q22 (CBFB) negative 0 bap/ 2.3% 17p13.1 (TP53) negative 1.5 1 signal/ 6.4% FISH Results Probe Interpretation Patient% Signal/Burns Range 22q11.2-9q34.1 (BCR-ABL1) negative 0 dual fusion/ 0.6% nuc familia(GOLIM4,MECOM,MYNN)x2[200],(HYSP1C1,RUNX1)x2[200],(ABL1,BCR)x2[200],(ATF0Mp9) [200] ,(PML,ANA)x2[200],(CBFBx2)[200],(TP53x2)[200] LAB [id number] FISH Interpretation Result Comment: FISH analyse s were performed using probes that localize to the loci listed above. The results showed normal signal numbers and patterns for each of the probes within the limits of the analyses. LAB [id number] Culture Method Result Comment: Process: 1 Duration: Direct Media: HYPO Mitogen: None Banding: FISH Colcemid: None Interphases analyzed: Probe Number of Interphases Probe Type Vendor MECOM 200 tri-color break-apart Cytocell [id number] 201 dual-color, dual fusion MetaSystems KMT2A 200 break-apart MetaSystems PML-ANA 206 dual-color, dual fusion [place] [employer] CBFB 200 break-apart [place] [employer] TP53 204 locus - specific [place] [employer] BCR-ABL1 209 dual-color, dual fusion [place] [employer] METHOD: Fluorescence in situ hybridization (FISH) was performed by applying DNA probes to interphase (non-dividing) nuclei isolated from peripheral blood/bone marrow. These are specific DNA probes that detect a number of commonly observed aberrations in hematologic malignancies. This test was developed and its performance characteristics determined by the Cytogenetics Lab at [facility]. It has not been cleared or approved by the FDA. The laboratory is regulated under CLIA as qualified to perform high-complexity testing. This test is used for clinical purposes. It should not be regarded as investigational or for research. Pursuant to the requirements of CLIA'88, this laboratory has established and verified the test's accuracy and precision. Performed By: #### [id number], C YTOGP #### [facility] (DEFAULT) [address] [place] [address] IDH1 AND IDH2 MUTATIONS, BLO OD OR BONE MARROW Collected: 08/23/2024 8:29 AM Status: F Source: [facility] TYPE CODE TESTS RESULT OUT OF RANGE REFERENCE UNITS LAB [id number] Receiving Status Accessioned in Lab Performed By: #### IDH1 AND IDH2 MUTATIONS, BLOOD OR BONE MARROW #### [facility] (DEFAULT) [address] [address] LACTATE DEHYDROGENASE Collected: 2023 8:29 AM Status: F Source: [facility] TYPE CODE TESTS RESULT OUT OF RANGE REFERENCE UNITS LAB [id number] LD Total 178 100-190 U/L Performed By: #### LDO #### [facility] (DEFAULT) [address] [address] HSV 1 AND 2 IGG ANTIBODY Collected: 05/2024 8:29 AM Status: F Source: [facility] Order Comment: On Admission. TYPE CODE TESTS RESULT OUT OF RANGE REFERENCE UNITS LAB [id number] HSV 1 IgG Antibody Positive Abnormal Negative LAB [id number] HSV 2 IgG Antibody Negative Negative Performed By: #### [id number] ## ## [facility] (DEFAULT) [address] [address] HLA TYPING (BMT) Collected: 08/23/2024 8:29 AM Statu s: F Source: [facility] Order Comment: On Admission TYPE CODE TESTS RESULT OUT OF RANGE REFERENCE UNITS LAB 1217 HLA A* 02:01 LAB 1218 HLA A* - HLAAA 24:02 LAB 1219 HLA B* 39:01 LAB 1220 HLA B* - HLABBB 44:02 LAB 1221 HLA C* 07:04 LAB 1222 HLA C* - HLACC 12:03 LAB 1225 DRB1* 15:01 LAB 1226 DRB1* - DRB11 - LAB DRB5* DRB5* 01:01 LAB 1223 DQB1* 06:02 LAB 1224 DQB1* - DQB11 - LAB 5720 DPB1*DPB1A 02:01 LAB 3889 DPB1* DPB11 04:01 LAB 5711 DQA1* 01:02 LAB 5712 DQA1*DQA11 - LAB [address] DPA1* 01:03 LAB 386[address] DPA1*DPA11 - LAB 5079 HLA INTERPRETATION Result Comment: Per DEIDRE torres CWD list, the following rare alleles and combinations are not excluded: DRB5*01:126 Testing performed by NGS (Next generation sequencing). Additional testing may be performed by SBT (sequence based typing), SSOP (sequence specific oligonucleotide probe), and/or SSP (sequence specific primer) methodologies.Some of the reagents used for testing in the Clinical Histocompatibility Laboratory have yet to be approved by the FDA. Our certification by CLIA to perform high complexity tests allows us to use these reagents in the context of a stringent QC program, and obviates the need for FDA approval.Testing performed by the [facility] Clinical Histocompatibility Laboratory. [facility] number: [id number]. CLIA number: [id number], Director: Toño Lipscomb, PhD, F([facility]). Performed By: #### HLBMT ### # [facility] (DEFAULT) [address] [place] [address] CBC,PLATELETS Collected: 08/23/2024 4:38 AM Status: F Source: [facility] Order Comment: 30 min post R BC transfusion TYPE CODE TESTS RESULT OUT OF RANGE REFERENCE UNITS LAB [id number] WBC Count 1.57 Low 3.99-11.19 K/uL LAB [id number] RBC Count 2.26 Low 3.91-5.04 M/uL LAB [id number] Hemoglobin 7.7 Low 11.4-15.2 g/dL LAB [id number] Hematocrit 22.1 Low 34.9-44.3 % LAB [id number] Mean Cell Volume 97.8 High 79.6-97.7 fL LAB [id number] Mean Cell Hgb 34.1 High 25.9-33.9 pg LAB [id number] Mean Cell Hgb Conc 34.8 31.4-35.9 g/dL LAB [id number] RBC Distribution 16.3 High 10.8-14.9 % LAB [id number] Platelet Count 58 Low 150-393 K/uL LAB [id number] Mean Platelet Volume 10.2 8.5-12.2 fL Performed By: #### HEMOGC ## ## [facility] (DEFAULT) [address] [place] [address] COPPER Collected: 12:18 AM Status: F Source: [facility] TYPE CODE TESTS RESULT OUT OF RANGE REFERENCE UNITS LAB 103 COPPER, SERUM 96 77-206 mcg/dL Result Comment: ADDITIONAL INFORMATION This test was developed and its performance characteristics determined by [facility] in a manner consistent with CLIA requirements. This test has not been cleared or approved by the U.S. Food and Drug Administration. Test Performed by: [facility] [address] [place] [address] [employer] Installer: Ann Oliver Ph.D.; CLIA# [id number] Performed By: #### YCOPP ### # [facility] (DEFAULT) [address] [place], [place] [address] METHYLMALONIC ACID Collected: 12:18 AM Status: F Source: [facility] TYPE CODE TESTS RESULT OUT OF RANGE REFERENCE UNITS LAB 2657 METHYLMALONIC ACID 0.23 <=0.40 nmol/mL Result Comment: ADDITIONAL INFORMATION This test was developed and its performance characteristics determined by [facility] in a manner consistent with CLIA requirements. This test has not been cleared or approved by the U.S. Food and Drug Administration. Test Performed by: [facility] [place] [address] Cable Systems Installer: Ann Oliver Ph.D.; CLIA# [id number] Performed By: #### YMMA #### [facility] (DEFAULT) [address] [place] [address] CBC AND ELECTRONIC DIFF Collected: 08/23/2024 12:18 A M Status: F Source: [facility] Order Comment: Please repeat half hour after both RBC and plt transfusions complete, goal plts >20, goal hgb >7 TYPE CODE TESTS RESULT OUT OF RANGE REFERENCE UNITS LAB [id number] WBC Count 1.66 Low 3.99-11.19 K/uL LAB [id number] RBC Count 1.83 Low 3.91-5.04 M/uL LAB [id number] Hemoglobin 6.5 Low alert 11.4-15.2 g/dL Result Comment: This result has been called to Ashish De La Rosa RN by [email or web address] on 08/23/2024 00:59:21, and has been read back. LAB [id number] Hematocrit 18.6 Low 34.9-44.3 % LAB [id number] Mean Cell Volume 101.6 High 79.6-97.7 fL LAB [id number] Mean Cell Hgb 35.5 High 25.9-33.9 pg LAB [id number] Mean Cell Hgb Conc 34.9 31.4-35.9 g/dL LAB [id number] RBC Distribution 15.9 High 10.8-14.9 % LAB [id number] Platelet Count 65 Low 150-393 K/uL LAB [id number] Mean Platelet Volume 10.7 8.5-12.2 fL Performed By: #### [id number] ## ## [facility] (DEFAULT) [address] [place] [address] FIBRINOGEN, CLOTTABLE Collected: 2023 12:18 AM Status: F Source: [facility] Order Comment: Fibrinogen l evels may be altered by the normal physiologic changes of and should be interpreted considering reference ranges specific to gestational age. First Trimester: 244-510 mg/dL Second Trimester: 291-538 mg/dL Third Trimester/: 373-619 mg/dL Reference: Faby M, Pulido LG, Sveta FG. and laboratory studies: a reference table for clinicians. Obstet Gynecol 2009; 114:1326. TYPE CODE TESTS RESULT OUT OF RANGE REFERENCE UNITS LAB [id number] Fibrinogen-C lottable 346 220-410 mg/dL Result Comment: Functional F ibrinogen (activity) levels can be affected by direct thrombin inhibitors such as heparins (>2.0 IU/ml) and dabigatran. Abnormal results should be interpreted with caution. Performed By: #### FIB #### [facility] (DEFAULT) [address] [place] [address] IMMUNOPHENOTYPING Collected: 08/23/2024 12:18 AM Sta tus: F Source: [facility] TYPE CODE TESTS RESULT OUT OF RANGE REFERENCE UNITS LAB [id number] BKR DX CODE Use Ordering LAB [id number] Flow Interpreted by: Mateus Mccoy MD LAB SAMPLE TYPE SAMPLE TYPE Peripheral Blood LAB [id number] IMMUNOPHENOTYPIN G FLOW See Scanned Result Performed By: #### IMMUNOPHE NOTYPING #### [facility] (DEFAULT) [address] [address] ERYTHROPOIETIN (EPO) Collected: 08/23/2024 12:18 AM Status: F Source: [facility] TYPE CODE TESTS RESULT OUT OF RANGE REFERENCE UNITS LAB 2664 Erythropoietin (EPO) 677 High 2.6-18.5 mIU/mL Result Comment: Test Performed by: [facility] [address] [place] [address] Cable [employer] Installer: Ann Oliver Ph.D.; CLIA# [id number] Performed By: #### ASHLEY #### [facility] (DEFAULT) [address] [place] [address] CALCIUM Collected: 12:18 AM Status: F Source: [facility] TYPE CODE TESTS RESULT OUT OF RANGE REFERENCE UNITS LAB [id number] Calcium 8.7 8.6-10.5 mg/dL Performed By: #### MGO, IPB, LDO, CA, URICB #### [facility] (DEFAULT) [address] [address] LACTATE DEHYDROGENASE Collected: 2023 12:18 AM Status: F Source: [facility] TYPE CODE TESTS RESULT OUT OF RANGE REFERENCE UNITS LAB [id number] LD Total 188 100-190 U/L Performed By: #### MGO, IPB, LDO, CA, URICB #### [facility] (DEFAULT) [address] [address] MAGNESIUM Collected: 12:18 AM Status: F Source: [facility] TYPE CODE TESTS RESULT OUT OF RANGE REFERENCE UNITS LAB [id number] Magnesium 1.8 1.6-2.6 mg/dL Performed By: #### MGO, IPB, LDO, CA, URICB #### [facility] (DEFAULT) [address] [address] PHOSPHATE, INORGANIC Collected: 12:18 AM Status: F Source: [facility] TYPE CODE TESTS RESULT OUT OF RANGE REFERENCE UNITS LAB [id number] Phosphorous 3.1 2.2-4.6 mg/dL Performed By: #### MGO, IPB, LDO, CA, URICB #### [facility] (DEFAULT) [address] [address] URIC ACID Collected: 4 12:18 AM Status: F Source: [facility] TYPE CODE TESTS RESULT OUT OF RANGE REFERENCE UNITS LAB [id number] Uric Acid 3.4 2.8-6.0 mg/dL Performed By: #### MGO, IPB, LDO, CA, URICB #### [facility] (DEFAULT) [address] [address] TYPE AND SCREEN Collected: 08/22/2024 3:59 PM Status : C Source: [facility] TYPE CODE TESTS RESULT OUT OF RANGE REFERENCE UNITS LAB [id number] ABO/RH(D) TYPE O POS LAB OUTD Outdate Specimen 08/25/2024 04:00 LAB PERCENTAS ANTIBODY SCREEN NEG Performed By: #### XM #### [facility] (DEFAULT) [address] [address] PT,INR,PTT Collected: 4 3:59 PM Status: F Source: [facility] TYPE CODE TESTS RESULT OUT OF RANGE REFERENCE UNITS LAB [id number] PT 14.2 11.9-14.2 sec LAB [id number] INR 1.1 0.9-1.1 LAB [id number] PTT 26.5 24.0-34.3 sec Performed By: #### PTPTT ### # [facility] (DEFAULT) [address] [address] CHEM 7 (LYTES,BUN,CREA,GLUC) Collected: 08/22/2024 3:59 PM Status: F Source: [facility] TYPE CODE TESTS RESULT OUT OF RANGE REFERENCE UNITS LAB [id number] Sodium 141 135-145 mmol/L LAB [id number] Potassium 3.8 3.5-5.0 mmol/L LAB [id number] Chloride 108 98-108 mmol/L LAB [id number] CO2 27 21-31 mmol/L LAB [id number] Glucose 91 70-99 mg/dL LAB [id number] BUN 16 7-25 mg/dL LAB [id number] Creatinine 0.83 0.50-1.20 mg/dL LAB [id number] Bun/Crea Ratio 19 LAB [id number] Osmolality (Calculated) 295 278-305 mOsm/kg LAB [id number] Anion Gap 10 7-17 mmol/L LAB [id number] eGFR, CKD-EPI, Female 76 >=60 mL/min/ 1.73m2 Result Comment: Reported eGF R is based on the CKD-EPI 2020 equation using creatinine, age, and sex. Performed By: #### CHM7, IPB , B12B, TSH, CA, MGO #### [facility] (DEFAULT) [address] [address] CALCIUM Collected: 4 3:59 PM Status: F Source: [facility] TYPE CODE TESTS RESULT OUT OF RANGE REFERENCE UNITS LAB [id number] Calcium 9.2 8.6-10.5 mg/dL Performed By: #### CHM7, IPB , B12B, TSH, CA, MGO #### [facility] (DEFAULT) [address] [address] MAGNESIUM Collected: 4 3:59 PM Status: F Source: [facility] TYPE CODE TESTS RESULT OUT OF RANGE REFERENCE UNITS LAB [id number] Magnesium 1.9 1.6-2.6 mg/dL Performed By: #### CHM7, IPB , B12B, TSH, CA, MGO #### [facility] (DEFAULT) [address] [address] PHOSPHATE, INORGANIC Collected: 024 3:59 PM Status: F Source: [facility] TYPE CODE TESTS RESULT OUT OF RANGE REFERENCE UNITS LAB [id number] Phosphorous 3.0 2.2-4.6 mg/dL Performed By: #### CHM7, IPB , B12B, TSH, CA, MGO #### [facility] (DEFAULT) [address] [address] TSH Collected: 4 3:59 PM Status: F Source: [facility] TYPE CODE TESTS RESULT OUT OF RANGE REFERENCE UNITS LAB [id number] TSH 2.590 0.550-4.780 uIU/mL Performed By: #### CHM7, IPB , B12B, TSH, CA, MGO #### [facility] (DEFAULT) [address] [place] [address] VITAMIN B12 Collected: 4 3:59 PM Status: F Source: [facility] TYPE CODE TESTS RESULT OUT OF RANGE REFERENCE UNITS LAB [id number] Vitamin B12 529 211-911 pg/mL Result Comment: Testing of M ethylmalonic Acid and Intrinsic Factor Blocking Antibody are recommended if clinical suspicion for pernicious anemia due to B12 deficiency is high for patients with intermediate B12 levels (211 to 400 pg/mL) to rule out spurious heterophile antibodies. Performed By: #### CHM7, IPB , B12B, TSH, CA, MGO #### [facility] (DEFAULT) [address] [place] [address] CBC AND ELECTRONIC DIFF Collected: 04/2024 3:59 PM Status: F Source: [facility] TYPE CODE TESTS RESULT OUT OF RANGE REFERENCE UNITS LAB [id number] WBC Count 1.96 Low 3.99-11.19 K/uL LAB [id number] RBC Count 1.62 Low 3.91-5.04 M/uL LAB [id number] Hemoglobin 6.0 Low alert 11.4-15.2 g/dL Result Comment: This result has been called to Zhou Irwin RN by [email or web address] on 08/22/2024 16:30:43, and has been read back. LAB [id number] Hematocrit 17.2 Low 34.9-44.3 % LAB [id number] Mean Cell Volume 106.2 High 79.6-97.7 fL LAB [id number] Mean Cell Hgb 37.0 High 25.9-33.9 pg LAB [id number] Mean Cell Hgb Conc 34.9 31.4-35.9 g/dL LAB [id number] RBC Distribution 14.4 10.8-14.9 % LAB [id number] Platelet Count 6 Low alert 150-393 K/uL Result Comment: This result has been called to called to Zhou Irwin RN by [email or web address] on 08/22/2024 16:44:06, and has been read back. This is an appended report. These results have been appended to a previously preliminary verified report. LAB [id number] Mean Platelet Volume 11.4 8.5-12.2 fL Result Comment: This is an a ppended report. These results have been appended to a previously preliminary verified report. LAB [id number] DIFF STATUS Electronic Differential LAB [id number] Segs + Bands Auto 13.8 % LAB [id number] Immature Grans % 0.5 % LAB [id number] Lymphocyte % Auto 82.1 % LAB [id number] Monocyte % Auto 3.6 % LAB [id number] Eosinophil % Auto 0.0 % LAB [id number] Basophil % Auto 0.0 % LAB [id number] Nucleated RBC 0.0 <=0.2 /100 WB C LAB [id number] Segs + Bands,Absolute Auto 0.27 Low 1.64-7.28 K/uL LAB [id number] Immature Grans Absolute < <=0.08 K/uL LAB [id number] Abs Lymph Auto 1.61 1.16-3.51 K/uL LAB [id number] Abs Vermilion Auto 0.07 Low 0.22-0.87 K/uL LAB [id number] Abs Eos Auto < 0.00-0.42 K/uL LAB [id number] Abs Baso Auto < 0.00-0.15 K/uL Performed By: #### LILIA RAMOS B980 #### [facility] (DEFAULT) [address] [place] [address] RETICULOCYTES Collected: 4 3:59 PM Status: F Source: [facility] TYPE CODE TESTS RESULT OUT OF RANGE REFERENCE UNITS LAB [id number] Retic Count 0.58 Low 0.74-2.54 % LAB [id number] Retic Absolute < Low 0.0324-0.1142 M/uL Performed By: #### RETICLILIA B980 #### [facility] (DEFAULT) [address] [address] IRON/IRON BINDING/TRANSFERRIN Collected : 08/22/2024 3:59 PM Status: F Source: [facility] TYPE CODE TESTS RESULT OUT OF RANGE REFERENCE UNITS LAB [id number] Iron 183 High 40-174 mcg/dL LAB [id number] Transferrin 203 200-400 mg/dL LAB [id number] Total Iron Binding Capacity 254 250-425 mcg/dL LAB [id number] Iron Saturation 72 High 20-55 % Performed By: #### FOLFrancB, IR BC #### [facility] (DEFAULT) [address] [address] FOLATE, SERUM Collected: 4 3:59 PM Status: F Source: [facility] TYPE CODE TESTS RESULT OUT OF RANGE REFERENCE UNITS LAB [id number] Folate 17.52 >5.38 ng/mL Performed By: #### SHELBYB, IR BC #### [facility] (DEFAULT) [address] [address] HAPTOGLOBIN Collected: 4 3:59 PM Status: F Source: [facility] TYPE CODE TESTS RESULT OUT OF RANGE REFERENCE UNITS LAB [id number] Haptoglobin 88 44-215 mg/dL Performed By: #### HAP #### [facility] (DEFAULT) [address] [address] ALLERGIES No Allergies Records Found ENCOUNTERS ADMIT/DISCHARGE ACCOUNT NUMBER ADMITTING ENCOUNTER CLASS LOCATION SOURCE 06/23/2025 [id number] Ambulatory JAMESBuildi ng:CT5JCH [facility] 06/23/2025 [id number] Ambulatory JAMESBuildi ng:CT1HMO [facility] 05/28/2025 [id number] Ambulatory JAMESBuildi ng:CT1O [facility] 05/07/2025 [id number] Ambulatory JAMESBuildi ng:CT1O [facility] 05/07/2025 [id number] Ambulatory JAMESBuildi ng:CT1O [facility] 04/02/2025 [id number] Ambulatory JAMESBuildi ng:[address] 03/19/2025 [id number] Ambulatory JAMESBuildi ng:[address] 03/19/2025 [id number] Ambulatory JAMESBuildi ng:[address] 02/20/2025 [id number] Ambulatory JAMESBuildi ng:[address] 01/15/2025 [id number] Ambulatory JAMESBuildi ng:[address] 01/13/2025 [id number] Ambulatory JAMESBuildi ng:[address] 01/06/2025 [id number] Ambulatory JAMESBuildi ng:[address] 12/30/2024 [id number] Ambulatory JAMESBuildi ng:[address] 12/23/2024 [id number] Ambulatory JAMESBuildi ng:[address] 12/18/2024 [id number] Ambulatory JAMESBuildi ng:[address] 12/16/2024 [id number] Ambulatory JAMESBuildi ng:[address] 12/09/2024 [id number] Ambulatory JAMESBuildi ng:[address] 12/09/2024 [id number] Ambulatory JAMESBuildi ng:[address] 12/02/2024 [id number] Ambulatory JAMESBuildi ng:[address] 11/25/2024 [id number] Ambulatory JAMESBuildi ng:[address] 11/25/2024 [id number] Ambulatory JAMESBuildi ng:[address] 11/21/2024 [id number] Ambulatory JAMESBuildi ng:CT5[facility] 11/21/2024 [id number] Ambulatory JAMESBuildi ng:OR5[facility] 11/18/2024 [id number] Ambulatory JAMESBuildi ng:CT5[facility] 11/18/2024 [id number] Ambulatory JAMESBuildi ng:[address] 11/18/2024 [id number] Ambulatory JAMESBuildi ng:[address] 2024 [id number] Ambulatory JAMESBuildi ng:[address] 11/11/2024 [id number] Ambulatory JAMESBuildi ng:[address] 11/11/2024 [id number] Ambulatory JAMESBuildi ng:[address] 11/11/2024 [id number] Ambulatory JAMESBuildi ng:[address] 11/08/2024 [id number] Ambulatory JAMESBuildi ng:[address] 11/08/2024 [id number] Ambulatory JAMESBuildi ng:[address] 11/05/2024 [id number] Ambulatory JAMESBuildi ng:[address] 11/05/2024 [id number] Ambulatory JAMESBuildi ng:[address] 10/31/2024 [id number] Ambulatory JAMESBuildi ng:[address] 10/31/2024 [id number] Ambulatory JAMESBuildi ng:OR5[facility] 10/28/2024 [id number] Ambulatory JAMESBuildi ng:[address] 10/28/2024 [id number] Ambulatory JAMESBuildi ng:CT5[facility] 10/24/2024 [id number] Ambulatory JAMESBuildi ng:OR5[facility] 10/21/2024 [id number] Ambulatory JAMESBuildi ng:[address] 10/21/2024 [id number] Ambulatory JAMESBuildi ng:[address] 10/21/2024 [id number] Ambulatory JAMESBuildi ng:[address] 10/17/2024 [id number] Ambulatory JAMESBuildi ng:[address] 10/17/2024 [id number] Ambulatory JAMESBuildi ng:[address] 10/14/2024 [id number] Ambulatory JAMESBuildi ng:[address] 10/10/2024 [id number] Ambulatory JAMESBuildi ng:[address] 10/10/2024 [id number] Ambulatory JAMESBuildi ng:[address] 10/07/2024 [id number] Ambulatory JAMESBuildi ng:[address] 10/07/2024 [id number] Ambulatory JAMESBuildi ng:[address] 10/03/2024 [id number] Ambulatory JAMESBuildi ng:[address] 10/03/2024 [id number] Ambulatory JAMESBuildi ng:[address] 09/30/2024/09/30/20 24 [id number] Emergency JAMESBuildi ng:REMRoom: [id number]: [id number] [facility] 09/26/2024 [id number] Ambulatory JAMESBuildi ng:[address] 09/26/2024 [id number] Ambulatory JAMESBuildi ng:[address] 09/26/2024 [id number] Ambulatory JAMESBuildi ng:[address] 09/23/2024 [id number] Ambulatory JAMESBuildi ng:CT5[facility] 09/19/2024 [id number] Ambulatory JAMESBuildi ng:CT5[facility] 09/19/2024 [id number] Ambulatory JAMESBuildi ng:CT5[facility] 09/17/2024 [id number] Ambulatory JAMESBuildi ng:CT5[facility] 09/17/2024 [id number] Ambulatory JAMESBuildi ng:CT5[facility] 09/16/2024 [id number] [facility]09/11/20 24 [id number] JAXON HARTLEY Inpatient Encounter JAMESBuildi ng:L93CXdrx : [id number]: A [facility] 08/29/2024 [id number] Ambulatory JAMESBuildi ng:CT5[facility] 08/29/2024 [id number] Ambulatory JAMESBuildi ng:CT5[facility] 08/29/2024 [id number] ANN LEE Inpatient Encounter JAMESBuildi ng:RQJBED [facility] 08/22/2024/08/25/20 24 [id number] YUSUF MONTANEZ Inpatient Encounter JAMESBuildi ng:E67UAblb : [id number]: A [facility] 08/22/2024/08/22/20 24 [id number] Emergency JAMESBuildi ng:REMRoom: [id number]: E001 [facility] PAYERS ENCOUNTER GUARANTOR PAYER SUBSCRIBER SOURCE 06/23/2025 ANA FAULKNERB: [place], [place] [address]Ddi: () Primary Insurance:MMSwipeClocki cy Number: [id number] tive Date:5133-52-04Sy an Name:MANAGED CARE ANA FAULKNERB: [id number] [facility] [place] [address] [facility] 06/23/2025 ANA ISLASDOB: [address] [facility], [place] [address]Bbg: (HP) Primary Insurance:MMOPoli cy Number: [id number] tive Date:0063-11-13Kn an Name:MANAGED CARE ANA ISLASDOB: [id number] [address] [facility] [place] [address] [facility] 05/28/2025 ANA ISLASDOB: [address] [facility], [place] [address]Lgn: (HP) Primary Insurance:MMOPoli cy Number: [id number] tive Date:6733-16-16Ga an Name:MANAGED CARE ANA ISLASDOB: [id number] [address] [place] [address] [facility] 05/07/2025 ANA ISLASDOB: [address] [facility], [place] [address]Vpf: (HP) Primary Insurance:MMOPoli cy Number: [id number] tive Date:4773-26-53Cb an Name:MANAGED CARE CRYSTAL ROSHANDOB: [id number] [address] [address] [facility] 05/07/2025 CRYSTAL ROSHANDOB: [facility] [address]Ufk: (HP) Primary Insurance:MMOPoli cy Number: [id number] tive Date:6667-84-01Ii an Name:MANAGED CARE ANA ISLASDOB: [id number] [address] [facility] [place] [address] [facility] 04/02/2025 CRYSTAL BOLESDOB: [address] [place] [address]Gza: (HP) Primary Insurance:MMOPoli cy Number: [id number] tive Date:0499-89-58Cj an Name:MANAGED CARE CRYSTAL BOLESDOB: [id number] [address] [facility] [place] [address] [facility] 03/19/2025 CRYSTAL BOLESDOB: [address] [place] [address]Gma: (HP) Primary Insurance:MMOPoli cy Number: [id number] tive Date:3590-63-71Vg an Name:MANAGED CARE CRYSTAL MICHAELESDOB: [id number] [address] [facility] [place] [address] [facility] 03/19/2025 CRYSTAL BOLESDOB: [address] [facility] [address]Idr: (HP) Primary Insurance:MMOPoli cy Number: [id number] tive Date:8234-92-58Ah an Name:MANAGED CARE CRYSTAL BOLESDOB: [id number] [address] [facility] [place] [address] [facility] 02/20/2025 CRYSTAL BOLESDOB: [address] [facility] [address]Qmh: (HP) Primary Insurance:MMOPoli cy Number: [id number] tive Date:8912-51-13Pf an Name:MANAGED CARE CRYSTAL BOLESDOB: [id number] [place] [address] [facility] 01/15/2025 CRYSTAL BOLESDOB: [place] [place] [address]Nmd: (HP) Primary Insurance:MMOPoli cy Number: [id number] tive Date:5968-95-34De an Name:MANAGED CARE ANA ISLASDOB: [id number] [place] [address] [facility] 01/13/2025 CRYSTAL MICHAELESDOB: [place], [place] [address]Aci: (HP) Primary Insurance:MMOPoli cy Number: [id number] tive Date:6741-07-23Kf an Name:MANAGED CARE ANA ISLASDOB: [id number] [place] [address] [facility] 01/06/2025 CRYSTAL MICHAELESDOB: [place], [place] [address]Ovr: (HP) Primary Insurance:MMOPoli cy Number: [id number] tive Date:1603-55-80Qy an Name:MANAGED CARE CRYSTAL ROSHANDOB: [id number] [place] [address] [facility] 12/30/2024 CRYSTAL MICHAELESDOB: [place], [place] [address]Ztt: (HP) Primary Insurance:MMOPoli cy Number: [id number] tive Date:1457-46-54Yo an Name:MANAGED CARE CRYSTAL ROSHANDOB: [id number] [place] [address] [facility] 12/23/2024 CRYSTAL BOLESDOB: [place], [place] [address]Eoa: (HP) Primary Insurance:MMOPoli cy Number: [id number] tive Date:2556-46-88Zs an Name:MANAGED CARE CRYSTAL MICHAELESDOB: [id number] [place] [address] [facility] 12/18/2024 CRYSTAL BOLESDOB: [address] [facility] [address]Kuu: (HP) Primary Insurance:MMOPoli cy Number: [id number] tive Date:2580-83-59Px an Name:MANAGED CARE CRYSTAL MICHAELESDOB: [id number] [place] [address] [facility] 12/16/2024 CRYSTAL BOLESDOB: [address] [place] [address]Ted: (HP) Primary Insurance:MMOPoli cy Number: [id number] tive Date:4650-31-99Eo an Name:MANAGED CARE CRYSTAL MICHAELESDOB: [id number] [address] [place] [address] [facility] 12/09/2024 CRYSTAL BOLESDOB: [address] [place] [address]Kkz: (HP) Primary Insurance:MMOPoli cy Number: [id number] tive Date:1044-72-47Kq an Name:MANAGED CARE CRYSTAL MICHAELESDOB: [id number] [place] [address] [facility] 12/09/2024 CRYSTAL BOLESDOB: [address] [place] [place] [address]Hwd: (HP) Primary Insurance:MMOPoli cy Number: [id number] tive Date:3156-95-86Df an Name:MANAGED CARE CRYSTAL MICHAELESDOB: [id number] [facility] [place] [address] [facility] 12/02/2024 CRYSTAL BOLESDOB: [facility] [address]Rbz: (HP) Primary Insurance:MMOPoli cy Number: [id number] tive Date:1009-52-93Zm an Name:MANAGED CARE CRYSTAL MICHAELESDOB: [id number] [address] [facility] [place] [address] [facility] 11/25/2024 CRYSTAL BOLESDOB: [address] [facility] [address]Ahz: (HP) Primary Insurance:MMOPoli cy Number: [id number] tive Date:9107-73-42Rc an Name:MANAGED CARE CRYSTAL MICHAELESDOB: [id number] [place] [address] [facility] 11/25/2024 CRYSTAL BOLESDOB: [facility] [place] [facility] [address]Mvo: (HP) Primary Insurance:MMOPoli cy Number: [id number] tive Date:5755-75-67Um an Name:MANAGED CARE CRYSTAL BOLESDOB: [id number] [place] [address] [facility] 11/21/2024 CRYSTAL BOLESDOB: [facility] [place] [address]Ktf: (HP) Primary Insurance:MMOPoli cy Number: [id number] tive Date:2968-33-28Hd an Name:MANAGED CARE CRYSTAL MICHAELESDOB: [id number] [place] [address] [facility] 11/21/2024 CRYSTAL BOLESDOB: S [facility] [facility] [place] [address]Opr: (HP) Primary Insurance:MMOPoli cy Number: [id number] tive Date:3856-55-20Vq an Name:MANAGED CARE CRYSTAL MICHAELESDOB: [id number] [address] [facility] [place] [address] [facility] 11/18/2024 CRYSTAL BOLESDOB: S [address] [facility] [place] [address]Qsf: (HP) Primary Insurance:MMOPoli cy Number: [id number] tive Date:1490-56-03Ob an Name:MANAGED CARE ANA ISLASDOB: [id number] [place] [address] [facility] 11/18/2024 CRYSTAL BOLESDOB: S [facility] [facility], [place] [address]Vwg: (HP) Primary Insurance:MMOPoli cy Number: [id number] tive Date:0660-03-54Tk an Name:MANAGED CARE CRYSTAL MICHAELESDOB: [id number] [address] [facility] [place] [address] [facility] 11/18/2024 CRYSTAL BOLESDOB: [address] [facility], [place] [address]Izs: (HP) Primary Insurance:MMOPoli cy Number: [id number] tive Date:0608-07-87Yc an Name:MANAGED CARE CRYSTAL MICHAELESDOB: [id number] [address] [facility] [place] [address] [facility] 2024 CRYSTAL BOLESDOB: [address] [facility], [place] [address]Arh: (HP) Primary Insurance:MMOPoli cy Number: [id number] tive Date:1488-38-56Sz an Name:MANAGED CARE ANA ISLASDOB: [id number] [address] [facility] [place] [place] [address] [facility] 11/11/2024 CRYSTAL BOLESDOB: [facility], [place] [address]Rsw: (HP) Primary Insurance:MMOPoli cy Number: [id number] tive Date:6179-50-30Bw an Name:MANAGED CARE CRYSTAL ROSHANDOB: [id number] [address] [facility] [place] [address] [facility] 11/11/2024 CRYSTAL BOLESDOB: [facility], [place] [address]Fdf: (HP) Primary Insurance:MMOPoli cy Number: [id number] tive Date:0621-06-30Sr an Name:MANAGED CARE CRYSTAL ROSHANDOB: [id number] [place] [address] [facility] 11/11/2024 CRYSTAL BOLESDOB: S [facility], [place] [address]Vfa: (HP) Primary Insurance:MMOPoli cy Number: [id number] tive Date:9518-01-18Sk an Name:MANAGED CARE CRYSTAL MICHAELESDOB: [id number] [place] [place] [address] [facility] 11/08/2024 CRYSTAL BOLESDOB: S [facility], [place] [address]Uph: (HP) Primary Insurance:MMOPoli cy Number: [id number] tive Date:4163-63-03Qa an Name:MANAGED CARE ANA ISLASDOB: [id number] [place] [address] [facility] 11/08/2024 ANA ISLASDOB: [address] [facility] [address]Lqb: (HP) Primary Insurance:MMOPoli cy Number: [id number] tive Date:7298-92-81Vu an Name:MANAGED CARE ANA ISLASDOB: [id number] [place] [address] [facility] 11/05/2024 ANA ISLASDOB: [address] [place] [address]Nnp: (HP) Primary Insurance:MMOPoli cy Number: [id number] tive Date:0576-73-77Tn an Name:MANAGED CARE ANA ISLASDOB: [id number] [place] [address] [facility] 11/05/2024 ANA ISLASDOB: [address] [facility] [address]Wix: (HP) Primary Insurance:MMOPoli cy Number: [id number] tive Date:2815-18-19Mj an Name:MANAGED CARE CRYSTAL ROSHANDOB: [id number] [place] [address] [facility] 10/31/2024 CRYSTAL MICHAELESDOB: [address] [place] [address]Ccu: (HP) Primary Insurance:MMOPoli cy Number: [id number] tive Date:8432-44-80Rz an Name:MANAGED CARE CRYSTAL ROSHANDOB: [id number] [place] [place] [address] [facility] 10/31/2024 CRYSTAL BOLESDOB: [address] [facility] [address]Tkp: (HP) Primary Insurance:MMOPoli cy Number: [id number] tive Date:6858-86-39Bt an Name:MANAGED CARE CRYSTAL BOLESDOB: [id number] [address] [place] [address] [facility] 10/28/2024 CRYSTAL BOLESDOB[facility] [place] [address]Wmo: (HP) Primary Insurance:MMOPoli cy Number: [id number] tive Date:2359-46-20Ql an Name:MANAGED CARE CRYSTAL BOLESDOB: [id number] [address] [place] [address] [facility] 10/28/2024 CRYSTAL BOLESDOB: [facility] [address]Jhh: (HP) Primary Insurance:MMOPoli cy Number: [id number] tive Date:8845-05-51Lk an Name:MANAGED CARE CRYSTAL BOLESDOB: [id number] [place] [address] [facility] 10/24/2024 CRYSTAL BOLESDOB: [facility] [address]Fvu: (HP) Primary Insurance:MMOPoli cy Number: [id number] tive Date:2954-08-67Kb an Name:MANAGED CARE CRYSTAL BOLESDOB: [id number] [address] [place] [address] [facility] 10/21/2024 CRYSTAL BOLESDOB: [address] [facility] [address]Tgw: (HP) Primary Insurance:MMOPoli cy Number: [id number] tive Date:0180-16-19Vg an Name:MANAGED CARE ANA ISLASDOB: [id number] [address] [facility] [place] [address] [facility] 10/21/2024 CRYSTAL MICHAELESDOB: [address] [facility] [place] [address]Lhc: (HP) Primary Insurance:MMOPoli cy Number: [id number] tive Date:6082-08-30Nq an Name:MANAGED CARE ANA ISLASDOB: [id number] [address] [facility] [place] [address] [facility] 10/21/2024 CRYSTAL ROSHANDOB: [address] [facility] [facility], [place] [address]Evu: (HP) Primary Insurance:MMOPoli cy Number: [id number] tive Date:8398-57-05Hy an Name:MANAGED CARE ANA ISLASDOB: [id number] [address] [facility] [place] [address] [facility] 10/17/2024 CRYSTAL MICHAELESDOB: [address] [facility], [place] [address]Uzg: (HP) Primary Insurance:MMOPoli cy Number: [id number] tive Date:1244-47-71Iu an Name:MANAGED CARE ANA ISLASDOB: [id number] [address] [facility] [place] [address] [facility] 10/17/2024 CRYSTAL ROSHANDOB: [address] [facility] [place] [address]Kev: (HP) Primary Insurance:MMOPoli cy Number: [id number] tive Date:0888-18-22Cn an Name:MANAGED CARE CRYSTAL MICHAELESDOB: [id number] [address] [place] [address] [facility] 10/14/2024 CRYSTAL BOLESDOB: [address] [facility] [place] [address]Fky: (HP) Primary Insurance:MMOPoli cy Number: [id number] tive Date:6281-30-79Ra an Name:MANAGED CARE CRYSTAL BOLESDOB: [id number] [address] [address] [facility] 10/10/2024 CRYSTAL BOLESDOB: [address] [facility] [place] [address]Heh: (HP) Primary Insurance:MMOPoli cy Number: [id number] tive Date:2937-44-31Ob an Name:MANAGED CARE CRYSTAL BOLESDOB: [id number] [address] [facility] [place] [address] [facility] 10/10/2024 CRYSTAL BOLESDOB: [address] [facility] [address]Etn: (HP) Primary Insurance:MMOPoli cy Number: [id number] tive Date:7361-69-79Hk an Name:MANAGED CARE CRYSTAL BOLESDOB: [id number] [address] [facility] [place] [address] [facility] 10/07/2024 CRYSTAL BOLESDOB: [address] [facility] [facility] [place] [address]Sje: (HP) Primary Insurance:MMOPoli cy Number: [id number] tive Date:4780-52-87Tz an Name:MANAGED CARE CRYSTAL BOLESDOB: [id number] [address] [facility] [place] [address] [facility] 10/07/2024 ANA ISLASDOB: [address] [facility] [address]Ooa: (HP) Primary Insurance:MMOPoli cy Number: [id number] tive Date:1850-48-86Sf an Name:MANAGED CARE ANA ISLASDOB: [id number] [address] [place] [address] [facility] 10/03/2024 ANA ISLASDOB: [facility] [place] [address]Ckb: (HP) Primary Insurance:MMOPoli cy Number: [id number] tive Date:3675-45-20Ul an Name:MANAGED CARE ANA ISLASDOB: [id number] [address] [facility] [place] [address] [facility] 10/03/2024 ANA ISLASDOB: [facility] [place] [address]Cjb: (HP) Primary Insurance:MMOPoli cy Number: [id number] tive Date:7262-74-60Wc an Name:MANAGED CARE ANA ISLASDOB: [id number] [address] [place] [address] [facility] 09/30/2024 ANA ISLASDOB: [facility], [place] [address]Qcc: (HP) Primary Insurance:MMOPoli cy Number: [id number] tive Date:0438-30-19Nr an Name:MANAGED CARE ANA ISLASDOB: [id number] [place] [address] [facility] 09/26/2024 ANA ISLASDOB: [address] [place] [address]Nge: ~(330 (HP) Primary Insurance:MMOPoli cy Number: [id number] tive Date:4171-82-32Xn an Name:MANAGED CARE ANA ISLASDOB: [id number] [place], [place] [address]Jgs: (HP) [facility] 09/26/2024 ANA ISLASDOB: [address] [place], [place] [address]Yyu: ~(330 (HP) Primary Insurance:MMOPoli cy Number: [id number] tive Date:1372-72-30Pi an Name:MANAGED CARE ANA ISLASDOB: [id number] [place], [place] [address]Mjp: (HP) [facility] 09/26/2024 ANA ISLASDOB: [address] [place] [place] [address]Vfg: ~(330 (HP) Primary Insurance:MMOPoli cy Number: [id number] tive Date:4322-13-96Jn an Name:MANAGED CARE ANA ISLASDOB: [id number] [place] [place], [place] [address]Njn: (HP) [facility] 09/23/2024 ANA ISLASDOB: [address] [place] [address]Kgl: ~(330 (HP) Primary Insurance:MMOPoli cy Number: [id number] tive Date:9560-60-98Ur an Name:MANAGED CARE ANA ISLASDOB: [id number], [place] [address]Nuy: (HP) [facility] 09/19/2024 ANA ISLASDOB: [address], [place] [address]Huc: ~(330 (HP) Primary Insurance:MMOPoli cy Number: [id number] tive Date:4848-09-13Dg an Name:MANAGED CARE ANA ISLASDOB: [id number], [place] [address]Ewj: (HP) [facility] 09/19/2024 ANA ISLASDOB: [address] [address]Qin: ~(330 (HP) Primary Insurance:MMOPoli cy Number: [id number] tive Date:7000-48-50Xd an Name:MANAGED CARE ANA ISLASDOB: [id number], [place] [address]Gck: (HP) [facility] 09/17/2024 ANA ISLASDOB: [address] [place] [address]Sjw: ~(330 (HP) Primary Insurance:MMOPoli cy Number: [id number] tive Date:6752-07-15Az an Name:MANAGED CARE ANA ISLASDOB: [id number], [place] [address]Bmw: (HP) [facility] 09/17/2024 ANA RODRIGUEZESDOB: [address], [place] [address]Dpr: ~(330 (HP) Primary Insurance:MMOPoli cy Number: [id number] tive Date:2893-02-16Uz an Name:MANAGED CARE ANA ISLASDOB: [id number], [place] [address]Xol: (HP) [facility] 09/16/2024 ANA RODRIGUEZESDOB: [address] [address]Yti: ~(330 (HP) Primary Insurance:MMOPoli cy Number: [id number] tive Date:4909-23-67Ds an Name:MANAGED CARE ANA ISLASDOB: [id number], [place] [address]Rao: (HP) [facility] 09/04/2024 ANA ISLASDOB: [address] [place] [address]Dnq: ~(330 (HP) Primary Insurance:MMOPoli cy Number: [id number] tive Date:7525-02-44Zt an Name:MANAGED CARE ANA ISLASDOB: [id number] [place] [address]Blb: (HP) [facility] 08/29/2024 ANA ISLASDOB: [address] [place] [address]Utx: ~(330 (HP) Primary Insurance:MMOPoli cy Number: [id number] tive Date:5037-44-00Dr an Name:MANAGED CARE ANA ISLASDOB: [id number], [place] [address]Xcq: (HP) [facility] 08/29/2024 ANA ISLASDOB: [address] [address]Njf: ~(330 (HP) Primary Insurance:MMOPoli cy Number: [id number] tive Date:6858-26-61Td an Name:MANAGED CARE ANA FAULKNERB: [id number] [address] [place], [place] [address]Gbo: (HP) [facility] 08/29/2024 ANA ISLASDOB: [address] [place], [place] [address]Rch: ~(330 (HP) Primary Insurance:MMOPoli cy Number: [id number] tive Date:2135-08-27Dq an Name:MANAGED CARE AAN FAULKNERB: [id number] [address] [place], [place] [address]Vxq: (HP) [facility] 08/22/2024 ANA ISLASDOB: [address] [place] [place], [place] [address]Apm: ~(330 (HP) Primary Insurance:MMOPoli cy Number: [id number] tive Date:8769-93-74Cv an Name:MANAGED CARE ANA FAULKNERB: [id number] [address] [place], [place] [address]Lsz: (HP) [facility] 08/22/2024 ANA ISLASDOB: [address] [place] [address]Nmy: ~(330 (HP) Primary Insurance:MMOPoli cy Number: [id number] tive Date:0621-71-23Oh an Name:MANAGED CARE ANA FAULKNERB: [id number] [place] [address]Pyy: (HP) [facility]
[2025-07-14 10:02] LABS: Hematocrit 29.8 % (37-47); Hemoglobin 10.0 g/dL (12.0-15.0); Immature Granulocytes Count 0.020 X10^3/uL (0.0-0.0); Mean Corp Hgb Conc 33.6 g/dL (32-36); Mean Corpuscular Volume 109.6 fL (81-99); Mean Platelet Vol. 10.0 fl (6.2-12.0); NRBC Flagged by Analyzer 0 % (0-5); Platelet Count 161 K/mm3 (150-450); RBC Distribution Width CV 14.6 % (11.6-14.6); RBC Distribution Width SD 58.4 fl (35.1-43.9); Red Blood Count 2.72 M/mm3 (4.2-5.4); White Blood Count 3.5 K/mm3 (4.4-11.0)
[2025-07-14 10:51] LABS: AST(SGOT) 27 U/L (<=31); Alanine Aminotransfer ALT/SGPT 18 U/L (<=34); Albumin, Serum 4.3 g/dL (3.4-4.8); Alkaline Phosphatase 51 U/L (35-104); Anion Gap 11 (5-15); BUN 27 mg/dL (4-19); BUN/Creat Ratio 16.5 RATIO (10-20); Bilirubin, Direct 0.22 mg/dL (0.00-0.30); Calcium,Total 9.8 mg/dL (7.6-11.0); Carbon Dioxide 19.8 mmol/L (21.0-32.0); Chloride 104 mmol/L (98-108); Globulin 2.2 g/dL (2.2-4.2); Glucose 98 mg/dL (70-99); Potassium 4.3 mmol/L (3.3-5.1)
[2025-07-14 17:58] LABS: Xtra CC BBK (Onc ONLY) EXTRA TUBE; Xtra Tube EP Lab EXTRA TUBE
== END 2025-07-14 23:59 | disposition home or self-care (01) ==
LOC: MEDOUTP 09:43
PROVIDERS: PCP Internal Medicine; Referring Provider Nurse Practitioner Family; Visit Provider Nurse Practitioner Family
DX: D61.3 Idiopathic aplastic anemia (principal)
CPT/HCPCS: 36415; 80053; 80158; 82248; 85025

== ENCOUNTER 2025-07-21 10:37 | Outpatient (CLI) | payer OTHER, SELFPAY ==
[2025-07-21 10:52] LABS: Hematocrit 25.8 % (37-47); Hemoglobin 9.0 g/dL (12.0-15.0); Immature Granulocytes Count 0.010 X10^3/uL (0.0-0.0); Mean Corp Hgb Conc 34.9 g/dL (32-36); Mean Corpuscular Volume 107.5 fL (81-99); Mean Platelet Vol. 9.2 fl (6.2-12.0); NRBC Flagged by Analyzer 0 % (0-5); Platelet Count 143 K/mm3 (150-450); RBC Distribution Width CV 14.5 % (11.6-14.6); RBC Distribution Width SD 57.3 fl (35.1-43.9); Red Blood Count 2.40 M/mm3 (4.2-5.4); White Blood Count 4.3 K/mm3 (4.4-11.0)
[2025-07-21 11:17] LABS: AST(SGOT) 24 U/L (<=31); Alanine Aminotransfer ALT/SGPT 17 U/L (<=34); Albumin, Serum 4.1 g/dL (3.4-4.8); Alkaline Phosphatase 50 U/L (35-104); Anion Gap 8 (5-15); BUN 39 mg/dL (4-19); BUN/Creat Ratio 27.2 RATIO (10-20); Bilirubin, Direct 0.18 mg/dL (0.00-0.30); Calcium,Total 9.4 mg/dL (7.6-11.0); Carbon Dioxide 20.3 mmol/L (21.0-32.0); Chloride 108 mmol/L (98-108); Globulin 2.0 g/dL (2.2-4.2); Glucose 95 mg/dL (70-99); Potassium 4.6 mmol/L (3.3-5.1)
[2025-07-21 18:48] LABS: Xtra CC BBK (Onc ONLY) EXTRA TUBE; Xtra Tube EP Lab EXTRA TUBE
== END 2025-07-21 23:59 | disposition home or self-care (01) ==
LOC: MEDOUTP 10:37
PROVIDERS: PCP Internal Medicine; Referring Provider Nurse Practitioner Family; Visit Provider Nurse Practitioner Family
DX: D61.3 Idiopathic aplastic anemia (principal)
CPT/HCPCS: 36415; 80053; 80158; 82248; 85025

== ENCOUNTER 2025-07-28 10:26 | Outpatient (CLI) | payer OTHER, SELFPAY ==
[2025-07-28 10:45] LABS: Hematocrit 26.9 % (37-47); Hemoglobin 8.9 g/dL (12.0-15.0); Immature Granulocytes Count 0.020 X10^3/uL (0.0-0.0); Mean Corp Hgb Conc 33.1 g/dL (32-36); Mean Corpuscular Volume 110.7 fL (81-99); Mean Platelet Vol. 10.2 fl (6.2-12.0); NRBC Flagged by Analyzer 0 % (0-5); Platelet Count 159 K/mm3 (150-450); RBC Distribution Width CV 14.5 % (11.6-14.6); RBC Distribution Width SD 58.5 fl (35.1-43.9); Red Blood Count 2.43 M/mm3 (4.2-5.4); White Blood Count 3.4 K/mm3 (4.4-11.0)
[2025-07-28 11:31] LABS: AST(SGOT) 25 U/L (<=31); Alanine Aminotransfer ALT/SGPT 19 U/L (<=34); Albumin, Serum 4.1 g/dL (3.4-4.8); Alkaline Phosphatase 56 U/L (35-104); Anion Gap 9 (5-15); BUN 38 mg/dL (4-19); BUN/Creat Ratio 24.0 RATIO (10-20); Bilirubin, Direct 0.17 mg/dL (0.00-0.30); Calcium,Total 9.6 mg/dL (7.6-11.0); Carbon Dioxide 20.6 mmol/L (21.0-32.0); Chloride 106 mmol/L (98-108); Globulin 2.1 g/dL (2.2-4.2); Glucose 96 mg/dL (70-99); Potassium 4.8 mmol/L (3.3-5.1)
[2025-07-28 18:38] LABS: Xtra CC BBK (Onc ONLY) EXTRA TUBE; Xtra Tube EP Lab EXTRA TUBE
== END 2025-07-28 23:59 | disposition home or self-care (01) ==
LOC: MEDOUTP 10:26
PROVIDERS: PCP Internal Medicine; Referring Provider Nurse Practitioner Family; Visit Provider Nurse Practitioner Family
DX: D61.3 Idiopathic aplastic anemia (principal)
CPT/HCPCS: 36415; 80053; 80158; 82248; 85025

== ENCOUNTER 2025-08-04 10:24 | Outpatient (CLI) | payer OTHER, SELFPAY ==
[2025-08-04 10:41] LABS: Hematocrit 28.4 % (37-47); Hemoglobin 9.9 g/dL (12.0-15.0); Immature Granulocytes Count 0.010 X10^3/uL (0.0-0.0); Mean Corp Hgb Conc 34.9 g/dL (32-36); Mean Corpuscular Volume 109.7 fL (81-99); Mean Platelet Vol. 10.0 fl (6.2-12.0); NRBC Flagged by Analyzer 0 % (0-5); Platelet Count 161 K/mm3 (150-450); RBC Distribution Width CV 14.0 % (11.6-14.6); RBC Distribution Width SD 56.7 fl (35.1-43.9); Red Blood Count 2.59 M/mm3 (4.2-5.4); White Blood Count 3.4 K/mm3 (4.4-11.0)
[2025-08-04 11:02] LABS: AST(SGOT) 30 U/L (<=31); Alanine Aminotransfer ALT/SGPT 23 U/L (<=34); Albumin, Serum 4.2 g/dL (3.4-4.8); Alkaline Phosphatase 52 U/L (35-104); Anion Gap 10 (5-15); BUN 31 mg/dL (4-19); BUN/Creat Ratio 17.5 RATIO (10-20); Bilirubin, Direct 0.22 mg/dL (0.00-0.30); Calcium,Total 9.6 mg/dL (7.6-11.0); Carbon Dioxide 20.4 mmol/L (21.0-32.0); Chloride 105 mmol/L (98-108); Globulin 2.2 g/dL (2.2-4.2); Glucose 95 mg/dL (70-99); Potassium 4.7 mmol/L (3.3-5.1)
[2025-08-04 18:36] LABS: Xtra CC BBK (Onc ONLY) EXTRA TUBE; Xtra Tube EP Lab EXTRA TUBE
== END 2025-08-04 23:59 | disposition home or self-care (01) ==
LOC: MEDOUTP 10:25
PROVIDERS: PCP Internal Medicine; Referring Provider Nurse Practitioner Family; Visit Provider Nurse Practitioner Family
DX: D61.3 Idiopathic aplastic anemia (principal)
CPT/HCPCS: 36415; 80053; 80158; 82248; 85025

== ENCOUNTER 2025-08-11 10:28 | Outpatient (CLI) | payer OTHER, SELFPAY ==
[2025-08-11 10:55] LABS: Hematocrit 27.0 % (37-47); Hemoglobin 9.4 g/dL (12.0-15.0); Immature Granulocytes Count 0.020 X10^3/uL (0.0-0.0); Mean Corp Hgb Conc 34.8 g/dL (32-36); Mean Corpuscular Volume 109.8 fL (81-99); Mean Platelet Vol. 9.6 fl (6.2-12.0); NRBC Flagged by Analyzer 0 % (0-5); Platelet Count 125 K/mm3 (150-450); RBC Distribution Width CV 13.6 % (11.6-14.6); RBC Distribution Width SD 55.3 fl (35.1-43.9); Red Blood Count 2.46 M/mm3 (4.2-5.4); White Blood Count 3.4 K/mm3 (4.4-11.0)
[2025-08-11 11:18] LABS: AST(SGOT) 22 U/L (<=31); Alanine Aminotransfer ALT/SGPT 15 U/L (<=34); Albumin, Serum 4.0 g/dL (3.4-4.8); Alkaline Phosphatase 55 U/L (35-104); Anion Gap 9 (5-15); BUN 31 mg/dL (4-19); BUN/Creat Ratio 16.4 RATIO (10-20); Bilirubin, Direct 0.20 mg/dL (0.00-0.30); Calcium,Total 9.6 mg/dL (7.6-11.0); Carbon Dioxide 20.2 mmol/L (21.0-32.0); Chloride 107 mmol/L (98-108); Globulin 2.2 g/dL (2.2-4.2); Glucose 94 mg/dL (70-99); Potassium 4.8 mmol/L (3.3-5.1)
[2025-08-11 18:50] LABS: Xtra CC BBK (Onc ONLY) EXTRA TUBE; Xtra Tube EP Lab EXTRA TUBE
== END 2025-08-11 23:59 | disposition home or self-care (01) ==
LOC: MEDOUTP 10:29
PROVIDERS: PCP Internal Medicine; Referring Provider Nurse Practitioner Family; Visit Provider Nurse Practitioner Family
DX: D61.3 Idiopathic aplastic anemia (principal)
CPT/HCPCS: 36415; 80053; 80158; 82248; 85025

== ENCOUNTER 2025-08-18 10:22 | Outpatient (CLI) | payer OTHER, SELFPAY ==
[2025-08-18 10:45] LABS: Hematocrit 27.5 % (37-47); Hemoglobin 9.2 g/dL (12.0-15.0); Immature Granulocytes Count 0.010 X10^3/uL (0.0-0.0); Mean Corp Hgb Conc 33.5 g/dL (32-36); Mean Corpuscular Volume 110.0 fL (81-99); Mean Platelet Vol. 9.7 fl (6.2-12.0); NRBC Flagged by Analyzer 0 % (0-5); Platelet Count 123 K/mm3 (150-450); RBC Distribution Width CV 13.0 % (11.6-14.6); RBC Distribution Width SD 51.9 fl (35.1-43.9); Red Blood Count 2.50 M/mm3 (4.2-5.4); White Blood Count 3.3 K/mm3 (4.4-11.0)
[2025-08-18 11:15] LABS: AST(SGOT) 22 U/L (<=31); Alanine Aminotransfer ALT/SGPT 16 U/L (<=34); Albumin, Serum 4.0 g/dL (3.4-4.8); Alkaline Phosphatase 55 U/L (35-104); Anion Gap 8 (5-15); BUN 37 mg/dL (4-19); BUN/Creat Ratio 22.0 RATIO (10-20); Bilirubin, Direct 0.20 mg/dL (0.00-0.30); Calcium,Total 9.4 mg/dL (7.6-11.0); Carbon Dioxide 20.0 mmol/L (21.0-32.0); Chloride 106 mmol/L (98-108); Globulin 2.2 g/dL (2.2-4.2); Glucose 100 mg/dL (70-99); Potassium 5.0 mmol/L (3.3-5.1)
[2025-08-18 18:41] LABS: Xtra CC BBK (Onc ONLY) EXTRA TUBE
[2025-08-18 18:43] LABS: Xtra Tube EP Lab EXTRA TUBE
== END 2025-08-18 23:59 | disposition home or self-care (01) ==
LOC: MEDOUTP 10:22
PROVIDERS: PCP Internal Medicine; Referring Provider Nurse Practitioner Family; Visit Provider Nurse Practitioner Family
DX: D61.3 Idiopathic aplastic anemia (principal)
CPT/HCPCS: 36415; 80053; 80158; 82248; 85025

== ENCOUNTER 2025-08-25 10:26 | Outpatient (CLI) | payer OTHER, SELFPAY ==
[2025-08-25 10:43] LABS: Hematocrit 28.4 % (37-47); Hemoglobin 9.7 g/dL (12.0-15.0); Immature Granulocytes Count 0.020 X10^3/uL (0.0-0.0); Mean Corp Hgb Conc 34.2 g/dL (32-36); Mean Corpuscular Volume 109.7 fL (81-99); Mean Platelet Vol. 10.5 fl (6.2-12.0); NRBC Flagged by Analyzer 0 % (0-5); Platelet Count 123 K/mm3 (150-450); RBC Distribution Width CV 12.7 % (11.6-14.6); RBC Distribution Width SD 50.7 fl (35.1-43.9); Red Blood Count 2.59 M/mm3 (4.2-5.4); White Blood Count 3.4 K/mm3 (4.4-11.0)
[2025-08-25 11:02] LABS: AST(SGOT) 23 U/L (<=31); Alanine Aminotransfer ALT/SGPT 14 U/L (<=34); Albumin, Serum 4.1 g/dL (3.4-4.8); Alkaline Phosphatase 56 U/L (35-104); Anion Gap 9 (5-15); BUN 32 mg/dL (4-19); BUN/Creat Ratio 17.4 RATIO (10-20); Bilirubin, Direct 0.22 mg/dL (0.00-0.30); Calcium,Total 9.8 mg/dL (7.6-11.0); Carbon Dioxide 20.0 mmol/L (21.0-32.0); Chloride 107 mmol/L (98-108); Globulin 2.1 g/dL (2.2-4.2); Glucose 102 mg/dL (70-99); Potassium 4.7 mmol/L (3.3-5.1)
[2025-08-25 18:40] LABS: Xtra CC BBK (Onc ONLY) EXTRA TUBE; Xtra Tube EP Lab EXTRA TUBE
== END 2025-08-25 23:59 | disposition home or self-care (01) ==
LOC: MEDOUTP 10:26
PROVIDERS: PCP Internal Medicine; Referring Provider Nurse Practitioner Family; Visit Provider Nurse Practitioner Family
DX: D61.3 Idiopathic aplastic anemia (principal)
CPT/HCPCS: 36415; 80053; 80158; 82248; 85025

== ENCOUNTER 2025-09-01 10:27 | Outpatient (CLI) | payer OTHER, SELFPAY ==
[2025-09-01 10:46] LABS: Hematocrit 27.8 % (37-47); Hemoglobin 9.6 g/dL (12.0-15.0); Immature Granulocytes Count 0.010 X10^3/uL (0.0-0.0); Mean Corp Hgb Conc 34.5 g/dL (32-36); Mean Corpuscular Volume 110.8 fL (81-99); Mean Platelet Vol. 10.6 fl (6.2-12.0); NRBC Flagged by Analyzer 0 % (0-5); Platelet Count 119 K/mm3 (150-450); RBC Distribution Width CV 12.6 % (11.6-14.6); RBC Distribution Width SD 50.6 fl (35.1-43.9); Red Blood Count 2.51 M/mm3 (4.2-5.4); White Blood Count 3.0 K/mm3 (4.4-11.0)
[2025-09-01 11:09] LABS: AST(SGOT) 25 U/L (<=31); Alanine Aminotransfer ALT/SGPT 15 U/L (<=34); Albumin, Serum 4.2 g/dL (3.4-4.8); Alkaline Phosphatase 55 U/L (35-104); Anion Gap 9 (5-15); BUN 41 mg/dL (4-19); BUN/Creat Ratio 24.6 RATIO (10-20); Bilirubin, Direct 0.24 mg/dL (0.00-0.30); Calcium,Total 9.9 mg/dL (7.6-11.0); Carbon Dioxide 20.6 mmol/L (21.0-32.0); Chloride 108 mmol/L (98-108); Globulin 2.3 g/dL (2.2-4.2); Glucose 105 mg/dL (70-99); Potassium 5.0 mmol/L (3.3-5.1)
[2025-09-01 18:40] LABS: Xtra CC BBK (Onc ONLY) EXTRA TUBE; Xtra Tube EP Lab EXTRA TUBE
== END 2025-09-01 23:59 | disposition home or self-care (01) ==
LOC: MEDOUTP 10:27
PROVIDERS: PCP Internal Medicine; Referring Provider Nurse Practitioner Family; Visit Provider Nurse Practitioner Family
DX: D64.9 Anemia, unspecified (principal); I50.9 Heart failure, unspecified
CPT/HCPCS: 36415; 80053; 80158; 82248; 85025

== ENCOUNTER 2025-09-08 10:32 | Outpatient (CLI) | payer OTHER, SELFPAY ==
[2025-09-08 10:51] LABS: Hematocrit 26.8 % (37-47); Hemoglobin 8.8 g/dL (12.0-15.0); Immature Granulocytes Count 0.020 X10^3/uL (0.0-0.0); Mean Corp Hgb Conc 32.8 g/dL (32-36); Mean Corpuscular Volume 112.6 fL (81-99); Mean Platelet Vol. 9.7 fl (6.2-12.0); NRBC Flagged by Analyzer 0 % (0-5); Platelet Count 104 K/mm3 (150-450); RBC Distribution Width CV 12.6 % (11.6-14.6); RBC Distribution Width SD 51.8 fl (35.1-43.9); Red Blood Count 2.38 M/mm3 (4.2-5.4); White Blood Count 3.7 K/mm3 (4.4-11.0)
[2025-09-08 11:24] LABS: AST(SGOT) 26 U/L (<=31); Alanine Aminotransfer ALT/SGPT 18 U/L (<=34); Albumin, Serum 4.0 g/dL (3.4-4.8); Alkaline Phosphatase 47 U/L (35-104); Anion Gap 10 (5-15); BUN 49 mg/dL (4-19); BUN/Creat Ratio 24.9 RATIO (10-20); Bilirubin, Direct 0.24 mg/dL (0.00-0.30); Calcium,Total 9.7 mg/dL (7.6-11.0); Carbon Dioxide 20.6 mmol/L (21.0-32.0); Chloride 108 mmol/L (98-108); Globulin 2.2 g/dL (2.2-4.2); Glucose 92 mg/dL (70-99); Potassium 4.8 mmol/L (3.3-5.1)
[2025-09-08 18:46] LABS: Xtra CC BBK (Onc ONLY) EXTRA TUBE; Xtra Tube EP Lab EXTRA TUBE
== END 2025-09-08 23:59 | disposition home or self-care (01) ==
LOC: MEDOUTP 10:32
PROVIDERS: PCP Internal Medicine; Referring Provider Nurse Practitioner Family; Visit Provider Nurse Practitioner Family
DX: D61.3 Idiopathic aplastic anemia (principal)
CPT/HCPCS: 36415; 80053; 80158; 82248; 85025

== ENCOUNTER 2025-09-22 10:26 | Outpatient (CLI) | payer OTHER, SELFPAY ==
[2025-09-22 10:53] LABS: Hematocrit 28.4 % (37-47); Hemoglobin 9.6 g/dL (12.0-15.0); Immature Granulocytes Count 0.020 X10^3/uL (0.0-0.0); Mean Corp Hgb Conc 33.8 g/dL (32-36); Mean Corpuscular Volume 112.7 fL (81-99); Mean Platelet Vol. 9.7 fl (6.2-12.0); NRBC Flagged by Analyzer 0 % (0-5); Platelet Count 139 K/mm3 (150-450); RBC Distribution Width CV 12.6 % (11.6-14.6); RBC Distribution Width SD 51.4 fl (35.1-43.9); Red Blood Count 2.52 M/mm3 (4.2-5.4); White Blood Count 4.6 K/mm3 (4.4-11.0)
[2025-09-22 11:37] LABS: AST(SGOT) 24 U/L (<=31); Alanine Aminotransfer ALT/SGPT 18 U/L (<=34); Albumin, Serum 4.3 g/dL (3.4-4.8); Alkaline Phosphatase 59 U/L (35-104); Anion Gap 12 (5-15); BUN 41 mg/dL (4-19); BUN/Creat Ratio 26.5 RATIO (10-20); Bilirubin, Direct 0.16 mg/dL (0.00-0.30); Calcium,Total 9.8 mg/dL (7.6-11.0); Carbon Dioxide 21.3 mmol/L (21.0-32.0); Chloride 107 mmol/L (98-108); Globulin 2.4 g/dL (2.2-4.2); Glucose 128 mg/dL (70-99); Potassium 4.8 mmol/L (3.3-5.1)
[2025-09-22 18:44] LABS: Xtra CC BBK (Onc ONLY) EXTRA TUBE; Xtra Tube EP Lab EXTRA TUBE
== END 2025-09-22 23:59 | disposition home or self-care (01) ==
LOC: MEDOUTP 10:27
PROVIDERS: PCP Internal Medicine; Referring Provider Nurse Practitioner Family; Visit Provider Nurse Practitioner Family
DX: D61.3 Idiopathic aplastic anemia (principal)
CPT/HCPCS: 36415; 80053; 80158; 82248; 85025

== ENCOUNTER 2025-09-22 15:19 | Emergency (ER) | payer OTHER, SELFPAY ==
[2025-09-22 15:23] VITALS: BP 149/73; PULSE 102; RESP 18; TEMP 36.2; O2SAT 100; BMI 18.5
--- NOTE | 2025-09-22 15:51 | EKG12_ITS ---
Test Reason : Blood Pressure : */* mmHG Vent. Rate : 86 BPM Atrial Rate : 86 BPM P-R Int : 182 ms QRS Dur : 86 ms QT Int : 410 ms P-R-T Axes : 78 61 59 degrees QTcB Int : 490 ms Normal sinus rhythm Prolonged QT Abnormal ECG Confirmed by Sj De La Rosa ([id number]), visual effects editor RACHEL RENTERIA ([id number]) on 09/24/2025 11:34:04 AM Referred By: Confirmed By: Sj De La Rosa
--- NOTE | 2025-09-22 15:53 | EDS_ITS ---
HPI History of Present Illness Chief Complaint: Palpitations Narrative Narrative: Patient is a 64-year-old female presenting to the emergency department for palpitations. Patient has a past medical history of aplastic anemia which she sees a document processing specialist at [facility] for. 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 Patient states that on Monday she saw her document processing specialist and was started on nifedipine for HTN. She has been on cyclosporine for about a year and she states it caused HTN and thus is the reason for being started on the blood pressure medication on Monday. States that her first dose was on and Monday morning she felt out of it, lightheaded and had brain fog. States that her checked her blood pressure and her systolics were in the 80s. She states that over the weekend her symptoms did improve. States that she is now having palpitations. She describes it as her heart pounding. States that she is short of breath with any type of activity. The palpitations and shortness of breath improves with rest. Endorses very mild bilateral lower extremity edema mainly in her feet. She denies fever, chills, cough, congestion, sore throat. Denies any abdominal pain, nausea and vomiting. Denies any history of DVT or PE. Denies any recent travel, hospitalizations or surgeries. Denies any hormone use. Denies any cardiac history. Denies any alcohol or drug use. Denies any other new medications. [facility] Medical History Vaginal dryness Lymphoma Liver lesion Fatigue Adnexal fullness EGD WITH BIOPSY Migraine Mesenteric mass Constipation Cardiac murmur Home Medications ?Medication ?Instructions ?Recorded ?Last Taken ?Type sumatriptan succinate 50 mg tablet 50 mg PO ONCE PRN m igraine headache 03/09/18 Unknown History (Imitrex) cranberry fruit 400 mg tablet 400 mg PO DAILY 08/04/23 Unknown History d-mannose 500 mg capsule (AZO 500 mg PO DAILY 08/04/23 Unknown History D-Mannose) Held on 01/10/25. Instructions: per patient ibuprofen 200 mg capsule 200 mg PO Q6H PRN pain 08/04 Unknown History magnesium 200 mg tablet 200 mg PO DAILY 08/04/23 Unk nown History tramadol 50 mg tablet 50 mg PO Q6H PRN pain 5 days #20 09/29/24 Unknown Rx tabs acyclovir 800 mg tablet 800 mg PO DAILY 03/14/2506/09 History cyclosporine 100 mg capsule 100 mg PO QHS 03/14/2506/09 History cyclosporine modified 25 mg capsule 75 mg PO DAILY Unknown History eltrombopag olamine 75 mg tablet 150 mg PO QHS 5 Unknown History (Promacta) fluconazole 200 mg tablet 200 mg PO DAILY 03/14/25 Unk nown History copper gluconate 2 mg PO DAILY 04/09/2509/22 History folic acid 5 tab PO DAILY 04/09/2506/09 History mecobalamin (vitamin B12) PO DAILY 04/09/25 Unknown Hi story cyanocobalamin (vitamin B-12) 1,000 mcg PO DAILY 09/2209/22/25 History 1,000 mcg tablet folic acid 1 mg tablet 5 mg PO DAILY 09/22/25 Unkno wn History nifedipine 30 mg tablet,extended 30 mg PO DAILY Unknown History release 24 hr topiramate 25 mg tablet 25 mg PO DAILY 09/22/25 Unkn own History Allergy/AdvReac Type Severity Reaction Status Date / Time Egg Derived Allergy Food Verified 09/22/25 15: Allergy Family History Mother Diabetes Kidney disease Grandmother Breast cancer Cancer Grandfather Cancer Surgical History History of hernia repair History of esophagogastroduodenoscopy (EGD) History of resection of small bowel Social History Smoking Status: Never smoker alcohol intake: current details: occasionally substance use type: does not use caffeine: Yes what type of physical activity do you participate in: walking and swimming frequency: 1-2 times per week seatbelt use: always do you feel safe at home: Yes additional social history: -[place] Patient is a paraprofessional at [employer] ROS ROS ED ROS Narrative see HPI EXAM Physical Exam Narrative Exam Narrative: Vital signs: Reviewed General: Alert and orientedx3. No acute distress. Well appearing, no acute distress. HEENT: Head is normocephalic and atraumatic, sinuses nontender, pupils equal round and reactive. Nares are patent. Oropharynx and throat exams normal. Neck: Supple without lymphadenopathy nontender Cardiovascular: Regular rate and rhythm, no murmurs. No rubs or gallops. Normal S1 and S2 Respiratory: Clear to auscultation bilaterally. No wheezes, rales, rhonchi Abdominal: Soft and nontender. Normal bowel sounds. No guarding or rebound. Nonsurgical abdomen Extremities: Scant bilateral foot swelling. No calf swelling or tenderness to palpation. No bruising. Normal range of motion. Normal sensation. Skin: No rash or redness. The rest of the physical exam is unremarkable Const Vital Signs: 09/22/25 15:23 Temperature 97.1 F L Temperature Source Temporal Pulse Rate 102 H Respiratory Rate 18 Blood Pressure 149/73 H Blood Pressure Mean 98 Pulse Ox 100 Oxygen Delivery Method Room Air MDM MDM MDM Narrative Medical decision making narrative: Patient is a 64-year-old female presenting to the emergency department for pounding heart palpitations and shortness of breath. Patient was seen and examined. Vitals are stable. Patient is very mildly tachycardic at 102, respirations of 18 and saturating 100% on room air. Stable blood pressure 149/73. She is afebrile. No acute distress. Differential includes but is not limited to: ACS, CHF, electrolyte abnormality, less likely PE History & Record Review Discussion w/independent historian: Patient Discharge Plan Triage Chief Complaint: Palpitations ED Provider: Leda Combs Dx/Rx/DC Orders Prescriptions: No Action sumatriptan succinate [Imitrex] 50 mg tablet 50 mg PO ONCE PRN (Reason: migraine headache) ibuprofen 200 mg capsule 200 mg PO Q6H PRN (Reason: pain) magnesium 200 mg tablet 200 mg PO DAILY cranberry fruit 400 mg tablet 400 mg PO DAILY Rx Instructions: administer with a meal AZO D-Mannose 500 mg capsule 500 mg PO DAILY eltrombopag olamine [Promacta] 75 mg tablet 150 mg PO QHS cyclosporine modified 25 mg capsule 75 mg PO DAILY cyclosporine 100 mg capsule 100 mg PO QHS fluconazole 200 mg tablet 200 mg PO DAILY acyclovir 800 mg tablet 800 mg PO DAILY mecobalamin (vitamin B12) PO DAILY copper gluconate 2 mg PO DAILY folic acid 5 tab PO DAILY nifedipine 30 mg tablet extended release 24hr 30 mg PO DAILY cyanocobalamin (vitamin B-12) 1,000 mcg tablet 1,000 mcg PO DAILY topiramate 25 mg tablet 25 mg PO DAILY folic acid 1 mg tablet 5 mg PO DAILY tramadol 50 mg tablet 50 mg PO Q6H PRN (Reason: pain) 5 Days Qty: 20 0RF Primary Care Provider: Nohemi Maynard Referrals: Nohemi Maynard DO [Primary Care Provider, Internal Medicine] Print Language: Mongolian
--- NOTE | 2025-09-22 15:53 | EX.ED.DYSGE1 ---
HPI History of Present Illness Chief Complaint: Palpitations Narrative Narrative: Patient is a 64-year-old female presenting to the emergency department for palpitations. Patient has a past medical history of aplastic anemia which she sees a body design checker at [facility] for. 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 Patient states that on Monday she saw her body design checker and was started on nifedipine for HTN. She has been on cyclosporine for about a year and she states it caused HTN and thus is the reason for being started on the blood pressure medication on Monday. States that her first dose was on and Monday morning she felt out of it, lightheaded and had brain fog. States that her checked her blood pressure and her systolics were in the 80s. She states that over the weekend her symptoms did improve. States that she is now having palpitations. She describes it as her heart pounding. States that she is short of breath with any type of activity. The palpitations and shortness of breath improves with rest. Endorses very mild bilateral lower extremity edema mainly in her feet. She denies fever, chills, cough, congestion, sore throat. Denies any abdominal pain, nausea and vomiting. Denies any history of DVT or PE. Denies any recent travel, hospitalizations or surgeries. Denies any hormone use. Denies any cardiac history. Denies any alcohol or drug use. Denies any other new medications. [facility] Medical History Vaginal dryness Lymphoma Liver lesion Fatigue Adnexal fullness EGD WITH BIOPSY Migraine Mesenteric mass Constipation Cardiac murmur Home Medications ?Medication ?Instructions ?Recorded ?Last Taken ?Type sumatriptan succinate 50 mg tablet 50 mg PO ONCE PRN migraine headache 03/09/18 Unknown History (Imitrex) cyclosporine modified 25 mg capsule 75 mg PO QPM 03/14/25 09/21/25 History copper gluconate 2 mg PO DAILY 04/09/25 09/22/25 History folic acid 5 tab PO DAILY 04/09/25 09/22/25 History cyanocobalamin (vitamin B-12) 1,000 mcg PO DAILY 09/22/25 09/22/25 History 1,000 mcg tablet cyclosporine 25 mg capsule 50 mg PO DAILY 09/22/25 09/22/25 History folic acid 1 mg tablet 5 mg PO DAILY 09/22/25 09/22/25 History nifedipine 30 mg tablet,extended 30 mg PO DAILY 09/22/25 09/22/25 History release 24 hr topiramate 25 mg tablet 25 mg PO DAILY 09/22/25 Unknown History Allergy/AdvReac Type Severity Reaction Status Date / Time Egg Derived Allergy Food Verified 09/22/25 15:25 Allergy Family History Mother Diabetes Kidney disease Grandmother Breast cancer Cancer Grandfather Cancer Surgical History History of hernia repair History of esophagogastroduodenoscopy (EGD) History of resection of small bowel Social History Smoking Status: Never smoker alcohol intake: current details: occasionally substance use type: does not use caffeine: Yes what type of physical activity do you participate in: walking and swimming frequency: 1-2 times per week seatbelt use: always do you feel safe at home: Yes additional social history: -[place] Patient is a paraprofessional at [employer] ROS ED ROS Narrative see HPI EXAM Physical Exam Narrative Exam Narrative: Vital signs: Reviewed General: Alert and orientedx3. No acute distress. Well appearing, no acute distress. HEENT: Head is normocephalic and atraumatic, sinuses nontender, pupils equal round and reactive. Nares are patent. Oropharynx and throat exams normal. Neck: Supple without lymphadenopathy nontender Cardiovascular: Regular rate and rhythm, no murmurs. No rubs or gallops. Normal S1 and S2 Respiratory: Clear to auscultation bilaterally. No wheezes, rales, rhonchi Abdominal: Soft and nontender. Normal bowel sounds. No guarding or rebound. Nonsurgical abdomen Extremities: Scant bilateral foot swelling. No calf swelling or tenderness to palpation. No bruising. Normal range of motion. Normal sensation. Skin: No rash or redness. The rest of the physical exam is unremarkable Const Vital Signs: 09/22/25 15:23 09/22/25 16:22 09/22/25 18:05 Temperature 97.1 F L Temperature Source Temporal Pulse Rate 102 H 91 Pulse Rate [Lying] 87 Pulse Rate [Sitting (for 1 minute prior to obtaining)] 92 Pulse Rate [Standing (for 1 minute prior to obtaining)] 95 Respiratory Rate 18 19 H Blood Pressure 149/73 H Blood Pressure [Lying] 119/72 Blood Pressure [Sitting (for 1 minute prior to obtaining)] 132/77 H Blood Pressure [Standing (for 1 minute prior to obtaining)] 127/77 H Blood Pressure Mean 98 Blood Pressure Mean [Lying] 87 Blood Pressure Mean [Sitting (for 1 minute prior to obtaining)] 95 Blood Pressure Mean [Standing (for 1 minute prior to obtaining)] 93 Pulse Ox 100 100 Oxygen Delivery Method Room Air 09/22/25 18:15 09/22/25 18:30 09/22/25 19:50 Temperature 98 F Temperature Source Pulse Rate 91 92 91 Pulse Rate [Lying] Pulse Rate [Sitting (for 1 minute prior to obtaining)] Pulse Rate [Standing (for 1 minute prior to obtaining)] Respiratory Rate 15 21 H 20 H Blood Pressure 139/77 H 131/84 H Blood Pressure [Lying] Blood Pressure [Sitting (for 1 minute prior to obtaining)] Blood Pressure [Standing (for 1 minute prior to obtaining)] Blood Pressure Mean 94 99 Blood Pressure Mean [Lying] Blood Pressure Mean [Sitting (for 1 minute prior to obtaining)] Blood Pressure Mean [Standing (for 1 minute prior to obtaining)] Pulse Ox 100 100 100 Oxygen Delivery Method MDM MDM MDM Narrative Medical decision making narrative: Patient is a 64-year-old female presenting to the emergency department for pounding heart palpitations and shortness of breath. Patient was seen and examined. Vitals are stable. Patient is very mildly tachycardic at 102, respirations of 18 and saturating 100% on room air. Stable blood pressure 149/73. She is afebrile. No acute distress. Differential includes but is not limited to: ACS, cardiac dysrhythmia, CHF, electrolyte abnormality, UTI, URI, less likely PE CBC with no leukocytosis and chronic anemia of 9.6. BMP with stable kidney function, unchanged/slightly improved from 08/2425. BNP within normal limits. Initial troponin at 47, no baseline to compare to but would expect this elevation given her kidney dysfunction. Repeat downtrending at 41. D-dimer is elevated however negative for her age related cutoff. Urinalysis with no evidence of urinary tract infection. TSH within normal limits. Magnesium within normal limits. Refused viral swab. EKG shows normal sinus rhythm at a rate of 86 with no ischemic changes, no dysrhythmia. Prolonged QTc at 490. Chest x-ray reviewed by myself and shows no opacities, pneumothorax or wide mediastinum. Radiology read in agreement. Patient reevaluated after fluid bolus and heart rate is now in the low 90s. I updated her on the negative workup. I think her symptoms of initial lightheadedness and brain fog were likely due to her new antihypertensive. She had a negative workup related to her palpitations. I recommended that she call her body design checker and further discuss antihypertensives if she is on this medication for another week and she still having symptoms. Patient agreeable with the plan. All questions answered. Patient discharged from the Emergency Department. I do not feel that the patient's evaluation reveals any acute reason for admission at this time. I instructed them to either follow-up with their primary care physician or promptly return to the Emergency Department for reevaluation should symptoms worsen or new symptoms develop. I explained what symptoms would indicate the need to return to the emergency department. Shared decision making was used. The patient voiced understanding of the treatment plan and is agreeable with it. Clinical impression Palpitations Chronic anemia Elevated troponin History & Record Review Discussion w/independent historian: Patient Additional record(s) reviewed:: Prior labs Lab Data Attestation: I reviewed the patient's lab results. Labs: Laboratory Results - last 24 hr 09/22/25 09/22/25 09/22/25 16:05 16:10 18:00 WBC 5.5 RBC 2.53 L Hgb 9.6 L Hct 27.8 L MCV 109.9 H MCH 37.9 H MCHC 34.5 RDW Std Deviation 49.7 H RDW Coeff of Shawna 12.4 Plt Count 159 MPV 10.4 Immature Gran % (Auto) 0.400 Neut % (Auto) 64.8 Lymph % (Auto) 19.3 [place] % (Auto) 13.5 H Eos % (Auto) 1.5 Baso % (Auto) 0.5 Absolute Neuts (auto) 3.6 Absolute Lymphs (auto) 1.06 Nucleated RBC % 0 D-Dimer Quant (PE/DVT) 0.65 H* Sodium 140 Potassium 4.7 Chloride 106 Carbon Dioxide 20.6 L Anion Gap 13 BUN 40 H Creatinine 1.32 H Estim Creat Clear Calc 31.43 L Est GFR (MDRD) Non-Af 45 L BUN/Creatinine Ratio 30.2 H Glucose 120 H Calcium 9.6 Magnesium 2.0 Troponin T High Sens 47 H Troponin T Hi Sens 2 Hr 41 H NT pro BNP II 709 TSH 2.510 Urine Color Straw Urine Clarity Clear Urine pH 6.0 Ur Specific [place] 1.010 Urine Protein 30 H Urine Glucose (UA) Normal Urine Ketones Negative Urine Occult Blood 50 H Urine Nitrite Negative Urine Bilirubin Negative Urine Urobilinogen Normal Ur Leukocyte Esterase Negative Urine RBC 5-10 SEEN Urine WBC 0 SEEN Ur Squamous Epith Cells 0 SEEN Urine Bacteria RARE Hyaline Casts 0-5 SEEN Urine Mucus 0 SEEN Radiography Chest X-Ray - ED: 2 View, Read by ED Physician, Normal, No Acute Disease and No Infiltrates Diagnostic Testing: Clinical Impression(s) from Imaging Studies Chest X-Ray 09/22/25 18:40 IMPRESSION: No acute cardiopulmonary disease. Reading Location: [id number] Discharge Plan Triage Chief Complaint: Palpitations ED Provider: Leda Combs Dx/Rx/DC Orders Clinical Impression: Heart palpitations Instructions: ED Heart Palpitations Prescriptions: No Action sumatriptan succinate [Imitrex] 50 mg tablet 50 mg PO ONCE PRN (Reason: migraine headache) cyclosporine modified 25 mg capsule 75 mg PO QPM Rx Instructions: orally every evening; copper gluconate 2 mg PO DAILY folic acid 5 tab PO DAILY nifedipine 30 mg tablet extended release 24hr 30 mg PO DAILY cyanocobalamin (vitamin B-12) 1,000 mcg tablet 1,000 mcg PO DAILY topiramate 25 mg tablet 25 mg PO DAILY folic acid 1 mg tablet 5 mg PO DAILY cyclosporine 25 mg capsule 50 mg PO DAILY Patient Comments: in addition to 3 in the evening Stand Alone Forms: ED Work / School Excuse Primary Care Provider: Nohemi Maynard Referrals: Nohemi Maynard DO [Primary Care Provider, Internal Medicine] - As soon as possible Activity Restrictions/Additional Instructions: Drink lots of fluids. Call your provider at [facility] later in the week to update them on your visit. Your evaluation in the Emergency Department did not reveal any acute reason for admission. However, I want to emphasize that you may be early in the course of a disease process or illness even if it is not present. For this reason you should follow-up within 24 hours for reevaluation with either your primary care physician or if necessary back here in the Emergency Department. You should return to the Emergency Department immediately if your symptoms worsen or new symptoms develop. Print Language: Frisian Disposition Disposition: Home, Self Care Discharge Date/Time: 09/22/25 20:01
[2025-09-22 16:11] LABS: Mucous, Urine 0 SEEN /hpf (<or=2+); Squamous Epithelial Cells - UA 0 SEEN /hpf (5-10)
[2025-09-22 16:17] LABS: Color, Urine Straw (Yellow); Glucose, Dipstick Normal (Normal); Ketone-Dipstick Negative (Negative); Leukocyte Esterase-Dipstick Negative /ul (Negative); Nitrite-Dipstick Negative (Negative); Occult Blood-Urine 50 /ul (Negative); Protein-Dipstick 30 mg/dl (Negative); Specific Gravity, Urine 1.010 (1.002-1.030); Urine Bilirubin Dipstick Negative (Negative)
[2025-09-22] MEDS: 0.9% Normal Saline (1000mL) 1,000 ML 1000 ML IV (16:18)
[2025-09-22 16:22] VITALS: BP 119/72; BP 127/77; BP 132/77; PULSE 87; PULSE 92; PULSE 95
[2025-09-22 16:22] LABS: Hematocrit 27.8 % (37-47); Hemoglobin 9.6 g/dL (12.0-15.0); Immature Granulocytes Count 0.020 X10^3/uL (0.0-0.0); Mean Corp Hgb Conc 34.5 g/dL (32-36); Mean Corpuscular Volume 109.9 fL (81-99); Mean Platelet Vol. 10.4 fl (6.2-12.0); NRBC Flagged by Analyzer 0 % (0-5); Platelet Count 159 K/mm3 (150-450); RBC Distribution Width CV 12.4 % (11.6-14.6); RBC Distribution Width SD 49.7 fl (35.1-43.9); Red Blood Count 2.53 M/mm3 (4.2-5.4); White Blood Count 5.5 K/mm3 (4.4-11.0)
[2025-09-22 16:30] LABS: Anion Gap 13 (5-15); BUN 40 mg/dL (4-19); BUN/Creat Ratio 30.2 RATIO (10-20); Calcium,Total 9.6 mg/dL (7.6-11.0); Carbon Dioxide 20.6 mmol/L (21.0-32.0); Chloride 106 mmol/L (98-108); Estimated Creatinine Clearance 31.43 ml/min (50-250); Glucose 120 mg/dL (70-99); Potassium 4.7 mmol/L (3.3-5.1); Pro- Brain NATRIURETIC PEPTIDE 709 pg/mL (<=900)
[2025-09-22 16:54] LABS: Magnesium 2.0 mg/dL (1.5-2.2); Troponin T High Sensitivity 47 ng/L (<=14)
[2025-09-22 16:59] LABS: D-Dimer Quantitative (DVT/PE) 0.65 FEU/ug/m (0.27-0.49)
[2025-09-22 17:07] LABS: Red Blood Cells-Urine 5-10 SEEN /hpf (0-5)
[2025-09-22 18:05] VITALS: PULSE 91; RESP 19; O2SAT 100
[2025-09-22 18:15] VITALS: PULSE 91; RESP 15; O2SAT 100
[2025-09-22 18:30] VITALS: BP 139/77; PULSE 92; RESP 21; O2SAT 100
--- NOTE | 2025-09-22 18:40 | RAD_ITS ---
PROCEDURE: CHEST PA AND LATERAL 09/22/2025 REASON FOR EXAM: PALPITATIONS TECHNIQUE: Procedure Code: RADCXR Modality: DX Procedure: CHEST PA AND LATERAL COMPARISON: 07/08/2021 FINDINGS: Lungs/Pleura: Clear. Heart/Mediastinum: Normal in size. Bones/Soft tissues: Mild degenerative changes of the spine. RAD/Chest PA and Lateral IMPRESSION: No acute cardiopulmonary disease. Reading Location: [id number]
[2025-09-22 18:41] LABS: Troponin T High Sens 2 HR 41 ng/L (<=14)
[2025-09-22 19:50] VITALS: BP 131/84; PULSE 91; RESP 20; TEMP 36.6; O2SAT 100
== END 2025-09-22 20:01 | disposition home or self-care (01) ==
PROVIDERS: Emergency Provider Student in an Organized Health Care Education/Training Program; PCP Internal Medicine; Visit Provider Student in an Organized Health Care Education/Training Program
DX: R00.2 Palpitations (principal); R06.02 Shortness of breath; I10 Essential (primary) hypertension; D64.9 Anemia, unspecified; R79.89 Other specified abnormal findings of blood chemistry
CPT/HCPCS: 71046; 80048; 81001; 83735; 83880; 84443; 84484; 85025; 85379; 93005; 96360; 99285; A4216

== ENCOUNTER 2025-09-29 10:17 | Outpatient (CLI) | payer OTHER, SELFPAY ==
[2025-09-29 10:32] LABS: Hematocrit 26.0 % (37-47); Hemoglobin 8.5 g/dL (12.0-15.0); Immature Granulocytes Count 0.010 X10^3/uL (0.0-0.0); Mean Corp Hgb Conc 32.7 g/dL (32-36); Mean Corpuscular Volume 114.0 fL (81-99); Mean Platelet Vol. 10.0 fl (6.2-12.0); NRBC Flagged by Analyzer 0 % (0-5); POSITIVE DIFFERENTIAL YES; Platelet Count 114 K/mm3 (150-450); RBC Distribution Width CV 12.2 % (11.6-14.6); RBC Distribution Width SD 50.4 fl (35.1-43.9); Red Blood Count 2.28 M/mm3 (4.2-5.4); White Blood Count 3.2 K/mm3 (4.4-11.0)
[2025-09-29 11:14] LABS: AST(SGOT) 24 U/L (<=31); Alanine Aminotransfer ALT/SGPT 32 U/L (<=34); Albumin, Serum 4.0 g/dL (3.4-4.8); Alkaline Phosphatase 57 U/L (35-104); Anion Gap 7 (5-15); BUN 27 mg/dL (4-19); BUN/Creat Ratio 17.5 RATIO (10-20); Bilirubin, Direct 0.13 mg/dL (0.00-0.30); Calcium,Total 9.4 mg/dL (7.6-11.0); Carbon Dioxide 23.2 mmol/L (21.0-32.0); Chloride 109 mmol/L (98-108); Globulin 1.9 g/dL (2.2-4.2); Glucose 76 mg/dL (70-99); Potassium 4.3 mmol/L (3.3-5.1)
[2025-09-29 18:29] LABS: Xtra CC BBK (Onc ONLY) EXTRA TUBE; Xtra Tube EP Lab EXTRA TUBE
== END 2025-09-29 23:59 | disposition home or self-care (01) ==
LOC: MEDOUTP 10:17
PROVIDERS: PCP Internal Medicine; Referring Provider Nurse Practitioner Family; Visit Provider Nurse Practitioner Family
DX: D61.3 Idiopathic aplastic anemia (principal)
CPT/HCPCS: 36415; 80053; 80158; 82248; 85025

== ENCOUNTER 2025-10-06 10:16 | Outpatient (CLI) | payer OTHER, SELFPAY ==
[2025-10-06 10:43] LABS: Hematocrit 25.6 % (37-47); Hemoglobin 8.3 g/dL (12.0-15.0); Immature Granulocytes Count 0.000 X10^3/uL (0.0-0.0); Mean Corp Hgb Conc 32.4 g/dL (32-36); Mean Corpuscular Volume 113.3 fL (81-99); Mean Platelet Vol. 10.4 fl (6.2-12.0); NRBC Flagged by Analyzer 0 % (0-5); Platelet Count 132 K/mm3 (150-450); RBC Distribution Width CV 12.1 % (11.6-14.6); RBC Distribution Width SD 50.3 fl (35.1-43.9); Red Blood Count 2.26 M/mm3 (4.2-5.4); White Blood Count 3.0 K/mm3 (4.4-11.0)
[2025-10-06 10:57] LABS: AST(SGOT) 21 U/L (<=31); Alanine Aminotransfer ALT/SGPT 28 U/L (<=34); Albumin, Serum 4.2 g/dL (3.4-4.8); Alkaline Phosphatase 54 U/L (35-104); Anion Gap 7 (5-15); BUN 22 mg/dL (4-19); BUN/Creat Ratio 17.3 RATIO (10-20); Bilirubin, Direct 0.14 mg/dL (0.00-0.30); Calcium,Total 9.5 mg/dL (7.6-11.0); Carbon Dioxide 24.9 mmol/L (21.0-32.0); Chloride 108 mmol/L (98-108); Globulin 2.2 g/dL (2.2-4.2); Glucose 97 mg/dL (70-99); Potassium 4.7 mmol/L (3.3-5.1)
[2025-10-06 18:26] LABS: Xtra CC BBK (Onc ONLY) EXTRA TUBE; Xtra Tube EP Lab EXTRA TUBE
== END 2025-10-06 23:59 | disposition home or self-care (01) ==
LOC: MEDOUTP 10:16
PROVIDERS: PCP Internal Medicine; Referring Provider Nurse Practitioner Family; Visit Provider Nurse Practitioner Family
DX: D61.3 Idiopathic aplastic anemia (principal)
CPT/HCPCS: 36415; 80053; 80158; 82248; 85025

== ENCOUNTER → 2025-10-07 | Outpatient (CLI) | payer OTHER, SELFPAY | END | disposition home or self-care (01) | LOC: PSN 12:34 | PROVIDERS: PCP Internal Medicine; Referring Provider Internal Medicine; Visit Provider Internal Medicine | DX: R00.2 Palpitations (principal) | CPT/HCPCS: 93225; 93226 ==

== ENCOUNTER 2025-10-13 10:23 | Outpatient (CLI) | payer OTHER, SELFPAY ==
[2025-10-13 10:45] LABS: Hematocrit 26.8 % (37-47); Hemoglobin 8.9 g/dL (12.0-15.0); Immature Granulocytes Count 0.010 X10^3/uL (0.0-0.0); Mean Corp Hgb Conc 33.2 g/dL (32-36); Mean Corpuscular Volume 112.6 fL (81-99); Mean Platelet Vol. 10.0 fl (6.2-12.0); NRBC Flagged by Analyzer 0 % (0-5); Platelet Count 150 K/mm3 (150-450); RBC Distribution Width CV 12.1 % (11.6-14.6); RBC Distribution Width SD 48.9 fl (35.1-43.9); Red Blood Count 2.38 M/mm3 (4.2-5.4); White Blood Count 3.5 K/mm3 (4.4-11.0)
[2025-10-13 11:11] LABS: AST(SGOT) 21 U/L (<=31); Alanine Aminotransfer ALT/SGPT 24 U/L (<=34); Albumin, Serum 4.1 g/dL (3.4-4.8); Alkaline Phosphatase 58 U/L (35-104); Anion Gap 8 (7-18); BUN 25 mg/dL (4-19); BUN/Creat Ratio 18.6 RATIO (10-20); Bilirubin, Direct 0.17 mg/dL (0.00-0.30); Calcium,Total 9.3 mg/dL (7.6-11.0); Carbon Dioxide 24.3 mmol/L (20.0-29.0); Chloride 105 mmol/L (96-106); Globulin 2.1 g/dL (2.2-4.2); Glucose 89 mg/dL (70-99); Potassium 4.7 mmol/L (3.5-5.1)
[2025-10-13 18:36] LABS: Xtra CC BBK (Onc ONLY) EXTRA TUBE; Xtra Tube EP Lab EXTRA TUBE
== END 2025-10-13 23:59 | disposition home or self-care (01) ==
LOC: MEDOUTP 10:23
PROVIDERS: PCP Internal Medicine; Referring Provider Nurse Practitioner Family; Visit Provider Nurse Practitioner Family
DX: D61.3 Idiopathic aplastic anemia (principal)
CPT/HCPCS: 36415; 80053; 80158; 82248; 85025